=== PATIENT | female | born 1960 | race Hispanic/Latino ===

== ENCOUNTER 2018-05-05 11:34 | Emergency (ER) | payer BC, OTHER, SELFPAY ==
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
[2018-05-05] MEDS ORDERED: ACETAMINOPHEN 500 MG TAB ONE ×2 (13:34→13:35)
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
[2018-05-05] MEDS ORDERED: ONDANSETRON 4 MG (ODT) TAB ONE (13:35)
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
== END 2018-05-05 13:45 | disposition home or self-care (01) ==
LOC: ER 11:34
DX: R51 Headache (principal); M54.2 Cervicalgia; W20.8XXA Other cause of strike by thrown, projected or falling object, initial encounter; Y93.9 Activity, unspecified
CPT/HCPCS: 70450; 72125; 99284

== ENCOUNTER 2019-05-05 15:51 | Emergency (ER) | payer OTHER, SELFPAY ==
--- NOTE | 2019-05-05 16:58 | ER ---
Nurse's Notes [facility] Name: Vaishali Macias Age: 59 yrs Sex: Female : 1960 Arrival Date: 05/05/2019 Time: 15:55 Bed 25 Private MD: Diagnosis: Pain in left forearm;Avulsion fracture of head of left humerus Presentation: 05/05 16:00 Presenting complaint: Patient states: "I tripped and my arm got caught in a ladder so I aa5 hurt my left arm last Friday". Pt c/o left arm pain. Pt states "[facility] they don't have the x-ray results yet and they sent me here because of my pain". Transition of care: patient was not received from another setting of care. Onset of symptoms was April 2019. Risk Assessment: Do you want to hurt yourself or someone else? Patient reports no desire to harm self or others. Initial Sepsis Screen: Does the patient meet any 2 criteria? No. Patient's initial sepsis screen is negative. Does the patient have a suspected source of infection? No. Patient's initial sepsis screen is negative. Care prior to arrival: None. 16:00 Acuity: GRACIELA 4 aa5 16:00 Method Of Arrival: Ambulatory aa5 Historical: - Allergies: 16:02 Aspirin; aa5 16:02 PENICILLINS; aa5 - PMHx: 16:02 Diabetes - NIDDM; High Cholesterol; neuropathy; Thyroid problem; aa5 - PSHx: 16:02 ; Hysterectomy; aa5 - Immunization history:: Flu vaccine is not up to date. - Social history:: Smoking status: Patient/guardian denies using tobacco. - Ebola Screening: : No symptoms or risks identified at this time. Screenin:25 Abuse screen: Denies threats or abuse. Denies injuries from another. Nutritional mg2 screening: No deficits noted. Tuberculosis screening: No symptoms or risk factors identified. Fall Risk Fall in past 12 months (25 points). Assessment: 17:11 General: Appears in no apparent distress. comfortable, Behavior is calm, cooperative. mg2 Pain: Complains of pain in left forearm Pain does not radiate. Pain currently is 5 out of 10 on a pain scale. Quality of pain is described as aching, Pain began gradually. Neuro: Level of Consciousness is awake, alert, obeys commands, Oriented to person, place, time, situation. Cardiovascular: Capillary refill < 3 seconds Patient's skin is warm and dry. Respiratory: Airway is patent Respiratory effort is even, unlabored, Respiratory pattern is regular, symmetrical. GI: No signs and/or symptoms were reported involving the gastrointestinal system. : No signs and/or symptoms were reported regarding the genitourinary system. EENT: No signs and/or symptoms were reported regarding the EENT system. Derm: Skin is intact, is healthy with good turgor, Skin is pink, warm \\T\\ dry. normal. Musculoskeletal: Circulation, motion, and sensation intact. Capillary refill < 3 seconds, Reports pain in left forearm. Vital Signs: 16:03 BP 125 / 71; Pulse 83; Resp 16 S; Temp 98.6(TE); Pulse Ox 96% on R/A; Weight 84.82 kg aa5 (R); Height 5 ft. 2 in. (157.48 cm) (R); Pain 10/10; 17:27 BP 120 / 78; Pulse 80; Resp 18; Temp 98; Pulse Ox 100% on R/A; mg2 16:03 Body Mass Index 34.20 (84.82 kg, 157.48 cm) aa5 ED Course: 15:55 Patient arrived in ED. jg7 16:00 Arm band placed on. aa5 16:02 Triage completed. aa5 16:04 [facility]oun[facility] Nichole [facility]C [facility]. kb 16:04 Audi Rodríguez MD is Attending Physician. kb 16:47 Humerus Left XRAY In Process Unspecified. EDMS 16:47 Forearm Left XRAY In Process Unspecified. EDMS 16:57 Juan F Harper, RN is Primary Nurse. mg2 17:25 No provider procedures requiring assistance completed. Patient did not have IV access mg2 during this emergency room visit. Sling applied to left arm. 17:27 Patient has correct armband on for positive identification. mg2 Administered Medications: No medications were administered Outcome: 16:57 Discharge ordered by . kb 17:28 Discharged to home ambulatory. mg2 17:28 Condition: stable 17:28 Discharge instructions given to patient, Instructed on discharge instructions, follow up and referral plans. medication usage, Demonstrated understanding of instructions, follow-up care, medications, Prescriptions given X 1. 17:28 Patient left the ED. mg2 Signatures: Dispatcher [employer] EDMS Mouna Nichole, SCREEN VENT BINDER-C SCREEN VENT BINDER-Carmella Rain RN RN aa5 Juan F Harper RN RN mg2 Aurelia Cohen jg7 Corrections: (The following items were deleted from the chart) 16:03 16:00 Presenting complaint: Patient states: "I tripped and my arm got caught in a aa5 ladder so I hurt my left arm last Friday". Pt c/o left arm pain. aa5 16:04 16:03 BP 125 / 71; Pulse 83bpm; Resp 16bpm; Spontaneous; Pulse Ox 96% RA; Temp 98.6F aa5 Temporal; 84.82 kg Reported; Height 5 ft. 2 in. Reported; BMI: 34.2; aa5
--- NOTE | 2019-05-05 16:58 | EDPHYS ---
Physician Documentation [facility] Name: Vaishali Macias Age: 59 yrs Sex: Female : 1960 Arrival Date: 05/05/2019 Time: 15:55 Bed 25 Private MD: ED Physician Audi Rodríguez HPI: 05/05 16:30 This 59 yrs old Female presents to ER via Ambulatory with complaints of Arm kb Pain. 16:30 The patient or guardian complains of pain, that is acute. The complaints affect the kb left upper arm and left forearm. Context: The problem was sustained at work, resulted from a fall, while walking. Onset: The symptoms/episode began/occurred 2 day(s) ago. Treatment prior to arrival includes: no previous treatment. Modifying factors: The symptoms are alleviated by nothing. the symptoms are aggravated by movement. Associated signs and symptoms: Pertinent positives: pain, swelling. Severity of symptoms: At their worst the symptoms were moderate, in the emergency department the symptoms are unchanged. The patient has not experienced similar symptoms in the past. Pt reports she was tripped by another employee accidentally and fell with arm through a ladder that was propped up on wall. Went to and was told x-rays were negative, but she is still having pain to forearm with swelling. States they didn't x-ray the forearm. 16:32 The patient has been recently seen at an urgent care. kb Historical: - Allergies: 16:02 Aspirin; aa5 16:02 PENICILLINS; aa5 - PMHx: 16:02 Diabetes - NIDDM; High Cholesterol; neuropathy; Thyroid problem; aa5 - PSHx: 16:02 ; Hysterectomy; aa5 - Immunization history:: Flu vaccine is not up to date. - Social history:: Smoking status: Patient/guardian denies using tobacco. - Ebola Screening: : No symptoms or risks identified at this time. ROS: 16:32 Constitutional: Negative for fever, chills, and weight loss, ENT: Negative for injury, kb pain, and discharge, Neck: Negative for injury, pain, and swelling, Cardiovascular: Negative for chest pain, palpitations, and edema, Respiratory: Negative for shortness of breath, cough, wheezing, and pleuritic chest pain, Abdomen/GI: Negative for abdominal pain, nausea, vomiting, diarrhea, and constipation, Back: Negative for injury and pain, Skin: Negative for injury, rash, and discoloration, Neuro: Negative for headache, weakness, numbness, tingling, and seizure. 16:32 MS/extremity: Positive for pain, swelling, tenderness, of the left forearm and left upper arm. Exam: 16:32 Constitutional: This is a well developed, well nourished patient who is awake, alert, kb and in no acute distress. Head/Face: Normocephalic, atraumatic. ENT: Nares patent. No nasal discharge, no septal abnormalities noted. Tympanic membranes are normal and external auditory canals are clear. Oropharynx with no redness, swelling, or masses, exudates, or evidence of obstruction, uvula midline. Mucous membranes moist. Neck: Trachea midline, no thyromegaly or masses palpated, and no cervical lymphadenopathy. Supple, full range of motion without nuchal rigidity, or vertebral point tenderness. No Meningismus. Chest/axilla: Normal chest wall appearance and motion. Nontender with no deformity. No lesions are appreciated. Cardiovascular: Regular rate and rhythm with a normal S1 and S2. No gallops, murmurs, or rubs. Normal PMI, no JVD. No pulse deficits. Respiratory: Lungs have equal breath sounds bilaterally, clear to auscultation and percussion. No rales, rhonchi or wheezes noted. No increased work of breathing, no retractions or nasal flaring. Abdomen/GI: Soft, non-tender, with normal bowel sounds. No distension or tympany. No guarding or rebound. No evidence of tenderness throughout. Skin: Warm, dry with normal turgor. Normal color with no rashes, no lesions, and no evidence of cellulitis. Neuro: Awake and alert, GCS 15, oriented to person, place, time, and situation. Cranial nerves II-XII grossly intact. Motor strength 5/5 in all extremities. Sensory grossly intact. Cerebellar exam normal. Normal gait. 16:32 Musculoskeletal/extremity: Extremities: grossly normal except: noted in the left forearm and left upper arm: pain, swelling, tenderness, ROM: intact in all extremities, Circulation is intact in all extremities. Sensation intact. Vital Signs: 16:03 BP 125 / 71; Pulse 83; Resp 16 S; Temp 98.6(TE); Pulse Ox 96% on R/A; Weight 84.82 kg aa5 (R); Height 5 ft. 2 in. (157.48 cm) (R); Pain 10/; 17:27 BP 120 / 78; Pulse 80; Resp 18; Temp 98; Pulse Ox 100% on R/A; mg2 16:03 Body Mass Index 34.20 (84.82 kg, 157.48 cm) aa5 MDM: 16:05 Patient medically screened. kb 16:37 Data reviewed: vital signs, nurses notes. Data interpreted: Pulse oximetry: on room air kb is 96 %. Interpretation: normal. Counseling: I had a detailed discussion with the patient and/or guardian regarding: the historical points, exam findings, and any diagnostic results supporting the discharge/admit diagnosis, radiology results, the need for outpatient follow up, a orthopedic surgeon, to return to the emergency department if symptoms worsen or persist or if there are any questions or concerns that arise at home. 17:07 Test interpretation: by ED physician or midlevel provider: plain radiologic studies, kb fracture head of left humerus . 05/05 16:13 Order name: Humerus Left XRAY; Complete Time: 17:07 kb 05/05 16:13 Order name: Forearm Left XRAY; Complete Time: 17:11 kb 05/05 17:26 Order name: Sling; Complete Time: 17:26 mg2 Administered Medications: No medications were administered Disposition: 05/06 07:26 Co-signature as Attending Physician, Audi Rodríguez MD I agree with the assessment and audie plan of care. Disposition: 05/05/19 16:57 Discharged to Home. Impression: Pain in left forearm, Avulsion fracture of head of left humerus. - Condition is Stable. - Discharge Instructions: Musculoskeletal Pain, Humerus Fracture Treated With Immobilization, [id number], Forearm Fracture, [id number]. - Prescriptions for Tylenol- Codeine #3 300-30 mg Oral Tablet - take 2 tablets by ORAL route every 6 hours As needed; 16 tablet. - Medication Reconciliation Form, Thank You Letter, Antibiotic Education, Prescription Opioid Use form. - Follow up: Emergency Department; When: As needed; Reason: Worsening of condition. Follow up: Private Physician; When: 2 - 3 days; Reason: Recheck today's complaints, Continuance of care, Re-evaluation by your physician. Signatures: Dispatcher [employer] Mouna Gonzales, ASBESTOS REMOVER-C ASBESTOS REMOVER-Audi Lassiter MD MD cha Calderon, Audri, RN RN aa5 Juan F Harper, RN RN mg2 Corrections: (The following items were deleted from the chart) 05/05 16:56 16:37 Counseling: I had a detailed discussion with the patient and/or guardian sathya regarding: the historical points, exam findings, and any diagnostic results supporting the discharge/admit diagnosis, radiology results, the need for outpatient follow up, a family practitioner, to return to the emergency department if symptoms worsen or persist or if there are any questions or concerns that arise at home, kb 17:26 16:56 Splint - Sugar Tong - Forearm ordered. kb mg2 17:28 16:57 05/05/2019 16:57 Discharged to Home. Impression: Pain in left forearm; Avulsion mg2 fracture of head of left humerus. Condition is Stable. Forms are Medication Reconciliation Form, Thank You Letter, Antibiotic Education, Prescription Opioid Use. Follow up: Emergency Department; When: As needed; Reason: Worsening of condition. Follow up: Private Physician; When: 2 - 3 days; Reason: Recheck today's complaints, Continuance of care, Re-evaluation by your physician. kb
--- NOTE | 2019-05-05 17:02 | RAD REPORT ---
EXAM DESCRIPTION: RAD - Humerus Left - 05/05/2019 4:46 pm CLINICAL HISTORY: Persistent arm pain following injury 1 week earlier COMPARISON: None. FINDINGS: Small sagittally oriented fracture plane is seen along the posterior lateral margin of the humeral head. No distraction or angulation deformity of the small fracture fragment. No dislocation of the humeral head. No other fracture changes. No foreign body or other soft tissue abnormality. IMPRESSION: Small fracture line is present along the posterolateral left humeral head. No distractio n or angulation deformity.
--- NOTE | 2019-05-05 17:05 | RAD REPORT ---
EXAM DESCRIPTION: RAD - Forearm Left - 05/05/2019 4:47 pm CLINICAL HISTORY: Persistent arm pain following injury 1 week earlier COMPARISON: None. FINDINGS: No acute or subacute fracture change. No dislocation or periosteal reaction. Patient has a negative ulnar variance configuration. No acute carpal bone finding. Degenerative change present at the trapezial first metacarpal articulation. No foreign body or other soft tissue abnormality. IMPRESSION: No fracture or acute bone finding.
[2019-05-05 17:38] VITALS: BP 120/78; TEMP 98; O2SAT 100
== END 2019-05-05 17:28 | disposition home or self-care (01) ==
LOC: ER 15:51
DX: S42.302A Unspecified fracture of shaft of humerus, left arm, initial encounter for closed fracture (principal); M79.632 Pain in left forearm; W01.198A Fall on same level from slipping, tripping and stumbling with subsequent striking against other object, initial encounter; Y93.9 Activity, unspecified; Y92.9 Unspecified place or not applicable; Z88.0 Allergy status to penicillin
CPT/HCPCS: 99283

== ENCOUNTER 2020-03-06 14:35 | Emergency (ER) | payer SELFPAY ==
[2020-03-06 14:58] LABS: Absolute Lymphocytes (CBC) 2.4 K/uL (0.7-4.9); Basophils % 0.8 % (0-1.3); Hematocrit 39.7 % (36.0-45.0); Lymphocytes % 39.2 % (15.3-44.8); MPV 8.5 fL (7.6-11.3)
[2020-03-06 15:02] LABS: Protime INR 0.95
--- OUTSIDE RECORDS SUMMARY | 2020-03-06 15:07 | XMS REPORT | Continuity of Care Document ---
:1960 Author Organization [facility] t Address [address] [place] [address] [address]. [address] [place] [address] Care Team Providers Name Role Phone Sharon Calderon Attending Clinician Problems This patient has no known problems. Allergies, Adverse Reactions, Alerts This patient has no known allergies or adverse reactions. Medications This patient has no known medications. Procedures This patient has no known procedures. Encounters Start End Encounter Admission Attending Care Care Encounter Source Date/Time Date/Time Type Type Clinicians Facility Department ID 2019-08-24 2019-08-24 Emergency Teresita [facility] [id number] 18:31:31 21:20:00 Kandice Calderon [id number] Jenny [id number] [place] [id number] Results This patient has no known results.
[2020-03-06] MEDS ORDERED: ONDANSETRON 4 MG/2 ML VIAL ONE (15:08)
[2020-03-06] MEDS ORDERED: NA CHLORIDE 0.9% 1,000 ML ONE (15:08)
[2020-03-06] MEDS ORDERED: MECLIZINE HCL 12.5 MG TAB ONE (15:08)
[2020-03-06 15:17] LABS: BUN Blood Urea Nitrogen 16 mg/dL (7-18); Bicarbonate 25 mmol/L (21-32); Glucose Level 131 mg/dL (74-106); Potassium 4.3 mmol/L (3.5-5.1); Sodium Level 138 mmol/L (136-145); Troponin (Emerg Dept Use Only) < 0.02 ng/mL (0.0-0.045)
--- NOTE | 2020-03-06 15:27 | RAD REPORT ---
EXAM DESCRIPTION: CT - Head Brain Wo Cont - 03/06/2020 3:15 pm CLINICAL HISTORY: DIZZINESS, weakness COMPARISON: No comparisons TECHNIQUE: Axial 5 mm thick images of the head were obtained without IV contrast. All CT scans are performed using dose optimization technique as appropriate and may include automated exposure control or mA/KV adjustment according to patient size. FINDINGS: No intracranial hemorrhage, mass, edema or shift of mid-line structures. No acute infarcti on changes seen. No abnormal extra-axial fluid collections. Ventricles are normal. Mastoid air cells are underpneumatized. Significant frontal, ethmoid and sphenoid sinus mucosal thick ening changes are present. There is very minimal visualization of the maxillary sinuses. No acute bony findings. IMPRESSION: No intracranial abnormality identified. Paranasal sinus disease throughout the frontal, ethmoid and sphenoid sinuses. Maxillary sinuses are n ot adequately visualized.
--- NOTE | 2020-03-06 17:05 | RAD REPORT ---
EXAM DESCRIPTION: MRI - Brain Wo Cont - 03/06/2020 4:53 pm CLINICAL HISTORY: DIZZINESS COMPARISON: Head Brain Wo Cont dated 03/06/2020 TECHNIQUE: Sagittal T1-weighted images were obtained along with axial PD, heavily T2-weighted and T2 -FLAIR images. Axial DWI and ADC mapping sequences were also obtained along with coronal heavily T2-w eighted images. FINDINGS: No intracranial hemorrhage, mass or acute infarction. There is no edema or shift of midlin e structures. No extra-axial fluid collections. Dye-matter/white matter junction is preserved. Signa l voids are seen as a normal finding in the major intracranial vessels. No globe or orbital content abnormality. No sella or supra sella abnormality. No acute mastoid finding. Paranasal sinus disease again noted as detailed on the earlier CT study. IMPRESSION: No infarction or other acute intracranial finding.
--- NOTE | 2020-03-06 17:11 | ER ---
Nurse's Notes [facility] Name: Vaishali Macias Age: 60 yrs Sex: Female : 1960 Arrival Date: 03/06/2020 Time: 14:39 Bed 17 Private MD: Diagnosis: Vertigo Presentation: 03/06 14:39 Chief complaint: Chief complaint: Patient states: acute onset of dizziness. Generalized aa5 weakness noted in triage. 14:39 Acuity: GRACIELA 2 aa5 14:39 Method Of Arrival: Wheelchair aa5 14:39 Coronavirus screen: Client denies travel out of the [place] in the last 14 days. At this aa5 time, the client does not indicate any symptoms associated with coronavirus-19. Ebola Screen: Patient negative for fever greater than or equal to 101.5 degrees Fahrenheit, and additional compatible Ebola Virus Disease symptoms. Initial Sepsis Screen: Does the patient meet any 2 criteria? No. Patient's initial sepsis screen is negative. Does the patient have a suspected source of infection? No. Patient's initial sepsis screen is negative. Risk Assessment: Do you want to hurt yourself or someone else? Patient reports no desire to harm self or others. Onset of symptoms was March 06, 2020. Historical: - Allergies: 14:40 Aspirin; aa5 14:40 PENICILLINS; aa5 14:40 NSAIDS; aa5 - PMHx: 14:40 Diabetes - NIDDM; High Cholesterol; neuropathy; Thyroid problem; aa5 - PSHx: 14:40 ; Hysterectomy; aa5 - Immunization history:: Adult Immunizations unknown. - Social history:: Smoking status: Patient denies any tobacco usage or history of. - Family history:: not pertinent. - Hospitalizations: : No recent hospitalization is reported. Screenin:19 Abuse screen: Denies threats or abuse. Nutritional screening: No deficits noted. tw2 Tuberculosis screening: No symptoms or risk factors identified. Fall Risk Secondary diagnosis (15 points) impaired mobility, weakness. Assessment: 14:40 General: Appears uncomfortable, obese, well groomed, Behavior is appropriate for age. tw2 Pain: Denies pain. Neuro: Level of Consciousness is awake, alert, obeys commands, Oriented to person, place, time, situation, Reports dizziness, weakness since "just a little bit ago while i was at work, i just got dizzy and felt like i couldn't move or do anything". Cardiovascular: Heart tones S1 S2 Patient's skin is warm and dry. Respiratory: Airway is patent Respiratory effort is even, unlabored, Respiratory pattern is regular, symmetrical, Breath sounds are clear bilaterally. GI: Abdomen is round non-distended, obese, Bowel sounds present X 4 quads. : No signs and/or symptoms were reported regarding the genitourinary system. EENT: No signs and/or symptoms were reported regarding the EENT system. Derm: No signs and/or symptoms reported regarding the dermatologic system. Musculoskeletal: Circulation, motion, and sensation intact. Range of motion: intact in all extremities. 14:40 Reassessment: pts shirt is wet upon arrival to the ER. tw2 16:14 Reassessment: Patient appears in no apparent distress at this time. Patient and/or tw2 family updated on plan of care and expected duration. Pain level reassessed. Patient is alert, oriented x 3, equal unlabored respirations, skin warm/dry/pink. Patient states feeling better. Patient states symptoms have improved. 16:40 Reassessment: pt taken to MRI via w/c at this time. tw2 17:05 Reassessment: Patient appears in no apparent distress at this time. Patient and/or tw2 family updated on plan of care and expected duration. Pain level reassessed. Patient is alert, oriented x 3, equal unlabored respirations, skin warm/dry/pink. pt back from MRI at this time, needing to urinate, specimen cup provided. 17:16 Reassessment: provider at bedside at this time with results. tw2 17:28 Reassessment: Patient appears in no apparent distress at this time. Patient and/or tw2 family updated on plan of care and expected duration. Pain level reassessed. Patient is alert, oriented x 3, equal unlabored respirations, skin warm/dry/pink. Vital Signs: 14:39 BP 113 / 48; Pulse 72; Resp 18 S; Temp 98.0(O); Pulse Ox 100% on R/A; aa5 15:30 BP 116 / 55; Pulse 64; Resp 17; Pulse Ox 98% on R/A; tw2 16:10 BP 115 / 57; Pulse 66; Resp 17; Pulse Ox 100% on R/A; tw2 17:17 BP 128 / 63; Pulse 69; Resp 17; Pulse Ox 100% on R/A; tw2 ED Course: 14:39 Patient arrived in ED. iw 14:39 Alexandra Villalobos RN is Primary Nurse. tw2 14:40 Inserted saline lock: 20 gauge in left antecubital area, using aseptic technique. Blood tw2 collected. 14:40 Arm band placed on. aa5 14:40 Placed in gown. Bed in low position. Pulse ox on. NIBP on. tw2 14:41 Triage completed. aa5 14:42 Solo Huerta MD is Attending Physician. rn 15:15 CT Head Brain wo Cont In Process Unspecified. EDMS 16:51 Brain Wo Cont MRI In Process Unspecified. EDMS 17:11 Jim Castle MD is Referral Physician. rn 17:28 No provider procedures requiring assistance completed. IV discontinued, intact, tw2 bleeding controlled, No redness/swelling at site. Pressure dressing applied. Administered Medications: 15:00 Drug: Zofran (Ondansetron) 4 mg Route: IVP; Site: left antecubital; tw2 16:31 Follow up: Response: No adverse reaction tw2 15:00 Drug: NS 0.9% 1000 ml Route: IV; Rate: 1000 ml; Site: left antecubital; tw2 16:25 Follow up: Response: No adverse reaction; IV Status: Completed infusion; IV Intake: tw2 1000ml 15:07 Drug: Meclizine 50 mg Route: PO; tw2 16:31 Follow up: Response: No adverse reaction; Marked relief of symptoms tw2 Point of Care Testing: Blood Glucose: 14:40 Blood Glucose: 131 mg/dL; tw2 14:40 per JOANA Lucero tw2 Ranges: Intake: 16:25 IV: 1000ml; Total: 1000ml. tw2 Outcome: 17:11 Discharge ordered by . rn 17:28 Discharged to home via ambulance. tw2 17:28 Condition: stable 17:28 Discharge instructions given to patient, Instructed on discharge instructions, follow up and referral plans. no drinking with medication, no driving heavy equipment, medication usage, Demonstrated understanding of instructions, follow-up care, medications, Prescriptions given X 2. 17:28 Patient left the ED. tw2 Signatures: Dispatcher [employer] EDJazmine Somers RN RN Solo Lora MD MD rn Calderon, Audri, RN RN aa5 Alexandra Villalobos RN RN tw2 Corrections: (The following items were deleted from the chart) 14:41 14:39 Chief complaint: caroline2 aa5
--- NOTE | 2020-03-06 17:12 | EDPHYS ---
Physician Documentation [facility] Name: Vaishali Macias Age: 60 yrs Sex: Female : 1960 Arrival Date: 03/06/2020 Time: 14:39 Bed 17 Private MD: ED Physician Solo Huerta HPI: 03/06 14:55 This 60 yrs old Female presents to ER via Wheelchair with complaints of rn dizziness. 14:55 The patient presents with sense of spinning, vertigo. Onset: The symptoms/episode rn began/occurred just prior to arrival. Modifying factors: The symptoms are alleviated by closing eyes, holding head still, the symptoms are aggravated by movement of head, standing up, changing position. Associated signs and symptoms: Pertinent positives: nausea, Pertinent negatives: focal weakness, head injury, headache, seizure, shortness of breath, syncope. Severity of symptoms: At their worst the symptoms were moderate in the emergency department the symptoms are unchanged. The patient has not experienced similar symptoms in the past. The patient has not recently seen a physician. Historical: - Allergies: 14:40 Aspirin; aa5 14:40 PENICILLINS; aa5 14:40 NSAIDS; aa5 - PMHx: 14:40 Diabetes - NIDDM; High Cholesterol; neuropathy; Thyroid problem; aa5 - PSHx: 14:40 ; Hysterectomy; aa5 - Immunization history:: Adult Immunizations unknown. - Social history:: Smoking status: Patient denies any tobacco usage or history of. - Family history:: not pertinent. - Hospitalizations: : No recent hospitalization is reported. ROS: 14:55 Constitutional: Negative for fever, chills, and weight loss, Eyes: Negative for injury, rn pain, redness, and discharge, Neck: Negative for injury, pain, and swelling, Cardiovascular: Negative for chest pain, palpitations, and edema, Respiratory: Negative for shortness of breath, cough, wheezing, and pleuritic chest pain, Abdomen/GI: Negative for abdominal pain, vomiting, diarrhea, and constipation, MS/Extremity: Negative for injury and deformity, Skin: Negative for injury, rash, and discoloration, Neuro: Negative for headache, numbness, tingling, and seizure. Exam: 14:55 Constitutional: This is a well developed, well nourished patient who is awake, alert, rn appears anxious and hyperventilating Head/Face: Normocephalic, atraumatic. Eyes: Pupils equal round and reactive to light, extra-ocular motions intact. Lids and lashes normal. Conjunctiva and sclera are non-icteric and not injected. Cornea within normal limits. Periorbital areas with no swelling, redness, or edema. Cardiovascular: Regular rate and rhythm. No pulse deficits. Respiratory: + hyperventilating, speaking full sentences once calmed down Abdomen/GI: soft, non-tender Skin: Warm, dry MS/ Extremity: Pulses equal, no cyanosis. Neurovascular intact. Full, normal range of motion. Equal circumference. Neuro: Awake and alert, GCS 15, oriented to person, place, time, and situation. Cranial nerves II-XII grossly intact. Motor strength 5/5 in all extremities. Sensory grossly intact. Vital Signs: 14:39 BP 113 / 48; Pulse 72; Resp 18 S; Temp 98.0(O); Pulse Ox 100% on R/A; aa5 15:30 BP 116 / 55; Pulse 64; Resp 17; Pulse Ox 98% on R/A; tw2 16:10 BP 115 / 57; Pulse 66; Resp 17; Pulse Ox 100% on R/A; tw2 17:17 BP 128 / 63; Pulse 69; Resp 17; Pulse Ox 100% on R/A; tw2 MDM: 14:42 Patient medically screened. rn 17:05 Differential diagnosis: cardiac arrhythmia, generalized weakness, hypovolemia, rn idiopathic dizziness, near-syncope, TIA, vertigo. Differential diagnosis: CVA. Data reviewed: vital signs, nurses notes, lab test result(s). Data reviewed: radiologic studies, CT scan, and as a result, I will discharge patient. Counseling: I had a detailed discussion with the patient and/or guardian regarding: the historical points, exam findings, and any diagnostic results supporting the discharge/admit diagnosis, lab results, radiology results, the need for outpatient follow up, to return to the emergency department if symptoms worsen or persist or if there are any questions or concerns that arise at home. Response to treatment: the patient's symptoms have markedly improved after treatment. Special discussion: I discussed with the patient/guardian in detail that at this point there is no indication for admission to the hospital. It is understood, however, that if the symptoms persist or worsen the patient needs to return immediately for re-evaluation. Based on the history and exam findings, there is no indication for further emergent testing or inpatient evaluation. I discussed with the patient/guardian the need to see the neurologist for further evaluation of the symptoms. 17:18 ED course: Much better, sitting up, able to turn head without dizziness or nausea. MRI rn no acute findings.. 03/06 14:43 Order name: Basic Metabolic Panel; Complete Time: 15:23 rn 03/06 14:43 Order name: CBC with Diff; Complete Time: 15:23 rn 03/06 14:43 Order name: Magnesium; Complete Time: 15:23 rn 03/06 14:43 Order name: Protime (+inr); Complete Time: 15:23 rn 03/06 14:43 Order name: Ptt, Activated; Complete Time: 15: rn 03/06 14:43 Order name: Troponin (emerg Dept Use Only); Complete Time: 15:23 rn 03/06 14:43 Order name: CT Head Brain wo Cont; Complete Time: 15:43 rn 03/06 14:43 Order name: EKG; Complete Time: 14:44 rn 03/06 14:43 Order name: Cardiac monitoring; Complete Time: 15:04 rn 03/06 15:26 Order name: Brain Wo Cont MRI; Complete Time: 17:11 rn 03/06 17:21 Order name: Urine Dipstick--Ancillary (enter results) bd 03/06 14:43 Order name: EKG - Nurse/Tech; Complete Time: 15:04 rn 03/06 14:43 Order name: IV Saline Lock; Complete Time: 14:44 rn 03/06 14:43 Order name: Labs collected and sent; Complete Time: 14:44 rn 03/06 14:43 Order name: NPO; Complete Time: 14:44 rn 03/06 14:43 Order name: O2 Per Protocol; Complete Time: 14:44 rn 03/06 14:43 Order name: O2 Sat Monitoring; Complete Time: 14:44 rn 03/06 14:43 Order name: Urine Dipstick-Ancillary (obtain specimen); Complete Time: 17:15 rn Administered Medications: 15:00 Drug: Zofran (Ondansetron) 4 mg Route: IVP; Site: left antecubital; tw2 16:31 Follow up: Response: No adverse reaction tw2 15:00 Drug: NS 0.9% 1000 ml Route: IV; Rate: 1000 ml; Site: left antecubital; tw2 16:25 Follow up: Response: No adverse reaction; IV Status: Completed infusion; IV Intake: tw2 1000ml 15:07 Drug: Meclizine 50 mg Route: PO; tw2 16:31 Follow up: Response: No adverse reaction; Marked relief of symptoms tw2 Point of Care Testing: Blood Glucose: 14:40 Blood Glucose: 131 mg/dL; tw2 14:40 per JOANA Lucero tw2 Ranges: Critical Glucose Levels:Adult <50 mg/dl or >400 mg/dl <40 mg/dl or >180 mg/dl Disposition: 03/06/20 17:11 Discharged to Home. Impression: Vertigo. - Condition is Stable. - Discharge Instructions: Vertigo. - Prescriptions for Zofran ODT 4 mg Oral tablet,disintegrating - place 1 tablet by TRANSLINGUAL route every 8 hours As needed; 20 tablet. Meclizine 25 mg Oral Tablet - take 1 tablet by ORAL route every 8 hours As needed; 30 tablet. - Medication Reconciliation Form, Thank You Letter, Antibiotic Education, Prescription Opioid Use, Work release form form. - Follow up: Jim [facility]; When: As needed; Reason: Recheck today's complaints, Re-evaluation by your physician. - Problem is new. - Symptoms have improved. Signatures: Dispatcher [employer] EDMS Solo Huerta MD MD rn Calderon, Audri, RN RN aa5 Alexandra Villalobos RN RN tw2 Corrections: (The following items were deleted from the chart) 17:28 17:11 03/06/2020 17:11 Discharged to Home. Impression: Vertigo. Condition is Stable. tw2 Discharge Instructions: Vertigo. Prescriptions for Zofran ODT 4 mg Oral tablet,disintegrating - place 1 tablet by TRANSLINGUAL route every 8 hours As needed; 20 tablet, Meclizine 25 mg Oral Tablet - take 1 tablet by ORAL route every 8 hours As needed; 30 tablet. and Forms are Medication Reconciliation Form, Thank You Letter, Antibiotic Education, Prescription Opioid Use. Follow up: Jim Castle; When: As needed; Reason: Recheck today's complaints, Re-evaluation by your physician. Problem is new. Symptoms have improved. rn
[2020-03-06 17:42] LABS: Urine Blood NEGATIVE (NEG); Urine Glucose NEGATIVE (NEG); Urine Protein NEGATIVE (NEG); Urine Specific Gravity 1.015 (1.005-1.030)
--- NOTE | 2020-03-07 07:01 | EKG ---
Test Date: 2020-03-06 Test Time: 14:56:52 Checkout Operator: BOBBY MEASUREMENT RESULTS: Intervals: Rate: 60 IA: 180 QRSD: 78 QT: 388 QTc: 388 [place]: P: 43 IA: 180 QRS: 55 T: 58 INTERPRETIVE STATEMENTS: Normal sinus rhythm Low voltage QRS Increased R/S ratio in V1, consider early transition or posterior infarct Abnormal ECG Compared to ECG 01/08/2017 13:15:58 Low QRS voltage now present Myocardial infarct finding now present Electronically Signed On 03-07-20 07:00:10 CDT by Oj Monsalve
== END 2020-03-06 17:28 | disposition home or self-care (01) ==
LOC: ER 14:35
DX: R42 Dizziness and giddiness (principal); Z88.0 Allergy status to penicillin; Z88.6 Allergy status to analgesic agent
CPT/HCPCS: 36415; 70450; 70551; 80048; 81003; 83735; 84484; 85025; 85610; 85730; 93005; 96361; 96374; 99284; J2405; J7030; J8597

== ENCOUNTER 2022-05-02 12:32 | Emergency (ER) | payer SELFPAY ==
--- OUTSIDE RECORDS SUMMARY | 2022-05-02 12:49 | XMS REPORT | Continuity of Care Document ---
:1960 Author Organization [facility] t Address [address] [place] [address] Care Team Providers Name Role Phone PCP, PATIENT DOES NOT HAVE A Primary Care Physician Unavaila ble KANDICE SHEIKH Attending Clinician Unavailable Kandice Calderon Attending Clinician KANDICE SHEIKH Admitting Clinician Unavailable Payers Payer Name Policy Type Policy Number Effective Date Expiration Date S ource [facility] - [id number] 2019 2020 00:00:0 0 OUT OF STATE 00:00:00 Problems This patient has no known problems. Allergies, Adverse Reactions, Alerts Allergy Allergy Status Severity Reaction(s) Onset Inactive Treating Comm ents Source Name Type Date Date Clinician n Propensi Active ty to 7-12 adverse 00:00: reaction 00 to drug Aspirin Propensi Active - Oral ty to 3-22 adverse 00:00: reaction 00 to drug ASPIRIN DRUG Active Other-Cmnt 2019- Unive rs INGREDI 2-18 ity of 00:00: [place] [address] [facility] Drug Active Rash 2019- Univers INS Class 2-18 ity of 00:00: [place] [address] [facility] Propensi Active ins ty to 3-14 adverse 00:00: reaction 00 to drug Medications Ordered Filled Start Stop Current Ordering Indication Dosage Frequency Signature Comments Components Source Medication Medication Date Date Medication? Clinician (SIG) Name Name TAKE 2021-07 No CAPSULES BY 0-07 MOUTH 4 00:00: TIMES DAILY 00 TAKE 1 2022-0 No 40 TABLET BY 8-04 MOUTH ONCE 00:00: DAILY 00 TAKE 1 2022-0 No 500 TABLET BY 8-04 MOUTH TWICE 00:00: DAILY 00 simvastatin 2022-0 No 1mg 40 mg 7-12 tablet 00:00: 00 metformin 2022-0 No 1mg 500 mg 7-12 tablet 00:00: 00 levothyroxi 2022-0 No 1mcg ne 150 mcg 7-12 tablet 00:00: 00 gabapentin 2022-0 No 3mg 300 mg 7-12 capsule 00:00: 00 APPLY 1 2022-0 No PATCH 7-12 TOPICALLY 00:00: TO SKIN 00 TWICE DAILY APPLY 1 2022-0 No PATCH 7-12 TOPICALLY 00:00: TO SKIN 00 TWICE DAILY TAKE 1 2022-0 No 500 TABLET BY 7-12 MOUTH TWICE 00:00: DAILY 00 TAKE 3 2022-0 No 300 CAPSULES BY 7-12 MOUTH 4 00:00: TIMES DAILY 00 TAKE 3 2022-0 No 300 CAPSULES BY 7-12 MOUTH 4 00:00: TIMES DAILY 00 Dose 2022-0 No Unknown 7-12 00:00: 00 metformin 2022-0 No 1mg 500 mg 7-12 tablet 00:00: 00 levothyroxi 2022-0 No 1mcg ne 150 mcg 7-12 tablet 00:00: 00 gabapentin 2022-0 No 3mg 300 mg 7-12 capsule 00:00: 00 APPLY 1 2022-0 No PATCH 7-12 TOPICALLY 00:00: TO SKIN 00 TWICE DAILY APPLY 1 2022-0 No PATCH 7-12 TOPICALLY 00:00: TO SKIN 00 TWICE DAILY TAKE 1 2022-0 No 500 TABLET BY 7-12 MOUTH TWICE 00:00: DAILY 00 TAKE 3 2022-0 No 300 CAPSULES BY 7-12 MOUTH 4 00:00: TIMES DAILY 00 TAKE 3 2022-0 No 300 CAPSULES BY 7-12 MOUTH 4 00:00: TIMES DAILY 00 metformin 2022-0 No 1mg 500 mg 5-10 tablet 00:00: 00 gabapentin 2022-0 No 3mg 300 mg 5-10 capsule 00:00: 00 metformin 2022-0 No 1mg 500 mg 5-10 tablet 00:00: 00 gabapentin 2022-0 No 3mg 300 mg 5-10 capsule 00:00: 00 Ditropan XL 2022-0 No 1mg 5 mg 3-28 tablet,exte 00:00: nded 00 release levothyroxi 2-0 No 1mcg ne 150 mcg 3-28 tablet 00:00: 00 Ditropan XL 2-0 No 1mg 5 mg 3-28 tablet,exte 00:00: nded 00 release levothyroxi 2-0 No 1mcg ne 150 mcg 3-28 tablet 00:00: 00 Dose 2022-0 No Unknown 3-25 00:00: 00 Dose 2022-0 No Unknown 3-25 00:00: 00 Dose 2-0 No Unknown 3-25 00:00: 00 Dose 2-0 No Unknown 3-25 00:00: 00 Dose 2-0 No Unknown 3-25 00:00: 00 Dose 2-0 No Unknown 3-25 00:00: 00 Dose 2-0 No Unknown 3-25 00:00: 00 Dose 2-0 No Unknown 3-25 00:00: 00 Dose 2-0 No Unknown 3-22 00:00: 00 Dose 2-0 No Unknown 3-22 00:00: 00 Dose 2-0 No Unknown 3-22 00:00: 00 Dose 2-0 No Unknown 3-22 00:00: 00 Dose 2-0 No Unknown 3-22 00:00: 00 Dose 2-0 No Unknown 3-22 00:00: 00 Dose 2022-0 No Unknown 3-22 00:00: 00 Dose 2022-0 No Unknown 3-22 00:00: 00 Dose 2022-0 No Unknown 3-22 00:00: 00 Dose 2-0 No Unknown 3-22 00:00: 00 Dose 2022-0 No Unknown 3-22 00:00: 00 Dose 2022-0 No Unknown 3-22 00:00: 00 Dose 2-0 No Unknown 3-22 00:00: 00 Dose 2-0 No Unknown 3-22 00:00: 00 Dose 2-0 No Unknown 3-22 00:00: 00 Dose 2022-0 No Unknown 3-22 00:00: 00 Dose 2022-0 No Unknown 3-22 00:00: 00 Dose 2022-0 No Unknown 3-22 00:00: 00 Dose 2022-0 No Unknown 3-22 00:00: 00 Dose 2022-0 No Unknown 3-22 00:00: 00 Dose 2022-0 No Unknown 3-22 00:00: 00 Dose 2022-0 No Unknown 3-22 00:00: 00 Dose 2022-0 No Unknown 3-22 00:00: 00 Dose 2022-0 No Unknown 3-22 00:00: 00 Dose 2022-0 No Unknown 3-22 00:00: 00 Dose 2022-0 No Unknown 3-22 00:00: 00 Dose 2022-0 No Unknown 3-22 00:00: 00 Dose 2022-0 No Unknown 3-22 00:00: 00 Dose 2022-0 No Unknown 3-22 00:00: 00 Dose 2022-0 No Unknown 3-22 00:00: 00 Dose 2022-0 No Unknown 3-22 00:00: 00 Dose 2022-0 No Unknown 3-22 00:00: 00 Dose 2022-0 No Unknown 3-22 00:00: 00 Dose 2022-0 No Unknown 3-22 00:00: 00 Dose 2022-0 No Unknown 3-22 00:00: 00 Dose 2022-0 No Unknown 3-22 00:00: 00 Dose 2022-0 No Unknown 3-22 00:00: 00 Dose 2022-0 No Unknown 3-22 00:00: 00 Dose 2022-0 No Unknown 3-22 00:00: 00 Dose 2022-0 No Unknown 3-22 00:00: 00 Dose 2022-0 No Unknown 3-22 00:00: 00 Dose 2022-0 No Unknown 3-22 00:00: 00 Dose 2022-0 No Unknown 3-22 00:00: 00 Dose 2022-0 No Unknown 3-22 00:00: 00 Dose 2022-0 No Unknown 3-22 00:00: 00 Dose 2022-0 No Unknown 3-22 00:00: 00 Dose 2022-0 No Unknown 3-22 00:00: 00 Dose 2022-0 No Unknown 3-22 00:00: 00 Dose 2022-0 No Unknown 3-22 00:00: 00 Dose 2022-0 No Unknown 3-22 00:00: 00 Dose 2022-0 No Unknown 3-22 00:00: 00 Dose 2022-0 No Unknown 3-22 00:00: 00 Dose 2022-0 No Unknown 3-22 00:00: 00 Dose 2022-0 No Unknown 3-22 00:00: 00 Dose 2022-0 No Unknown 3-22 00:00: 00 Dose 2022-0 No Unknown 3-22 00:00: 00 Dose 2022-0 No Unknown 3-22 00:00: 00 Dose 2022-0 No Unknown 3-22 00:00: 00 Dose 2022-0 No Unknown 3-22 00:00: 00 Dose 2022-0 No Unknown 3-22 00:00: 00 Dose 2022-0 No Unknown 3-22 00:00: 00 Dose 2022-0 No Unknown 3-22 00:00: 00 Dose 2022-0 No Unknown 3-22 00:00: 00 Dose 2022-0 No Unknown 3-22 00:00: 00 Dose 2022-0 No Unknown 3-22 00:00: 00 Dose 2022-0 No Unknown 3-22 00:00: 00 Dose 2022-0 No Unknown 3-22 00:00: 00 Dose 2022-0 No Unknown 3-22 00:00: 00 Dose 2022-0 No Unknown 3-22 00:00: 00 Dose 2022-0 No Unknown 3-22 00:00: 00 Dose 2022-0 No Unknown 3-22 00:00: 00 Dose 2022-0 No Unknown 3-22 00:00: 00 Dose 2022-0 No Unknown 3-22 00:00: 00 Dose 2022-0 No Unknown 3-22 00:00: 00 Dose 2022-0 No Unknown 3-22 00:00: 00 Dose 2022-0 No Unknown 3-22 00:00: 00 Dose 2022-0 No Unknown 3-22 00:00: 00 Dose 2022-0 No Unknown 3-22 00:00: 00 Dose 2022-0 No Unknown 3-22 00:00: 00 Dose 2022-0 No Unknown 3-22 00:00: 00 Dose 2022-0 No Unknown 3-22 00:00: 00 Dose 2022-0 No Unknown 3-22 00:00: 00 Dose 2022-0 No Unknown 3-22 00:00: 00 Dose 2022-0 No Unknown 3-22 00:00: 00 Dose 2022-0 No Unknown 3-22 00:00: 00 Dose 2022-0 No Unknown 3-22 00:00: 00 Dose 2022-0 No Unknown 3-22 00:00: 00 Dose 2022-0 No Unknown 3-22 00:00: 00 Dose 2022-0 No Unknown 3-22 00:00: 00 Dose 2022-0 No Unknown 3-22 00:00: 00 Dose 2022-0 No Unknown 3-22 00:00: 00 Dose 2022-0 No Unknown 3-22 00:00: 00 Dose 2022-0 No Unknown 3-22 00:00: 00 Dose 2022-0 No Unknown 3-22 00:00: 00 Dose 2022-0 No Unknown 3-22 00:00: 00 Dose 2022-0 No Unknown 3-22 00:00: 00 Dose 2022-0 No Unknown 3-22 00:00: 00 Dose 2022-0 No Unknown 3-22 00:00: 00 Dose 2022-0 No Unknown 3-22 00:00: 00 Dose 2022-0 No Unknown 3-22 00:00: 00 Dose 2022-0 No Unknown 3-22 00:00: 00 Dose 2022-0 No Unknown 3-22 00:00: 00 Dose 2022-0 No Unknown 3-22 00:00: 00 Dose 2022-0 No Unknown 3-22 00:00: 00 Dose 2022-0 No Unknown 3-22 00:00: 00 Dose 2022-0 No Unknown 3-22 00:00: 00 Dose 2022-0 No Unknown 3-22 00:00: 00 Dose 2022-0 No Unknown 3-22 00:00: 00 Dose 2022-0 No Unknown 3-22 00:00: 00 Dose 2022-0 No Unknown 3-22 00:00: 00 Dose 2022-0 No Unknown 3-22 00:00: 00 Dose 2022-0 No Unknown 3-22 00:00: 00 Dose 2022-0 No Unknown 3-22 00:00: 00 Dose 2022-0 No Unknown 3-22 00:00: 00 Dose 2022-0 No Unknown 3-22 00:00: 00 Dose 2022-0 No Unknown 3-22 00:00: 00 Dose 2022-0 No Unknown 3-22 00:00: 00 Dose 2022-0 No Unknown 3-22 00:00: 00 Dose 2022-0 No Unknown 3-22 00:00: 00 Dose 2022-0 No Unknown 3-22 00:00: 00 Dose 2022-0 No Unknown 3-22 00:00: 00 Dose 2022-0 No Unknown 3-22 00:00: 00 Dose 2022-0 No Unknown 3-22 00:00: 00 Dose 2022-0 No Unknown 3-22 00:00: 00 Dose 2022-0 No Unknown 3-22 00:00: 00 Dose 2022-0 No Unknown 3-22 00:00: 00 Dose 2022-0 No Unknown 3-22 00:00: 00 Dose 2022-0 No Unknown 3-22 00:00: 00 Dose 2022-0 No Unknown 3-22 00:00: 00 Dose 2022-0 No Unknown 3-22 00:00: 00 Dose 2022-0 No Unknown 3-22 00:00: 00 Dose 2022-0 No Unknown 3-22 00:00: 00 Dose 2022-0 No Unknown 3-22 00:00: 00 Dose 2022-0 No Unknown 3-22 00:00: 00 Dose 2022-0 No Unknown 3-22 00:00: 00 Dose 2022-0 No Unknown 3-22 00:00: 00 Dose 2022-0 No Unknown 3-22 00:00: 00 Dose 2022-0 No Unknown 3-22 00:00: 00 Dose 2022-0 No Unknown 3-22 00:00: 00 Dose 2022-0 No Unknown 3-22 00:00: 00 Dose 2022-0 No Unknown 3-22 00:00: 00 Dose 2022-0 No Unknown 3-22 00:00: 00 Dose 2022-0 No Unknown 3-22 00:00: 00 Dose 2022-0 No Unknown 3-22 00:00: 00 Dose 2022-0 No Unknown 3-22 00:00: 00 Dose 2022-0 No Unknown 3-22 00:00: 00 Dose 2022-0 No Unknown 3-22 00:00: 00 Dose 2022-0 No Unknown 3-22 00:00: 00 Dose 2022-0 No Unknown 3-22 00:00: 00 Dose 2022-0 No Unknown 3-22 00:00: 00 Dose 2022-0 No Unknown 3-22 00:00: 00 Dose 2022-0 No Unknown 3-22 00:00: 00 Dose 2022-0 No Unknown 3-22 00:00: 00 Dose 2022-0 No Unknown 3-22 00:00: 00 Dose 2022-0 No Unknown 3-22 00:00: 00 Dose 2022-0 No Unknown 3-22 00:00: 00 Dose 2022-0 No Unknown 3-22 00:00: 00 Dose 2022-0 No Unknown 3-22 00:00: 00 Dose 2022-0 No Unknown 3-22 00:00: 00 Dose 2022-0 No Unknown 3-22 00:00: 00 Dose 2022-0 No Unknown 1-08 00:00: 00 gabapentin 2022-0 No 3mg 300 mg 1-08 capsule 00:00: 00 Dose 2022-0 No Unknown 1-08 00:00: 00 gabapentin 2022-0 No 3mg 300 mg 1-08 capsule 00:00: 00 simvastatin 2022-0 No 1mg 40 mg 1-07 tablet 00:00: 00 levothyroxi 2022-0 No 1mcg ne 125 mcg 1-07 tablet 00:00: 00 Dose 2022-0 No Unknown 1-07 00:00: 00 levothyroxi 2022-0 No 1mcg ne 125 mcg 1-07 tablet 00:00: 00 lidocaine 5 2022-0 No 1% % topical 1-05 patch 00:00: 00 lidocaine 5 2022-0 No 1% % topical 1-05 patch 00:00: 00 simvastatin 2022-0 No 1mg 40 mg 1-05 tablet 00:00: 00 metformin 2022-0 No 1mg 500 mg 1-05 tablet 00:00: 00 Dose 2022-0 No Unknown 1-05 00:00: 00 lidocaine 5 2022-0 No 1% % topical 1-05 patch 00:00: 00 lidocaine 5 2022-0 No 1% % topical 1-05 patch 00:00: 00 Dose 2022-0 No Unknown 1-05 00:00: 00 metformin 2022-0 No 1mg 500 mg 1-05 tablet 00:00: 00 Dose 2022-0 No Unknown 1-05 00:00: 00 lidocaine 5 2021-0 No 1% % topical 9-06 patch 00:00: 00 simvastatin 2021-0 No 1mg 40 mg 9-06 tablet 00:00: 00 metformin 2021-0 No 1mg 500 mg 9-06 tablet 00:00: 00 cyclobenzap 2021-0 No 1mg rine 5 mg 9-06 tablet 00:00: 00 levothyroxi 2021-0 No 1mcg ne 150 mcg 9-06 tablet 00:00: 00 lidocaine 5 2021-0 No 1% % topical 9- patch 00:00: 00 Dose 2021-0 No Unknown 9-06 00:00: 00 metformin 2021-0 No 1mg 500 mg 9-06 tablet 00:00: 00 cyclobenzap 2021-0 No 1mg rine 5 mg 9-06 tablet 00:00: 00 levothyroxi 2021-0 No 1mcg ne 150 mcg 9-06 tablet 00:00: 00 simvastatin 2021-0 No 1mg 40 mg 8-26 tablet 00:00: 00 metformin 2021-0 No 1mg 500 mg 8-26 tablet 00:00: 00 Dose 2021-0 No Unknown 8-26 00:00: 00 metformin 2021-0 No 1mg 500 mg 8-26 tablet 00:00: 00 nitrofurant 2021-0 No 1mg oin 6-18 macrocrysta 00:00: l 100 mg 00 capsule nitrofurant 2021-0 No 1mg oin 6-18 macrocrysta 00:00: l 100 mg 00 capsule Cipro 500 1-0 No 1mg mg tablet 11-04 00:00: 00 duloxetine 1-0 No 1mg 30 mg 5-01 capsule,del 00:00: ayed 00 release Cipro 500 1-0 No 1mg mg tablet 11-04 00:00: 00 duloxetine 2021-0 No 1mg 30 mg 5-01 capsule,del 00:00: ayed 00 release duloxetine 1-0 No 1mg 30 mg 3-26 capsule,del 00:00: ayed 00 release duloxetine 2021-0 No 1mg 30 mg 3-26 capsule,del 00:00: ayed 00 release levothyroxi 2021-0 No 1mcg ne 137 mcg 2-24 tablet 00:00: 00 levothyroxi 2021-0 No 1mcg ne 137 mcg 2-24 tablet 00:00: 00 simvastatin 2021-0 No 1mg 40 mg 2-23 tablet 00:00: 00 Ditropan XL 2021-0 No 1mg 5 mg 2-23 tablet,exte 00:00: nded 00 release metformin 2021-0 No 1mg 500 mg 2-23 tablet 00:00: 00 levothyroxi 2021-0 No 1mcg ne 125 mcg 2-23 tablet 00:00: 00 duloxetine 2021-0 No 1mg 30 mg 2-23 capsule,del 00:00: ayed 00 release gabapentin 2021-0 No 3mg 300 mg 2-23 capsule 00:00: 00 simvastatin 2021-0 No 1mg 40 mg 2-23 tablet 00:00: 00 Ditropan XL 2021-0 No 1mg 5 mg 2-23 tablet,exte 00:00: nded 00 release metformin 2021-0 No 1mg 500 mg 2-23 tablet 00:00: 00 levothyroxi 2021-0 No 1mcg ne 125 mcg 2-23 tablet 00:00: 00 duloxetine 2021-0 No 1mg 30 mg 2-23 capsule,del 00:00: ayed 00 release gabapentin 2021-0 No 3mg 300 mg 2-23 capsule 00:00: 00 levothyroxi 2020-1 No 1mcg ne 125 mcg 0-12 tablet 00:00: 00 levothyroxi 2020-1 No 1mcg ne 125 mcg 0-12 tablet 00:00: 00 mupirocin 2 2020-1 No 1% % topical 0-08 ointment 00:00: 00 mupirocin 2 2020-1 No 1% % topical 0-08 ointment 00:00: 00 levothyroxi 2020-0 No 1mcg ne 150 mcg 8-04 tablet 00:00: 00 levothyroxi 2020-0 No 1mcg ne 150 mcg 8-04 tablet 00:00: 00 simvastatin 2020-0 No 1mg 40 mg 8-01 tablet 00:00: 00 Ditropan XL 2020-0 No 1mg 5 mg 8-01 tablet,exte 00:00: nded 00 release metformin 2020-0 No 1mg 500 mg 8-01 tablet 00:00: 00 gabapentin 2020-0 No 3mg 300 mg 8-01 capsule 00:00: 00 simvastatin 2020-0 No 1mg 40 mg 8-01 tablet 00:00: 00 Ditropan XL 2020-0 No 1mg 5 mg 8-01 tablet,exte 00:00: nded 00 release metformin 2020-0 No 1mg 500 mg 8-01 tablet 00:00: 00 gabapentin 2020-0 No 3mg 300 mg 8-01 capsule 00:00: 00 simvastatin 2020-0 No 1mg 40 mg 7-25 tablet 00:00: 00 Ditropan XL 2020-0 No 1mg 5 mg 7-25 tablet,exte 00:00: nded 00 release metformin 2020-0 No 1mg 500 mg 7-25 tablet 00:00: 00 levothyroxi 2020-0 No 1mcg ne 175 mcg 7-25 tablet 00:00: 00 gabapentin 2020-0 No 3mg 300 mg 7-25 capsule 00:00: 00 simvastatin 2020-0 No 1mg 40 mg 7-25 tablet 00:00: 00 Ditropan XL 2020-0 No 1mg 5 mg 7-25 tablet,exte 00:00: nded 00 release metformin 2020-0 No 1mg 500 mg 7-25 tablet 00:00: 00 levothyroxi 2020-0 No 1mcg ne 175 mcg 7-25 tablet 00:00: 00 gabapentin 2020-0 No 3mg 300 mg 7-25 capsule 00:00: 00 levothyroxi 2020-0 No 1mcg ne 175 mcg 1-27 tablet 00:00: 00 levothyroxi 2020-0 No 1mcg ne 175 mcg 1-27 tablet 00:00: 00 simvastatin 2020-0 No 1mg 40 mg 1-25 tablet 00:00: 00 Ditropan XL 2020-0 No 1mg 5 mg 1-25 tablet,exte 00:00: nded 00 release metformin 2020-0 No 1mg 500 mg 1-25 tablet 00:00: 00 gabapentin 2020-0 No 3mg 300 mg 1-25 capsule 00:00: 00 simvastatin 2020-0 No 1mg 40 mg 1-25 tablet 00:00: 00 Ditropan XL 2020-0 No 1mg 5 mg 1-25 tablet,exte 00:00: nded 00 release metformin 2020-0 No 1mg 500 mg 1-25 tablet 00:00: 00 gabapentin 2020-0 No 3mg 300 mg 1-25 capsule 00:00: 00 metformin 2020-0 No 1mg 500 mg 1-09 tablet 00:00: 00 metformin 2020-0 No 1mg 500 mg 1-09 tablet 00:00: 00 azithromyci 2020-0 No mg n 250 mg 1-03 tablet 00:00: 00 Bromfed DM 2020-0 No 10mg/5 2 mg-30 1-03 mL mg-10 mg/5 00:00: mL oral 00 syrup azithromyci 2020-0 No mg n 250 mg 1-03 tablet 00:00: 00 Bromfed DM 2020-0 No 10mg/5 2 mg-30 1-03 mL mg-10 mg/5 00:00: mL oral 00 syrup levothyroxi 2019-1 No 1mcg ne 175 mcg 2-07 tablet 00:00: 00 levothyroxi 2019-1 No 1mcg ne 175 mcg 2-07 tablet 00:00: 00 simvastatin 2019-1 No 1mg 40 mg 1-22 tablet 00:00: 00 simvastatin 2019-1 No 1mg 40 mg 1-22 tablet 00:00: 00 gabapentin 2019-1 No 3mg 300 mg 1-07 capsule 00:00: 00 gabapentin 2019-1 No 3mg 300 mg 1-07 capsule 00:00: 00 metformin 2019-1 No 1mg 500 mg 0-10 tablet 00:00: 00 Ditropan XL 2019-1 No 1mg 5 mg 0-10 tablet,exte 00:00: nded 00 release metformin 2019-1 No 1mg 500 mg 0-10 tablet 00:00: 00 Ditropan XL 2019-1 No 1mg 5 mg 0-10 tablet,exte 00:00: nded 00 release levothyroxi 2019-0 No 1mcg ne 175 mcg 9-03 tablet 00:00: 00 levothyroxi 2019-0 No 1mcg ne 175 mcg 9-03 tablet 00:00: 00 simvastatin 2019-0 No 1mg 40 mg 8-16 tablet 00:00: 00 Ditropan XL 2019-0 No 1mg 5 mg 8-16 tablet,exte 00:00: nded 00 release metformin 2019-0 No 1mg 500 mg 8-16 tablet 00:00: 00 gabapentin 2019-0 No 3mg 300 mg 8-16 capsule 00:00: 00 simvastatin 2019-0 No 1mg 40 mg 8-16 tablet 00:00: 00 Ditropan XL 2019-0 No 1mg 5 mg 8-16 tablet,exte 00:00: nded 00 release metformin 2019-0 No 1mg 500 mg 8-16 tablet 00:00: 00 gabapentin 2019-0 No 3mg 300 mg 8-16 capsule 00:00: 00 Macrobid 2019-0 No 1mg 100 mg 6-11 capsule 00:00: 00 Macrobid 2019-0 No 1mg 100 mg 6-11 capsule 00:00: 00 Flagyl 500 2019-0 No 1mg mg tablet 6 00:00: 00 Flagyl 500 2019-0 No 1mg mg tablet 6 00:00: 00 Ditropan XL 2019-0 No 1mg 5 mg 5-14 tablet,exte 00:00: nded 00 release Ditropan XL 2019-0 No 1mg 5 mg 5-14 tablet,exte 00:00: nded 00 release levothyroxi 2019-0 No 1mcg ne 150 mcg 5-10 tablet 00:00: 00 levothyroxi 2019-0 No 1mcg ne 150 mcg 5-10 tablet 00:00: 00 levothyroxi 2019-0 No 1mcg ne 125 mcg 3-16 tablet 00:00: 00 levothyroxi 2019-0 No 1mcg ne 150 mcg 3-16 tablet 00:00: 00 levothyroxi 2019-0 No 1mcg ne 125 mcg 3-16 tablet 00:00: 00 levothyroxi 2019-0 No 1mcg ne 150 mcg 3-16 tablet 00:00: 00 simvastatin 2019-0 No 1mg 40 mg 3-15 tablet 00:00: 00 Ditropan XL 2019-0 No 1mg 5 mg 3-15 tablet,exte 00:00: nded 00 release metformin 2019-0 No 1mg 500 mg 3-15 tablet 00:00: 00 gabapentin 2019-0 No 3mg 300 mg 3-15 capsule 00:00: 00 simvastatin 2019-0 No 1mg 40 mg 3-15 tablet 00:00: 00 Ditropan XL 2019-0 No 1mg 5 mg 3-15 tablet,exte 00:00: nded 00 release metformin 2019-0 No 1mg 500 mg 3-15 tablet 00:00: 00 gabapentin 2019-0 No 3mg 300 mg 3-15 capsule 00:00: 00 Ditropan XL 2019-0 No 1mg 5 mg 1-15 tablet,exte 00:00: nded 00 release levothyroxi 2019-0 No 1mcg ne 125 mcg 1-15 tablet 00:00: 00 Ditropan XL 2019-0 No 1mg 5 mg 1-15 tablet,exte 00:00: nded 00 release levothyroxi 2019-0 No 1mcg ne 125 mcg 1-15 tablet 00:00: 00 levothyroxi 2018-1 No 1mcg ne 125 mcg 1-03 tablet 00:00: 00 levothyroxi 2018-1 No 1mcg ne 125 mcg 1-03 tablet 00:00: 00 Ditropan XL 2018-1 No 1mg 5 mg 0-13 tablet,exte 00:00: nded 00 release Ditropan XL 2018-1 No 1mg 5 mg 0-13 tablet,exte 00:00: nded 00 release simvastatin 2018-0 No 1mg 40 mg 9-15 tablet 00:00: 00 metformin 2018-0 No 1mg 500 mg 9-15 tablet 00:00: 00 levothyroxi 2018-0 No 1mcg ne 150 mcg 9-15 tablet 00:00: 00 gabapentin 2018-0 No 3mg 300 mg 9-15 capsule 00:00: 00 simvastatin 2018-0 No 1mg 40 mg 9-15 tablet 00:00: 00 metformin 2018-0 No 1mg 500 mg 9-15 tablet 00:00: 00 levothyroxi 2018-0 No 1mcg ne 150 mcg 9-15 tablet 00:00: 00 gabapentin 2018-0 No 3mg 300 mg 9-15 capsule 00:00: 00 levothyroxi 2018-0 No 1mcg ne 150 mcg 9-14 tablet 00:00: 00 levothyroxi 2018-0 No 1mcg ne 150 mcg 9-14 tablet 00:00: 00 Ditropan XL 2018-0 No 1mg 5 mg 9-04 tablet,exte 00:00: nded 00 release levothyroxi 2018-0 No 1mcg ne 150 mcg 9-04 tablet 00:00: 00 Ditropan XL 2018-0 No 1mg 5 mg 9-04 tablet,exte 00:00: nded 00 release levothyroxi 2018-0 No 1mcg ne 150 mcg 9-04 tablet 00:00: 00 levothyroxi 2018-0 No 1mcg ne 150 mcg 7-03 tablet 00:00: 00 levothyroxi 2018-0 No 1mcg ne 150 mcg 7-03 tablet 00:00: 00 simvastatin 2018-0 No 1mg 40 mg 6-30 tablet 00:00: 00 metformin 2018-0 No 1mg 500 mg 6-30 tablet 00:00: 00 gabapentin 2018-0 No 3mg 300 mg 6-30 capsule 00:00: 00 simvastatin 2018-0 No 1mg 40 mg 6-30 tablet 00:00: 00 metformin 2018-0 No 1mg 500 mg 6-30 tablet 00:00: 00 gabapentin 2018-0 No 3mg 300 mg 6-30 capsule 00:00: 00 Ditropan XL 2018-0 No 1mg 5 mg 6-11 tablet,exte 00:00: nded 00 release simvastatin 2018-0 No 1mg 40 mg 6-11 tablet 00:00: 00 metformin 2018-0 No 1mg 500 mg 6-11 tablet 00:00: 00 levothyroxi 2018-0 No 1mcg ne 125 mcg 6-11 tablet 00:00: 00 Ditropan XL 2018-0 No 1mg 5 mg 6-11 tablet,exte 00:00: nded 00 release simvastatin 2018-0 No 1mg 40 mg 6-11 tablet 00:00: 00 metformin 2018-0 No 1mg 500 mg 6-11 tablet 00:00: 00 levothyroxi 2018-0 No 1mcg ne 125 mcg 6-11 tablet 00:00: 00 levothyroxi 2018-0 No 1mcg ne 125 mcg 5-02 tablet 00:00: 00 levothyroxi 2018-0 No 1mcg ne 125 mcg 5-02 tablet 00:00: 00 gabapentin 2018-0 No 3mg 300 mg 4-18 capsule 00:00: 00 gabapentin 2018-0 No 3mg 300 mg 4-18 capsule 00:00: 00 levothyroxi 2018-0 No 1mcg ne 125 mcg 3-13 tablet 00:00: 00 levothyroxi 2018-0 No 1mcg ne 125 mcg 3-13 tablet 00:00: 00 simvastatin 2018-0 No 1mg 40 mg 3-10 tablet 00:00: 00 Ditropan XL 2018-0 No 1mg 5 mg 3-10 tablet,exte 00:00: nded 00 release metformin 2018-0 No 1mg 500 mg 3-10 tablet 00:00: 00 simvastatin 2018-0 No 1mg 40 mg 3-10 tablet 00:00: 00 Ditropan XL 2018-0 No 1mg 5 mg 3-10 tablet,exte 00:00: nded 00 release metformin 2018-0 No 1mg 500 mg 3-10 tablet 00:00: 00 Vesicare 5 2018-0 No 1mg mg tablet 3-09 00:00: 00 Vesicare 5 2018-0 No 1mg mg tablet 3- 00:00: 00 levothyroxi 2017-1 No 1mcg ne 125 mcg 1-20 tablet 00:00: 00 levothyroxi 2017-1 No 1mcg ne 125 mcg 1-20 tablet 00:00: 00 simvastatin 2017-1 No 1mg 40 mg 1-18 tablet 00:00: 00 metformin 2017-1 No 1mg 500 mg 1-18 tablet 00:00: 00 cyclobenzap 2017-1 No 1mg rine 10 mg 1-18 tablet 00:00: 00 gabapentin 2017-1 No 3mg 300 mg 1-18 capsule 00:00: 00 simvastatin 2017-1 No 1mg 40 mg 1-18 tablet 00:00: 00 metformin 2017-1 No 1mg 500 mg 1-18 tablet 00:00: 00 cyclobenzap 2017-1 No 1mg rine 10 mg 1-18 tablet 00:00: 00 gabapentin 2017-1 No 3mg 300 mg 1-18 capsule 00:00: 00 hydroxyzine 2017-1 No 1mg pamoate 25 1-18 mg capsule 00:00: 00 hydroxyzine 2017-1 No 1mg pamoate 25 1-18 mg capsule 00:00: 00 simvastatin 2017-0 No 1mg 40 mg 9-09 tablet 00:00: 00 metformin 2017-0 No 1mg 500 mg 9-09 tablet 00:00: 00 cyclobenzap 2017-0 No 1mg rine 10 mg 9-09 tablet 00:00: 00 levothyroxi 2017-0 No 1mcg ne 125 mcg 9-09 tablet 00:00: 00 hydroxyzine 2017-0 No 1mg pamoate 25 9-09 mg capsule 00:00: 00 simvastatin 2017-0 No 1mg 40 mg 9-09 tablet 00:00: 00 metformin 2017-0 No 1mg 500 mg 9-09 tablet 00:00: 00 cyclobenzap 2017-0 No 1mg rine 10 mg 9-09 tablet 00:00: 00 levothyroxi 2017-0 No 1mcg ne 125 mcg 9-09 tablet 00:00: 00 hydroxyzine 2017-0 No 1mg pamoate 25 9-09 mg capsule 00:00: 00 cyclobenzap 2017-0 No 1mg rine 10 mg 7-29 tablet 00:00: 00 cyclobenzap 2017-0 No 1mg rine 10 mg 7-29 tablet 00:00: 00 levothyroxi 2017-0 No 1mcg ne 125 mcg 6-05 tablet 00:00: 00 levothyroxi 2017-0 No 1mcg ne 125 mcg 6-05 tablet 00:00: 00 simvastatin 2017-0 No 1mg 40 mg 6-03 tablet 00:00: 00 metformin 2017-0 No 1mg 500 mg 6-03 tablet 00:00: 00 gabapentin 2017-0 No 3mg 300 mg 6-03 capsule 00:00: 00 simvastatin 2017-0 No 1mg 40 mg 6-03 tablet 00:00: 00 metformin 2017-0 No 1mg 500 mg 6-03 tablet 00:00: 00 gabapentin 2017-0 No 3mg 300 mg 6-03 capsule 00:00: 00 gabapentin 2017-0 No 3mg 300 mg 3-30 capsule 00:00: 00 gabapentin 2017-0 No 3mg 300 mg 3-30 capsule 00:00: 00 gabapentin 2017-0 No 2mg 300 mg 3-06 capsule 00:00: 00 gabapentin 2017-0 No 2mg 300 mg 3-06 capsule 00:00: 00 metformin 2017-0 No 1mg 500 mg 2-14 tablet 00:00: 00 metformin 2017-0 No 1mg 500 mg 2-14 tablet 00:00: 00 simvastatin 2017-0 No 1mg 40 mg 2-10 tablet 00:00: 00 gabapentin 2017-0 No 3mg 300 mg 2-10 capsule 00:00: 00 simvastatin 2017-0 No 1mg 40 mg 2-10 tablet 00:00: 00 gabapentin 2017-0 No 3mg 300 mg 2-10 capsule 00:00: 00 levothyroxi 2015-1 No 1mcg ne 112 mcg 1-12 tablet 00:00: 00 levothyroxi 2015-1 No 1mcg ne 112 mcg 1-12 tablet 00:00: 00 simvastatin 2015-1 No 1mg 40 mg 1-11 tablet 00:00: 00 gabapentin 2016-1 No 2mg 300 mg 1-11 capsule 00:00: 00 simvastatin 2016-1 No 1mg 40 mg 1-11 tablet 00:00: 00 gabapentin 2016-1 No 2mg 300 mg 1-11 capsule 00:00: 00 simvastatin 2016-1 No 1mg 40 mg 0-24 tablet 00:00: 00 gabapentin 2016-1 No 2mg 300 mg 0-24 capsule 00:00: 00 simvastatin 2016-1 No 1mg 40 mg 0-24 tablet 00:00: 00 gabapentin 2016-1 No 2mg 300 mg 0-24 capsule 00:00: 00 triamcinolo 2016-0 No 1% ne 908 acetonide 00:00: 0.1 % 00 topical cream triamcinolo 2016-0 No 1% ne 9-08 acetonide 00:00: 0.1 % 00 topical cream simvastatin 2016-0 No 1mg 40 mg 7-16 tablet 00:00: 00 levothyroxi 2015-0 No 1mcg ne 112 mcg 7-16 tablet 00:00: 00 gabapentin 2016-0 No 2mg 300 mg 7-16 capsule 00:00: 00 simvastatin 2016-0 No 1mg 40 mg 7-16 tablet 00:00: 00 levothyroxi 2015-0 No 1mcg ne 112 mcg 7-16 tablet 00:00: 00 gabapentin 2016-0 No 2mg 300 mg 7-16 capsule 00:00: 00 erythromyci 2016-0 No 1(0.5 n 5 mg/gram 7-06 %) (0.5 %) eye 00:00: ointment 00 erythromyci 2016-0 No 1(0.5 n 5 mg/gram 7-06 %) (0.5 %) eye 00:00: ointment 00 Voltaren 1 2016-0 No 1% % topical 2-27 gel 00:00: 00 tramadol 50 2016-0 No 1mg mg tablet 2-27 00:00: 00 Voltaren 1 2016-0 No 1% % topical 2-27 gel 00:00: 00 tramadol 50 2015-0 No 1mg mg tablet 227 00:00: 00 levothyroxi 2015-0 No 1mcg ne 112 mcg 2-04 tablet 00:00: 00 levothyroxi 2015-0 No 1mcg ne 112 mcg 2-04 tablet 00:00: 00 simvastatin 2015-0 No 1mg 40 mg 1-25 tablet 00:00: 00 levothyroxi 2016-0 No 1mcg ne 100 mcg 1-25 tablet 00:00: 00 gabapentin 2016-0 No 2mg 300 mg 1-25 capsule 00:00: 00 simvastatin 2016-0 No 1mg 40 mg 1-25 tablet 00:00: 00 levothyroxi 2016-0 No 1mcg ne 100 mcg 1-25 tablet 00:00: 00 gabapentin 2016-0 No 2mg 300 mg 1-25 capsule 00:00: 00 gabapentin 2015-1 No 2mg 300 mg 1-23 capsule 00:00: 00 gabapentin 2015-1 No 2mg 300 mg 1-23 capsule 00:00: 00 simvastatin 2015-1 No 1mg 40 mg 1-19 tablet 00:00: 00 gabapentin 2015-1 No 1mg 300 mg 1-19 capsule 00:00: 00 simvastatin 2015-1 No 1mg 40 mg 1-19 tablet 00:00: 00 gabapentin 2015-1 No 1mg 300 mg 1-19 capsule 00:00: 00 triamcinolo 2015-1 No 1% ne 0-20 acetonide 00:00: 0.1 % 00 topical ointment Medrol 2014-1 No 1mg ([place]) 4 mg 0-20 tablets in 00:00: a dose pack 00 hydroxyzine 2014-1 No 1mg HCl 10 mg 0-20 tablet 00:00: 00 triamcinolo 2015-1 No 1% ne 0-20 acetonide 00:00: 0.1 % 00 topical ointment Medrol 2014-1 No 1mg ([place]ossman) 4 mg 0-20 tablets in 00:00: a dose pack 00 hydroxyzine 2014-1 No 1mg HCl 10 mg 0-20 tablet 00:00: 00 simvastatin 2015-1 No 1mg 20 mg 0-09 tablet 00:00: 00 levothyroxi 2014-1 No 1mcg ne 100 mcg 0-09 tablet 00:00: 00 gabapentin 2015-1 No 1mg 300 mg 0-09 capsule 00:00: 00 simvastatin 2015-1 No 1mg 20 mg 0-09 tablet 00:00: 00 levothyroxi 2014-1 No 1mcg ne 100 mcg 0-09 tablet 00:00: 00 gabapentin 2015-1 No 1mg 300 mg 0-09 capsule 00:00: 00 levothyroxi 2014-0 No 1mcg ne 100 mcg 9-25 tablet 00:00: 00 levothyroxi 2015-0 No 1mcg ne 100 mcg 9-25 tablet 00:00: 00 nystatin 2015-0 No 1unit/g 100,000 6-19 jessica unit/gram 00:00: topical 00 cream nystatin 2015-0 No 1unit/g 100,000 6-19 jessica unit/gram 00:00: topical 00 cream levothyroxi 2014-0 No 1mcg ne 100 mcg 3-19 tablet 00:00: 00 levothyroxi 2015-0 No 1mcg ne 100 mcg 3-19 tablet 00:00: 00 triamcinolo 2015-0 No 1% ne 3-14 acetonide 00:00: 0.5 % 00 topical cream tramadol 50 2014-0 No 1mg mg tablet 314 00:00: 00 clindamycin 2015-0 No 2mg 150 mg 3-14 capsule 00:00: 00 triamcinolo 2015-0 No 1% ne 3-14 acetonide 00:00: 0.5 % 00 topical cream tramadol 50 2014-0 No 1mg mg tablet 14 00:00: 00 clindamycin 2015-0 No 2mg 150 mg 3-14 capsule 00:00: 00 Immunizations Ordered Immunization Filled Immunization Date Status Commen ts Source Name Name zoster 2020-04-17 Completed 00:00:00 zoster 2020-04-17 Completed 00:00:00 Influenza, seasonal, 2019-07-31 Completed inj 00:00:00 Influenza, seasonal, 2019-07-31 Completed inj 00:00:00 Influenza, seasonal, 2017-03-29 Completed inj 00:00:00 Tdap 2017-03-29 Completed 00:00:00 Influenza, seasonal, 2017-03-29 Completed inj 00:00:00 Tdap 2017-03-29 Completed 00:00:00 influenza, injectable 2015-04-10 Completed 00:00:00 influenza, injectable 2015-04-10 Completed 00:00:00 Vital Signs Vital Name Observation Time Observation Value Comments Source Heart Rate 2022-01-15 09:17:00 78.00 /min Respiratory Rate 2022-01-15 09:17:00 18.00 /min BP Systolic 2022-01-15 09:17:00 123 mm[Hg] BP Diastolic 2022-01-15 09:17:00 82 mm[Hg] Weight Measured 2022-01-15 09:17:00 194.20 pounds Height Measured 2022-01-15 09:17:00 62.00 inches Body Temperature 2022-01-15 09:17:00 98.90 degrees BP Systolic 2021-10-02 14:51:00 114 mm[Hg] BP Diastolic 2021-10-02 14:51:00 66 mm[Hg] Weight Measured 2021-10-02 14:51:00 189.90 pounds Height Measured 2021-10-02 14:51:00 62.00 inches Body Temperature 2021-10-02 14:51:00 98.00 degrees Heart Rate 2021-10-02 14:51:00 99.00 /min Respiratory Rate 2021-10-02 14:51:00 16.00 /min BP Systolic 2021-10-01 15:22:00 125 mm[Hg] BP Diastolic 2021-10-01 15:22:00 77 mm[Hg] Weight Measured 2021-10-01 15:22:00 188.60 pounds Height Measured 2021-10-01 15:22:00 62.00 inches Body Temperature 2021-10-01 15:22:00 98.20 degrees Heart Rate 2021-10-01 15:22:00 86.00 /min Respiratory Rate 2021-10-01 15:22:00 BP Systolic 2021-07-11 08:06:00 109 mm[Hg] BP Diastolic 2021-07-11 08:06:00 76 mm[Hg] Weight Measured 2021-07-11 08:06:00 176.40 pounds Height Measured 2021-07-11 08:06:00 62.00 inches Body Temperature 2021-07-11 08:06:00 98.30 degrees Heart Rate 2021-07-11 08:06:00 100.00 /min Respiratory Rate 2021-07-11 08:06:00 BP Systolic 2021-04-24 08:32:00 131 mm[Hg] BP Diastolic 2021-04-24 08:32:00 83 mm[Hg] Weight Measured 2021-04-24 08:32:00 182.20 pounds Height Measured 2021-04-24 08:32:00 62.00 inches Body Temperature 2021-04-24 08:32:00 Heart Rate 2021-04-24 08:32:00 86.00 /min Respiratory Rate 2021-04-24 08:32:00 BP Systolic 2021-03-12 08:27:00 106 mm[Hg] BP Diastolic 2021-03-12 08:27:00 67 mm[Hg] Weight Measured 2021-03-12 08:27:00 181.60 pounds Height Measured 2021-03-12 08:27:00 62.00 inches Body Temperature 2021-03-12 08:27:00 98.10 degrees Heart Rate 2021-03-12 08:27:00 90.00 /min Respiratory Rate 2021-03-12 08:27:00 BP Systolic 2020-12-22 09:24:00 129 mm[Hg] BP Diastolic 2020-12-22 09:24:00 73 mm[Hg] Weight Measured 2020-12-22 09:24:00 186.20 pounds Height Measured 2020-12-22 09:24:00 62.00 inches Body Temperature 2020-12-22 09:24:00 97.70 degrees Heart Rate 2020-12-22 09:24:00 87.00 /min Respiratory Rate 2020-12-22 09:24:00 18.00 /min BP Systolic 2020-11-18 08:49:00 118 mm[Hg] BP Diastolic 2020-11-18 08:49:00 76 mm[Hg] Weight Measured 2020-11-18 08:49:00 186.80 pounds Height Measured 2020-11-18 08:49:00 62.00 inches Body Temperature 2020-11-18 08:49:00 99.10 degrees Heart Rate 2020-11-18 08:49:00 83.00 /min Respiratory Rate 2020-11-18 08:49:00 BP Systolic 2020-11-04 09:01:00 116 mm[Hg] BP Diastolic 2020-11-04 09:01:00 64 mm[Hg] Weight Measured 2020-11-04 09:01:00 184.00 pounds Height Measured 2020-11-04 09:01:00 62.00 inches Body Temperature 2020-11-04 09:01:00 99.00 degrees Heart Rate 2020-11-04 09:01:00 86.00 /min Respiratory Rate 2020-11-04 09:01:00 17.00 /min BP Systolic 2020-08-29 08:54:00 128 mm[Hg] BP Diastolic 2020-08-29 08:54:00 74 mm[Hg] Weight Measured 2020-08-29 08:54:00 187.60 pounds Height Measured 2020-08-29 08:54:00 62.00 inches Body Temperature 2020-08-29 08:54:00 98.70 degrees Heart Rate 2020-08-29 08:54:00 75.00 /min Respiratory Rate 2020-08-29 08:54:00 18.00 /min Procedures This patient has no known procedures. Plan of Care Planned Activity Planned Date Details Comments Source Goal Plan of Care Note [code = 68670-9] Goal Plan of Care Note [code = 82797-7] Goal Plan of Care Note [code = 49355-0] Goal Plan of Care Note [code = 83321-6] Goal Plan of Care Note [code = 50154-6] Goal Plan of Care Note [code = 70590-3] Goal Plan of Care Note [code = 35457-2] Goal Plan of Care Note [code = 44156-7] Goal Plan of Care Note [code = 03891-0] Goal Plan of Care Note [code = 31825-6] Goal Plan of Care Note [code = 52282-1] Goal Plan of Care Note [code = 31076-6] Goal Plan of Care Note [code = 04527-6] Goal Plan of Care Note [code = 53502-6] Goal Plan of Care Note [code = 84755-1] Goal Plan of Care Note [code = 86137-2] Goal Plan of Care Note [code = 44814-6] Goal Plan of Care Note [code = 33837-5] Goal Plan of Care Note [code = 14062-6] Goal Plan of Care Note [code = 64802-3] Goal Plan of Care Note [code = 07773-5] Goal Plan of Care Note [code = 67726-9] Goal Plan of Care Note [code = 88433-5] Goal Plan of Care Note [code = 25147-4] Goal Plan of Care Note [code = 52877-1] Goal Plan of Care Note [code = 34326-1] Goal Plan of Care Note [code = 17931-3] Goal Plan of Care Note [code = 75536-7] Goal Plan of Care Note [code = 30290-2] Goal Plan of Care Note [code = 52741-2] Goal Plan of Care Note [code = 17477-6] Goal Plan of Care Note [code = 51478-4] Goal Plan of Care Note [code = 40943-3] Goal Plan of Care Note [code = 59386-1] Goal Plan of Care Note [code = 64665-3] Goal Plan of Care Note [code = 29147-9] Goal Plan of Care Note [code = 20742-8] Goal Plan of Care Note [code = 70867-6] Goal Plan of Care Note [code = 16948-1] Goal Plan of Care Note [code = 72397-7] Goal Plan of Care Note [code = 45481-3] Goal Plan of Care Note [code = 07166-4] Goal Plan of Care Note [code = 57024-8] Goal Plan of Care Note [code = 34025-8] Goal Plan of Care Note [code = 53328-4] Goal Plan of Care Note [code = 88874-0] Goal Plan of Care Note [code = 93023-0] Goal Plan of Care Note [code = 46626-6] Goal Plan of Care Note [code = 90922-5] Goal Plan of Care Note [code = 58401-5] Goal Plan of Care Note [code = 16368-1] Goal Plan of Care Note [code = 26364-3] Goal Plan of Care Note [code = 74648-5] Goal Plan of Care Note [code = 24279-7] Goal Plan of Care Note [code = 33881-5] Goal Plan of Care Note [code = 24810-1] Goal Plan of Care Note [code = 13983-7] Goal Plan of Care Note [code = 57321-8] Goal Plan of Care Note [code = 85772-1] Goal Plan of Care Note [code = 84982-3] Goal Plan of Care Note [code = 09083-2] Goal Plan of Care Note [code = 53263-1] Goal Plan of Care Note [code = 97530-6] Goal Plan of Care Note [code = 40601-7] Goal Plan of Care Note [code = 77132-2] Goal Plan of Care Note [code = 33461-0] Goal Plan of Care Note [code = 12113-5] Goal Plan of Care Note [code = 87316-7] Goal Plan of Care Note [code = 80296-2] Goal Plan of Care Note [code = 32639-5] Goal Plan of Care Note [code = 57278-8] Goal Plan of Care Note [code = 77380-8] Goal Plan of Care Note [code = 77968-5] Goal Plan of Care Note [code = 18823-5] Goal Plan of Care Note [code = 57244-1] Goal Plan of Care Note [code = 63758-3] Goal Plan of Care Note [code = 86059-9] Goal Plan of Care Note [code = 90276-2] Goal Plan of Care Note [code = 78856-0] Goal Plan of Care Note [code = 52560-5] Goal Plan of Care Note [code = 88582-4] Goal Plan of Care Note [code = 59233-4] Goal Plan of Care Note [code = 80151-4] Goal Plan of Care Note [code = 18256-6] Goal Plan of Care Note [code = 81120-3] Goal Plan of Care Note [code = 82347-5] Goal Plan of Care Note [code = 09165-3] Goal Plan of Care Note [code = 78845-9] Goal Plan of Care Note [code = 71833-4] Goal Plan of Care Note [code = 25886-1] Goal Plan of Care Note [code = 12510-7] Goal Plan of Care Note [code = 10174-2] Goal Plan of Care Note [code = 40172-1] Goal Plan of Care Note [code = 61216-8] Goal Plan of Care Note [code = 15083-8] Goal Plan of Care Note [code = 65544-9] Goal Plan of Care Note [code = 23008-6] Goal Plan of Care Note [code = 36920-5] Goal Plan of Care Note [code = 03173-9] Goal Plan of Care Note [code = 32233-0] Goal Plan of Care Note [code = 12398-0] Goal Plan of Care Note [code = 32227-2] Goal Plan of Care Note [code = 16683-2] Goal Plan of Care Note [code = 73080-1] Goal Plan of Care Note [code = 85934-5] Goal Plan of Care Note [code = 67597-6] Goal Plan of Care Note [code = 26607-0] Goal Plan of Care Note [code = 07036-7] Goal Plan of Care Note [code = 38914-7] Goal Plan of Care Note [code = 31065-8] Goal Plan of Care Note [code = 17264-3] Goal Plan of Care Note [code = 21720-4] Goal Plan of Care Note [code = 50666-5] Goal Plan of Care Note [code = 27606-0] Goal Plan of Care Note [code = 89150-8] Goal Plan of Care Note [code = 64494-8] Encounters Start End Encounter Admission Attending Care Care Encounter Source Date/Time Date/Time Type Type Clinicians Facility Department ID 2022-04-12 2022-04-12 Outpatient [facility] [id number] [place] 14:51:35 14:51:35 1007 F Mario 2022-04-12 2022-04-12 Outpatient [id number] [id number] 00:00:00 00:00:00 Visit [id number] i04-4514-3 -5yk1-0tb fb5-5ok692 956cw95xv cd24fb 2022-01-15 2022-01-15 Outpatient [id number] p46xo2-0 00:00:00 00:00:00 Visit 9535-4bfe 535-4bfe-9 -9006-cee 006-ceef25 [id number] 2020-12-22 2020-12-22 Emergency X [facility] ERT [id number] [facility] 17:59:00 17:59:00 [facility] 2019-08-24 2019-08-24 Emergency [place] ERT [id number] [facility] 18:31:31 21:20:00 KANDICE [facility] 2019-08-24 2019-08-24 Emergency Kori [facility] [id number] 18:31:31 21:20:00 Kandice Calderon 350.1.13.10 [place] 4.2.7.2.686 [place] [id number] Results Test Description Test Time Test Comments Results Result Comments Source TSH, THIRD GENERATION 2022-01-16 06:37:18 Test Item Value Reference Range Interpretation Comme nts TSH, THIRD GENERATION (test 3.880 UIU/ML 0.400-4.100 UNLESS OTHERWISE INDICATED, code = 2821) ALL TESTING PER FORMED [facility] [address] [place] [address] 7 9423 [employer] TECHNICIAN: Santa GARSIA [id number] [facility] [place] [id number] HEMOGLOBIN [id number] 06:04:19 Test Item Value Reference Range Interpretation Comments HEMOGLOBIN A1c (test code = 59994) 5.9 % 4.2-5.6 H HEMOGLOBIN [id number] 00:00:00 Test Item Value Reference Range Interpretation Comments HEMOGLOBIN A1c (test code = 35958) 5.9 % HEMOGLOBIN [id number] 00:00:00 Test Item Value Reference Range Interpretation Comments HEMOGLOBIN A1c (test code = 98499) 5.9 % HEMOGLOBIN [id number] 00:00:00 Test Item Value Reference Range Interpretation Comments HEMOGLOBIN A1c (test code = 85352) 5.9 % [id number] 00:00:00 Test Item Value Reference Range Interpretation Comments TSH, THIRD GENERATION (test code 3.880 UIU/ML = 2821) [id number] 00:00:00 Test Item Value Reference Range Interpretation Comments TSH, THIRD GENERATION (test code 3.880 UIU/ML = 2821) [id number] 00:00:00 Test Item Value Reference Range Interpretation Comments TSH, THIRD GENERATION (test code 3.880 UIU/ML = 2821) TSH, THIRD [id number] 06:09:07 Test Item Value Reference Range Interpretation Comments TSH, THIRD 11.700 UIU/ML 0.400-4.100 H UNLESS OTHERW ISE GENERATION (test INDICATED, ALL code = 2821) TESTING PERFORM ED [facility] [address] [place] [address] [facility] DIRECT[facility]: ADDIE FORD M.D. CLIA NUMBER [id number] CAP ACCREDITATION N O. [id number] 00:00:00 Test Item Value Reference Range Interpretation Comments TSH, THIRD GENERATION (test 11.700 UIU/ML code = 2821) [id number] 00:00:00 Test Item Value Reference Range Interpretation Comments TSH, THIRD GENERATION (test 11.700 UIU/ML code = 2821) [id number] 00:00:00 Test Item Value Reference Range Interpretation Comments TSH, THIRD GENERATION (test 11.700 UIU/ML code = 2821) [id number] 00:00:00 Test Item Value Reference Range Interpretation Comments TSH, THIRD GENERATION (test 11.700 UIU/ML code = 2821) [id number] 00:00:00 Test Item Value Reference Range Interpretation Comments TSH, THIRD GENERATION (test 11.700 UIU/ML code = 2821) TSH, THIRD [id number] 05:41:33 Test Item Value Reference Range Interpretation Comments TSH, THIRD 0.067 UIU/ML 0.400-4.100 L UNLESS OTHERWI SE GENERATION (test INDICATED, ALL TESTING code = 2821) PERFORMED [facility] [address] [address] [facility] DIRECTOR: ADDIE FORD M.D. CLIA NUMBER [id number] CAP ACCREDITATION N O. [id number] LIPID [id number] 03:41:09 Test Item Value Reference Range Interpretation Comments CHOLESTEROL (test 161 MG/DL <200 code = 2210) TRIGLYCERIDES (test 108 MG/DL <150 code = 2232) HDL CHOLESTEROL (test 46 MG/DL >39 code = 2220) CALC LDL CHOL (test 95 MG/DL <100 NOTE: C ALCULATED LDL code = 2237) IS BASED ON FANTA-CORBIN METHOD WHICHINCLUDES ADJUSTABLE TRIGLYCERIDE:VL DL CHOLESTEROL RAT IO.THIS FACTOR VARIES B Y MEASURED TRIGLY CERIDE AND NON-HDLCHOL ESTEROL CONCENTRATIONS WITH INCREASED CALCU LATED LDL SEENIN HIGH ER TRIGLYCERIDE OR LOWER NON-HDL SPECIME NS. FOR MOREINFORMATION , SEE CLIENT ANNOUNCE MENT AT [email or web address] [email or web address] LDL/HDL 2.07 RATIO <3.22 (test code = 2238) COMPREHENSIVE METABOLIC [id number] 03:41:09 Test Item Value Reference Range Interpretation Comments GLUCOSE (test code = 100 MG/DL 70-99 H 2216) BUN (test code = 7 MG/DL 8-23 L 2207) CREATININE (test 0.56 MG/DL 0.60-1.30 L EFFECTIVE code = 2214) 06/18/2021, [facility] HAS IMPLEMENTED THE NKF-ASN RECOMME NDED KD-EPI EGF R REFIT CALCULATI ON THAT DOES NOT INCLUDE A COEFFICIENT FOR RACE. FOR MORE INFORMATION, SE E ANNOUNCEMENT [email or web address] eGFR (2020 CKD-EPI) 104 >60 (test code = 45557) ML/MIN/1.73 CALC BUN/CREAT (test 13 RATIO 6-28 code = 2235) SODIUM (test code = 139 MEQ/L 839-969 4843) POTASSIUM (test code 4.4 MEQ/L 3.5-5.4 = 2227) CHLORIDE (test code 99 MEQ/L 95-107 = 221) CARBON DIOXIDE (test 29 MEQ/L 19-31 code = 2206) CALCIUM (test code = 9.4 MG/DL 8.5-10.5 2208) PROTEIN, TOTAL (test 7.2 G/DL 6.1-8.3 code = 2229) ALBUMIN (test code = 4.3 G/DL 3.5-5.2 2200) CALC GLOBULIN (test 2.9 G/DL 1.9-3.7 code = 2240) CALC A/G RATIO (test 1.5 RATIO 1.0-2.6 code = 2234) BILIRUBIN, TOTAL <0.2 MG/DL See_Comment [Automated message] (test code = 2207) The syste m which generated this result transmit boewn reference range : <=1.2. The refe rence range was not u sed to interpret th is result as normal/abnormal . ALKALINE PHOSPHATASE 67 U/L 40-140 (test code = 2204) AST (test code = 25 U/L 9-40 2217) ALT (test code = 21 U/L 5-40 2219) CBC W/AUTO DIFF WITH [id number] 02:45:40 Test Item Value Reference Range Interpretation Comments WBC (test code = 4.3 K/UL 3.5-11.0 1001) RBC (test code = 4.56 M/UL 3.80-5.40 1002) HEMOGLOBIN (test code 13.1 G/DL 11.5-15.5 = 1003) HEMATOCRIT (test code 39.2 % 34.0-45.0 = 1004) MCV (test code = 86.0 fL 80.0-99.0 1005) MCH (test code = 28.7 PG 25.0-33.0 1006) MCHC (test code = 33.4 G/DL 31.0-36.0 1007) RDW (test code = 12.7 % 11.5-15.0 1038) NEUTROPHILS (test 51.6 % code = 1008) LYMPHOCYTES (test 26.5 % code = 1010) MONOCYTES (test code 18.2 % = 1011) EOSINOPHILS (test 3.0 % code = 1012) BASOPHILS (test code 0.2 % = 1013) IMMATURE GRANYLOCYTES 0.5 % (test code = 1036) NUCLEATED RBCS (test 0.0 /100 WBC'S See_Comment [Aut omated code = 1065) message] The sy stem which generated this result transmitted reference range : 0.0. The refere nce range was not u sed to interpret th is result as normal/abnormal . PLATELET COUNT (test 310 K/UL 130-400 code = 1015) ABSOLUTE NEUTROPHILS 2.24 K/UL 1.50-7.50 (test code = 1066) ABSOLUTE LYMPHOCYTES 1.15 K/UL 1.00-4.00 (test code = 1067) ABSOLUTE MONOCYTES 0.79 K/UL 0.20-1.00 (test code = 1068) ABSOLUTE EOSINOPHILS 0.13 K/UL 0.00-0.50 (test code = 1040) ABSOLUTE BASOPHILS 0.01 K/UL 0.00-0.20 (test code = 1069) ABS IMMATURE 0.02 K/UL 0.00-0.10 GRANULOCYTES (test code = 1020) ABS NUCLEATED RBCS 0.00 K/UL 0.00-0.11 (test code = 46853) HEMOGLOBIN [id number] 02:40:20 Test Item Value Reference Range Interpretation Comments HEMOGLOBIN A1c (test code = 77353) 6.1 % 4.2-5.6 H CBC W/AUTO [id number] 00:00:00 Test Item Value Reference Range Interpretation Comments WBC (test code = 1001) 4.3 K/UL RBC (test code = 1002) 4.56 M/UL HEMOGLOBIN (test code = 1003) 13.1 G/DL HEMATOCRIT (test code = 1004) 39.2 % MCV (test code = 1005) 86.0 fL MCH (test code = 1006) 28.7 PG MCHC (test code = 1007) 33.4 G/DL RDW (test code = 1038) 12.7 % NEUTROPHILS (test code = 1008) 51.6 % LYMPHOCYTES (test code = 1010) 26.5 % MONOCYTES (test code = 1011) 18.2 % EOSINOPHILS (test code = 1012) 3.0 % BASOPHILS (test code = 1013) 0.2 % IMMATURE GRANYLOCYTES (test 0.5 % code = 1036) NUCLEATED RBCS (test code = 0.0 /100WBC'S 1065) PLATELET COUNT (test code = 310 K/UL 1015) ABSOLUTE NEUTROPHILS (test code 2.24 K/UL = 1066) ABSOLUTE LYMPHOCYTES (test code 1.15 K/UL = 1067) ABSOLUTE MONOCYTES (test code = 0.79 K/UL 1068) ABSOLUTE EOSINOPHILS (test code 0.13 K/UL = 1040) ABSOLUTE BASOPHILS (test code = 0.01 K/UL 1069) ABS IMMATURE GRANULOCYTES (test 0.02 K/UL code = 1020) ABS NUCLEATED RBCS (test code = 0.00 K/UL 02546) CBC W/AUTO [id number] 00:00:00 Test Item Value Reference Range Interpretation Comments WBC (test code = 1001) 4.3 K/UL RBC (test code = 1002) 4.56 M/UL HEMOGLOBIN (test code = 1003) 13.1 G/DL HEMATOCRIT (test code = 1004) 39.2 % MCV (test code = 1005) 86.0 fL MCH (test code = 1006) 28.7 PG MCHC (test code = 1007) 33.4 G/DL RDW (test code = 1038) 12.7 % NEUTROPHILS (test code = 1008) 51.6 % LYMPHOCYTES (test code = 1010) 26.5 % MONOCYTES (test code = 1011) 18.2 % EOSINOPHILS (test code = 1012) 3.0 % BASOPHILS (test code = 1013) 0.2 % IMMATURE GRANYLOCYTES (test 0.5 % code = 1036) NUCLEATED RBCS (test code = 0.0 /100WBC'S 1065) PLATELET COUNT (test code = 310 K/UL 1015) ABSOLUTE NEUTROPHILS (test code 2.24 K/UL = 1066) ABSOLUTE LYMPHOCYTES (test code 1.15 K/UL = 1067) ABSOLUTE MONOCYTES (test code = 0.79 K/UL 1068) ABSOLUTE EOSINOPHILS (test code 0.13 K/UL = 1040) ABSOLUTE BASOPHILS (test code = 0.01 K/UL 1069) ABS IMMATURE GRANULOCYTES (test 0.02 K/UL code = 1020) ABS NUCLEATED RBCS (test code = 0.00 K/UL 65889) HEMOGLOBIN [id number] 00:00:00 Test Item Value Reference Range Interpretation Comments HEMOGLOBIN A1c (test code = 75809) 6.1 % HEMOGLOBIN [id number] 00:00:00 Test Item Value Reference Range Interpretation Comments HEMOGLOBIN A1c (test code = 62799) 6.1 % LIPID [id number] 00:00:00 Test Item Value Reference Range Interpretation Comments CHOLESTEROL (test code = 2210) 161 MG/DL TRIGLYCERIDES (test code = 2232) 108 MG/DL HDL CHOLESTEROL (test code = 2220) 46 MG/DL CALC LDL CHOL (test code = 2237) 95 MG/DL RISK RATIO LDL/HDL (test code = 2.07 RATIO 2238) COMPREHENSIVE METABOLIC [id number] 00:00:00 Test Item Value Reference Range Interpretation Comments GLUCOSE (test code = 2217) 100 MG/DL BUN (test code = 2208) 7 MG/DL CREATININE (test code = 2214) 0.56 MG/DL eGFR (2020 CKD-EPI) (test 104 ML/MIN/1.73 code = 18345) CALC BUN/CREAT (test code = 13 RATIO 2235) SODIUM (test code = 2231) 139 MEQ/L POTASSIUM (test code = 2228) 4.4 MEQ/L CHLORIDE (test code = 2215) 99 MEQ/L CARBON DIOXIDE (test code = 29 MEQ/L 2205) CALCIUM (test code = 2209) 9.4 MG/DL PROTEIN, TOTAL (test code = 7.2 G/DL 2228) ALBUMIN (test code = 2201) 4.3 G/DL CALC GLOBULIN (test code = 2.9 G/DL 0) CALC A/G RATIO (test code = 1.5 RATIO 2233) BILIRUBIN, TOTAL (test code = <0.2 MG/DL 2206) ALKALINE PHOSPHATASE (test 67 U/L code = 2204) AST (test code = 2218) 25 U/L ALT (test code = 2219) 21 U/L [id number] 00:00:00 Test Item Value Reference Range Interpretation Comments TSH, THIRD GENERATION (test code 0.067 UIU/ML = 2821) [id number] 00:00:00 Test Item Value Reference Range Interpretation Comments TSH, THIRD GENERATION (test code 0.067 UIU/ML = 2821) CBC W/AUTO [id number] 00:00:00 Test Item Value Reference Range Interpretation Comments WBC (test code = 1001) 4.3 K/UL RBC (test code = 1002) 4.56 M/UL HEMOGLOBIN (test code = 1003) 13.1 G/DL HEMATOCRIT (test code = 1004) 39.2 % MCV (test code = 1005) 86.0 fL MCH (test code = 1006) 28.7 PG MCHC (test code = 1007) 33.4 G/DL RDW (test code = 1038) 12.7 % NEUTROPHILS (test code = 1008) 51.6 % LYMPHOCYTES (test code = 1010) 26.5 % MONOCYTES (test code = 1011) 18.2 % EOSINOPHILS (test code = 1012) 3.0 % BASOPHILS (test code = 1013) 0.2 % IMMATURE GRANYLOCYTES (test 0.5 % code = 1036) NUCLEATED RBCS (test code = 0.0 /100WBC'S 1065) PLATELET COUNT (test code = 310 K/UL 1015) ABSOLUTE NEUTROPHILS (test code 2.24 K/UL = 1066) ABSOLUTE LYMPHOCYTES (test code 1.15 K/UL = 1067) ABSOLUTE MONOCYTES (test code = 0.79 K/UL 1068) ABSOLUTE EOSINOPHILS (test code 0.13 K/UL = 1040) ABSOLUTE BASOPHILS (test code = 0.01 K/UL 1069) ABS IMMATURE GRANULOCYTES (test 0.02 K/UL code = 1020) ABS NUCLEATED RBCS (test code = 0.00 K/UL 95697) CBC W/AUTO [id number] 00:00:00 Test Item Value Reference Range Interpretation Comments WBC (test code = 1001) 4.3 K/UL RBC (test code = 1002) 4.56 M/UL HEMOGLOBIN (test code = 1003) 13.1 G/DL HEMATOCRIT (test code = 1004) 39.2 % MCV (test code = 1005) 86.0 fL MCH (test code = 1006) 28.7 PG MCHC (test code = 1007) 33.4 G/DL RDW (test code = 1038) 12.7 % NEUTROPHILS (test code = 1008) 51.6 % LYMPHOCYTES (test code = 1010) 26.5 % MONOCYTES (test code = 1011) 18.2 % EOSINOPHILS (test code = 1012) 3.0 % BASOPHILS (test code = 1013) 0.2 % IMMATURE GRANYLOCYTES (test 0.5 % code = 1036) NUCLEATED RBCS (test code = 0.0 /100WBC'S 1065) PLATELET COUNT (test code = 310 K/UL 1015) ABSOLUTE NEUTROPHILS (test code 2.24 K/UL = 1066) ABSOLUTE LYMPHOCYTES (test code 1.15 K/UL = 1067) ABSOLUTE MONOCYTES (test code = 0.79 K/UL 1068) ABSOLUTE EOSINOPHILS (test code 0.13 K/UL = 1040) ABSOLUTE BASOPHILS (test code = 0.01 K/UL 1069) ABS IMMATURE GRANULOCYTES (test 0.02 K/UL code = 1020) ABS NUCLEATED RBCS (test code = 0.00 K/UL 18412) CBC W/AUTO [id number] 00:00:00 Test Item Value Reference Range Interpretation Comments WBC (test code = 1001) 4.3 K/UL RBC (test code = 1002) 4.56 M/UL HEMOGLOBIN (test code = 1003) 13.1 G/DL HEMATOCRIT (test code = 1004) 39.2 % MCV (test code = 1005) 86.0 fL MCH (test code = 1006) 28.7 PG MCHC (test code = 1007) 33.4 G/DL RDW (test code = 1038) 12.7 % NEUTROPHILS (test code = 1008) 51.6 % LYMPHOCYTES (test code = 1010) 26.5 % MONOCYTES (test code = 1011) 18.2 % EOSINOPHILS (test code = 1012) 3.0 % BASOPHILS (test code = 1013) 0.2 % IMMATURE GRANYLOCYTES (test 0.5 % code = 1036) NUCLEATED RBCS (test code = 0.0 /100WBC'S 1065) PLATELET COUNT (test code = 310 K/UL 1015) ABSOLUTE NEUTROPHILS (test code 2.24 K/UL = 1066) ABSOLUTE LYMPHOCYTES (test code 1.15 K/UL = 1067) ABSOLUTE MONOCYTES (test code = 0.79 K/UL 1068) ABSOLUTE EOSINOPHILS (test code 0.13 K/UL = 1040) ABSOLUTE BASOPHILS (test code = 0.01 K/UL 1069) ABS IMMATURE GRANULOCYTES (test 0.02 K/UL code = 1020) ABS NUCLEATED RBCS (test code = 0.00 K/UL 70035) HEMOGLOBIN [id number] 00:00:00 Test Item Value Reference Range Interpretation Comments HEMOGLOBIN A1c (test code = 45008) 6.1 % HEMOGLOBIN [id number] 00:00:00 Test Item Value Reference Range Interpretation Comments HEMOGLOBIN A1c (test code = 75296) 6.1 % HEMOGLOBIN [id number] 00:00:00 Test Item Value Reference Range Interpretation Comments HEMOGLOBIN A1c (test code = 11932) 6.1 % LIPID [id number] 00:00:00 Test Item Value Reference Range Interpretation Comments CHOLESTEROL (test code = 2210) 161 MG/DL TRIGLYCERIDES (test code = 2232) 108 MG/DL HDL CHOLESTEROL (test code = 2220) 46 MG/DL CALC LDL CHOL (test code = 2237) 95 MG/DL RISK RATIO LDL/HDL (test code = 2.07 RATIO 2238) LIPID [id number] 00:00:00 Test Item Value Reference Range Interpretation Comments CHOLESTEROL (test code = 2210) 161 MG/DL TRIGLYCERIDES (test code = 2232) 108 MG/DL HDL CHOLESTEROL (test code = 2220) 46 MG/DL CALC LDL CHOL (test code = 2237) 95 MG/DL RISK RATIO LDL/HDL (test code = 2.07 RATIO 2238) COMPREHENSIVE METABOLIC [id number] 00:00:00 Test Item Value Reference Range Interpretation Comments GLUCOSE (test code = 2217) 100 MG/DL BUN (test code = 2208) 7 MG/DL CREATININE (test code = 2214) 0.56 MG/DL eGFR (2020 CKD-EPI) (test 104 ML/MIN/1.73 code = 23849) CALC BUN/CREAT (test code = 13 RATIO 2235) SODIUM (test code = 2231) 139 MEQ/L POTASSIUM (test code = 2228) 4.4 MEQ/L CHLORIDE (test code = 2215) 99 MEQ/L CARBON DIOXIDE (test code = 29 MEQ/L 2206) CALCIUM (test code = 2209) 9.4 MG/DL PROTEIN, TOTAL (test code = 7.2 G/DL 2228) ALBUMIN (test code = 2201) 4.3 G/DL CALC GLOBULIN (test code = 2.9 G/DL 2240) CALC A/G RATIO (test code = 1.5 RATIO 2234) BILIRUBIN, TOTAL (test code = <0.2 MG/DL 2206) ALKALINE PHOSPHATASE (test 67 U/L code = 2204) AST (test code = 2218) 25 U/L ALT (test code = 2219) 21 U/L COMPREHENSIVE METABOLIC [id number] 00:00:00 Test Item Value Reference Range Interpretation Comments GLUCOSE (test code = 2217) 100 MG/DL BUN (test code = 2208) 7 MG/DL CREATININE (test code = 2214) 0.56 MG/DL eGFR (2020 CKD-EPI) (test 104 ML/MIN/1.73 code = 01362) CALC BUN/CREAT (test code = 13 RATIO 2235) SODIUM (test code = 2231) 139 MEQ/L POTASSIUM (test code = 2228) 4.4 MEQ/L CHLORIDE (test code = 2215) 99 MEQ/L CARBON DIOXIDE (test code = 29 MEQ/L 2206) CALCIUM (test code = 2209) 9.4 MG/DL PROTEIN, TOTAL (test code = 7.2 G/DL 2228) ALBUMIN (test code = 2201) 4.3 G/DL CALC GLOBULIN (test code = 2.9 G/DL 2240) CALC A/G RATIO (test code = 1.5 RATIO 4) BILIRUBIN, TOTAL (test code = <0.2 MG/DL 2206) ALKALINE PHOSPHATASE (test 67 U/L code = 2204) AST (test code = 2218) 25 U/L ALT (test code = 2219) 21 U/L [id number] 00:00:00 Test Item Value Reference Range Interpretation Comments TSH, THIRD GENERATION (test code 0.067 UIU/ML = 2821) [id number] 00:00:00 Test Item Value Reference Range Interpretation Comments TSH, THIRD GENERATION (test code 0.067 UIU/ML = 2821) [id number] 00:00:00 Test Item Value Reference Range Interpretation Comments TSH, THIRD GENERATION (test code 0.067 UIU/ML = 2821) [id number] 00:00:00 Test Item Value Reference Range Interpretation Comments TSH, THIRD GENERATION (test code 0.840 UIU/ML = 2821) [id number] 00:00:00 Test Item Value Reference Range Interpretation Comments TSH, THIRD GENERATION (test code 0.840 UIU/ML = 2821) [id number] 00:00:00 Test Item Value Reference Range Interpretation Comments TSH, THIRD GENERATION (test code 0.840 UIU/ML = 2821) [id number] 00:00:00 Test Item Value Reference Range Interpretation Comments TSH, THIRD GENERATION (test code 0.840 UIU/ML = 2821) [id number] 00:00:00 Test Item Value Reference Range Interpretation Comments TSH, THIRD GENERATION (test code 0.840 UIU/ML = 2821) CULTURE, URINE [ADDED]2020-12-24 00:00:00 Test Item Value Reference Range Interpretation Comments CULTURE, URINE (test SPECIMEN NUMBER: code = 23624) [id number] CULTURE, URINE [ADDED]2020-12-24 00:00:00 Test Item Value Reference Range Interpretation Comments CULTURE, URINE (test SPECIMEN NUMBER: code = 75403) [id number] CULTURE, URINE [ADDED]2020-12-24 00:00:00 Test Item Value Reference Range Interpretation Comments CULTURE, URINE (test SPECIMEN NUMBER: code = 52691) [id number] CBC W/AUTO [id number] 00:00:00 Test Item Value Reference Range Interpretation Comments WBC (test code = 1001) 6.5 K/UL RBC (test code = 1002) 4.32 M/UL HEMOGLOBIN (test code = 1003) 12.8 G/DL HEMATOCRIT (test code = 1004) 38.5 % MCV (test code = 1005) 89.1 fL MCH (test code = 1006) 29.6 PG MCHC (test code = 1007) 33.2 G/DL RDW (test code = 1038) 13.1 % NEUTROPHILS (test code = 1008) 55.3 % LYMPHOCYTES (test code = 1010) 28.5 % MONOCYTES (test code = 1011) 9.0 % EOSINOPHILS (test code = 1012) 6.6 % BASOPHILS (test code = 1013) 0.3 % IMMATURE GRANULOCYTES (test 0.3 % code = 1036) NUCLEATED RBCS (test code = 0.0 /100WBC'S 1065) PLATELET COUNT (test code = 422 K/UL 1015) ABSOLUTE NEUTROPHILS (test code 3.61 K/UL = 1066) ABSOLUTE LYMPHOCYTES (test code 1.86 K/UL = 1067) ABSOLUTE MONOCYTES (test code = 0.59 K/UL 1068) ABSOLUTE EOSINOPHILS (test code 0.43 K/UL = 1040) ABSOLUTE BASOPHILS (test code = 0.02 K/UL 1069) ABS IMMATURE GRANULOCYTES (test 0.02 K/UL code = 1020) ABS NUCLEATED RBCS (test code = 0.00 K/UL 25796) CBC W/AUTO [id number] 00:00:00 Test Item Value Reference Range Interpretation Comments WBC (test code = 1001) 6.5 K/UL RBC (test code = 1002) 4.32 M/UL HEMOGLOBIN (test code = 1003) 12.8 G/DL HEMATOCRIT (test code = 1004) 38.5 % MCV (test code = 1005) 89.1 fL MCH (test code = 1006) 29.6 PG MCHC (test code = 1007) 33.2 G/DL RDW (test code = 1038) 13.1 % NEUTROPHILS (test code = 1008) 55.3 % LYMPHOCYTES (test code = 1010) 28.5 % MONOCYTES (test code = 1011) 9.0 % EOSINOPHILS (test code = 1012) 6.6 % BASOPHILS (test code = 1013) 0.3 % IMMATURE GRANULOCYTES (test 0.3 % code = 1036) NUCLEATED RBCS (test code = 0.0 /100WBC'S 1065) PLATELET COUNT (test code = 422 K/UL 1015) ABSOLUTE NEUTROPHILS (test code 3.61 K/UL = 1066) ABSOLUTE LYMPHOCYTES (test code 1.86 K/UL = 1067) ABSOLUTE MONOCYTES (test code = 0.59 K/UL 1068) ABSOLUTE EOSINOPHILS (test code 0.43 K/UL = 1040) ABSOLUTE BASOPHILS (test code = 0.02 K/UL 1069) ABS IMMATURE GRANULOCYTES (test 0.02 K/UL code = 1020) ABS NUCLEATED RBCS (test code = 0.00 K/UL 75137) LIPID [id number] 00:00:00 Test Item Value Reference Range Interpretation Comments CHOLESTEROL (test code = 2210) 135 MG/DL TRIGLYCERIDES (test code = 2232) 90 MG/DL HDL CHOLESTEROL (test code = 2220) 49 MG/DL CALC LDL CHOL (test code = 2237) 69 MG/DL RISK RATIO LDL/HDL (test code = 1.41 RATIO 2238) COMPREHENSIVE METABOLIC [id number] 00:00:00 Test Item Value Reference Range Interpretation Comments GLUCOSE (test code = 2217) 89 MG/DL BUN (test code = 2208) 10 MG/DL CREATININE (test code = 2214) 0.56 MG/DL eGFR AMER. (test code 117 ML/MIN/1.73 = 46127) eGFR NON- AMER. (test 101 ML/MIN/1.73 code = 91683) CALC BUN/CREAT (test code = 18 RATIO 2235) SODIUM (test code = 2231) 139 MEQ/L POTASSIUM (test code = 2228) 4.5 MEQ/L CHLORIDE (test code = 2215) 101 MEQ/L CARBON DIOXIDE (test code = 28 MEQ/L 2205) CALCIUM (test code = 2209) 9.4 MG/DL PROTEIN, TOTAL (test code = 7.1 G/DL 2228) ALBUMIN (test code = 2201) 4.3 G/DL CALC GLOBULIN (test code = 2.8 G/DL 2240) CALC A/G RATIO (test code = 1.5 RATIO 2234) BILIRUBIN, TOTAL (test code = 0.3 MG/DL 7) ALKALINE PHOSPHATASE (test 61 U/L code = 2204) AST (test code = 2218) 17 U/L ALT (test code = 2219) 14 U/L HEMOGLOBIN [id number] 00:00:00 Test Item Value Reference Range Interpretation Comments HEMOGLOBIN A1c (test code = 71068) 5.8 % HEMOGLOBIN [id number] 00:00:00 Test Item Value Reference Range Interpretation Comments HEMOGLOBIN A1c (test code = 06174) 5.8 % [id number] 00:00:00 Test Item Value Reference Range Interpretation Comments TSH, THIRD GENERATION (test 12.800 UIU/ML code = 2821) [id number] 00:00:00 Test Item Value Reference Range Interpretation Comments TSH, THIRD GENERATION (test 12.800 UIU/ML code = 2821) CBC W/AUTO [id number] 00:00:00 Test Item Value Reference Range Interpretation Comments WBC (test code = 1001) 6.5 K/UL RBC (test code = 1002) 4.32 M/UL HEMOGLOBIN (test code = 1003) 12.8 G/DL HEMATOCRIT (test code = 1004) 38.5 % MCV (test code = 1005) 89.1 fL MCH (test code = 1006) 29.6 PG MCHC (test code = 1007) 33.2 G/DL RDW (test code = 1038) 13.1 % NEUTROPHILS (test code = 1008) 55.3 % LYMPHOCYTES (test code = 1010) 28.5 % MONOCYTES (test code = 1011) 9.0 % EOSINOPHILS (test code = 1012) 6.6 % BASOPHILS (test code = 1013) 0.3 % IMMATURE GRANULOCYTES (test 0.3 % code = 1036) NUCLEATED RBCS (test code = 0.0 /100WBC'S 1065) PLATELET COUNT (test code = 422 K/UL 1015) ABSOLUTE NEUTROPHILS (test code 3.61 K/UL = 1066) ABSOLUTE LYMPHOCYTES (test code 1.86 K/UL = 1067) ABSOLUTE MONOCYTES (test code = 0.59 K/UL 1068) ABSOLUTE EOSINOPHILS (test code 0.43 K/UL = 1040) ABSOLUTE BASOPHILS (test code = 0.02 K/UL 1069) ABS IMMATURE GRANULOCYTES (test 0.02 K/UL code = 1020) ABS NUCLEATED RBCS (test code = 0.00 K/UL 90182) CBC W/AUTO [id number] 00:00:00 Test Item Value Reference Range Interpretation Comments WBC (test code = 1001) 6.5 K/UL RBC (test code = 1002) 4.32 M/UL HEMOGLOBIN (test code = 1003) 12.8 G/DL HEMATOCRIT (test code = 1004) 38.5 % MCV (test code = 1005) 89.1 fL MCH (test code = 1006) 29.6 PG MCHC (test code = 1007) 33.2 G/DL RDW (test code = 1038) 13.1 % NEUTROPHILS (test code = 1008) 55.3 % LYMPHOCYTES (test code = 1010) 28.5 % MONOCYTES (test code = 1011) 9.0 % EOSINOPHILS (test code = 1012) 6.6 % BASOPHILS (test code = 1013) 0.3 % IMMATURE GRANULOCYTES (test 0.3 % code = 1036) NUCLEATED RBCS (test code = 0.0 /100WBC'S 1065) PLATELET COUNT (test code = 422 K/UL 1015) ABSOLUTE NEUTROPHILS (test code 3.61 K/UL = 1066) ABSOLUTE LYMPHOCYTES (test code 1.86 K/UL = 1067) ABSOLUTE MONOCYTES (test code = 0.59 K/UL 1068) ABSOLUTE EOSINOPHILS (test code 0.43 K/UL = 1040) ABSOLUTE BASOPHILS (test code = 0.02 K/UL 1069) ABS IMMATURE GRANULOCYTES (test 0.02 K/UL code = 1020) ABS NUCLEATED RBCS (test code = 0.00 K/UL 52737) CBC W/AUTO [id number] 00:00:00 Test Item Value Reference Range Interpretation Comments WBC (test code = 1001) 6.5 K/UL RBC (test code = 1002) 4.32 M/UL HEMOGLOBIN (test code = 1003) 12.8 G/DL HEMATOCRIT (test code = 1004) 38.5 % MCV (test code = 1005) 89.1 fL MCH (test code = 1006) 29.6 PG MCHC (test code = 1007) 33.2 G/DL RDW (test code = 1038) 13.1 % NEUTROPHILS (test code = 1008) 55.3 % LYMPHOCYTES (test code = 1010) 28.5 % MONOCYTES (test code = 1011) 9.0 % EOSINOPHILS (test code = 1012) 6.6 % BASOPHILS (test code = 1013) 0.3 % IMMATURE GRANULOCYTES (test 0.3 % code = 1036) NUCLEATED RBCS (test code = 0.0 /100WBC'S 1065) PLATELET COUNT (test code = 422 K/UL 1015) ABSOLUTE NEUTROPHILS (test code 3.61 K/UL = 1066) ABSOLUTE LYMPHOCYTES (test code 1.86 K/UL = 1067) ABSOLUTE MONOCYTES (test code = 0.59 K/UL 1068) ABSOLUTE EOSINOPHILS (test code 0.43 K/UL = 1040) ABSOLUTE BASOPHILS (test code = 0.02 K/UL 1069) ABS IMMATURE GRANULOCYTES (test 0.02 K/UL code = 1020) ABS NUCLEATED RBCS (test code = 0.00 K/UL 08485) LIPID [id number] 00:00:00 Test Item Value Reference Range Interpretation Comments CHOLESTEROL (test code = 2210) 135 MG/DL TRIGLYCERIDES (test code = 2232) 90 MG/DL HDL CHOLESTEROL (test code = 2220) 49 MG/DL CALC LDL CHOL (test code = 2237) 69 MG/DL RISK RATIO LDL/HDL (test code = 1.41 RATIO 2238) LIPID [id number] 00:00:00 Test Item Value Reference Range Interpretation Comments CHOLESTEROL (test code = 2210) 135 MG/DL TRIGLYCERIDES (test code = 2232) 90 MG/DL HDL CHOLESTEROL (test code = 2220) 49 MG/DL CALC LDL CHOL (test code = 2237) 69 MG/DL RISK RATIO LDL/HDL (test code = 1.41 RATIO 2238) COMPREHENSIVE METABOLIC [id number] 00:00:00 Test Item Value Reference Range Interpretation Comments GLUCOSE (test code = 2217) 89 MG/DL BUN (test code = 2208) 10 MG/DL CREATININE (test code = 2214) 0.56 MG/DL eGFR AMER. (test code 117 ML/MIN/1.73 = 42638) eGFR NON- AMER. (test 101 ML/MIN/1.73 code = 24161) CALC BUN/CREAT (test code = 18 RATIO 2235) SODIUM (test code = 2231) 139 MEQ/L POTASSIUM (test code = 2228) 4.5 MEQ/L CHLORIDE (test code = 2215) 101 MEQ/L CARBON DIOXIDE (test code = 28 MEQ/L 220) CALCIUM (test code = 2209) 9.4 MG/DL PROTEIN, TOTAL (test code = 7.1 G/DL 222) ALBUMIN (test code = 2201) 4.3 G/DL CALC GLOBULIN (test code = 2.8 G/DL 2240) CALC A/G RATIO (test code = 1.5 RATIO 2234) BILIRUBIN, TOTAL (test code = 0.3 MG/DL 2206) ALKALINE PHOSPHATASE (test 61 U/L code = 2204) AST (test code = 2218) 17 U/L ALT (test code = 2219) 14 U/L COMPREHENSIVE METABOLIC [id number] 00:00:00 Test Item Value Reference Range Interpretation Comments GLUCOSE (test code = 2217) 89 MG/DL BUN (test code = 2208) 10 MG/DL CREATININE (test code = 2214) 0.56 MG/DL eGFR AMER. (test code 117 ML/MIN/1.73 = 60751) eGFR NON- AMER. (test 101 ML/MIN/1.73 code = 73114) CALC BUN/CREAT (test code = 18 RATIO 2235) SODIUM (test code = 2231) 139 MEQ/L POTASSIUM (test code = 2228) 4.5 MEQ/L CHLORIDE (test code = 2215) 101 MEQ/L CARBON DIOXIDE (test code = 28 MEQ/L 2205) CALCIUM (test code = 2209) 9.4 MG/DL PROTEIN, TOTAL (test code = 7.1 G/DL 2228) ALBUMIN (test code = 2201) 4.3 G/DL CALC GLOBULIN (test code = 2.8 G/DL 2240) CALC A/G RATIO (test code = 1.5 RATIO 2234) BILIRUBIN, TOTAL (test code = 0.3 MG/DL 2206) ALKALINE PHOSPHATASE (test 61 U/L code = 2204) AST (test code = 2218) 17 U/L ALT (test code = 2219) 14 U/L HEMOGLOBIN [id number] 00:00:00 Test Item Value Reference Range Interpretation Comments HEMOGLOBIN A1c (test code = 26021) 5.8 % HEMOGLOBIN [id number] 00:00:00 Test Item Value Reference Range Interpretation Comments HEMOGLOBIN A1c (test code = 42522) 5.8 % HEMOGLOBIN [id number] 00:00:00 Test Item Value Reference Range Interpretation Comments HEMOGLOBIN A1c (test code = 83876) 5.8 % [id number] 00:00:00 Test Item Value Reference Range Interpretation Comments TSH, THIRD GENERATION (test 12.800 UIU/ML code = 2821) [id number] 00:00:00 Test Item Value Reference Range Interpretation Comments TSH, THIRD GENERATION (test 12.800 UIU/ML code = 2821) [id number] 00:00:00 Test Item Value Reference Range Interpretation Comments TSH, THIRD GENERATION (test 12.800 UIU/ML code = 2821) CULTURE, [id number] 00:00:00 Test Item Value Reference Range Interpretation Comments CULTURE, URINE (test SPECIMEN NUMBER: code = 28884) [id number] CULTURE, [id number] 00:00:00 Test Item Value Reference Range Interpretation Comments CULTURE, URINE (test SPECIMEN NUMBER: code = 86373) [id number] CULTURE, [id number] 00:00:00 Test Item Value Reference Range Interpretation Comments CULTURE, URINE (test SPECIMEN NUMBER: code = 20906) [id number] HEMOGLOBIN [id number] 00:00:00 Test Item Value Reference Range Interpretation Comments HEMOGLOBIN A1c (test code = 85723) 5.6 % HEMOGLOBIN [id number] 00:00:00 Test Item Value Reference Range Interpretation Comments HEMOGLOBIN A1c (test code = 10982) 5.6 % LIPID [id number] 00:00:00 Test Item Value Reference Range Interpretation Comments CHOLESTEROL (test code = 2210) 134 MG/DL TRIGLYCERIDES (test code = 2232) 95 MG/DL HDL CHOLESTEROL (test code = 2220) 57 MG/DL CALC LDL CHOL (test code = 2237) 59 MG/DL RISK RATIO LDL/HDL (test code = 1.04 RATIO 2238) COMPREHENSIVE METABOLIC [id number] 00:00:00 Test Item Value Reference Range Interpretation Comments GLUCOSE (test code = 2217) 97 MG/DL BUN (test code = 2208) 11 MG/DL CREATININE (test code = 2214) 0.72 MG/DL eGFR AMER. (test code 105 ML/MIN/1.73 = 68067) eGFR NON- AMER. (test 91 ML/MIN/1.73 code = 33887) CALC BUN/CREAT (test code = 15 RATIO 5) SODIUM (test code = 2231) 136 MEQ/L POTASSIUM (test code = 2228) 4.2 MEQ/L CHLORIDE (test code = 2215) 99 MEQ/L CARBON DIOXIDE (test code = 29 MEQ/L 2205) CALCIUM (test code = 2209) 10.0 MG/DL PROTEIN, TOTAL (test code = 7.6 G/DL 2228) ALBUMIN (test code = 220) 4.5 G/DL CALC GLOBULIN (test code = 3.1 G/DL 2239) CALC A/G RATIO (test code = 1.5 RATIO 2233) BILIRUBIN, TOTAL (test code = 0.4 MG/DL 2206) ALKALINE PHOSPHATASE (test 53 U/L code = 2204) AST (test code = 2218) 22 U/L ALT (test code = 2219) 16 U/L [id number] 00:00:00 Test Item Value Reference Range Interpretation Comments TSH, THIRD GENERATION (test 24.000 UIU/ML code = 2821) [id number] 00:00:00 Test Item Value Reference Range Interpretation Comments TSH, THIRD GENERATION (test 24.000 UIU/ML code = 2821) HEMOGLOBIN [id number] 00:00:00 Test Item Value Reference Range Interpretation Comments HEMOGLOBIN A1c (test code = 87078) 5.6 % HEMOGLOBIN [id number] 00:00:00 Test Item Value Reference Range Interpretation Comments HEMOGLOBIN A1c (test code = 11122) 5.6 % HEMOGLOBIN [id number] 00:00:00 Test Item Value Reference Range Interpretation Comments HEMOGLOBIN A1c (test code = 86391) 5.6 % LIPID [id number] 00:00:00 Test Item Value Reference Range Interpretation Comments CHOLESTEROL (test code = 2210) 134 MG/DL TRIGLYCERIDES (test code = 2232) 95 MG/DL HDL CHOLESTEROL (test code = 2220) 57 MG/DL CALC LDL CHOL (test code = 2237) 59 MG/DL RISK RATIO LDL/HDL (test code = 1.04 RATIO 8) LIPID [id number] 00:00:00 Test Item Value Reference Range Interpretation Comments CHOLESTEROL (test code = 2210) 134 MG/DL TRIGLYCERIDES (test code = 2232) 95 MG/DL HDL CHOLESTEROL (test code = 2220) 57 MG/DL CALC LDL CHOL (test code = 2237) 59 MG/DL RISK RATIO LDL/HDL (test code = 1.04 RATIO 2238) COMPREHENSIVE METABOLIC [id number] 00:00:00 Test Item Value Reference Range Interpretation Comments GLUCOSE (test code = 2217) 97 MG/DL BUN (test code = 2208) 11 MG/DL CREATININE (test code = 2214) 0.72 MG/DL eGFR AMER. (test code 105 ML/MIN/1.73 = 98181) eGFR NON- AMER. (test 91 ML/MIN/1.73 code = 46548) CALC BUN/CREAT (test code = 15 RATIO 2235) SODIUM (test code = 2231) 136 MEQ/L POTASSIUM (test code = 2228) 4.2 MEQ/L CHLORIDE (test code = 2215) 99 MEQ/L CARBON DIOXIDE (test code = 29 MEQ/L 6) CALCIUM (test code = 2209) 10.0 MG/DL PROTEIN, TOTAL (test code = 7.6 G/DL 222) ALBUMIN (test code = 2201) 4.5 G/DL CALC GLOBULIN (test code = 3.1 G/DL 2240) CALC A/G RATIO (test code = 1.5 RATIO 2234) BILIRUBIN, TOTAL (test code = 0.4 MG/DL 2207) ALKALINE PHOSPHATASE (test 53 U/L code = 2204) AST (test code = 2218) 22 U/L ALT (test code = 2219) 16 U/L COMPREHENSIVE METABOLIC [id number] 00:00:00 Test Item Value Reference Range Interpretation Comments GLUCOSE (test code = 2217) 97 MG/DL BUN (test code = 2208) 11 MG/DL CREATININE (test code = 2214) 0.72 MG/DL eGFR AMER. (test code 105 ML/MIN/1.73 = 76806) eGFR NON- AMER. (test 91 ML/MIN/1.73 code = 10117) CALC BUN/CREAT (test code = 15 RATIO 2235) SODIUM (test code = 2231) 136 MEQ/L POTASSIUM (test code = 2228) 4.2 MEQ/L CHLORIDE (test code = 2215) 99 MEQ/L CARBON DIOXIDE (test code = 29 MEQ/L 2205) CALCIUM (test code = 2209) 10.0 MG/DL PROTEIN, TOTAL (test code = 7.6 G/DL 2228) ALBUMIN (test code = 2201) 4.5 G/DL CALC GLOBULIN (test code = 3.1 G/DL 2239) CALC A/G RATIO (test code = 1.5 RATIO 2233) BILIRUBIN, TOTAL (test code = 0.4 MG/DL 2206) ALKALINE PHOSPHATASE (test 53 U/L code = 2204) AST (test code = 2218) 22 U/L ALT (test code = 2219) 16 U/L [id number] 00:00:00 Test Item Value Reference Range Interpretation Comments TSH, THIRD GENERATION (test 24.000 UIU/ML code = 2821) [id number] 00:00:00 Test Item Value Reference Range Interpretation Comments TSH, THIRD GENERATION (test 24.000 UIU/ML code = 2821) [id number] 00:00:00 Test Item Value Reference Range Interpretation Comments TSH, THIRD GENERATION (test 24.000 UIU/ML code = 2821) [id number] 00:00:00 Test Item Value Reference Range Interpretation Comments TSH, THIRD GENERATION (test code 0.054 UIU/ML = 2821) [id number] 00:00:00 Test Item Value Reference Range Interpretation Comments TSH, THIRD GENERATION (test code 0.054 UIU/ML = 2821) [id number] 00:00:00 Test Item Value Reference Range Interpretation Comments TSH, THIRD GENERATION (test code 0.054 UIU/ML = 2821) [id number] 00:00:00 Test Item Value Reference Range Interpretation Comments TSH, THIRD GENERATION (test code 0.054 UIU/ML = 2821) [id number] 00:00:00 Test Item Value Reference Range Interpretation Comments TSH, THIRD GENERATION (test code 0.054 UIU/ML = 2821) [id number] 00:00:00 Test Item Value Reference Range Interpretation Comments TSH, THIRD GENERATION (test code 0.114 UIU/ML = 2821) [id number] 00:00:00 Test Item Value Reference Range Interpretation Comments TSH, THIRD GENERATION (test code 0.114 UIU/ML = 2821) [id number] 00:00:00 Test Item Value Reference Range Interpretation Comments TSH, THIRD GENERATION (test code 0.114 UIU/ML = 2821) [id number] 00:00:00 Test Item Value Reference Range Interpretation Comments TSH, THIRD GENERATION (test code 0.114 UIU/ML = 2821) [id number] 00:00:00 Test Item Value Reference Range Interpretation Comments TSH, THIRD GENERATION (test code 0.114 UIU/ML = 2821) HEMOGLOBIN [id number] 00:00:00 Test Item Value Reference Range Interpretation Comments HEMOGLOBIN A1c (test code = 17579) 5.8 % HEMOGLOBIN [id number] 00:00:00 Test Item Value Reference Range Interpretation Comments HEMOGLOBIN A1c (test code = 92729) 5.8 % CBC W/AUTO [id number] 00:00:00 Test Item Value Reference Range Interpretation Comments WBC (test code = 1001) 5.2 K/UL RBC (test code = 1002) 4.26 M/UL HEMOGLOBIN (test code = 1003) 12.7 G/DL HEMATOCRIT (test code = 1004) 37.9 % MCV (test code = 1005) 89.0 fL MCH (test code = 1006) 29.8 PG MCHC (test code = 1007) 33.5 G/DL RDW (test code = 1038) 12.8 % NEUTROPHILS (test code = 1008) 47.0 % LYMPHOCYTES (test code = 1010) 33.5 % MONOCYTES (test code = 1011) 11.2 % EOSINOPHILS (test code = 1012) 7.7 % BASOPHILS (test code = 1013) 0.6 % PLATELET COUNT (test code = 1015) 347 K/UL CBC W/AUTO [id number] 00:00:00 Test Item Value Reference Range Interpretation Comments WBC (test code = 1001) 5.2 K/UL RBC (test code = 1002) 4.26 M/UL HEMOGLOBIN (test code = 1003) 12.7 G/DL HEMATOCRIT (test code = 1004) 37.9 % MCV (test code = 1005) 89.0 fL MCH (test code = 1006) 29.8 PG MCHC (test code = 1007) 33.5 G/DL RDW (test code = 1038) 12.8 % NEUTROPHILS (test code = 1008) 47.0 % LYMPHOCYTES (test code = 1010) 33.5 % MONOCYTES (test code = 1011) 11.2 % EOSINOPHILS (test code = 1012) 7.7 % BASOPHILS (test code = 1013) 0.6 % PLATELET COUNT (test code = 1015) 347 K/UL COMPREHENSIVE METABOLIC [id number] 00:00:00 Test Item Value Reference Range Interpretation Comments GLUCOSE (test code = 2217) 106 MG/DL BUN (test code = 2208) 21 MG/DL CREATININE (test code = 2214) 0.58 MG/DL eGFR AMER. (test code 116 ML/MIN/1.73 = 96966) eGFR NON- AMER. (test 100 ML/MIN/1.73 code = 76983) CALC BUN/CREAT (test code = 36 RATIO 2234) SODIUM (test code = 2231) 140 MEQ/L POTASSIUM (test code = 2228) 4.5 MEQ/L CHLORIDE (test code = 2215) 104 MEQ/L CARBON DIOXIDE (test code = 23 MEQ/L 2205) CALCIUM (test code = 2209) 9.3 MG/DL PROTEIN, TOTAL (test code = 7.1 G/DL 2228) ALBUMIN (test code = 2201) 4.2 G/DL CALC GLOBULIN (test code = 2.9 G/DL 2239) CALC A/G RATIO (test code = 1.4 RATIO 2233) BILIRUBIN, TOTAL (test code = 0.2 MG/DL 2206) ALKALINE PHOSPHATASE (test 67 U/L code = 2204) AST (test code = 2218) 18 U/L ALT (test code = 2219) 15 U/L LIPID [id number] 00:00:00 Test Item Value Reference Range Interpretation Comments CHOLESTEROL (test code = 2210) 133 MG/DL TRIGLYCERIDES (test code = 2232) 56 MG/DL HDL CHOLESTEROL (test code = 2220) 55 MG/DL CALC LDL CHOL (test code = 2237) 64 MG/DL RISK RATIO LDL/HDL (test code = 1.16 RATIO 2238) HEMOGLOBIN [id number] 00:00:00 Test Item Value Reference Range Interpretation Comments HEMOGLOBIN A1c (test code = 01425) 5.8 % HEMOGLOBIN [id number] 00:00:00 Test Item Value Reference Range Interpretation Comments HEMOGLOBIN A1c (test code = 70570) 5.8 % HEMOGLOBIN [id number] 00:00:00 Test Item Value Reference Range Interpretation Comments HEMOGLOBIN A1c (test code = 61222) 5.8 % CBC W/AUTO [id number] 00:00:00 Test Item Value Reference Range Interpretation Comments WBC (test code = 1001) 5.2 K/UL RBC (test code = 1002) 4.26 M/UL HEMOGLOBIN (test code = 1003) 12.7 G/DL HEMATOCRIT (test code = 1004) 37.9 % MCV (test code = 1005) 89.0 fL MCH (test code = 1006) 29.8 PG MCHC (test code = 1007) 33.5 G/DL RDW (test code = 1038) 12.8 % NEUTROPHILS (test code = 1008) 47.0 % LYMPHOCYTES (test code = 1010) 33.5 % MONOCYTES (test code = 1011) 11.2 % EOSINOPHILS (test code = 1012) 7.7 % BASOPHILS (test code = 1013) 0.6 % PLATELET COUNT (test code = 1015) 347 K/UL CBC W/AUTO [id number] 00:00:00 Test Item Value Reference Range Interpretation Comments WBC (test code = 1001) 5.2 K/UL RBC (test code = 1002) 4.26 M/UL HEMOGLOBIN (test code = 1003) 12.7 G/DL HEMATOCRIT (test code = 1004) 37.9 % MCV (test code = 1005) 89.0 fL MCH (test code = 1006) 29.8 PG MCHC (test code = 1007) 33.5 G/DL RDW (test code = 1038) 12.8 % NEUTROPHILS (test code = 1008) 47.0 % LYMPHOCYTES (test code = 1010) 33.5 % MONOCYTES (test code = 1011) 11.2 % EOSINOPHILS (test code = 1012) 7.7 % BASOPHILS (test code = 1013) 0.6 % PLATELET COUNT (test code = 1015) 347 K/UL CBC W/AUTO [id number] 00:00:00 Test Item Value Reference Range Interpretation Comments WBC (test code = 1001) 5.2 K/UL RBC (test code = 1002) 4.26 M/UL HEMOGLOBIN (test code = 1003) 12.7 G/DL HEMATOCRIT (test code = 1004) 37.9 % MCV (test code = 1005) 89.0 fL MCH (test code = 1006) 29.8 PG MCHC (test code = 1007) 33.5 G/DL RDW (test code = 1038) 12.8 % NEUTROPHILS (test code = 1008) 47.0 % LYMPHOCYTES (test code = 1010) 33.5 % MONOCYTES (test code = 1011) 11.2 % EOSINOPHILS (test code = 1012) 7.7 % BASOPHILS (test code = 1013) 0.6 % PLATELET COUNT (test code = 1015) 347 K/UL COMPREHENSIVE METABOLIC [id number] 00:00:00 Test Item Value Reference Range Interpretation Comments GLUCOSE (test code = 2217) 106 MG/DL BUN (test code = 2208) 21 MG/DL CREATININE (test code = 2214) 0.58 MG/DL eGFR AMER. (test code 116 ML/MIN/1.73 = 12854) eGFR NON- AMER. (test 100 ML/MIN/1.73 code = 70767) CALC BUN/CREAT (test code = 36 RATIO 2235) SODIUM (test code = 2231) 140 MEQ/L POTASSIUM (test code = 2228) 4.5 MEQ/L CHLORIDE (test code = 2215) 104 MEQ/L CARBON DIOXIDE (test code = 23 MEQ/L 2206) CALCIUM (test code = 2209) 9.3 MG/DL PROTEIN, TOTAL (test code = 7.1 G/DL 2228) ALBUMIN (test code = 2201) 4.2 G/DL CALC GLOBULIN (test code = 2.9 G/DL 2240) CALC A/G RATIO (test code = 1.4 RATIO 2234) BILIRUBIN, TOTAL (test code = 0.2 MG/DL 220) ALKALINE PHOSPHATASE (test 67 U/L code = 2204) AST (test code = 2218) 18 U/L ALT (test code = 2219) 15 U/L COMPREHENSIVE METABOLIC [id number] 00:00:00 Test Item Value Reference Range Interpretation Comments GLUCOSE (test code = 2217) 106 MG/DL BUN (test code = 2208) 21 MG/DL CREATININE (test code = 2214) 0.58 MG/DL eGFR AMER. (test code 116 ML/MIN/1.73 = 32866) eGFR NON- AMER. (test 100 ML/MIN/1.73 code = 27975) CALC BUN/CREAT (test code = 36 RATIO 2235) SODIUM (test code = 2231) 140 MEQ/L POTASSIUM (test code = 2228) 4.5 MEQ/L CHLORIDE (test code = 2215) 104 MEQ/L CARBON DIOXIDE (test code = 23 MEQ/L 2205) CALCIUM (test code = 2209) 9.3 MG/DL PROTEIN, TOTAL (test code = 7.1 G/DL 2228) ALBUMIN (test code = 2201) 4.2 G/DL CALC GLOBULIN (test code = 2.9 G/DL 2239) CALC A/G RATIO (test code = 1.4 RATIO 2233) BILIRUBIN, TOTAL (test code = 0.2 MG/DL 2206) ALKALINE PHOSPHATASE (test 67 U/L code = 2204) AST (test code = 2218) 18 U/L ALT (test code = 2219) 15 U/L LIPID [id number] 00:00:00 Test Item Value Reference Range Interpretation Comments CHOLESTEROL (test code = 2210) 133 MG/DL TRIGLYCERIDES (test code = 2232) 56 MG/DL HDL CHOLESTEROL (test code = 2220) 55 MG/DL CALC LDL CHOL (test code = 2237) 64 MG/DL RISK RATIO LDL/HDL (test code = 1.16 RATIO 2238) LIPID [id number] 00:00:00 Test Item Value Reference Range Interpretation Comments CHOLESTEROL (test code = 2210) 133 MG/DL TRIGLYCERIDES (test code = 2232) 56 MG/DL HDL CHOLESTEROL (test code = 2220) 55 MG/DL CALC LDL CHOL (test code = 2237) 64 MG/DL RISK RATIO LDL/HDL (test code = 1.16 RATIO 2238) CBC W/AUTO [id number] 00:00:00 Test Item Value Reference Range Interpretation Comments WBC (test code = 1001) 7.6 K/UL RBC (test code = 1002) 4.12 M/UL HEMOGLOBIN (test code = 1003) 12.8 G/DL HEMATOCRIT (test code = 1004) 37.4 % MCV (test code = 1005) 90.8 fL MCH (test code = 1006) 31.1 PG MCHC (test code = 1007) 34.2 G/DL RDW (test code = 1038) 12.8 % NEUTROPHILS (test code = 1008) 62.8 % LYMPHOCYTES (test code = 1010) 25.3 % MONOCYTES (test code = 1011) 8.7 % EOSINOPHILS (test code = 1012) 2.8 % BASOPHILS (test code = 1013) 0.4 % PLATELET COUNT (test code = 1015) 539 K/UL CBC W/AUTO [id number] 00:00:00 Test Item Value Reference Range Interpretation Comments WBC (test code = 1001) 7.6 K/UL RBC (test code = 1002) 4.12 M/UL HEMOGLOBIN (test code = 1003) 12.8 G/DL HEMATOCRIT (test code = 1004) 37.4 % MCV (test code = 1005) 90.8 fL MCH (test code = 1006) 31.1 PG MCHC (test code = 1007) 34.2 G/DL RDW (test code = 1038) 12.8 % NEUTROPHILS (test code = 1008) 62.8 % LYMPHOCYTES (test code = 1010) 25.3 % MONOCYTES (test code = 1011) 8.7 % EOSINOPHILS (test code = 1012) 2.8 % BASOPHILS (test code = 1013) 0.4 % PLATELET COUNT (test code = 1015) 539 K/UL CBC W/AUTO [id number] 00:00:00 Test Item Value Reference Range Interpretation Comments WBC (test code = 1001) 7.6 K/UL RBC (test code = 1002) 4.12 M/UL HEMOGLOBIN (test code = 1003) 12.8 G/DL HEMATOCRIT (test code = 1004) 37.4 % MCV (test code = 1005) 90.8 fL MCH (test code = 1006) 31.1 PG MCHC (test code = 1007) 34.2 G/DL RDW (test code = 1038) 12.8 % NEUTROPHILS (test code = 1008) 62.8 % LYMPHOCYTES (test code = 1010) 25.3 % MONOCYTES (test code = 1011) 8.7 % EOSINOPHILS (test code = 1012) 2.8 % BASOPHILS (test code = 1013) 0.4 % PLATELET COUNT (test code = 1015) 539 K/UL CBC W/AUTO [id number] 00:00:00 Test Item Value Reference Range Interpretation Comments WBC (test code = 1001) 7.6 K/UL RBC (test code = 1002) 4.12 M/UL HEMOGLOBIN (test code = 1003) 12.8 G/DL HEMATOCRIT (test code = 1004) 37.4 % MCV (test code = 1005) 90.8 fL MCH (test code = 1006) 31.1 PG MCHC (test code = 1007) 34.2 G/DL RDW (test code = 1038) 12.8 % NEUTROPHILS (test code = 1008) 62.8 % LYMPHOCYTES (test code = 1010) 25.3 % MONOCYTES (test code = 1011) 8.7 % EOSINOPHILS (test code = 1012) 2.8 % BASOPHILS (test code = 1013) 0.4 % PLATELET COUNT (test code = 1015) 539 K/UL CBC W/AUTO [id number] 00:00:00 Test Item Value Reference Range Interpretation Comments WBC (test code = 1001) 7.6 K/UL RBC (test code = 1002) 4.12 M/UL HEMOGLOBIN (test code = 1003) 12.8 G/DL HEMATOCRIT (test code = 1004) 37.4 % MCV (test code = 1005) 90.8 fL MCH (test code = 1006) 31.1 PG MCHC (test code = 1007) 34.2 G/DL RDW (test code = 1038) 12.8 % NEUTROPHILS (test code = 1008) 62.8 % LYMPHOCYTES (test code = 1010) 25.3 % MONOCYTES (test code = 1011) 8.7 % EOSINOPHILS (test code = 1012) 2.8 % BASOPHILS (test code = 1013) 0.4 % PLATELET COUNT (test code = 1015) 539 K/UL LIPID [id number] 00:00:00 Test Item Value Reference Range Interpretation Comments CHOLESTEROL (test code = 2210) 138 MG/DL TRIGLYCERIDES (test code = 2232) 113 MG/DL HDL CHOLESTEROL (test code = 2220) 57 MG/DL CALC LDL CHOL (test code = 2237) 58 MG/DL RISK RATIO LDL/HDL (test code = 1.02 RATIO 2238) COMPREHENSIVE METABOLIC [id number] 00:00:00 Test Item Value Reference Range Interpretation Comments GLUCOSE (test code = 2217) 89 MG/DL BUN (test code = 2208) 11 MG/DL CREATININE (test code = 2214) 0.52 MG/DL eGFR AMER. (test code 121 ML/MIN/1.73 = 30727) eGFR NON- AMER. (test 105 ML/MIN/1.73 code = 36945) CALC BUN/CREAT (test code = 21 RATIO 2235) SODIUM (test code = 2231) 143 MEQ/L POTASSIUM (test code = 2228) 4.2 MEQ/L CHLORIDE (test code = 2215) 103 MEQ/L CARBON DIOXIDE (test code = 26 MEQ/L 2205) CALCIUM (test code = 2209) 9.6 MG/DL PROTEIN, TOTAL (test code = 7.0 G/DL 2228) ALBUMIN (test code = 2201) 4.2 G/DL CALC GLOBULIN (test code = 2.8 G/DL 2240) CALC A/G RATIO (test code = 1.5 RATIO 4) BILIRUBIN, TOTAL (test code = 0.3 MG/DL 2206) ALKALINE PHOSPHATASE (test 53 U/L code = 2204) AST (test code = 2218) 23 U/L ALT (test code = 2219) 21 U/L [id number] 00:00:00 Test Item Value Reference Range Interpretation Comments TSH, THIRD GENERATION (test code 3.650 UIU/ML = 2821) [id number] 00:00:00 Test Item Value Reference Range Interpretation Comments TSH, THIRD GENERATION (test code 3.650 UIU/ML = 2821) LIPID [id number] 00:00:00 Test Item Value Reference Range Interpretation Comments CHOLESTEROL (test code = 2210) 138 MG/DL TRIGLYCERIDES (test code = 2232) 113 MG/DL HDL CHOLESTEROL (test code = 2220) 57 MG/DL CALC LDL CHOL (test code = 2237) 58 MG/DL RISK RATIO LDL/HDL (test code = 1.02 RATIO 2238) LIPID [id number] 00:00:00 Test Item Value Reference Range Interpretation Comments CHOLESTEROL (test code = 2210) 138 MG/DL TRIGLYCERIDES (test code = 2232) 113 MG/DL HDL CHOLESTEROL (test code = 2220) 57 MG/DL CALC LDL CHOL (test code = 2237) 58 MG/DL RISK RATIO LDL/HDL (test code = 1.02 RATIO 2238) COMPREHENSIVE METABOLIC [id number] 00:00:00 Test Item Value Reference Range Interpretation Comments GLUCOSE (test code = 2217) 89 MG/DL BUN (test code = 2208) 11 MG/DL CREATININE (test code = 2214) 0.52 MG/DL eGFR AMER. (test code 121 ML/MIN/1.73 = 93654) eGFR NON- AMER. (test 105 ML/MIN/1.73 code = 05730) CALC BUN/CREAT (test code = 21 RATIO 2235) SODIUM (test code = 2231) 143 MEQ/L POTASSIUM (test code = 2228) 4.2 MEQ/L CHLORIDE (test code = 2215) 103 MEQ/L CARBON DIOXIDE (test code = 26 MEQ/L 2205) CALCIUM (test code = 2209) 9.6 MG/DL PROTEIN, TOTAL (test code = 7.0 G/DL 2228) ALBUMIN (test code = 2201) 4.2 G/DL CALC GLOBULIN (test code = 2.8 G/DL 2240) CALC A/G RATIO (test code = 1.5 RATIO 2234) BILIRUBIN, TOTAL (test code = 0.3 MG/DL 2206) ALKALINE PHOSPHATASE (test 53 U/L code = 2204) AST (test code = 2218) 23 U/L ALT (test code = 2219) 21 U/L COMPREHENSIVE METABOLIC [id number] 00:00:00 Test Item Value Reference Range Interpretation Comments GLUCOSE (test code = 2217) 89 MG/DL BUN (test code = 2208) 11 MG/DL CREATININE (test code = 2214) 0.52 MG/DL eGFR AMER. (test code 121 ML/MIN/1.73 = 22029) eGFR NON- AMER. (test 105 ML/MIN/1.73 code = 77154) CALC BUN/CREAT (test code = 21 RATIO 2235) SODIUM (test code = 2231) 143 MEQ/L POTASSIUM (test code = 2228) 4.2 MEQ/L CHLORIDE (test code = 2215) 103 MEQ/L CARBON DIOXIDE (test code = 26 MEQ/L 2205) CALCIUM (test code = 2209) 9.6 MG/DL PROTEIN, TOTAL (test code = 7.0 G/DL 2228) ALBUMIN (test code = 2201) 4.2 G/DL CALC GLOBULIN (test code = 2.8 G/DL 2239) CALC A/G RATIO (test code = 1.5 RATIO 2233) BILIRUBIN, TOTAL (test code = 0.3 MG/DL 2206) ALKALINE PHOSPHATASE (test 53 U/L code = 2204) AST (test code = 2218) 23 U/L ALT (test code = 2219) 21 U/L [id number] 00:00:00 Test Item Value Reference Range Interpretation Comments TSH, THIRD GENERATION (test code 3.650 UIU/ML = 2821) [id number] 00:00:00 Test Item Value Reference Range Interpretation Comments TSH, THIRD GENERATION (test code 3.650 UIU/ML = 2821) [id number] 00:00:00 Test Item Value Reference Range Interpretation Comments TSH, THIRD GENERATION (test code 3.650 UIU/ML = 2821) HEMOGLOBIN [id number] 00:00:00 Test Item Value Reference Range Interpretation Comments HEMOGLOBIN A1c (test code = 78662) 5.7 % HEMOGLOBIN [id number] 00:00:00 Test Item Value Reference Range Interpretation Comments HEMOGLOBIN A1c (test code = 18991) 5.7 % HEMOGLOBIN [id number] 00:00:00 Test Item Value Reference Range Interpretation Comments HEMOGLOBIN A1c (test code = 06328) 5.7 % HEMOGLOBIN [id number] 00:00:00 Test Item Value Reference Range Interpretation Comments HEMOGLOBIN A1c (test code = 71009) 5.7 % HEMOGLOBIN [id number] 00:00:00 Test Item Value Reference Range Interpretation Comments HEMOGLOBIN A1c (test code = 67856) 5.7 % [id number] 00:00:00 Test Item Value Reference Range Interpretation Comments TSH, THIRD GENERATION (test code 1.130 UIU/ML = 2821) [id number] 00:00:00 Test Item Value Reference Range Interpretation Comments TSH, THIRD GENERATION (test code 1.130 UIU/ML = 2821) [id number] 00:00:00 Test Item Value Reference Range Interpretation Comments TSH, THIRD GENERATION (test code 1.130 UIU/ML = 2821) [id number] 00:00:00 Test Item Value Reference Range Interpretation Comments TSH, THIRD GENERATION (test code 1.130 UIU/ML = 2821) [id number] 00:00:00 Test Item Value Reference Range Interpretation Comments TSH, THIRD GENERATION (test code 1.130 UIU/ML = 2821) HEMOGLOBIN [id number] 00:00:00 Test Item Value Reference Range Interpretation Comments HEMOGLOBIN A1c (test code = 59790) 5.7 % HEMOGLOBIN [id number] 00:00:00 Test Item Value Reference Range Interpretation Comments HEMOGLOBIN A1c (test code = 79175) 5.7 % LIPID [id number] 00:00:00 Test Item Value Reference Range Interpretation Comments CHOLESTEROL (test code = 2210) 188 MG/DL TRIGLYCERIDES (test code = 2232) 103 MG/DL HDL CHOLESTEROL (test code = 2220) 65 MG/DL CALC LDL CHOL (test code = 2237) 102 MG/DL RISK RATIO LDL/HDL (test code = 1.58 RATIO 2238) COMPREHENSIVE METABOLIC [id number] 00:00:00 Test Item Value Reference Range Interpretation Comments GLUCOSE (test code = 2217) 91 MG/DL BUN (test code = 2208) 11 MG/DL CREATININE (test code = 2214) 0.55 MG/DL eGFR AMER. (test code 119 ML/MIN/1.73 = 48384) eGFR NON- AMER. (test 103 ML/MIN/1.73 code = 81879) CALC BUN/CREAT (test code = 20 RATIO 2235) SODIUM (test code = 2231) 140 MEQ/L POTASSIUM (test code = 2228) 4.4 MEQ/L CHLORIDE (test code = 2215) 100 MEQ/L CARBON DIOXIDE (test code = 29 MEQ/L 2206) CALCIUM (test code = 2209) 9.9 MG/DL PROTEIN, TOTAL (test code = 7.4 G/DL 2228) ALBUMIN (test code = 2201) 4.7 G/DL CALC GLOBULIN (test code = 2.7 G/DL 0) CALC A/G RATIO (test code = 1.7 RATIO 2234) BILIRUBIN, TOTAL (test code = 0.3 MG/DL 2206) ALKALINE PHOSPHATASE (test 51 U/L code = 2204) AST (test code = 2218) 29 U/L ALT (test code = 2219) 26 U/L [id number] 00:00:00 Test Item Value Reference Range Interpretation Comments TSH, THIRD GENERATION (test code 4.250 UIU/ML = 2821) [id number] 00:00:00 Test Item Value Reference Range Interpretation Comments TSH, THIRD GENERATION (test code 4.250 UIU/ML = 2821) HEMOGLOBIN [id number] 00:00:00 Test Item Value Reference Range Interpretation Comments HEMOGLOBIN A1c (test code = 26398) 5.7 % HEMOGLOBIN [id number] 00:00:00 Test Item Value Reference Range Interpretation Comments HEMOGLOBIN A1c (test code = 42957) 5.7 % HEMOGLOBIN [id number] 00:00:00 Test Item Value Reference Range Interpretation Comments HEMOGLOBIN A1c (test code = 57465) 5.7 % LIPID [id number] 00:00:00 Test Item Value Reference Range Interpretation Comments CHOLESTEROL (test code = 2210) 188 MG/DL TRIGLYCERIDES (test code = 2232) 103 MG/DL HDL CHOLESTEROL (test code = 2220) 65 MG/DL CALC LDL CHOL (test code = 2237) 102 MG/DL RISK RATIO LDL/HDL (test code = 1.58 RATIO 2238) LIPID [id number] 00:00:00 Test Item Value Reference Range Interpretation Comments CHOLESTEROL (test code = 2210) 188 MG/DL TRIGLYCERIDES (test code = 2232) 103 MG/DL HDL CHOLESTEROL (test code = 2220) 65 MG/DL CALC LDL CHOL (test code = 2237) 102 MG/DL RISK RATIO LDL/HDL (test code = 1.58 RATIO 2238) COMPREHENSIVE METABOLIC [id number] 00:00:00 Test Item Value Reference Range Interpretation Comments GLUCOSE (test code = 2217) 91 MG/DL BUN (test code = 2208) 11 MG/DL CREATININE (test code = 2214) 0.55 MG/DL eGFR AMER. (test code 119 ML/MIN/1.73 = 32779) eGFR NON- AMER. (test 103 ML/MIN/1.73 code = 94222) CALC BUN/CREAT (test code = 20 RATIO 2235) SODIUM (test code = 2231) 140 MEQ/L POTASSIUM (test code = 2228) 4.4 MEQ/L CHLORIDE (test code = 2215) 100 MEQ/L CARBON DIOXIDE (test code = 29 MEQ/L 2206) CALCIUM (test code = 2209) 9.9 MG/DL PROTEIN, TOTAL (test code = 7.4 G/DL 2228) ALBUMIN (test code = 2201) 4.7 G/DL CALC GLOBULIN (test code = 2.7 G/DL 2240) CALC A/G RATIO (test code = 1.7 RATIO 2234) BILIRUBIN, TOTAL (test code = 0.3 MG/DL 2206) ALKALINE PHOSPHATASE (test 51 U/L code = 2204) AST (test code = 2218) 29 U/L ALT (test code = 2219) 26 U/L COMPREHENSIVE METABOLIC [id number] 00:00:00 Test Item Value Reference Range Interpretation Comments GLUCOSE (test code = 2217) 91 MG/DL BUN (test code = 2208) 11 MG/DL CREATININE (test code = 2214) 0.55 MG/DL eGFR AMER. (test code 119 ML/MIN/1.73 = 51805) eGFR NON- AMER. (test 103 ML/MIN/1.73 code = 74225) CALC BUN/CREAT (test code = 20 RATIO 2235) SODIUM (test code = 2231) 140 MEQ/L POTASSIUM (test code = 2228) 4.4 MEQ/L CHLORIDE (test code = 2215) 100 MEQ/L CARBON DIOXIDE (test code = 29 MEQ/L 2206) CALCIUM (test code = 2209) 9.9 MG/DL PROTEIN, TOTAL (test code = 7.4 G/DL 2228) ALBUMIN (test code = 2201) 4.7 G/DL CALC GLOBULIN (test code = 2.7 G/DL 2240) CALC A/G RATIO (test code = 1.7 RATIO 2234) BILIRUBIN, TOTAL (test code = 0.3 MG/DL 2206) ALKALINE PHOSPHATASE (test 51 U/L code = 2204) AST (test code = 2218) 29 U/L ALT (test code = 2219) 26 U/L [id number] 00:00:00 Test Item Value Reference Range Interpretation Comments TSH, THIRD GENERATION (test code 4.250 UIU/ML = 2821) [id number] 00:00:00 Test Item Value Reference Range Interpretation Comments TSH, THIRD GENERATION (test code 4.250 UIU/ML = 2821) [id number] 00:00:00 Test Item Value Reference Range Interpretation Comments TSH, THIRD GENERATION (test code 4.250 UIU/ML = 2821) CULTURE, [id number] 00:00:00 Test Item Value Reference Range Interpretation Comments CULTURE, URINE (test SPECIMEN NUMBER: code = 46138) [id number] CULTURE, [id number] 00:00:00 Test Item Value Reference Range Interpretation Comments CULTURE, URINE (test SPECIMEN NUMBER: code = 44850) [id number] CULTURE, [id number] 00:00:00 Test Item Value Reference Range Interpretation Comments CULTURE, URINE (test SPECIMEN NUMBER: code = 23223) [id number] 00:00:00 Test Item Value Reference Range Interpretation Comments TSH, THIRD GENERATION (test code 6.140 UIU/ML = 2821) [id number] 00:00:00 Test Item Value Reference Range Interpretation Comments TSH, THIRD GENERATION (test code 6.140 UIU/ML = 2821) [id number] 00:00:00 Test Item Value Reference Range Interpretation Comments TSH, THIRD GENERATION (test code 6.140 UIU/ML = 2821) [id number] 00:00:00 Test Item Value Reference Range Interpretation Comments TSH, THIRD GENERATION (test code 6.140 UIU/ML = 2821) [id number] 00:00:00 Test Item Value Reference Range Interpretation Comments TSH, THIRD GENERATION (test code 6.140 UIU/ML = 2821) [id number] 00:00:00 Test Item Value Reference Range Interpretation Comments TSH, THIRD GENERATION (test 10.840 UIU/ML code = 2821) [id number] 00:00:00 Test Item Value Reference Range Interpretation Comments TSH, THIRD GENERATION (test 10.840 UIU/ML code = 2821) HEMOGLOBIN A1c [ADDED][id number] 00:00:00 Test Item Value Reference Range Interpretation Comments HEMOGLOBIN A1c (test code = 74410) 5.8 % HEMOGLOBIN A1c [ADDED]2018-09-19 00:00:00 Test Item Value Reference Range Interpretation Comments HEMOGLOBIN A1c (test code = 47481) 5.8 % COMPREHENSIVE METABOLIC PANEL [ADDED]2018-09-19 00:00:00 Test Item Value Reference Range Interpretation Comments GLUCOSE (test code = 2217) 109 MG/DL BUN (test code = 2208) 12 MG/DL CREATININE (test code = 2214) 0.81 MG/DL eGFR AMER. (test code 93 ML/MIN/1.73 = 33696) eGFR NON- AMER. (test 80 ML/MIN/1.73 code = 13658) CALC BUN/CREAT (test code = 15 RATIO 2235) SODIUM (test code = 2231) 139 MEQ/L POTASSIUM (test code = 2228) 4.1 MEQ/L CHLORIDE (test code = 2215) 98 MEQ/L CARBON DIOXIDE (test code = 29 MEQ/L 2206) CALCIUM (test code = 2209) 9.9 MG/DL PROTEIN, TOTAL (test code = 7.8 G/DL 2228) ALBUMIN (test code = 2201) 4.7 G/DL CALC GLOBULIN (test code = 3.1 G/DL 2240) CALC A/G RATIO (test code = 1.5 RATIO 2234) BILIRUBIN, TOTAL (test code = 0.2 MG/DL 220) ALKALINE PHOSPHATASE (test 58 U/L code = 2204) AST (test code = 2218) 22 U/L ALT (test code = 2219) 17 U/L LIPID PANEL [ADDED]2018-09-19 00:00:00 Test Item Value Reference Range Interpretation Comments CHOLESTEROL (test code = 2210) 227 MG/DL TRIGLYCERIDES (test code = 2232) 129 MG/DL HDL CHOLESTEROL (test code = 2220) 69 MG/DL CALC LDL CHOL (test code = 2237) 132 MG/DL RISK RATIO LDL/HDL (test code = 1.92 RATIO 2238) [id number] 00:00:00 Test Item Value Reference Range Interpretation Comments TSH, THIRD GENERATION (test 10.840 UIU/ML code = 2821) [id number] 00:00:00 Test Item Value Reference Range Interpretation Comments TSH, THIRD GENERATION (test 10.840 UIU/ML code = 2821) [id number] 00:00:00 Test Item Value Reference Range Interpretation Comments TSH, THIRD GENERATION (test 10.840 UIU/ML code = 2821) HEMOGLOBIN A1c [ADDED]2018-09-19 00:00:00 Test Item Value Reference Range Interpretation Comments HEMOGLOBIN A1c (test code = 25695) 5.8 % HEMOGLOBIN A1c [ADDED]2018-09-19 00:00:00 Test Item Value Reference Range Interpretation Comments HEMOGLOBIN A1c (test code = 94060) 5.8 % HEMOGLOBIN A1c [ADDED]2018-09-19 00:00:00 Test Item Value Reference Range Interpretation Comments HEMOGLOBIN A1c (test code = 19474) 5.8 % COMPREHENSIVE METABOLIC PANEL [ADDED]2018-09-19 00:00:00 Test Item Value Reference Range Interpretation Comments GLUCOSE (test code = 2217) 109 MG/DL BUN (test code = 2208) 12 MG/DL CREATININE (test code = 2214) 0.81 MG/DL eGFR AMER. (test code 93 ML/MIN/1.73 = 70572) eGFR NON- AMER. (test 80 ML/MIN/1.73 code = 13093) CALC BUN/CREAT (test code = 15 RATIO 2235) SODIUM (test code = 2231) 139 MEQ/L POTASSIUM (test code = 2228) 4.1 MEQ/L CHLORIDE (test code = 2215) 98 MEQ/L CARBON DIOXIDE (test code = 29 MEQ/L 2205) CALCIUM (test code = 2209) 9.9 MG/DL PROTEIN, TOTAL (test code = 7.8 G/DL 2228) ALBUMIN (test code = 2201) 4.7 G/DL CALC GLOBULIN (test code = 3.1 G/DL 2240) CALC A/G RATIO (test code = 1.5 RATIO 2234) BILIRUBIN, TOTAL (test code = 0.2 MG/DL 2206) ALKALINE PHOSPHATASE (test 58 U/L code = 2204) AST (test code = 2218) 22 U/L ALT (test code = 2219) 17 U/L COMPREHENSIVE METABOLIC PANEL [ADDED]2018-09-19 00:00:00 Test Item Value Reference Range Interpretation Comments GLUCOSE (test code = 2217) 109 MG/DL BUN (test code = 2208) 12 MG/DL CREATININE (test code = 2214) 0.81 MG/DL eGFR AMER. (test code 93 ML/MIN/1.73 = 82199) eGFR NON- AMER. (test 80 ML/MIN/1.73 code = 43303) CALC BUN/CREAT (test code = 15 RATIO 2235) SODIUM (test code = 2231) 139 MEQ/L POTASSIUM (test code = 2228) 4.1 MEQ/L CHLORIDE (test code = 2215) 98 MEQ/L CARBON DIOXIDE (test code = 29 MEQ/L 2205) CALCIUM (test code = 2209) 9.9 MG/DL PROTEIN, TOTAL (test code = 7.8 G/DL 2228) ALBUMIN (test code = 2201) 4.7 G/DL CALC GLOBULIN (test code = 3.1 G/DL 2239) CALC A/G RATIO (test code = 1.5 RATIO 2234) BILIRUBIN, TOTAL (test code = 0.2 MG/DL 2206) ALKALINE PHOSPHATASE (test 58 U/L code = 2204) AST (test code = 2218) 22 U/L ALT (test code = 2219) 17 U/L LIPID PANEL [ADDED]2018-09-19 00:00:00 Test Item Value Reference Range Interpretation Comments CHOLESTEROL (test code = 2210) 227 MG/DL TRIGLYCERIDES (test code = 2232) 129 MG/DL HDL CHOLESTEROL (test code = 2220) 69 MG/DL CALC LDL CHOL (test code = 2237) 132 MG/DL RISK RATIO LDL/HDL (test code = 1.92 RATIO 2238) LIPID PANEL [ADDED][id number] 00:00:00 Test Item Value Reference Range Interpretation Comments CHOLESTEROL (test code = 2210) 227 MG/DL TRIGLYCERIDES (test code = 2232) 129 MG/DL HDL CHOLESTEROL (test code = 2220) 69 MG/DL CALC LDL CHOL (test code = 2237) 132 MG/DL RISK RATIO LDL/HDL (test code = 1.92 RATIO 2238) [id number] 00:00:00 Test Item Value Reference Range Interpretation Comments TSH, THIRD GENERATION (test code 5.860 UIU/ML = 2821) [id number] 00:00:00 Test Item Value Reference Range Interpretation Comments TSH, THIRD GENERATION (test code 5.860 UIU/ML = 2821) [id number] 00:00:00 Test Item Value Reference Range Interpretation Comments TSH, THIRD GENERATION (test code 5.860 UIU/ML = 2821) [id number] 00:00:00 Test Item Value Reference Range Interpretation Comments TSH, THIRD GENERATION (test code 5.860 UIU/ML = 2821) [id number] 00:00:00 Test Item Value Reference Range Interpretation Comments TSH, THIRD GENERATION (test code 5.860 UIU/ML = 2821) [id number] 00:00:00 Test Item Value Reference Range Interpretation Comments TSH, THIRD GENERATION (test code 0.320 UIU/ML = 2821) [id number] 00:00:00 Test Item Value Reference Range Interpretation Comments TSH, THIRD GENERATION (test code 0.320 UIU/ML = 2821) [id number] 00:00:00 Test Item Value Reference Range Interpretation Comments TSH, THIRD GENERATION (test code 0.320 UIU/ML = 2821) [id number] 00:00:00 Test Item Value Reference Range Interpretation Comments TSH, THIRD GENERATION (test code 0.320 UIU/ML = 2821) [id number] 00:00:00 Test Item Value Reference Range Interpretation Comments TSH, THIRD GENERATION (test code 0.320 UIU/ML = 2821) COMPREHENSIVE METABOLIC [id number] 00:00:00 Test Item Value Reference Range Interpretation Comments GLUCOSE (test code = 2217) 119 MG/DL BUN (test code = 2208) 14 MG/DL CREATININE (test code = 2214) 0.64 MG/DL eGFR AMER. (test code 114 ML/MIN/1.73 = 34708) eGFR NON- AMER. (test 98 ML/MIN/1.73 code = 47080) CALC BUN/CREAT (test code = 22 RATIO 2235) SODIUM (test code = 2231) 141 MEQ/L POTASSIUM (test code = 2228) 3.7 MEQ/L CHLORIDE (test code = 2215) 101 MEQ/L CARBON DIOXIDE (test code = 25 MEQ/L 2205) CALCIUM (test code = 2209) 9.7 MG/DL PROTEIN, TOTAL (test code = 7.7 G/DL 2228) ALBUMIN (test code = 2201) 4.3 G/DL CALC GLOBULIN (test code = 3.4 G/DL 2240) CALC A/G RATIO (test code = 1.3 RATIO 2234) BILIRUBIN, TOTAL (test code = <0.2 MG/DL 2206) ALKALINE PHOSPHATASE (test 51 U/L code = 2204) AST (test code = 2218) 22 U/L ALT (test code = 2219) 17 U/L LIPID [id number] 00:00:00 Test Item Value Reference Range Interpretation Comments CHOLESTEROL (test code = 2210) 156 MG/DL TRIGLYCERIDES (test code = 2232) 75 MG/DL HDL CHOLESTEROL (test code = 2220) 64 MG/DL CALC LDL CHOL (test code = 2237) 77 MG/DL RISK RATIO LDL/HDL (test code = 1.20 RATIO 2238) COMPREHENSIVE METABOLIC [id number] 00:00:00 Test Item Value Reference Range Interpretation Comments GLUCOSE (test code = 2217) 119 MG/DL BUN (test code = 2208) 14 MG/DL CREATININE (test code = 2214) 0.64 MG/DL eGFR AMER. (test code 114 ML/MIN/1.73 = 01254) eGFR NON- AMER. (test 98 ML/MIN/1.73 code = 60862) CALC BUN/CREAT (test code = 22 RATIO 2235) SODIUM (test code = 2231) 141 MEQ/L POTASSIUM (test code = 2228) 3.7 MEQ/L CHLORIDE (test code = 2215) 101 MEQ/L CARBON DIOXIDE (test code = 25 MEQ/L 2205) CALCIUM (test code = 2209) 9.7 MG/DL PROTEIN, TOTAL (test code = 7.7 G/DL 2228) ALBUMIN (test code = 2201) 4.3 G/DL CALC GLOBULIN (test code = 3.4 G/DL 2240) CALC A/G RATIO (test code = 1.3 RATIO 2234) BILIRUBIN, TOTAL (test code = <0.2 MG/DL 2206) ALKALINE PHOSPHATASE (test 51 U/L code = 2204) AST (test code = 2218) 22 U/L ALT (test code = 2219) 17 U/L COMPREHENSIVE METABOLIC [id number] 00:00:00 Test Item Value Reference Range Interpretation Comments GLUCOSE (test code = 2217) 119 MG/DL BUN (test code = 2208) 14 MG/DL CREATININE (test code = 2214) 0.64 MG/DL eGFR AMER. (test code 114 ML/MIN/1.73 = 19895) eGFR NON- AMER. (test 98 ML/MIN/1.73 code = 17069) CALC BUN/CREAT (test code = 22 RATIO 2235) SODIUM (test code = 2231) 141 MEQ/L POTASSIUM (test code = 2228) 3.7 MEQ/L CHLORIDE (test code = 2215) 101 MEQ/L CARBON DIOXIDE (test code = 25 MEQ/L 2205) CALCIUM (test code = 2209) 9.7 MG/DL PROTEIN, TOTAL (test code = 7.7 G/DL 2228) ALBUMIN (test code = 2201) 4.3 G/DL CALC GLOBULIN (test code = 3.4 G/DL 2239) CALC A/G RATIO (test code = 1.3 RATIO 2234) BILIRUBIN, TOTAL (test code = <0.2 MG/DL 2206) ALKALINE PHOSPHATASE (test 51 U/L code = 2204) AST (test code = 2218) 22 U/L ALT (test code = 2219) 17 U/L LIPID [id number] 00:00:00 Test Item Value Reference Range Interpretation Comments CHOLESTEROL (test code = 2210) 156 MG/DL TRIGLYCERIDES (test code = 2232) 75 MG/DL HDL CHOLESTEROL (test code = 2220) 64 MG/DL CALC LDL CHOL (test code = 2237) 77 MG/DL RISK RATIO LDL/HDL (test code = 1.20 RATIO 2238) LIPID [id number] 00:00:00 Test Item Value Reference Range Interpretation Comments CHOLESTEROL (test code = 2210) 156 MG/DL TRIGLYCERIDES (test code = 2232) 75 MG/DL HDL CHOLESTEROL (test code = 2220) 64 MG/DL CALC LDL CHOL (test code = 2237) 77 MG/DL RISK RATIO LDL/HDL (test code = 1.20 RATIO 2238) HEMOGLOBIN [id number] 00:00:00 Test Item Value Reference Range Interpretation Comments HEMOGLOBIN A1c (test code = 85602) 5.8 % HEMOGLOBIN [id number] 00:00:00 Test Item Value Reference Range Interpretation Comments HEMOGLOBIN A1c (test code = 01627) 5.8 % CBC W/AUTO [id number] 00:00:00 Test Item Value Reference Range Interpretation Comments WBC (test code = 1001) 6.6 K/UL RBC (test code = 1002) 4.64 M/UL HEMOGLOBIN (test code = 1003) 13.5 G/DL HEMATOCRIT (test code = 1004) 40.6 % MCV (test code = 1005) 87.5 fL MCH (test code = 1006) 29.1 PG MCHC (test code = 1007) 33.3 G/DL RDW (test code = 1038) 13.0 % NEUTROPHILS (test code = 1008) 47.1 % LYMPHOCYTES (test code = 1010) 36.7 % MONOCYTES (test code = 1011) 10.3 % EOSINOPHILS (test code = 1012) 5.3 % BASOPHILS (test code = 1013) 0.6 % PLATELET COUNT (test code = 1015) 290 K/UL CBC W/AUTO [id number] 00:00:00 Test Item Value Reference Range Interpretation Comments WBC (test code = 1001) 6.6 K/UL RBC (test code = 1002) 4.64 M/UL HEMOGLOBIN (test code = 1003) 13.5 G/DL HEMATOCRIT (test code = 1004) 40.6 % MCV (test code = 1005) 87.5 fL MCH (test code = 1006) 29.1 PG MCHC (test code = 1007) 33.3 G/DL RDW (test code = 1038) 13.0 % NEUTROPHILS (test code = 1008) 47.1 % LYMPHOCYTES (test code = 1010) 36.7 % MONOCYTES (test code = 1011) 10.3 % EOSINOPHILS (test code = 1012) 5.3 % BASOPHILS (test code = 1013) 0.6 % PLATELET COUNT (test code = 1015) 290 K/UL HEMOGLOBIN [id number] 00:00:00 Test Item Value Reference Range Interpretation Comments HEMOGLOBIN A1c (test code = 08428) 5.8 % HEMOGLOBIN [id number] 00:00:00 Test Item Value Reference Range Interpretation Comments HEMOGLOBIN A1c (test code = 03302) 5.8 % HEMOGLOBIN [id number] 00:00:00 Test Item Value Reference Range Interpretation Comments HEMOGLOBIN A1c (test code = 51662) 5.8 % CBC W/AUTO [id number] 00:00:00 Test Item Value Reference Range Interpretation Comments WBC (test code = 1001) 6.6 K/UL RBC (test code = 1002) 4.64 M/UL HEMOGLOBIN (test code = 1003) 13.5 G/DL HEMATOCRIT (test code = 1004) 40.6 % MCV (test code = 1005) 87.5 fL MCH (test code = 1006) 29.1 PG MCHC (test code = 1007) 33.3 G/DL RDW (test code = 1038) 13.0 % NEUTROPHILS (test code = 1008) 47.1 % LYMPHOCYTES (test code = 1010) 36.7 % MONOCYTES (test code = 1011) 10.3 % EOSINOPHILS (test code = 1012) 5.3 % BASOPHILS (test code = 1013) 0.6 % PLATELET COUNT (test code = 1015) 290 K/UL CBC W/AUTO [id number] 00:00:00 Test Item Value Reference Range Interpretation Comments WBC (test code = 1001) 6.6 K/UL RBC (test code = 1002) 4.64 M/UL HEMOGLOBIN (test code = 1003) 13.5 G/DL HEMATOCRIT (test code = 1004) 40.6 % MCV (test code = 1005) 87.5 fL MCH (test code = 1006) 29.1 PG MCHC (test code = 1007) 33.3 G/DL RDW (test code = 1038) 13.0 % NEUTROPHILS (test code = 1008) 47.1 % LYMPHOCYTES (test code = 1010) 36.7 % MONOCYTES (test code = 1011) 10.3 % EOSINOPHILS (test code = 1012) 5.3 % BASOPHILS (test code = 1013) 0.6 % PLATELET COUNT (test code = 1015) 290 K/UL CBC W/AUTO [id number] 00:00:00 Test Item Value Reference Range Interpretation Comments WBC (test code = 1001) 6.6 K/UL RBC (test code = 1002) 4.64 M/UL HEMOGLOBIN (test code = 1003) 13.5 G/DL HEMATOCRIT (test code = 1004) 40.6 % MCV (test code = 1005) 87.5 fL MCH (test code = 1006) 29.1 PG MCHC (test code = 1007) 33.3 G/DL RDW (test code = 1038) 13.0 % NEUTROPHILS (test code = 1008) 47.1 % LYMPHOCYTES (test code = 1010) 36.7 % MONOCYTES (test code = 1011) 10.3 % EOSINOPHILS (test code = 1012) 5.3 % BASOPHILS (test code = 1013) 0.6 % PLATELET COUNT (test code = 1015) 290 K/UL [id number] 00:00:00 Test Item Value Reference Range Interpretation Comments TSH, THIRD GENERATION (test code 0.578 UIU/ML = 2821) [id number] 00:00:00 Test Item Value Reference Range Interpretation Comments TSH, THIRD GENERATION (test code 0.578 UIU/ML = 2821) [id number] 00:00:00 Test Item Value Reference Range Interpretation Comments TSH, THIRD GENERATION (test code 0.578 UIU/ML = 2821) [id number] 00:00:00 Test Item Value Reference Range Interpretation Comments TSH, THIRD GENERATION (test code 0.578 UIU/ML = 2821) [id number] 00:00:00 Test Item Value Reference Range Interpretation Comments TSH, THIRD GENERATION (test code 0.578 UIU/ML = 2821) [id number] 00:00:00 Test Item Value Reference Range Interpretation Comments TSH, THIRD GENERATION (test code 5.530 UIU/ML = 2821) [id number] 00:00:00 Test Item Value Reference Range Interpretation Comments TSH, THIRD GENERATION (test code 5.530 UIU/ML = 2821) [id number] 00:00:00 Test Item Value Reference Range Interpretation Comments TSH, THIRD GENERATION (test code 5.530 UIU/ML = 2821) [id number] 00:00:00 Test Item Value Reference Range Interpretation Comments TSH, THIRD GENERATION (test code 5.530 UIU/ML = 2821) [id number] 00:00:00 Test Item Value Reference Range Interpretation Comments TSH, THIRD GENERATION (test code 5.530 UIU/ML = 2821) [id number] 00:00:00 Test Item Value Reference Range Interpretation Comments TSH (test code = 2821) 3.520 UIU/ML [id number] 00:00:00 Test Item Value Reference Range Interpretation Comments TSH (test code = 2821) 3.520 UIU/ML [id number] 00:00:00 Test Item Value Reference Range Interpretation Comments TSH (test code = 2821) 3.520 UIU/ML [id number] 00:00:00 Test Item Value Reference Range Interpretation Comments TSH (test code = 2821) 3.520 UIU/ML [id number] 00:00:00 Test Item Value Reference Range Interpretation Comments TSH (test code = 2821) 3.520 UIU/ML COMPREHENSIVE METABOLIC [id number] 00:00:00 Test Item Value Reference Range Interpretation Comments GLUCOSE (test code = 2217) 143 MG/DL BUN (test code = 2208) 11 MG/DL CREATININE (test code = 2214) 0.74 MG/DL eGFR AMER. (test code 104 ML/MIN/1.73 = 31735) eGFR NON- AMER. (test 90 ML/MIN/1.73 code = 37462) CALC BUN/CREAT (test code = 15 RATIO 2235) SODIUM (test code = 2231) 142 MEQ/L POTASSIUM (test code = 2228) 4.7 MEQ/L CHLORIDE (test code = 2215) 100 MEQ/L CARBON DIOXIDE (test code = 27 MEQ/L 2205) CALCIUM (test code = 2209) 10.0 MG/DL PROTEIN, TOTAL (test code = 7.6 G/DL 2228) ALBUMIN (test code = 2201) 4.6 G/DL CALC GLOBULIN (test code = 3.0 G/DL 0) CALC A/G RATIO (test code = 1.5 RATIO 4) BILIRUBIN, TOTAL (test code = 0.2 MG/DL 2206) ALKALINE PHOSPHATASE (test 61 U/L code = 2204) AST (test code = 2218) 27 U/L ALT (test code = 2219) 20 U/L [id number] 00:00:00 Test Item Value Reference Range Interpretation Comments TSH (test code = 2821) 30.460 UIU/ML [id number] 00:00:00 Test Item Value Reference Range Interpretation Comments TSH (test code = 2821) 30.460 UIU/ML LIPID [id number] 00:00:00 Test Item Value Reference Range Interpretation Comments CHOLESTEROL (test code = 2210) 154 MG/DL TRIGLYCERIDES (test code = 2232) 132 MG/DL HDL CHOLESTEROL (test code = 2220) 61 MG/DL CALC LDL CHOL (test code = 2237) 67 MG/DL RISK RATIO LDL/HDL (test code = 1.09 RATIO 2238) COMPREHENSIVE METABOLIC [id number] 00:00:00 Test Item Value Reference Range Interpretation Comments GLUCOSE (test code = 2217) 143 MG/DL BUN (test code = 2208) 11 MG/DL CREATININE (test code = 2214) 0.74 MG/DL eGFR AMER. (test code 104 ML/MIN/1.73 = 99018) eGFR NON- AMER. (test 90 ML/MIN/1.73 code = 28782) CALC BUN/CREAT (test code = 15 RATIO 2235) SODIUM (test code = 2231) 142 MEQ/L POTASSIUM (test code = 2228) 4.7 MEQ/L CHLORIDE (test code = 2215) 100 MEQ/L CARBON DIOXIDE (test code = 27 MEQ/L 2205) CALCIUM (test code = 2209) 10.0 MG/DL PROTEIN, TOTAL (test code = 7.6 G/DL 2228) ALBUMIN (test code = 2201) 4.6 G/DL CALC GLOBULIN (test code = 3.0 G/DL 2240) CALC A/G RATIO (test code = 1.5 RATIO 2234) BILIRUBIN, TOTAL (test code = 0.2 MG/DL 2206) ALKALINE PHOSPHATASE (test 61 U/L code = 2204) AST (test code = 2218) 27 U/L ALT (test code = 2219) 20 U/L COMPREHENSIVE METABOLIC [id number] 00:00:00 Test Item Value Reference Range Interpretation Comments GLUCOSE (test code = 2217) 143 MG/DL BUN (test code = 2208) 11 MG/DL CREATININE (test code = 2214) 0.74 MG/DL eGFR AMER. (test code 104 ML/MIN/1.73 = 10953) eGFR NON- AMER. (test 90 ML/MIN/1.73 code = 67188) CALC BUN/CREAT (test code = 15 RATIO 2235) SODIUM (test code = 2231) 142 MEQ/L POTASSIUM (test code = 2228) 4.7 MEQ/L CHLORIDE (test code = 2215) 100 MEQ/L CARBON DIOXIDE (test code = 27 MEQ/L 2205) CALCIUM (test code = 2209) 10.0 MG/DL PROTEIN, TOTAL (test code = 7.6 G/DL 2228) ALBUMIN (test code = 2201) 4.6 G/DL CALC GLOBULIN (test code = 3.0 G/DL 2239) CALC A/G RATIO (test code = 1.5 RATIO 2233) BILIRUBIN, TOTAL (test code = 0.2 MG/DL 2206) ALKALINE PHOSPHATASE (test 61 U/L code = 2204) AST (test code = 2218) 27 U/L ALT (test code = 2219) 20 U/L [id number] 00:00:00 Test Item Value Reference Range Interpretation Comments TSH (test code = 2821) 30.460 UIU/ML [id number] 00:00:00 Test Item Value Reference Range Interpretation Comments TSH (test code = 2821) 30.460 UIU/ML [id number] 00:00:00 Test Item Value Reference Range Interpretation Comments TSH (test code = 2821) 30.460 UIU/ML LIPID [id number] 00:00:00 Test Item Value Reference Range Interpretation Comments CHOLESTEROL (test code = 2210) 154 MG/DL TRIGLYCERIDES (test code = 2232) 132 MG/DL HDL CHOLESTEROL (test code = 2220) 61 MG/DL CALC LDL CHOL (test code = 2237) 67 MG/DL RISK RATIO LDL/HDL (test code = 1.09 RATIO 2238) LIPID [id number] 00:00:00 Test Item Value Reference Range Interpretation Comments CHOLESTEROL (test code = 2210) 154 MG/DL TRIGLYCERIDES (test code = 2232) 132 MG/DL HDL CHOLESTEROL (test code = 2220) 61 MG/DL CALC LDL CHOL (test code = 2237) 67 MG/DL RISK RATIO LDL/HDL (test code = 1.09 RATIO 2238) HEMOGLOBIN [id number] 00:00:00 Test Item Value Reference Range Interpretation Comments HEMOGLOBIN A1c (test code = 71469) 5.6 % HEMOGLOBIN [id number] 00:00:00 Test Item Value Reference Range Interpretation Comments HEMOGLOBIN A1c (test code = 14039) 5.6 % HEMOGLOBIN [id number] 00:00:00 Test Item Value Reference Range Interpretation Comments HEMOGLOBIN A1c (test code = 52708) 5.6 % HEMOGLOBIN [id number] 00:00:00 Test Item Value Reference Range Interpretation Comments HEMOGLOBIN A1c (test code = 32720) 5.6 % HEMOGLOBIN [id number] 00:00:00 Test Item Value Reference Range Interpretation Comments HEMOGLOBIN A1c (test code = 95648) 5.6 % [id number] 00:00:00 Test Item Value Reference Range Interpretation Comments TSH (test code = 2821) 3.940 UIU/ML [id number] 00:00:00 Test Item Value Reference Range Interpretation Comments TSH (test code = 2821) 3.940 UIU/ML [id number] 00:00:00 Test Item Value Reference Range Interpretation Comments TSH (test code = 2821) 3.940 UIU/ML [id number] 00:00:00 Test Item Value Reference Range Interpretation Comments TSH (test code = 2821) 3.940 UIU/ML [id number] 00:00:00 Test Item Value Reference Range Interpretation Comments TSH (test code = 2821) 3.940 UIU/ML COMPREHENSIVE METABOLIC [id number] 00:00:00 Test Item Value Reference Range Interpretation Comments GLUCOSE (test code = 2217) 101 MG/DL BUN (test code = 2208) 9 MG/DL CREATININE (test code = 2214) 0.59 MG/DL eGFR AMER. (test code 118 ML/MIN/1.73 = 94710) eGFR NON- AMER. (test 102 ML/MIN/1.73 code = 03081) CALC BUN/CREAT (test code = 15 RATIO 2235) SODIUM (test code = 2231) 142 MEQ/L POTASSIUM (test code = 2228) 4.4 MEQ/L CHLORIDE (test code = 2215) 101 MEQ/L CARBON DIOXIDE (test code = 21 MEQ/L 2206) CALCIUM (test code = 2209) 9.4 MG/DL PROTEIN, TOTAL (test code = 7.3 G/DL 2228) ALBUMIN (test code = 2201) 4.3 G/DL CALC GLOBULIN (test code = 3.0 G/DL 2240) CALC A/G RATIO (test code = 1.4 RATIO 2234) BILIRUBIN, TOTAL (test code = 0.4 MG/DL 2206) ALKALINE PHOSPHATASE (test 71 U/L code = 2204) AST (test code = 2218) 24 U/L ALT (test code = 2219) 23 U/L LIPID [id number] 00:00:00 Test Item Value Reference Range Interpretation Comments CHOLESTEROL (test code = 2210) 143 MG/DL TRIGLYCERIDES (test code = 2232) 76 MG/DL HDL CHOLESTEROL (test code = 2220) 57 MG/DL CALC LDL CHOL (test code = 2237) 71 MG/DL RISK RATIO LDL/HDL (test code = 1.24 RATIO 2238) [id number] 00:00:00 Test Item Value Reference Range Interpretation Comments TSH (test code = 2821) 4.150 UIU/ML [id number] 00:00:00 Test Item Value Reference Range Interpretation Comments TSH (test code = 2821) 4.150 UIU/ML COMPREHENSIVE METABOLIC [id number] 00:00:00 Test Item Value Reference Range Interpretation Comments GLUCOSE (test code = 2217) 101 MG/DL BUN (test code = 2208) 9 MG/DL CREATININE (test code = 2214) 0.59 MG/DL eGFR AMER. (test code 118 ML/MIN/1.73 = 54983) eGFR NON- AMER. (test 102 ML/MIN/1.73 code = 98488) CALC BUN/CREAT (test code = 15 RATIO 2235) SODIUM (test code = 2231) 142 MEQ/L POTASSIUM (test code = 2228) 4.4 MEQ/L CHLORIDE (test code = 2215) 101 MEQ/L CARBON DIOXIDE (test code = 21 MEQ/L 2205) CALCIUM (test code = 2209) 9.4 MG/DL PROTEIN, TOTAL (test code = 7.3 G/DL 2228) ALBUMIN (test code = 2201) 4.3 G/DL CALC GLOBULIN (test code = 3.0 G/DL 2240) CALC A/G RATIO (test code = 1.4 RATIO 2234) BILIRUBIN, TOTAL (test code = 0.4 MG/DL 220) ALKALINE PHOSPHATASE (test 71 U/L code = 2204) AST (test code = 2218) 24 U/L ALT (test code = 2219) 23 U/L COMPREHENSIVE METABOLIC [id number] 00:00:00 Test Item Value Reference Range Interpretation Comments GLUCOSE (test code = 2217) 101 MG/DL BUN (test code = 2208) 9 MG/DL CREATININE (test code = 2214) 0.59 MG/DL eGFR AMER. (test code 118 ML/MIN/1.73 = 96938) eGFR NON- AMER. (test 102 ML/MIN/1.73 code = 46022) CALC BUN/CREAT (test code = 15 RATIO 2235) SODIUM (test code = 2231) 142 MEQ/L POTASSIUM (test code = 2228) 4.4 MEQ/L CHLORIDE (test code = 2215) 101 MEQ/L CARBON DIOXIDE (test code = 21 MEQ/L 6) CALCIUM (test code = 2209) 9.4 MG/DL PROTEIN, TOTAL (test code = 7.3 G/DL 2228) ALBUMIN (test code = 2201) 4.3 G/DL CALC GLOBULIN (test code = 3.0 G/DL 2240) CALC A/G RATIO (test code = 1.4 RATIO 2234) BILIRUBIN, TOTAL (test code = 0.4 MG/DL 2206) ALKALINE PHOSPHATASE (test 71 U/L code = 2204) AST (test code = 2218) 24 U/L ALT (test code = 2219) 23 U/L LIPID [id number] 00:00:00 Test Item Value Reference Range Interpretation Comments CHOLESTEROL (test code = 2210) 143 MG/DL TRIGLYCERIDES (test code = 2232) 76 MG/DL HDL CHOLESTEROL (test code = 2220) 57 MG/DL CALC LDL CHOL (test code = 2237) 71 MG/DL RISK RATIO LDL/HDL (test code = 1.24 RATIO 2238) LIPID [id number] 00:00:00 Test Item Value Reference Range Interpretation Comments CHOLESTEROL (test code = 2210) 143 MG/DL TRIGLYCERIDES (test code = 2232) 76 MG/DL HDL CHOLESTEROL (test code = 2220) 57 MG/DL CALC LDL CHOL (test code = 2237) 71 MG/DL RISK RATIO LDL/HDL (test code = 1.24 RATIO 2238) [id number] 00:00:00 Test Item Value Reference Range Interpretation Comments TSH (test code = 2821) 4.150 UIU/ML [id number] 00:00:00 Test Item Value Reference Range Interpretation Comments TSH (test code = 2821) 4.150 UIU/ML [id number] 00:00:00 Test Item Value Reference Range Interpretation Comments TSH (test code = 2821) 4.150 UIU/ML CBC W/AUTO [id number] 00:00:00 Test Item Value Reference Range Interpretation Comments WBC (test code = 1001) 5.9 K/UL RBC (test code = 1002) 4.62 M/UL HEMOGLOBIN (test code = 1003) 13.6 G/DL HEMATOCRIT (test code = 1004) 40.2 % MCV (test code = 1005) 87.0 fL MCH (test code = 1006) 29.4 PG MCHC (test code = 1007) 33.8 G/DL RDW (test code = 1038) 13.0 % NEUTROPHILS (test code = 1008) 58.4 % LYMPHOCYTES (test code = 1010) 27.6 % MONOCYTES (test code = 1011) 9.4 % EOSINOPHILS (test code = 1012) 3.9 % BASOPHILS (test code = 1013) 0.7 % PLATELET COUNT (test code = 1015) 382 K/UL CBC W/AUTO [id number] 00:00:00 Test Item Value Reference Range Interpretation Comments WBC (test code = 1001) 5.9 K/UL RBC (test code = 1002) 4.62 M/UL HEMOGLOBIN (test code = 1003) 13.6 G/DL HEMATOCRIT (test code = 1004) 40.2 % MCV (test code = 1005) 87.0 fL MCH (test code = 1006) 29.4 PG MCHC (test code = 1007) 33.8 G/DL RDW (test code = 1038) 13.0 % NEUTROPHILS (test code = 1008) 58.4 % LYMPHOCYTES (test code = 1010) 27.6 % MONOCYTES (test code = 1011) 9.4 % EOSINOPHILS (test code = 1012) 3.9 % BASOPHILS (test code = 1013) 0.7 % PLATELET COUNT (test code = 1015) 382 K/UL HEMOGLOBIN [id number] 00:00:00 Test Item Value Reference Range Interpretation Comments HEMOGLOBIN A1c (test code = 10885) 5.9 % HEMOGLOBIN [id number] 00:00:00 Test Item Value Reference Range Interpretation Comments HEMOGLOBIN A1c (test code = 10241) 5.9 % CBC W/AUTO [id number] 00:00:00 Test Item Value Reference Range Interpretation Comments WBC (test code = 1001) 5.9 K/UL RBC (test code = 1002) 4.62 M/UL HEMOGLOBIN (test code = 1003) 13.6 G/DL HEMATOCRIT (test code = 1004) 40.2 % MCV (test code = 1005) 87.0 fL MCH (test code = 1006) 29.4 PG MCHC (test code = 1007) 33.8 G/DL RDW (test code = 1038) 13.0 % NEUTROPHILS (test code = 1008) 58.4 % LYMPHOCYTES (test code = 1010) 27.6 % MONOCYTES (test code = 1011) 9.4 % EOSINOPHILS (test code = 1012) 3.9 % BASOPHILS (test code = 1013) 0.7 % PLATELET COUNT (test code = 1015) 382 K/UL CBC W/AUTO [id number] 00:00:00 Test Item Value Reference Range Interpretation Comments WBC (test code = 1001) 5.9 K/UL RBC (test code = 1002) 4.62 M/UL HEMOGLOBIN (test code = 1003) 13.6 G/DL HEMATOCRIT (test code = 1004) 40.2 % MCV (test code = 1005) 87.0 fL MCH (test code = 1006) 29.4 PG MCHC (test code = 1007) 33.8 G/DL RDW (test code = 1038) 13.0 % NEUTROPHILS (test code = 1008) 58.4 % LYMPHOCYTES (test code = 1010) 27.6 % MONOCYTES (test code = 1011) 9.4 % EOSINOPHILS (test code = 1012) 3.9 % BASOPHILS (test code = 1013) 0.7 % PLATELET COUNT (test code = 1015) 382 K/UL CBC W/AUTO [id number] 00:00:00 Test Item Value Reference Range Interpretation Comments WBC (test code = 1001) 5.9 K/UL RBC (test code = 1002) 4.62 M/UL HEMOGLOBIN (test code = 1003) 13.6 G/DL HEMATOCRIT (test code = 1004) 40.2 % MCV (test code = 1005) 87.0 fL MCH (test code = 1006) 29.4 PG MCHC (test code = 1007) 33.8 G/DL RDW (test code = 1038) 13.0 % NEUTROPHILS (test code = 1008) 58.4 % LYMPHOCYTES (test code = 1010) 27.6 % MONOCYTES (test code = 1011) 9.4 % EOSINOPHILS (test code = 1012) 3.9 % BASOPHILS (test code = 1013) 0.7 % PLATELET COUNT (test code = 1015) 382 K/UL HEMOGLOBIN [id number] 00:00:00 Test Item Value Reference Range Interpretation Comments HEMOGLOBIN A1c (test code = 59759) 5.9 % HEMOGLOBIN [id number] 00:00:00 Test Item Value Reference Range Interpretation Comments HEMOGLOBIN A1c (test code = 94677) 5.9 % HEMOGLOBIN [id number] 00:00:00 Test Item Value Reference Range Interpretation Comments HEMOGLOBIN A1c (test code = 89138) 5.9 % [id number] 00:00:00 Test Item Value Reference Range Interpretation Comments TSH (test code = 2821) 4.570 UIU/ML [id number] 00:00:00 Test Item Value Reference Range Interpretation Comments TSH (test code = 2821) 4.570 UIU/ML [id number] 00:00:00 Test Item Value Reference Range Interpretation Comments TSH (test code = 2821) 4.570 UIU/ML [id number] 00:00:00 Test Item Value Reference Range Interpretation Comments TSH (test code = 2821) 4.570 UIU/ML [id number] 00:00:00 Test Item Value Reference Range Interpretation Comments TSH (test code = 2821) 4.570 UIU/ML CBC W/AUTO [id number] 00:00:00 Test Item Value Reference Range Interpretation Comments WBC (test code = 1001) 6.3 K/UL RBC (test code = 1002) 4.94 M/UL HEMOGLOBIN (test code = 1003) 14.4 G/DL HEMATOCRIT (test code = 1004) 42.9 % MCV (test code = 1005) 86.8 fL MCH (test code = 1006) 29.1 PG MCHC (test code = 1007) 33.6 G/DL RDW (test code = 1038) 12.6 % NEUTROPHILS (test code = 1008) 48.4 % LYMPHOCYTES (test code = 1010) 28.2 % MONOCYTES (test code = 1011) 10.0 % EOSINOPHILS (test code = 1012) 12.8 % BASOPHILS (test code = 1013) 0.6 % PLATELET COUNT (test code = 1015) 400 K/UL CBC W/AUTO [id number] 00:00:00 Test Item Value Reference Range Interpretation Comments WBC (test code = 1001) 6.3 K/UL RBC (test code = 1002) 4.94 M/UL HEMOGLOBIN (test code = 1003) 14.4 G/DL HEMATOCRIT (test code = 1004) 42.9 % MCV (test code = 1005) 86.8 fL MCH (test code = 1006) 29.1 PG MCHC (test code = 1007) 33.6 G/DL RDW (test code = 1038) 12.6 % NEUTROPHILS (test code = 1008) 48.4 % LYMPHOCYTES (test code = 1010) 28.2 % MONOCYTES (test code = 1011) 10.0 % EOSINOPHILS (test code = 1012) 12.8 % BASOPHILS (test code = 1013) 0.6 % PLATELET COUNT (test code = 1015) 400 K/UL CBC W/AUTO [id number] 00:00:00 Test Item Value Reference Range Interpretation Comments WBC (test code = 1001) 6.3 K/UL RBC (test code = 1002) 4.94 M/UL HEMOGLOBIN (test code = 1003) 14.4 G/DL HEMATOCRIT (test code = 1004) 42.9 % MCV (test code = 1005) 86.8 fL MCH (test code = 1006) 29.1 PG MCHC (test code = 1007) 33.6 G/DL RDW (test code = 1038) 12.6 % NEUTROPHILS (test code = 1008) 48.4 % LYMPHOCYTES (test code = 1010) 28.2 % MONOCYTES (test code = 1011) 10.0 % EOSINOPHILS (test code = 1012) 12.8 % BASOPHILS (test code = 1013) 0.6 % PLATELET COUNT (test code = 1015) 400 K/UL CBC W/AUTO [id number] 00:00:00 Test Item Value Reference Range Interpretation Comments WBC (test code = 1001) 6.3 K/UL RBC (test code = 1002) 4.94 M/UL HEMOGLOBIN (test code = 1003) 14.4 G/DL HEMATOCRIT (test code = 1004) 42.9 % MCV (test code = 1005) 86.8 fL MCH (test code = 1006) 29.1 PG MCHC (test code = 1007) 33.6 G/DL RDW (test code = 1038) 12.6 % NEUTROPHILS (test code = 1008) 48.4 % LYMPHOCYTES (test code = 1010) 28.2 % MONOCYTES (test code = 1011) 10.0 % EOSINOPHILS (test code = 1012) 12.8 % BASOPHILS (test code = 1013) 0.6 % PLATELET COUNT (test code = 1015) 400 K/UL CBC W/AUTO [id number] 00:00:00 Test Item Value Reference Range Interpretation Comments WBC (test code = 1001) 6.3 K/UL RBC (test code = 1002) 4.94 M/UL HEMOGLOBIN (test code = 1003) 14.4 G/DL HEMATOCRIT (test code = 1004) 42.9 % MCV (test code = 1005) 86.8 fL MCH (test code = 1006) 29.1 PG MCHC (test code = 1007) 33.6 G/DL RDW (test code = 1038) 12.6 % NEUTROPHILS (test code = 1008) 48.4 % LYMPHOCYTES (test code = 1010) 28.2 % MONOCYTES (test code = 1011) 10.0 % EOSINOPHILS (test code = 1012) 12.8 % BASOPHILS (test code = 1013) 0.6 % PLATELET COUNT (test code = 1015) 400 K/UL COMPREHENSIVE METABOLIC [id number] 00:00:00 Test Item Value Reference Range Interpretation Comments GLUCOSE (test code = 2217) 101 MG/DL BUN (test code = 2208) 12 MG/DL CREATININE (test code = 2214) 0.59 MG/DL eGFR AMER. (test code 119 ML/MIN/1.73 = 71612) eGFR NON- AMER. (test 102 ML/MIN/1.73 code = 56565) CALC BUN/CREAT (test code = 20 RATIO 2235) SODIUM (test code = 2231) 142 MEQ/L POTASSIUM (test code = 2228) 4.8 MEQ/L CHLORIDE (test code = 2215) 103 MEQ/L CARBON DIOXIDE (test code = 29 MEQ/L 2205) CALCIUM (test code = 2209) 9.6 MG/DL PROTEIN, TOTAL (test code = 7.1 G/DL 2228) ALBUMIN (test code = 220) 4.4 G/DL CALC GLOBULIN (test code = 2.7 G/DL 2239) CALC A/G RATIO (test code = 1.6 RATIO 2233) BILIRUBIN, TOTAL (test code = 0.4 MG/DL 2206) ALKALINE PHOSPHATASE (test 55 U/L code = 2204) AST (test code = 2218) 20 U/L ALT (test code = 2219) 18 U/L LIPID [id number] 00:00:00 Test Item Value Reference Range Interpretation Comments CHOLESTEROL (test code = 2210) 148 MG/DL TRIGLYCERIDES (test code = 2232) 77 MG/DL HDL CHOLESTEROL (test code = 2220) 65 MG/DL CALC LDL CHOL (test code = 2237) 68 MG/DL RISK RATIO LDL/HDL (test code = 1.04 RATIO 2238) HEMOGLOBIN [id number] 00:00:00 Test Item Value Reference Range Interpretation Comments HEMOGLOBIN A1c (test code = 80518) 6.2 % HEMOGLOBIN [id number] 00:00:00 Test Item Value Reference Range Interpretation Comments HEMOGLOBIN A1c (test code = 87109) 6.2 % COMPREHENSIVE METABOLIC [id number] 00:00:00 Test Item Value Reference Range Interpretation Comments GLUCOSE (test code = 2217) 101 MG/DL BUN (test code = 2208) 12 MG/DL CREATININE (test code = 2214) 0.59 MG/DL eGFR AMER. (test code 119 ML/MIN/1.73 = 40109) eGFR NON- AMER. (test 102 ML/MIN/1.73 code = 11844) CALC BUN/CREAT (test code = 20 RATIO 2235) SODIUM (test code = 2231) 142 MEQ/L POTASSIUM (test code = 2228) 4.8 MEQ/L CHLORIDE (test code = 2215) 103 MEQ/L CARBON DIOXIDE (test code = 29 MEQ/L 2206) CALCIUM (test code = 2209) 9.6 MG/DL PROTEIN, TOTAL (test code = 7.1 G/DL 2228) ALBUMIN (test code = 2201) 4.4 G/DL CALC GLOBULIN (test code = 2.7 G/DL 2240) CALC A/G RATIO (test code = 1.6 RATIO 2234) BILIRUBIN, TOTAL (test code = 0.4 MG/DL 2206) ALKALINE PHOSPHATASE (test 55 U/L code = 2204) AST (test code = 2218) 20 U/L ALT (test code = 2219) 18 U/L COMPREHENSIVE METABOLIC [id number] 00:00:00 Test Item Value Reference Range Interpretation Comments GLUCOSE (test code = 2217) 101 MG/DL BUN (test code = 2208) 12 MG/DL CREATININE (test code = 2214) 0.59 MG/DL eGFR AMER. (test code 119 ML/MIN/1.73 = 86191) eGFR NON- AMER. (test 102 ML/MIN/1.73 code = 74213) CALC BUN/CREAT (test code = 20 RATIO 2235) SODIUM (test code = 2231) 142 MEQ/L POTASSIUM (test code = 2228) 4.8 MEQ/L CHLORIDE (test code = 2215) 103 MEQ/L CARBON DIOXIDE (test code = 29 MEQ/L 2206) CALCIUM (test code = 2209) 9.6 MG/DL PROTEIN, TOTAL (test code = 7.1 G/DL 2228) ALBUMIN (test code = 2201) 4.4 G/DL CALC GLOBULIN (test code = 2.7 G/DL 2240) CALC A/G RATIO (test code = 1.6 RATIO 2234) BILIRUBIN, TOTAL (test code = 0.4 MG/DL 2206) ALKALINE PHOSPHATASE (test 55 U/L code = 2204) AST (test code = 2218) 20 U/L ALT (test code = 2219) 18 U/L LIPID [id number] 00:00:00 Test Item Value Reference Range Interpretation Comments CHOLESTEROL (test code = 2210) 148 MG/DL TRIGLYCERIDES (test code = 2232) 77 MG/DL HDL CHOLESTEROL (test code = 2220) 65 MG/DL CALC LDL CHOL (test code = 2237) 68 MG/DL RISK RATIO LDL/HDL (test code = 1.04 RATIO 2238) LIPID [id number] 00:00:00 Test Item Value Reference Range Interpretation Comments CHOLESTEROL (test code = 2210) 148 MG/DL TRIGLYCERIDES (test code = 2232) 77 MG/DL HDL CHOLESTEROL (test code = 2220) 65 MG/DL CALC LDL CHOL (test code = 2237) 68 MG/DL RISK RATIO LDL/HDL (test code = 1.04 RATIO 2238) HEMOGLOBIN [id number] 00:00:00 Test Item Value Reference Range Interpretation Comments HEMOGLOBIN A1c (test code = 72239) 6.2 % HEMOGLOBIN [id number] 00:00:00 Test Item Value Reference Range Interpretation Comments HEMOGLOBIN A1c (test code = 44525) 6.2 % HEMOGLOBIN [id number] 00:00:00 Test Item Value Reference Range Interpretation Comments HEMOGLOBIN A1c (test code = 64604) 6.2 % THYROID II PROFILE (T3U, T4, T7, TSH)[id number] 00:00:00 Test Item Value Reference Range Interpretation Comments T3 UPTAKE (test code = 2817) 30.5 % T4 (THYROXINE) (test code = 2819) 9.4 UG/DL CALCULATED T7 (FTI) (test code = 2.87 2820) TSH (test code = 2821) 2.3 UIU/ML THYROID II PROFILE (T3U, T4, T7, TSH)[id number] 00:00:00 Test Item Value Reference Range Interpretation Comments T3 UPTAKE (test code = 2817) 30.5 % T4 (THYROXINE) (test code = 2819) 9.4 UG/DL CALCULATED T7 (FTI) (test code = 2.87 2820) TSH (test code = 2821) 2.3 UIU/ML THYROID II PROFILE (T3U, T4, T7, TSH)2016-05-18 00:00:00 Test Item Value Reference Range Interpretation Comments T3 UPTAKE (test code = 2817) 30.5 % T4 (THYROXINE) (test code = 2819) 9.4 UG/DL CALCULATED T7 (FTI) (test code = 2.87 2820) TSH (test code = 2821) 2.3 UIU/ML CBC W/AUTO [id number] 00:00:00 Test Item Value Reference Range Interpretation Comments WBC (test code = 1001) 7.8 K/UL RBC (test code = 1002) 4.51 M/UL HEMOGLOBIN (test code = 1003) 13.4 G/DL HEMATOCRIT (test code = 1004) 39.9 % MCV (test code = 1005) 88.5 fL MCH (test code = 1006) 29.7 PG MCHC (test code = 1007) 33.6 G/DL RDW (test code = 1038) 13.8 % NEUTROPHILS (test code = 1008) 56.3 % LYMPHOCYTES (test code = 1010) 28.4 % MONOCYTES (test code = 1011) 10.6 % EOSINOPHILS (test code = 1012) 4.4 % BASOPHILS (test code = 1013) 0.3 % PLATELET COUNT (test code = 1015) 337 K/UL CBC W/AUTO [id number] 00:00:00 Test Item Value Reference Range Interpretation Comments WBC (test code = 1001) 7.8 K/UL RBC (test code = 1002) 4.51 M/UL HEMOGLOBIN (test code = 1003) 13.4 G/DL HEMATOCRIT (test code = 1004) 39.9 % MCV (test code = 1005) 88.5 fL MCH (test code = 1006) 29.7 PG MCHC (test code = 1007) 33.6 G/DL RDW (test code = 1038) 13.8 % NEUTROPHILS (test code = 1008) 56.3 % LYMPHOCYTES (test code = 1010) 28.4 % MONOCYTES (test code = 1011) 10.6 % EOSINOPHILS (test code = 1012) 4.4 % BASOPHILS (test code = 1013) 0.3 % PLATELET COUNT (test code = 1015) 337 K/UL CBC W/AUTO [id number] 00:00:00 Test Item Value Reference Range Interpretation Comments WBC (test code = 1001) 7.8 K/UL RBC (test code = 1002) 4.51 M/UL HEMOGLOBIN (test code = 1003) 13.4 G/DL HEMATOCRIT (test code = 1004) 39.9 % MCV (test code = 1005) 88.5 fL MCH (test code = 1006) 29.7 PG MCHC (test code = 1007) 33.6 G/DL RDW (test code = 1038) 13.8 % NEUTROPHILS (test code = 1008) 56.3 % LYMPHOCYTES (test code = 1010) 28.4 % MONOCYTES (test code = 1011) 10.6 % EOSINOPHILS (test code = 1012) 4.4 % BASOPHILS (test code = 1013) 0.3 % PLATELET COUNT (test code = 1015) 337 K/UL CBC W/AUTO [id number] 00:00:00 Test Item Value Reference Range Interpretation Comments WBC (test code = 1001) 7.8 K/UL RBC (test code = 1002) 4.51 M/UL HEMOGLOBIN (test code = 1003) 13.4 G/DL HEMATOCRIT (test code = 1004) 39.9 % MCV (test code = 1005) 88.5 fL MCH (test code = 1006) 29.7 PG MCHC (test code = 1007) 33.6 G/DL RDW (test code = 1038) 13.8 % NEUTROPHILS (test code = 1008) 56.3 % LYMPHOCYTES (test code = 1010) 28.4 % MONOCYTES (test code = 1011) 10.6 % EOSINOPHILS (test code = 1012) 4.4 % BASOPHILS (test code = 1013) 0.3 % PLATELET COUNT (test code = 1015) 337 K/UL CBC W/AUTO [id number] 00:00:00 Test Item Value Reference Range Interpretation Comments WBC (test code = 1001) 7.8 K/UL RBC (test code = 1002) 4.51 M/UL HEMOGLOBIN (test code = 1003) 13.4 G/DL HEMATOCRIT (test code = 1004) 39.9 % MCV (test code = 1005) 88.5 fL MCH (test code = 1006) 29.7 PG MCHC (test code = 1007) 33.6 G/DL RDW (test code = 1038) 13.8 % NEUTROPHILS (test code = 1008) 56.3 % LYMPHOCYTES (test code = 1010) 28.4 % MONOCYTES (test code = 1011) 10.6 % EOSINOPHILS (test code = 1012) 4.4 % BASOPHILS (test code = 1013) 0.3 % PLATELET COUNT (test code = 1015) 337 K/UL COMPREHENSIVE METABOLIC [id number] 00:00:00 Test Item Value Reference Range Interpretation Comments GLUCOSE (test code = 2217) 112 MG/DL BUN (test code = 2208) 15 MG/DL CREATININE (test code = 2214) 0.72 MG/DL eGFR AMER. (test code 108 ML/MIN/1.73 = 07456) eGFR NON- AMER. (test 94 ML/MIN/1.73 code = 75541) CALC BUN/CREAT (test code = 21 RATIO 2235) SODIUM (test code = 2231) 141 MEQ/L POTASSIUM (test code = 2228) 4.4 MEQ/L CHLORIDE (test code = 2215) 100 MEQ/L CARBON DIOXIDE (test code = 25 MEQ/L 2205) CALCIUM (test code = 2209) 9.3 MG/DL PROTEIN, TOTAL (test code = 7.4 G/DL 2228) ALBUMIN (test code = 2201) 4.4 G/DL CALC GLOBULIN (test code = 3.0 G/DL 2240) CALC A/G RATIO (test code = 1.5 RATIO 2234) BILIRUBIN, TOTAL (test code = 0.2 MG/DL 2206) ALKALINE PHOSPHATASE (test 53 U/L code = 2204) AST (test code = 2218) 19 U/L ALT (test code = 2219) 18 U/L LIPID [id number] 00:00:00 Test Item Value Reference Range Interpretation Comments CHOLESTEROL (test code = 2210) 228 MG/DL TRIGLYCERIDES (test code = 2232) 98 MG/DL HDL CHOLESTEROL (test code = 2220) 58 MG/DL CALC LDL CHOL (test code = 2237) 150 MG/DL RISK RATIO LDL/HDL (test code = 2.59 RATIO 2238) COMPREHENSIVE METABOLIC [id number] 00:00:00 Test Item Value Reference Range Interpretation Comments GLUCOSE (test code = 2217) 112 MG/DL BUN (test code = 2208) 15 MG/DL CREATININE (test code = 2214) 0.72 MG/DL eGFR AMER. (test code 108 ML/MIN/1.73 = 91395) eGFR NON- AMER. (test 94 ML/MIN/1.73 code = 48802) CALC BUN/CREAT (test code = 21 RATIO 2235) SODIUM (test code = 2231) 141 MEQ/L POTASSIUM (test code = 2228) 4.4 MEQ/L CHLORIDE (test code = 2215) 100 MEQ/L CARBON DIOXIDE (test code = 25 MEQ/L 2206) CALCIUM (test code = 2209) 9.3 MG/DL PROTEIN, TOTAL (test code = 7.4 G/DL 222) ALBUMIN (test code = 2201) 4.4 G/DL CALC GLOBULIN (test code = 3.0 G/DL 2240) CALC A/G RATIO (test code = 1.5 RATIO 2234) BILIRUBIN, TOTAL (test code = 0.2 MG/DL 2206) ALKALINE PHOSPHATASE (test 53 U/L code = 220) AST (test code = 2218) 19 U/L ALT (test code = 2219) 18 U/L COMPREHENSIVE METABOLIC [id number] 00:00:00 Test Item Value Reference Range Interpretation Comments GLUCOSE (test code = 2217) 112 MG/DL BUN (test code = 2208) 15 MG/DL CREATININE (test code = 2214) 0.72 MG/DL eGFR AMER. (test code 108 ML/MIN/1.73 = 41811) eGFR NON- AMER. (test 94 ML/MIN/1.73 code = 44572) CALC BUN/CREAT (test code = 21 RATIO 2235) SODIUM (test code = 2231) 141 MEQ/L POTASSIUM (test code = 2228) 4.4 MEQ/L CHLORIDE (test code = 2215) 100 MEQ/L CARBON DIOXIDE (test code = 25 MEQ/L 2206) CALCIUM (test code = 2209) 9.3 MG/DL PROTEIN, TOTAL (test code = 7.4 G/DL 9) ALBUMIN (test code = 2201) 4.4 G/DL CALC GLOBULIN (test code = 3.0 G/DL 2240) CALC A/G RATIO (test code = 1.5 RATIO 2234) BILIRUBIN, TOTAL (test code = 0.2 MG/DL 2206) ALKALINE PHOSPHATASE (test 53 U/L code = 2204) AST (test code = 2218) 19 U/L ALT (test code = 2219) 18 U/L LIPID [id number] 00:00:00 Test Item Value Reference Range Interpretation Comments CHOLESTEROL (test code = 2210) 228 MG/DL TRIGLYCERIDES (test code = 2232) 98 MG/DL HDL CHOLESTEROL (test code = 2220) 58 MG/DL CALC LDL CHOL (test code = 2237) 150 MG/DL RISK RATIO LDL/HDL (test code = 2.59 RATIO 2238) LIPID [id number] 00:00:00 Test Item Value Reference Range Interpretation Comments CHOLESTEROL (test code = 2210) 228 MG/DL TRIGLYCERIDES (test code = 2232) 98 MG/DL HDL CHOLESTEROL (test code = 2220) 58 MG/DL CALC LDL CHOL (test code = 2237) 150 MG/DL RISK RATIO LDL/HDL (test code = 2.59 RATIO 2238) HEMOGLOBIN [id number] 00:00:00 Test Item Value Reference Range Interpretation Comments HEMOGLOBIN A1c (test code = 62015) 6.1 % HEMOGLOBIN [id number] 00:00:00 Test Item Value Reference Range Interpretation Comments HEMOGLOBIN A1c (test code = 20971) 6.1 % HEMOGLOBIN [id number] 00:00:00 Test Item Value Reference Range Interpretation Comments HEMOGLOBIN A1c (test code = 09664) 6.1 % HEMOGLOBIN [id number] 00:00:00 Test Item Value Reference Range Interpretation Comments HEMOGLOBIN A1c (test code = 02072) 6.1 % HEMOGLOBIN [id number] 00:00:00 Test Item Value Reference Range Interpretation Comments HEMOGLOBIN A1c (test code = 73178) 6.1 % THYROID II PROFILE (T3U, T4, T7, TSH)[id number] 00:00:00 Test Item Value Reference Range Interpretation Comments T3 UPTAKE (test code = 2817) 29.6 % T4 (THYROXINE) (test code = 2819) 8.9 UG/DL CALCULATED T7 (FTI) (test code = 2.63 2820) TSH (test code = 2821) 4.2 UIU/ML THYROID II PROFILE (T3U, T4, T7, TSH)[id number] 00:00:00 Test Item Value Reference Range Interpretation Comments T3 UPTAKE (test code = 2817) 29.6 % T4 (THYROXINE) (test code = 2819) 8.9 UG/DL CALCULATED T7 (FTI) (test code = 2.63 2820) TSH (test code = 2821) 4.2 UIU/ML THYROID II PROFILE (T3U, T4, T7, TSH)2015-09-12 00:00:00 Test Item Value Reference Range Interpretation Comments T3 UPTAKE (test code = 2817) 29.6 % T4 (THYROXINE) (test code = 2819) 8.9 UG/DL CALCULATED T7 (FTI) (test code = 2.63 2820) TSH (test code = 2821) 4.2 UIU/ML LIPID [id number] 00:00:00 Test Item Value Reference Range Interpretation Comments CHOLESTEROL (test code = 2210) 166 MG/DL TRIGLYCERIDES (test code = 2232) 75 MG/DL HDL CHOLESTEROL (test code = 2220) 66 MG/DL CALCULATED LDL CHOL (test code = 85 MG/DL 2237) RISK RATIO LDL/HDL (test code = 1.29 RATIO 2238) [id number] 00:00:00 Test Item Value Reference Range Interpretation Comments TSH (test code = 2821) 5.5 UIU/ML [id number] 00:00:00 Test Item Value Reference Range Interpretation Comments TSH (test code = 2821) 5.5 UIU/ML LIPID [id number] 00:00:00 Test Item Value Reference Range Interpretation Comments CHOLESTEROL (test code = 2210) 166 MG/DL TRIGLYCERIDES (test code = 2232) 75 MG/DL HDL CHOLESTEROL (test code = 2220) 66 MG/DL CALCULATED LDL CHOL (test code = 85 MG/DL 2237) RISK RATIO LDL/HDL (test code = 1.29 RATIO 2238) LIPID [id number] 00:00:00 Test Item Value Reference Range Interpretation Comments CHOLESTEROL (test code = 2210) 166 MG/DL TRIGLYCERIDES (test code = 2232) 75 MG/DL HDL CHOLESTEROL (test code = 2220) 66 MG/DL CALCULATED LDL CHOL (test code = 85 MG/DL 2237) RISK RATIO LDL/HDL (test code = 1.29 RATIO 2238) [id number] 00:00:00 Test Item Value Reference Range Interpretation Comments TSH (test code = 2821) 5.5 UIU/ML [id number] 00:00:00 Test Item Value Reference Range Interpretation Comments TSH (test code = 2821) 5.5 UIU/ML [id number] 00:00:00 Test Item Value Reference Range Interpretation Comments TSH (test code = 2821) 5.5 UIU/ML CBC W/AUTO [id number] 00:00:00 Test Item Value Reference Range Interpretation Comments WBC (test code = 1001) 5.5 K/UL RBC (test code = 1002) 5.00 M/UL HEMOGLOBIN (test code = 1003) 14.5 G/DL HEMATOCRIT (test code = 1004) 43.6 % MCV (test code = 1005) 87.2 fL MCH (test code = 1006) 29.0 PG MCHC (test code = 1007) 33.3 G/DL RDW (test code = 1038) 14.0 % NEUTROPHILS (test code = 1008) 52 % LYMPHOCYTES (test code = 1010) 31 % MONOCYTES (test code = 1011) 11 % EOSINOPHILS (test code = 1012) 5 % BASOPHILS (test code = 1013) % PLATELET COUNT (test code = 1015) 387 K/UL CBC W/AUTO [id number] 00:00:00 Test Item Value Reference Range Interpretation Comments WBC (test code = 1001) 5.5 K/UL RBC (test code = 1002) 5.00 M/UL HEMOGLOBIN (test code = 1003) 14.5 G/DL HEMATOCRIT (test code = 1004) 43.6 % MCV (test code = 1005) 87.2 fL MCH (test code = 1006) 29.0 PG MCHC (test code = 1007) 33.3 G/DL RDW (test code = 1038) 14.0 % NEUTROPHILS (test code = 1008) 52 % LYMPHOCYTES (test code = 1010) 31 % MONOCYTES (test code = 1011) 11 % EOSINOPHILS (test code = 1012) 5 % BASOPHILS (test code = 1013) % PLATELET COUNT (test code = 1015) 387 K/UL HEMOGLOBIN [id number] 00:00:00 Test Item Value Reference Range Interpretation Comments HEMOGLOBIN A1c (test code = 68867) 6.1 % HEMOGLOBIN [id number] 00:00:00 Test Item Value Reference Range Interpretation Comments HEMOGLOBIN A1c (test code = 98398) 6.1 % [id number] 00:00:00 Test Item Value Reference Range Interpretation Comments TSH (test code = 2821) 2.9 UIU/ML [id number] 00:00:00 Test Item Value Reference Range Interpretation Comments TSH (test code = 2821) 2.9 UIU/ML LIPID [id number] 00:00:00 Test Item Value Reference Range Interpretation Comments CHOLESTEROL (test code = 2210) 215 MG/DL TRIGLYCERIDES (test code = 2232) 66 MG/DL HDL CHOLESTEROL (test code = 2220) 60 MG/DL CALCULATED LDL CHOL (test code = 142 MG/DL 2236) RISK RATIO LDL/HDL (test code = 2.36 RATIO 2238) COMPREHENSIVE METABOLIC [id number] 00:00:00 Test Item Value Reference Range Interpretation Comments GLUCOSE (test code = 2217) 105 MG/DL BUN (test code = 2208) 16 MG/DL CREATININE (test code = 2214) 0.7 MG/DL eGFR AMER. (test code 105 ML/MIN/1.73 = 73026) eGFR NON- AMER. (test 87 ML/MIN/1.73 code = 03397) CALCULATED BUN/CREAT (test 23 RATIO code = 2235) SODIUM (test code = 2231) 138 MEQ/L POTASSIUM (test code = 2228) 4.9 MEQ/L CHLORIDE (test code = 2215) 103 MEQ/L CARBON DIOXIDE (test code = 30 MEQ/L 2205) CALCIUM (test code = 2209) 9.7 MG/DL PROTEIN, TOTAL (test code = 7.4 G/DL 2228) ALBUMIN (test code = 2201) 4.0 G/DL CALCULATED GLOBULIN (test 3.4 G/DL code = 2240) CALCULATED A/G RATIO (test 1.2 RATIO code = 2234) BILIRUBIN, TOTAL (test code = 0.5 MG/DL 2206) ALKALINE PHOSPHATASE (test 47 U/L code = 2204) SGOT (AST) (test code = 2218) 18 U/L SGPT (ALT) (test code = 2219) 17 U/L CBC W/AUTO [id number] 00:00:00 Test Item Value Reference Range Interpretation Comments WBC (test code = 1001) 5.5 K/UL RBC (test code = 1002) 5.00 M/UL HEMOGLOBIN (test code = 1003) 14.5 G/DL HEMATOCRIT (test code = 1004) 43.6 % MCV (test code = 1005) 87.2 fL MCH (test code = 1006) 29.0 PG MCHC (test code = 1007) 33.3 G/DL RDW (test code = 1038) 14.0 % NEUTROPHILS (test code = 1008) 52 % LYMPHOCYTES (test code = 1010) 31 % MONOCYTES (test code = 1011) 11 % EOSINOPHILS (test code = 1012) 5 % BASOPHILS (test code = 1013) % PLATELET COUNT (test code = 1015) 387 K/UL CBC W/AUTO [id number] 00:00:00 Test Item Value Reference Range Interpretation Comments WBC (test code = 1001) 5.5 K/UL RBC (test code = 1002) 5.00 M/UL HEMOGLOBIN (test code = 1003) 14.5 G/DL HEMATOCRIT (test code = 1004) 43.6 % MCV (test code = 1005) 87.2 fL MCH (test code = 1006) 29.0 PG MCHC (test code = 1007) 33.3 G/DL RDW (test code = 1038) 14.0 % NEUTROPHILS (test code = 1008) 52 % LYMPHOCYTES (test code = 1010) 31 % MONOCYTES (test code = 1011) 11 % EOSINOPHILS (test code = 1012) 5 % BASOPHILS (test code = 1013) % PLATELET COUNT (test code = 1015) 387 K/UL CBC W/AUTO [id number] 00:00:00 Test Item Value Reference Range Interpretation Comments WBC (test code = 1001) 5.5 K/UL RBC (test code = 1002) 5.00 M/UL HEMOGLOBIN (test code = 1003) 14.5 G/DL HEMATOCRIT (test code = 1004) 43.6 % MCV (test code = 1005) 87.2 fL MCH (test code = 1006) 29.0 PG MCHC (test code = 1007) 33.3 G/DL RDW (test code = 1038) 14.0 % NEUTROPHILS (test code = 1008) 52 % LYMPHOCYTES (test code = 1010) 31 % MONOCYTES (test code = 1011) 11 % EOSINOPHILS (test code = 1012) 5 % BASOPHILS (test code = 1013) % PLATELET COUNT (test code = 1015) 387 K/UL HEMOGLOBIN [id number] 00:00:00 Test Item Value Reference Range Interpretation Comments HEMOGLOBIN A1c (test code = 30262) 6.1 % HEMOGLOBIN [id number] 00:00:00 Test Item Value Reference Range Interpretation Comments HEMOGLOBIN A1c (test code = 13384) 6.1 % HEMOGLOBIN [id number] 00:00:00 Test Item Value Reference Range Interpretation Comments HEMOGLOBIN A1c (test code = 23990) 6.1 % [id number] 00:00:00 Test Item Value Reference Range Interpretation Comments TSH (test code = 2821) 2.9 UIU/ML [id number] 00:00:00 Test Item Value Reference Range Interpretation Comments TSH (test code = 2821) 2.9 UIU/ML [id number] 00:00:00 Test Item Value Reference Range Interpretation Comments TSH (test code = 2821) 2.9 UIU/ML LIPID [id number] 00:00:00 Test Item Value Reference Range Interpretation Comments CHOLESTEROL (test code = 2210) 215 MG/DL TRIGLYCERIDES (test code = 2232) 66 MG/DL HDL CHOLESTEROL (test code = 2220) 60 MG/DL CALCULATED LDL CHOL (test code = 142 MG/DL 2237) RISK RATIO LDL/HDL (test code = 2.36 RATIO 2238) LIPID [id number] 00:00:00 Test Item Value Reference Range Interpretation Comments CHOLESTEROL (test code = 2210) 215 MG/DL TRIGLYCERIDES (test code = 2232) 66 MG/DL HDL CHOLESTEROL (test code = 2220) 60 MG/DL CALCULATED LDL CHOL (test code = 142 MG/DL 2237) RISK RATIO LDL/HDL (test code = 2.36 RATIO 2238) COMPREHENSIVE METABOLIC [id number] 00:00:00 Test Item Value Reference Range Interpretation Comments GLUCOSE (test code = 2217) 105 MG/DL BUN (test code = 2208) 16 MG/DL CREATININE (test code = 2214) 0.7 MG/DL eGFR AMER. (test code 105 ML/MIN/1.73 = 43230) eGFR NON- AMER. (test 87 ML/MIN/1.73 code = 05073) CALCULATED BUN/CREAT (test 23 RATIO code = 2235) SODIUM (test code = 2231) 138 MEQ/L POTASSIUM (test code = 2228) 4.9 MEQ/L CHLORIDE (test code = 2215) 103 MEQ/L CARBON DIOXIDE (test code = 30 MEQ/L 2205) CALCIUM (test code = 2209) 9.7 MG/DL PROTEIN, TOTAL (test code = 7.4 G/DL 2228) ALBUMIN (test code = 2201) 4.0 G/DL CALCULATED GLOBULIN (test 3.4 G/DL code = 2240) CALCULATED A/G RATIO (test 1.2 RATIO code = 2234) BILIRUBIN, TOTAL (test code = 0.5 MG/DL 2206) ALKALINE PHOSPHATASE (test 47 U/L code = 2204) SGOT (AST) (test code = 2218) 18 U/L SGPT (ALT) (test code = 2219) 17 U/L COMPREHENSIVE METABOLIC [id number] 00:00:00 Test Item Value Reference Range Interpretation Comments GLUCOSE (test code = 2217) 105 MG/DL BUN (test code = 2208) 16 MG/DL CREATININE (test code = 2214) 0.7 MG/DL eGFR AMER. (test code 105 ML/MIN/1.73 = 65395) eGFR NON- AMER. (test 87 ML/MIN/1.73 code = 44964) CALCULATED BUN/CREAT (test 23 RATIO code = 2235) SODIUM (test code = 2231) 138 MEQ/L POTASSIUM (test code = 2228) 4.9 MEQ/L CHLORIDE (test code = 2215) 103 MEQ/L CARBON DIOXIDE (test code = 30 MEQ/L 2205) CALCIUM (test code = 2209) 9.7 MG/DL PROTEIN, TOTAL (test code = 7.4 G/DL 2228) ALBUMIN (test code = 2201) 4.0 G/DL CALCULATED GLOBULIN (test 3.4 G/DL code = 2240) CALCULATED A/G RATIO (test 1.2 RATIO code = 2234) BILIRUBIN, TOTAL (test code = 0.5 MG/DL 2206) ALKALINE PHOSPHATASE (test 47 U/L code = 2204) SGOT (AST) (test code = 2218) 18 U/L SGPT (ALT) (test code = 2219) 17 U/L THYROID II PROFILE (T3U, T4, T7, TSH)2014-11-11 00:00:00 Test Item Value Reference Range Interpretation Comments T3 UPTAKE (test code = 2817) 31.7 % T4 (THYROXINE) (test code = 2819) 10.5 UG/DL CALCULATED T7 (FTI) (test code = 3.33 2820) TSH (test code = 2821) 2.0 UIU/ML THYROID II PROFILE (T3U, T4, T7, TSH)2014-11-11 00:00:00 Test Item Value Reference Range Interpretation Comments T3 UPTAKE (test code = 2817) 31.7 % T4 (THYROXINE) (test code = 2819) 10.5 UG/DL CALCULATED T7 (FTI) (test code = 3.33 2820) TSH (test code = 2821) 2.0 UIU/ML THYROID II PROFILE (T3U, T4, T7, TSH)2014-11-11 00:00:00 Test Item Value Reference Range Interpretation Comments T3 UPTAKE (test code = 2817) 31.7 % T4 (THYROXINE) (test code = 2819) 10.5 UG/DL CALCULATED T7 (FTI) (test code = 3.33 2820) TSH (test code = 2821) 2.0 UIU/ML
--- NOTE | 2022-05-02 13:27 | RAD REPORT ---
EXAM DESCRIPTION: CT - CTHCSPWOC - 05/02/2022 1:05 pm CLINICAL HISTORY: Trauma, head and neck injury. fall, head injury, passed out COMPARISON: Head C Spine Mpr Wo Con dated 05/05/2018 TECHNIQUE: Axial 5 mm thick images of the head were obtained. Axial 2 mm thick images of the cervical spine were obtained with sagittal and coronal reconstruction images generated and reviewed. All CT scans are performed using dose optimization technique as appropriate and may include automated exposure control or mA/KV adjustment according to patient size. FINDINGS: CT HEAD WITHOUT CONTRAST: No acute hemorrhage, hydrocephalus or extra-axial collection is identified.No areas of brain edema or midline shift. Hemorrhagic material seen in the left maxillary antrum.Left-sided orbital blowout fracture may be pre sent.The calvarium is intact. CT CERVICAL SPINE WITHOUT CONTRAST: No fracture or subluxation.Mild spondylosis C5-6.No prevertebral soft tissues swelling is identified. IMPRESSION: No acute intracranial or cervical spine findings. A left orbital blowout fracture may be present, with hemorrhagic fluid noted left maxillary antrum. R ecommend follow-up dedicated CT face for further evaluation.
[2022-05-02] MEDS ORDERED: NA CHLORIDE 0.9% 1,000 ML ONE (13:40)
[2022-05-02 13:45] LABS: Absolute Lymphocytes (CBC) 1.3 K/uL (0.7-4.9); Hematocrit 39.5 % (36.0-45.0); MCV 89.2 fL (80-100); MPV 7.4 fL (7.6-11.3); RBC Red Blood Cell Count 4.43 M/uL (3.86-4.86)
[2022-05-02] MEDS ORDERED: ACETAMINOPHEN 500 MG TAB ONE (13:48)
[2022-05-02 13:56] LABS: Protime INR 0.92
[2022-05-02 14:05] LABS: Albumin 3.6 g/dL (3.4-5.0); Bilirubin Direct 0.1 mg/dL (0-0.2); Bilirubin Total 0.3 mg/dL (0.2-1.0); Potassium 4.4 mmol/L (3.5-5.1); Protein, Total 7.9 g/dL (6.4-8.2); Troponin High Sensitivity 4.8 pg/mL (<58.9)
--- NOTE | 2022-05-02 14:32 | RAD REPORT ---
EXAM DESCRIPTION: RAD - Chest Single View - 05/02/2022 2:13 pm CLINICAL HISTORY: COUGH Chest pain. COMPARISON: Chest Single View dated 01/08/2017; CHEST SINGLE VIEW dated 02/24/2015 FINDINGS: Portable technique limits examination quality. The lungs are grossly clear. The heart is normal in size. No displaced fractures. IMPRESSION: No acute intrathoracic process suspected.
--- NOTE | 2022-05-02 14:34 | RAD REPORT ---
EXAM DESCRIPTION: CT - CTFB CLINICAL HISTORY: trauma Trauma facial pain and swelling. COMPARISON: No comparisons TECHNIQUE: Axial 2 mm thick images of the face were obtained with sagittal and coronal reconstructio n images. All CT scans are performed using dose optimization technique as appropriate and may include automated exposure control or mA/KV adjustment according to patient size. FINDINGS: Mild left-sided nasal bone fracture is seen.Left orbital blowout fracture is present. Defe ct in the left inferior orbital rim measures 8 mm with displacement of the fracture fragment into the maxillary antrum. No muscle entrapment suspected. Mild left-sided proptosis is evident.Small amount hemorrhagic material seen the left maxillary antrum. No vitreous abnormality. Both globes appear intact.Mastoid air cells are opacified bilaterally. No fracture of the mandible seen. IMPRESSION: Mild left orbital blowout fracture is evident without evidence of muscle entrapment. Mild left nasal bone fracture also suspected.
[2022-05-02] MEDS ORDERED: FENTANYL CITR 100 MCG/2 ML ONE (14:51)
[2022-05-02] MEDS ORDERED: ONDANSETRON 4 MG/2 ML VIAL ONE (14:51)
[2022-05-02] MEDS ORDERED: SMZ./TMP. 800/160 MG TABLET ONE (15:20)
--- NOTE | 2022-05-02 15:21 | EDPHYS ---
Physician Documentation [facility] Name: Vaishali Macias Age: 62 yrs Sex: Female : 1960 Arrival Date: 05/02/2022 Time: 12:33 Bed 30 Private MD: ED Physician Audi Rodríguez HPI: 05/02 15:10 This 62 yrs old Female presents to ER via Wheelchair with complaints of Passed audie Out Prior To Arrival, Head Injury With LOC-Adult. 15:10 The patient has experienced near-syncope. Onset: The symptoms/episode began/occurred audie just prior to arrival. Duration: This was a single episode, that lasted 10 second(s). Context: the episode(s) was witnessed, by family, occurred at home. Associated injury: Head/face:. Associated signs and symptoms: The patient has no apparent associated signs or symptoms. Current symptoms: headache. The patient has not experienced similar symptoms in the past. Historical: - Allergies: 13:44 Aspirin; iw 13:44 NSAIDS; iw 13:44 PENICILLINS; iw - Immunization history:: Adult Immunizations up to date, Client reports receiving the 2nd dose of the Covid vaccine, Last tetanus immunization: up to date. - Social history:: Smoking status: Patient denies any tobacco usage or history of. - Family history:: not pertinent. ROS: 15:10 Constitutional: Negative for fever, chills, and weight loss, Eyes: Negative for injury, audie pain, redness, and discharge, ENT: Negative for injury, pain, and discharge, Neck: Negative for injury, pain, and swelling, Cardiovascular: Negative for chest pain, palpitations, and edema, Respiratory: Negative for shortness of breath, cough, wheezing, and pleuritic chest pain, Abdomen/GI: Negative for abdominal pain, nausea, vomiting, diarrhea, and constipation, Back: Negative for injury and pain, : Negative for injury, bleeding, discharge, and swelling, MS/Extremity: Negative for injury and deformity, Skin: Negative for injury, rash, and discoloration, Neuro: Negative for headache, weakness, numbness, tingling, and seizure, Psych: Negative for depression, anxiety, suicide ideation, homicidal ideation, and hallucinations, Allergy/Immunology: Negative for hives, rash, and allergies, Endocrine: Negative for neck swelling, polydipsia, polyuria, polyphagia, and marked weight changes, Hematologic/Lymphatic: Negative for swollen nodes, abnormal bleeding, and unusual bruising. Exam: 15:16 Constitutional: This is a well developed, well nourished patient who is awake, alert, audie and in no acute distress. Eyes: Pupils equal round and reactive to light, extra-ocular motions intact. Lids and lashes normal. Conjunctiva and sclera are non-icteric and not injected. Cornea within normal limits. Periorbital areas with no swelling, redness, or edema. ENT: Nares patent. No nasal discharge, no septal abnormalities noted. Tympanic membranes are normal and external auditory canals are clear. Oropharynx with no redness, swelling, or masses, exudates, or evidence of obstruction, uvula midline. Mucous membranes moist. Neck: Trachea midline, no thyromegaly or masses palpated, and no cervical lymphadenopathy. Supple, full range of motion without nuchal rigidity, or vertebral point tenderness. No Meningismus. Chest/axilla: Normal chest wall appearance and motion. Nontender with no deformity. No lesions are appreciated. Cardiovascular: Regular rate and rhythm with a normal S1 and S2. No gallops, murmurs, or rubs. Normal PMI, no JVD. No pulse deficits. Respiratory: Lungs have equal breath sounds bilaterally, clear to auscultation and percussion. No rales, rhonchi or wheezes noted. No increased work of breathing, no retractions or nasal flaring. Abdomen/GI: Soft, non-tender, with normal bowel sounds. No distension or tympany. No guarding or rebound. No evidence of tenderness throughout. Back: No spinal tenderness. No costovertebral tenderness. Full range of motion. Female : Normal external genitalia. Skin: Warm, dry with normal turgor. Normal color with no rashes, no lesions, and no evidence of cellulitis. MS/ Extremity: Pulses equal, no cyanosis. Neurovascular intact. Full, normal range of motion. Neuro: Awake and alert, GCS 15, oriented to person, place, time, and situation. Cranial nerves II-XII grossly intact. Motor strength 5/5 in all extremities. Sensory grossly intact. Cerebellar exam normal. Normal gait. Psych: Awake, alert, with orientation to person, place and time. Behavior, mood, and affect are within normal limits. 15:16 Head/face: Noted is contusion, deformity, hematoma, swelling, that is mild. 15:16 ENT: Nose: Nasal mucosa: edematous, bleeding, is seen from the left nare, and is minimal. 15:24 ECG was reviewed by the Attending Physician. audie Vital Signs: 13:00 BP 112 / 62; Pulse 78; Resp 16; Pulse Ox 99% on R/A; iw 14:30 BP 102 / 68; Pulse 79; Resp 16; Temp 98.0; Pulse Ox 100% on R/A; iw MDM: 13:00 Patient medically screened. audie 15:16 Differential Diagnosis: cardiac arrhythmia, cerebrovascular accident, seizure, audie vasovagal episode. Data reviewed: vital signs, nurses notes, lab test result(s), EKG, radiologic studies, CT scan, plain films. Data interpreted: environmental monitoring specialist: rate is 79 beats/min, rhythm is regular, Pulse oximetry: on room air is 100 %. Test interpretation: by ED physician or midlevel provider: ECG, plain radiologic studies. Counseling: I had a detailed discussion with the patient and/or guardian regarding: the historical points, exam findings, and any diagnostic results supporting the discharge/admit diagnosis, lab results, radiology results, the need for outpatient follow up, for definitive care, an ENT specialist. 05/02 13:03 Order name: Basic Metabolic Panel; Complete Time: 14:52 [facility] 05/02 13:03 Order name: CBC with Diff; Complete Time: 14:01 [facility] 05/02 13:03 Order name: LFT's; Complete Time: 14:52 [facility] 05/02 13:03 Order name: Magnesium; Complete Time: 14:52 [facility] 05/02 13:03 Order name: NT PRO-BNP; Complete Time: 14:52 [facility] 05/02 13:03 Order name: PT-INR; Complete Time: 14:01 [facility] 05/02 12:48 Order name: CT Head C Spine; Complete Time: 14:01 05/02 13:03 Order name: Troponin HS; Complete Time: 14:52 [facility] 05/02 13:03 Order name: XRAY Chest (1 view); Complete Time: 14:52 [facility] 05/02 13:03 Order name: Lipase; Complete Time: 14:52 [facility] 05/02 14:02 Order name: CT Facial Bones W/O Con; Complete Time: 14:52 05/02 13:03 Order name: EKG; Complete Time: 13:03 [facility] 05/02 13:03 Order name: Cardiac monitoring; Complete Time: 14:46 [facility] 05/02 13:03 Order name: EKG - Nurse/Tech; Complete Time: 14:46 [facility] 05/02 13:03 Order name: IV Saline Lock; Complete Time: 13:38 [facility] 05/02 13:03 Order name: Labs collected and sent; Complete Time: 13:38 [facility] 05/02 13:03 Order name: O2 Per Protocol; Complete Time: 13:39 [facility] 05/02 13:03 Order name: O2 Sat Monitoring; Complete Time: 14:46 [facility] 05/02 15:18 Order name: Ice pack; Complete Time: 15:21 [facility] EC:24 Rate is 64 beats/min. Rhythm is regular. QRS Lyman is Normal. TX interval is normal. QRS audie interval is normal. QT interval is normal. No Q waves. T waves are Normal. No ST changes noted. Clinical impression: Normal ECG and No evidence of ischemia. Interpreted by me. Reviewed by me. Administered Medications: 13:42 Drug: NS 0.9% 500 ml Route: IV; Rate: bolus; Site: right antecubital; iw 13:50 Drug: Tylenol 1000 mg Route: PO; kb3 14:56 Drug: fentaNYL (PF) 50 mcg Route: IVP; Site: right antecubital; iw 14:56 Drug: Zofran (Ondansetron) 4 mg Route: IVP; Site: right antecubital; iw 15:05 Drug: NS 0.9% 1000 ml Route: IV; Rate: 125 ml/hr; Site: right antecubital; iw 15:21 Drug: Bactrim (trimethoprim-sulfamethoxazole) (160 mg-800 mg (DS) 1 tablet Route: PO; iw Disposition Summary: 05/02/22 15:20 Discharge Ordered Location: Home audie Problem: new audie Symptoms: have improved audie Condition: Stable audie Diagnosis - Syncope Near audie - Fracture of nasal bones audie - Fracture of orbital floor audie Followup: audie - With: Private Physician - When: 2 - 3 days - Reason: Recheck today's complaints, Continuance of care, Re-evaluation by your physician Followup: audie - With: Tiffanie Angelo MD - When: 2 - 3 days - Reason: Recheck today's complaints, Re-evaluation by your physician Discharge Instructions: - Discharge Summary Sheet audie - Orbital Floor Fracture audie - Nasal Fracture audie - Near-Syncope audie - Weakness audie - Nasal Fracture, [id number] audie - Weakness, [id number] audie Forms: - Medication Reconciliation Form audie - Thank You Letter audie - Antibiotic Education audie - Prescription Opioid Use [facility] Prescriptions: - Zofran 4 mg Oral Tablet - take 1 tablet by ORAL route every 12 hours As needed; 20 tablet; Refills: 0, [facility] Product Selection Permitted - Bactrim DS 800-160 mg Oral Tablet - take 1 tablet by ORAL route every 12 hours for 10 days; 20 tablet; Refills: 0, [facility] Product Selection Permitted - Tylenol-Codeine #3 300 mg-30 mg Oral - take 2 tablet by ORAL route every 6 hours; 20 tablet; Refills: 0, Product audie Selection Permitted Signatures: Dispatcher [employer] Mouna Gonzales, KEOC OCTAVIO-Audi Lassiter MD MD cha Williams, Irene RN Jess Sepulveda RN RN kb3
--- NOTE | 2022-05-02 15:21 | ER ---
Nurse's Notes [facility] Name: Vaishali Macias Age: 62 yrs Sex: Female : 1960 Arrival Date: 05/02/2022 Time: 12:33 Bed 30 Private MD: Diagnosis: Syncope Near;Fracture of nasal bones;Fracture of orbital floor Presentation: 05/02 12:46 Chief complaint: Patient states: was at [employer] today, she felt "weird" and everything iw started spinning, she called her and went to the door, next thing she knew she was on the ground and she hit her face, swelling to left side of face, had a nose bleed and now has a Headache and neck pain on left side , not on blood thinners. Care prior to arrival: None. Mechanism of Injury: Fall from standing position. Trauma event details: Injury occurred in the [facility]. 12:46 Acuity: GRACIELA 2 iw 12:46 Method Of Arrival: Wheelchair iw Trauma Activation: Alert Physician: ED Physician; Name: ; Notified At: ; Arrived At: Physician: General Surgeon; Name: ; Notified At: ; Arrived At: Physician: Radiology; Name: ; Notified At: ; Arrived At: Physician: Respiratory; Name: ; Notified At: ; Arrived At: Physician: Lab; Name: ; Notified At: ; Arrived At: Historical: - Allergies: 13:44 Aspirin; iw 13:44 NSAIDS; iw 13:44 PENICILLINS; iw - Immunization history:: Adult Immunizations up to date, Client reports receiving the 2nd dose of the Covid vaccine, Last tetanus immunization: up to date. - Social history:: Smoking status: Patient denies any tobacco usage or history of. - Family history:: not pertinent. Screenin:30 Abuse screen: Denies threats or abuse. Denies injuries from another. Nutritional kb3 screening: No deficits noted. Tuberculosis screening: No symptoms or risk factors identified. Fall Risk None identified. Assessment: 13:30 General: Appears in no apparent distress. uncomfortable, Behavior is calm, cooperative, kb3 Received care of pt in diagnostic waiting chair #3. Pt is sitting upright, AAO x4, reports pain in left side of head, left periorbital, left cheek and left jaw. States she was feeling unwell with abdominal cramps and felt like she might vomit, went into the restroom and began feeling dizzy, called her spouse to come pick her up and attempted to walk to front of [employer]. States the next thing she knew, she was lying on the floor. Spouse assisted pt to standing and walked her to the car to transport her into ED. 13:30 Pain: Complains of pain in left cheek, left eye, left denominational and left jaw Pain does not kb3 radiate. Pain currently is 10 out of 10 on a pain scale. Quality of pain is described as aching, throbbing. Neuro: Level of Consciousness is awake, alert, obeys commands, Oriented to person, place, time, situation, Ager Tender are equal bilaterally Moves all extremities. Speech is normal, Reports headache. 15:06 Reassessment: Patient appears in no apparent distress at this time. Patient and/or iw family updated on plan of care and expected duration. Pain level reassessed. Patient is alert, oriented x 3, equal unlabored respirations, skin warm/dry/pink. pt medicated for pain, CT results reviewed by Dr. Rodríguez, awaiting dispo. Vital Signs: 13:00 BP 112 / 62; Pulse 78; Resp 16; Pulse Ox 99% on R/A; iw 14:30 BP 102 / 68; Pulse 79; Resp 16; Temp 98.0; Pulse Ox 100% on R/A; iw ED Course: 12:33 Patient arrived in ED. mr 12:47 Triage completed. iw 13:00 Audi Rodríguez MD is Attending Physician. audie 13:07 CT Head C Spine In Process Unspecified. EDMS 13:30 No provider procedures requiring assistance completed. kb3 13:30 Patient has correct armband on for positive identification. Warm blanket given. kb3 13:35 Inserted saline lock: 22 gauge in right antecubital area, using aseptic technique. iw Blood collected. 13:39 Basic Metabolic Panel Sent. iw 13:39 CBC with Diff Sent. iw 13:39 LFT's Sent. iw 13:39 Magnesium Sent. iw 13:39 NT PRO-BNP Sent. iw 13:39 PT-INR Sent. iw 13:39 Troponin HS Sent. iw 13:[address] kb3 14:08 Jazmine Vasquez, RN is Primary Nurse. iw 14:15 XRAY Chest (1 view) In Process Unspecified. EDMS 14:15 CT Facial Bones W/O Con In Process Unspecified. EDMS 15:19 Tiffanie Angelo MD is Referral Physician. [facility] Administered Medications: 13:42 Drug: NS 0.9% 500 ml Route: IV; Rate: bolus; Site: right antecubital; iw 13:50 Drug: Tylenol 1000 mg Route: PO; kb3 14:56 Drug: fentaNYL (PF) 50 mcg Route: IVP; Site: right antecubital; iw 14:56 Drug: Zofran (Ondansetron) 4 mg Route: IVP; Site: right antecubital; iw 15:05 Drug: NS 0.9% 1000 ml Route: IV; Rate: 125 ml/hr; Site: right antecubital; iw 15:21 Drug: Bactrim (trimethoprim-sulfamethoxazole) (160 mg-800 mg (DS) 1 tablet Route: PO; iw Medication: 13:30 VIS not applicable for this client. kb3 Outcome: 15:20 Discharge ordered by . [facility] 15:40 Discharged to home via wheelchair, with family. iw 15:40 Condition: good 15:40 Discharge instructions given to patient, family, Instructed on discharge instructions, follow up and referral plans. medication usage, Demonstrated understanding of instructions, follow-up care, medications, Prescriptions given X 3. 15:41 Patient left the ED. iw Signatures: Dispatcher [employer] Audi Griffin MD MD cha Rivera, Mary mr Williams, Irene, RN RN iw Jess Rivas RN RN kb3
[2022-05-02 16:28] VITALS: BP 102/68; TEMP 98; O2SAT 100
== END 2022-05-02 15:41 | disposition home or self-care (01) ==
LOC: ER 12:32
DX: S02.2XXA Fracture of nasal bones, initial encounter for closed fracture (principal); S02.30XA Fracture of orbital floor, unspecified side, initial encounter for closed fracture; R55 Syncope and collapse; Z88.0 Allergy status to penicillin; Z88.6 Allergy status to analgesic agent
CPT/HCPCS: 36415; 70450; 70486; 71045; 72125; 76377; 80048; 80076; 83690; 83735; 83880; 84484; 85025; 85610; 93005; 96374; 96375; 99284; J2405; J3010; J7030

== ENCOUNTER 2023-04-12 16:52 | Inpatient (IN) | payer MEDICARE ==
--- OUTSIDE RECORDS SUMMARY | 2023-04-12 16:59 | XMS REPORT | Continuity of Care Document ---
:1960 Author Organization [facility] t Address [address] [place] [address] [address] [place] [address] Care Team Providers Name Role Phone PCP, PATIENT DOES NOT HAVE A Primary Care Physician Unavaila Ladan Sauceda Attending Clinician Maninder_José Antonio Attending Clinician Unavailable Katlyn Calderon Attending Clinician KATLYN SHEIKH Attending Clinician Unavailable Maninder_José Antonio Admitting Clinician Unavailable KATLYN SHEIKH Admitting Clinician Unavailable Payers Payer Name Policy Type Policy Number Effective Date Expiration Date S [facility] [id number] 2022 (MEDICARE 00:00:00 REPLACEMENT HMO) [facility] [id number] 2019 2020 OF STATE 00:00:00 00:00:00 Problems This patient has no known problems. Allergies, Adverse Reactions, Alerts Allergy Allergy Status Severity Reaction(s) Onset Inactive Treating Comm ents Source Name Type Date Date Clinician n Propensi Active ty to 7-12 adverse 00:00: reaction 00 to drug Aspirin Propensi Active - Oral ty to 09-25 adverse 00:00: reaction 00 to drug ASPIRIN DRUG Active Other-Cmnt Unive rs INGREDI 2-18 ity of 00:00: [address] [place] Drug Active Rash 2019-0 Univers INS Class 2-18 ity of 00:00: [place] [facility] Propensi Active 2015-0 ins ty to 3-14 adverse 00:00: reaction 00 to drug Medications Ordered Filled Start Stop Current Ordering Indication Dosage Frequency Signature Comments Components Source Medication Medication Date Date Medication? Clinician (SIG) Name Name TAKE 3 2021-1 No CAPSULES BY 0-07 MOUTH 4 00:00: TIMES DAILY 00 TAKE 1 2-0 No 40 TABLET BY 8-04 MOUTH ONCE 00:00: DAILY 00 TAKE 1 2-0 No 500 TABLET BY 8-04 MOUTH TWICE 00:00: DAILY 00 simvastatin 2022-0 No 1mg 40 mg 7-12 tablet 00:00: 00 metformin 2022-0 No 1mg 500 mg 7-12 tablet 00:00: 00 levothyroxi 2022-0 No 1mcg ne 150 mcg 7-12 tablet 00:00: 00 gabapentin 2022-0 No 3mg 300 mg 7-12 capsule 00:00: 00 APPLY 1 2-0 No PATCH 7-12 TOPICALLY 00:00: TO SKIN 00 TWICE DAILY APPLY 1 2-0 No PATCH 7-12 TOPICALLY 00:00: TO SKIN 00 TWICE DAILY TAKE 1 2021-0 No 500 TABLET BY 7-12 MOUTH TWICE 00:00: DAILY 00 TAKE 3 2-0 No 300 CAPSULES BY 7-12 MOUTH 4 00:00: TIMES DAILY 00 TAKE 3 2-0 No 300 CAPSULES BY 7-12 MOUTH 4 00:00: TIMES DAILY 00 Dose 2022-0 No Unknown 7-12 00:00: 00 metformin 2022-0 No 1mg 500 mg 7-12 tablet 00:00: 00 levothyroxi 2022-0 No 1mcg ne 150 mcg 7-12 tablet 00:00: 00 gabapentin 2022-0 No 3mg 300 mg 7-12 capsule 00:00: 00 APPLY 1 2-0 No PATCH 7-12 TOPICALLY 00:00: TO SKIN 00 TWICE DAILY APPLY 1 2-0 No PATCH 7-12 TOPICALLY 00:00: TO SKIN 00 TWICE DAILY TAKE 1 2-0 No 500 TABLET BY 7-12 MOUTH TWICE 00:00: DAILY 00 TAKE 3 2022-0 No 300 CAPSULES BY 7-12 MOUTH 4 00:00: TIMES DAILY 00 TAKE 3 2-0 No 300 CAPSULES BY 7-12 MOUTH 4 [...] 3-28 tablet,exte 00:00: nded 00 release levothyroxi 2022-0 No 1mcg ne 150 mcg 3-28 tablet 00:00: 00 Ditropan XL 2022-0 No 1mg 5 mg 3-28 tablet,exte 00:00: nded 00 release levothyroxi 2022-0 No 1mcg ne 150 mcg 3-28 tablet [...] 3-25 00:00: 00 Dose 2022-0 No Unknown 3-22 [...] 1% % topical 9-06 patch 00:00: 00 Dose 2021-0 No Unknown [...] Cipro 500 1-0 No 1mg mg tablet - 00:00: 00 duloxetine 2021-0 No 1mg 30 mg 5-01 capsule,del 00:00: ayed 00 release Cipro 500 1-0 No 1mg mg tablet 11-04 00:00: 00 duloxetine 2021-0 No 1mg 30 mg 5-01 capsule,del 00:00: ayed 00 release duloxetine 2021-0 [...] No 1mg mg tablet 3- 00:00: 00 Vesicare 5 2018-0 No 1mg [...] 300 mg 2-10 capsule 00:00: 00 levothyroxi 2016-1 No 1mcg ne 112 mcg 1-12 tablet 00:00: 00 levothyroxi 2016-1 No 1mcg ne 112 mcg 1-12 tablet 00:00: 00 simvastatin 2016-1 No 1mg 40 [...] 00:00: 00 triamcinolo 2016-0 No 1% ne 9-08 acetonide 00:00: 0.1 % 00 topical cream triamcinolo 2016-0 No 1% ne 9-08 acetonide 00:00: 0.1 % 00 topical cream simvastatin 2016-0 No 1mg 40 mg 7-16 tablet 00:00: 00 levothyroxi 2016-0 No 1mcg ne 112 mcg 7-16 tablet 00:00: 00 gabapentin 2016-0 No 2mg 300 mg 7-16 capsule 00:00: 00 simvastatin 2016-0 No 1mg 40 mg 7-16 tablet 00:00: 00 levothyroxi 2016-0 No 1mcg ne 112 mcg 7-16 tablet [...] No 1% % topical 2-27 gel 00:00: tramadol 50 0 No 1mg mg tablet 2- 00:00: 00 levothyroxi 2015-0 No 1mcg ne 112 mcg 2-04 tablet 00:00: 00 levothyroxi 2015-0 No 1mcg ne 112 mcg 2-04 tablet 00:00: 00 simvastatin 2016-0 No 1mg 40 mg 1-25 tablet 00:00: 00 levothyroxi 2015-0 No 1mcg ne 100 mcg 1-25 tablet 00:00: 00 gabapentin 2016-0 No 2mg 300 mg 1-25 capsule 00:00: 00 simvastatin 2016-0 No 1mg 40 mg 1-25 tablet 00:00: 00 levothyroxi 2015-0 No 1mcg ne 100 mcg 1-25 tablet 00:00: 00 gabapentin 2016-0 No 2mg 300 mg 1-25 capsule 00:00: 00 gabapentin 2015-1 No 2mg 300 mg 1-23 capsule 00:00: 00 gabapentin 2015-1 No 2mg 300 mg 1-23 capsule 00:00: 00 simvastatin 2014-1 No 1mg 40 mg 1-19 tablet 00:00: 00 gabapentin 2015-1 No 1mg 300 mg 1-19 capsule 00:00: 00 simvastatin 2015-1 No 1mg 40 mg 1-19 tablet 00:00: 00 gabapentin 2015-1 No 1mg 300 mg 1-19 capsule 00:00: 00 triamcinolo 2014-1 No 1% ne 0-20 acetonide 00:00: 0.1 % 00 topical ointment Medrol 2014-1 No 1mg (Bossman) 4 mg 0-20 tablets in 00:00: a dose pack 00 hydroxyzine 2014-1 No 1mg HCl 10 mg 0-20 tablet 00:00: 00 triamcinolo 2014-1 No 1% ne 0-20 acetonide 00:00: 0.1 [...] 20 mg 0-09 tablet 00:00: 00 levothyroxi 2015-1 No 1mcg ne 100 mcg 0-09 tablet 00:00: 00 gabapentin 2015-1 No 1mg 300 mg 0-09 capsule 00:00: 00 levothyroxi 2015-0 No 1mcg ne 100 mcg 9-25 tablet 00:00: 00 levothyroxi 2015-0 No 1mcg ne 100 mcg 9-25 tablet 00:00: 00 nystatin 2015-0 No 1unit/g 100,000 6-19 jessica unit/gram 00:00: topical 00 cream nystatin 2015-0 No 1unit/g 100,000 6-19 jessica unit/gram 00:00: topical 00 cream levothyroxi 2014-0 No 1mcg ne 100 mcg 3-19 tablet 00:00: 00 levothyroxi 2014-0 No 1mcg ne 100 mcg 3-19 tablet 00:00: 00 triamcinolo 2014-0 No 1% ne 3-14 acetonide 00:00: 0.5 % 00 topical cream tramadol 50 2014-0 No 1mg mg tablet 09-17 00:00: 00 clindamycin 2015-0 No 2mg 150 mg 3-14 capsule 00:00: 00 triamcinolo 2015-0 No 1% ne 3-14 acetonide 00:00: 0.5 % 00 topical cream tramadol 50 2014-0 No 1mg mg tablet 14 00:00: 00 clindamycin 2015-0 No 2mg 150 mg 3-14 capsule 00:00: 00 Vital Signs Vital Name Observation Time Observation Value Comments Source BP Systolic 2022-01-15 09:17:00 123 mm[Hg] BP Diastolic 2022-01-15 09:17:00 82 mm[Hg] Weight Measured 2022-01-15 09:17:00 194.20 pounds Height Measured 2022-01-15 09:17:00 62.00 inches Body Temperature 2022-01-15 09:17:00 98.90 degrees Heart Rate 2022-01-15 09:17:00 78.00 /min Respiratory Rate 2022-01-15 09:17:00 18.00 /min BP Systolic 2021-10-02 14:51:00 114 mm[Hg] BP [...] Goal Plan of Care Note [code = 47756-1] Goal Plan of Care Note [code = 45716-9] Goal Plan of Care Note [code = 09746-7] Goal Plan of Care Note [code = 45272-9] Goal Plan of Care Note [code = 43189-1] Goal Plan of Care Note [code = 90055-5] Goal Plan of Care Note [code = 01921-5] Goal Plan of Care Note [code = 61661-3] Goal Plan of Care Note [code = 10025-7] Goal Plan of Care Note [code = 17802-8] Goal Plan of Care Note [code = 60208-3] Goal Plan of Care Note [code = 84482-5] Goal Plan of Care Note [code = 71214-5] Goal Plan of Care Note [code = 18426-4] Goal Plan of Care Note [code = 71722-5] Goal Plan of Care Note [code = 52013-3] Goal Plan of Care Note [code = 05246-7] Goal Plan of Care Note [code = 10126-1] Goal Plan of Care Note [code = 06811-8] Goal Plan of Care Note [code = 39022-7] Goal Plan of Care Note [code = 73684-1] Goal Plan of Care Note [code = 79451-3] Goal Plan of Care Note [code = 26671-6] Goal Plan of Care Note [code = 83233-6] Goal Plan of Care Note [code = 85956-1] Goal Plan of Care Note [code = 85687-0] Goal Plan of Care Note [code = 01742-5] Goal Plan of Care Note [code = 83002-9] Goal Plan of Care Note [code = 69227-4] Goal Plan of Care Note [code = 99131-6] Goal Plan of Care Note [code = 50985-8] Goal Plan of Care Note [code = 50338-3] Goal Plan of Care Note [code = 83241-6] Goal Plan of Care Note [code = 66448-5] Goal Plan of Care Note [code = 63799-9] Goal Plan of Care Note [code = 26320-2] Goal Plan of Care Note [code = 71260-6] Goal Plan of Care Note [code = 57644-5] Goal Plan of Care Note [code = 10592-6] Goal Plan of Care Note [code = 14635-7] Goal Plan of Care Note [code = 57422-8] Goal Plan of Care Note [code = 76018-7] Goal Plan of Care Note [code = 24940-2] Goal Plan of Care Note [code = 02220-4] Goal Plan of Care Note [code = 21002-4] Goal Plan of Care Note [code = 92639-8] Goal Plan of Care Note [code = 76868-9] Goal Plan of Care Note [code = 00924-5] Goal Plan of Care Note [code = 77553-6] Goal Plan of Care Note [code = 06450-9] Goal Plan of Care Note [code = 29543-3] Goal Plan of Care Note [code = 26824-8] Goal Plan of Care Note [code = 69201-3] Goal Plan of Care Note [code = 29220-5] Goal Plan of Care Note [code = 11572-5] Goal Plan of Care Note [code = 91052-2] Goal Plan of Care Note [code = 11274-3] Goal Plan of Care Note [code = 90837-7] Goal Plan of Care Note [code = 40138-6] Goal Plan of Care Note [code = 96073-5] Goal Plan of Care Note [code = 09863-1] Goal Plan of Care Note [code = 38479-2] Goal Plan of Care Note [code = 85797-1] Goal Plan of Care Note [code = 46174-4] Goal Plan of Care Note [code = 13255-7] Goal Plan of Care Note [code = 80451-7] Goal Plan of Care Note [code = 86241-8] Goal Plan of Care Note [code = 51838-2] Goal Plan of Care Note [code = 83226-9] Goal Plan of Care Note [code = 06726-6] Goal Plan of Care Note [code = 45054-6] Goal Plan of Care Note [code = 45961-5] Goal Plan of Care Note [code = 30294-6] Goal Plan of Care Note [code = 42365-6] Goal Plan of Care Note [code = 84458-9] Goal Plan of Care Note [code = 52406-3] Goal Plan of Care Note [code = 19528-7] Goal Plan of Care Note [code = 23135-7] Goal Plan of Care Note [code = 81636-0] Goal Plan of Care Note [code = 26597-7] Goal Plan of Care Note [code = 59986-3] Goal Plan of Care Note [code = 96025-7] Goal Plan of Care Note [code = 77906-0] Goal Plan of Care Note [code = 75574-7] Goal Plan of Care Note [code = 88446-6] Goal Plan of Care Note [code = 26435-3] Goal Plan of Care Note [code = 36441-7] Goal Plan of Care Note [code = 70014-0] Goal Plan of Care Note [code = 19516-6] Goal Plan of Care Note [code = 35692-6] Goal Plan of Care Note [code = 11306-4] Goal Plan of Care Note [code = 31551-7] Goal Plan of Care Note [code = 59712-2] Goal Plan of Care Note [code = 22557-5] Goal Plan of Care Note [code = 72154-5] Goal Plan of Care Note [code = 99292-5] Goal Plan of Care Note [code = 66908-8] Goal Plan of Care Note [code = 33083-9] Goal Plan of Care Note [code = 78609-3] Goal Plan of Care Note [code = 76655-6] Goal Plan of Care Note [code = 06132-9] Goal Plan of Care Note [code = 52148-3] Goal Plan of Care Note [code = 64429-0] Goal Plan of Care Note [code = 96645-3] Goal Plan of Care Note [code = 23494-4] Goal Plan of Care Note [code = 32504-1] Goal Plan of Care Note [code = 87195-7] Goal Plan of Care Note [code = 82717-2] Goal Plan of Care Note [code = 02474-1] Goal Plan of Care Note [code = 07153-4] Goal Plan of Care Note [code = 74949-3] Goal Plan of Care Note [code = 45498-5] Goal Plan of Care Note [code = 86481-8] Goal Plan of Care Note [code = 47070-1] Goal Plan of Care Note [code = 98226-9] Goal Plan of Care Note [code = 01284-3] Encounters Start End Encounter Admission Attending Care Care Encounter Source Date/Time Date/Time Type Type Clinicians Facility Department ID 2023-01-06 2023-01-06 [facility] 2.16.840. 2.16.840.1. CLAC [id number] [facility] 21:30:00 22:00:00 Revisit: [place] [id number]. 053545.4.6. YR8 Medical Gap 4.6.75019 [id number] Closure & 56205 Clinical Check-in 2023-01-01 2023-01-01 Outpatient [place]_L DMG DMG 146 [facility] 00:00:00 00:00:00 87964 Medica l Group 2022-11-09 2022-11-09 Outpatient DMG DMG [id number]- [facility] 00:00:00 00:00:00 53724 Medica l Group 2022-08-08 2022-08-08 Outpatient SFA [facility] [id number] 023 [place] 09:38:17 09:38:17 0202 F Mario 2022-07-19 2022-07-19 [facility] [place] 2.16.840. 2.16.[address] [facility] [id number] [facility] 19:00:00 20:00:00 [place] 1.395173. 353755.4.6. [facility] 4.6.61321 [id number] 2022-05-10 2022-05-10 Outpatient SFA SFA 59530-8 022 [place] 11:43:56 11:43:56 1104 F Mario 2022-05-10 2022-05-10 Outpatient DMG DMG 887134- [facility] 00:00:00 00:00:00 46529 Medica l Group 2022-04-12 2022-04-12 Outpatient [facility] 89844-3 022 [place] 14:51:35 14:51:35 1007 F Mario 2022-04-12 2022-04-12 Outpatient [id number]- [id number] 1a f2e78g-7 00:00:00 00:00:00 Visit 1w29-3568 m62-0589-2 -1yq8-6zj fb5-7ql012 542xa37xo cd24fb 2022-01-15 2022-01-15 Outpatient 53w56ib3- [id number] u00it9-2 00:00:00 00:00:00 Visit 9535-4bfe 535-4bfe-9 -9006-cee 006-ceef25 b04qd7993 oa2437 2020-12-22 2020-12-[address] [facility] ERT [id number] Univers 17:59:00 17:59:00 [facility] 2019-08-24 2019-08-24 Emergency [facility] [id number] [id number] 18:31:31 21:20:00 Katlyn Calderon 350.1.13.10 [place] 4.2.7.2.686 [place] [id number] 2019-08-24 2019-08-24 Emergency X [facility] ERT [id number] Univers 18:31:31 21:20:00 KATLYN [facility] Results Test Description Test Time Test Comments Results Result Comments Source HEMOGLOBIN A1c 2022-08-09 06:58:26 Test Item Value Reference Range Interpretation Comme nts HEMOGLOBIN A1c (test code = 43948) 6.1 % 4.2-5.6 H LIPID [id number] 06:31:48 Test Item Value Reference Range Interpretation Comments CHOLESTEROL (test 266 MG/DL <200 H code = 2210) TRIGLYCERIDES (test 171 MG/DL <150 H code = 2232) HDL CHOLESTEROL (test 54 MG/DL >39 code = 2220) CALC LDL CHOL (test 180 MG/DL <100 H NOTE: C ALCULATED LDL code = 2237) IS BASED ON FANTA-CORBIN METHOD WHICHINCLUDES ADJUSTABLE TRIGLYCERIDE:VL DL CHOLESTEROL RAT IO.THIS FACTOR VARIES B Y MEASURED TRIGLY CERIDE AND NON-HDLCHOL ESTEROL CONCENTRATIONS WITH INCREASED CALCU LATED LDL SEENIN HIGH ER TRIGLYCERIDE OR LOWER NON-HDL SPECIME NS. FOR MOREINFORMATION , SEE CLIENT ANNOUNCE MENT AT [email or web address] RISK RATIO LDL/HDL 3.33 RATIO <3.22 H (test code = 2238) TSH, THIRD [id number] 04:35:21 Test Item Value Reference Range Interpretation Comments TSH, THIRD GENERATION 8.580 UIU/ML 0.400-4.[address] has (test code = 2821) important pathology staff changes effective 09/04/2022. New pathology staff will provide uninterrupted, excellent patie nt care and clinic al consultation. S ee URL: [email or web address]. UNL ESS OTHERWISE INDIC ATED, ALL TESTING PERFORMED AT [facility], [address] CLIA: [id number], CAP: TSH, THIRD [id number] 06:37:18 Test Item Value Reference Range Interpretation Comments TSH, THIRD 3.880 UIU/ML 0.400-4.100 UNLESS OTHERWI SE GENERATION (test INDICATED, ALL TESTING code = 2821) PERFORMED [facility], [address] [address] K[place]Y TAFOYA DIRECTOR: ADDIE FORD M.D. CLIA NUMBER [id number] CAP ACCREDITATION N O. [id number] HEMOGLOBIN [id number] 06:04:19 Test Item Value Reference Range Interpretation Comments HEMOGLOBIN A1c (test code = 89507) 5.9 % 4.2-5.6 H HEMOGLOBIN [id number] 00:00:00 Test Item Value Reference Range Interpretation Comments HEMOGLOBIN A1c (test code = 15745) 5.9 % HEMOGLOBIN [id number] 00:00:00 Test Item Value Reference Range Interpretation Comments HEMOGLOBIN A1c (test code = 32043) 5.9 % HEMOGLOBIN [id number] 00:00:00 Test Item Value Reference Range Interpretation Comments HEMOGLOBIN A1c (test code = 61091) 5.9 % [id number] 00:00:00 Test Item Value Reference Range Interpretation Comments TSH, THIRD GENERATION (test code 3.880 UIU/ML = 2821) [id number] 00:00:00 Test Item Value Reference Range Interpretation Comments TSH, THIRD GENERATION (test code 3.880 UIU/ML = 2821) [id number] 00:00:00 Test Item Value Reference Range Interpretation Comments TSH, THIRD GENERATION (test code 3.880 UIU/ML = 2821) TSH, THIRD [id number] 06:09:07 Test Item Value Reference Range Interpretation Comments TSH, THIRD 11.700 UIU/ML 0.400-4.100 H UNLESS OTHERW ISE GENERATION (test INDICATED, ALL code = 2821) TESTING PERFORM [facility], I [address] [address] [facility] DIRECTOR: ADDIE FORD M.D. CLIA NUMBER [id number] CAP ACCREDITATION N O. [id number] 00:00:00 Test Item Value Reference Range Interpretation Comments TSH, THIRD GENERATION (test 11.700 UIU/ML code = 2821) [id number] 00:00:00 Test Item Value Reference Range Interpretation Comments TSH, THIRD GENERATION (test 11.700 UIU/ML code = 2821) [id number] 00:00:00 Test Item Value Reference Range Interpretation Comments TSH, THIRD GENERATION (test 11.700 UIU/ML code = 2821) [id number] 00:00:00 Test Item Value Reference Range Interpretation Comments TSH, THIRD GENERATION (test 11.700 UIU/ML code = 2821) [id number] 00:00:00 Test Item Value Reference Range Interpretation Comments TSH, THIRD GENERATION (test 11.700 UIU/ML code = 2821) TSH, THIRD [id number] 05:41:33 Test Item Value Reference Range Interpretation Comments TSH, THIRD 0.067 UIU/ML 0.400-4.100 L UNLESS OTHERWI SE GENERATION (test INDICATED, ALL TESTING code = 2821) PERFORMED [facility], [address] [address] [facility] DIRECTOR: ADDIE FORD M.D. CLIA NUMBER [id number] CAP ACCREDITATION N O. [id number] LIPID [id number] 03:41:09 Test Item Value Reference Range Interpretation [...] MOREINFORMATION , SEE CLIENT ANNOUNCE MENT AT [email or web address] RISK RATIO LDL/HDL 2.07 RATIO <3.22 (test code = 2238) COMPREHENSIVE METABOLIC [id number] 03:41:09 Test Item Value Reference Range Interpretation Comments GLUCOSE (test code = 100 MG/DL 70-99 H 2216) BUN (test code = 7 MG/DL 8-23 L 2207) CREATININE (test 0.56 MG/DL 0.60-1.30 L EFFECTIVE code = 2214) 06/18/2021, [facility] HAS IMPLEMENTED THE NKF-ASN RECOMME NDED KD-EPI EGF R REFIT CALCULATI ON THAT DOES NOT INCLUDE A COEFFICIENT FOR RACE. FOR MORE INFORMATION, SE E ANNOUNCEMENT [email or web address] .[employer]/EGFR_CALC eGFR (2020 CKD-EPI) 104 >60 (test code = 77375) ML/MIN/1.73 CALC BUN/CREAT (test 13 RATIO 6-28 code = 2235) SODIUM (test code = 139 MEQ/L 737-271 8088) POTASSIUM (test code 4.4 MEQ/L 3.5-5.4 = 2228) CHLORIDE (test code 99 MEQ/L 95-107 = 221) CARBON DIOXIDE (test 29 MEQ/L 19-31 code = 2206) CALCIUM (test code = 9.4 MG/DL 8.5-10.5 2208) PROTEIN, TOTAL (test 7.2 G/DL 6.1-8.3 code = 2229) ALBUMIN (test code = 4.3 G/DL 3.5-5.2 220) CALC GLOBULIN (test 2.9 G/DL 1.9-3.7 code = 2240) CALC A/G RATIO (test 1.5 RATIO 1.0-2.6 code = 2234) BILIRUBIN, TOTAL <0.2 MG/DL See_Comment [Automated message] (test code = 2207) The syste m which generated this result transmit bowen reference range : <=1.2. The refe rence range was not u sed to interpret th is result as normal/abnormal . ALKALINE PHOSPHATASE 67 U/L 40-140 (test code = 2204) AST (test code = 25 U/L 9-40 2217) ALT (test code = 21 U/L 5-40 2218) CBC W/AUTO DIFF WITH [id number] 02:45:40 Test Item Value Reference Range Interpretation [...] RBCS 0.00 K/UL 0.00-0.11 (test code = 50721) HEMOGLOBIN [id number] 02:40:20 Test Item Value Reference Range Interpretation Comments HEMOGLOBIN A1c (test code = 59102) 6.1 % 4.2-5.6 H CBC W/AUTO [id number] 00:00:00 Test Item Value Reference Range Interpretation [...] NUCLEATED RBCS (test code = 0.00 K/UL 80459) CBC W/AUTO [id number] 00:00:00 Test Item Value Reference Range Interpretation [...] NUCLEATED RBCS (test code = 0.00 K/UL 16021) HEMOGLOBIN [id number] 00:00:00 Test Item Value Reference Range Interpretation Comments HEMOGLOBIN A1c (test code = 69260) 6.1 % HEMOGLOBIN [id number] 00:00:00 Test Item Value Reference Range Interpretation Comments HEMOGLOBIN A1c (test code = 17688) 6.1 % LIPID [id number] 00:00:00 Test Item Value Reference Range Interpretation Comments CHOLESTEROL (test code = 2210) 161 MG/DL TRIGLYCERIDES (test code = 2232) 108 MG/DL HDL CHOLESTEROL (test code = 2220) 46 MG/DL CALC LDL CHOL (test code = 2237) 95 MG/DL RISK RATIO LDL/HDL (test code = 2.07 RATIO 2238) COMPREHENSIVE METABOLIC [id number] 00:00:00 Test Item Value Reference Range Interpretation Comments GLUCOSE (test code = 2217) 100 MG/DL BUN (test code = 2208) 7 MG/DL CREATININE (test code = 2214) 0.56 MG/DL eGFR (2020 CKD-EPI) (test 104 ML/MIN/1.73 code = 83913) CALC BUN/CREAT (test code = 13 RATIO [...] ALT (test code = 2219) 21 U/L [id number] 00:00:00 Test Item Value Reference Range Interpretation Comments TSH, THIRD GENERATION (test code 0.067 UIU/ML = 2821) [id number] 00:00:00 Test Item Value Reference Range Interpretation Comments TSH, THIRD GENERATION (test code 0.067 UIU/ML = 2821) CBC W/AUTO [id number] 00:00:00 Test Item Value Reference Range Interpretation [...] NUCLEATED RBCS (test code = 0.00 K/UL 56617) CBC W/AUTO [id number] 00:00:00 Test Item Value Reference Range Interpretation [...] NUCLEATED RBCS (test code = 0.00 K/UL 58825) CBC W/AUTO [id number] 00:00:00 Test Item Value Reference Range Interpretation [...] NUCLEATED RBCS (test code = 0.00 K/UL 66088) HEMOGLOBIN [id number] 00:00:00 Test Item Value Reference Range Interpretation Comments HEMOGLOBIN A1c (test code = 82501) 6.1 % HEMOGLOBIN [id number] 00:00:00 Test Item Value Reference Range Interpretation Comments HEMOGLOBIN A1c (test code = 44983) 6.1 % HEMOGLOBIN [id number] 00:00:00 Test Item Value Reference Range Interpretation Comments HEMOGLOBIN A1c (test code = 44315) 6.1 % LIPID [id number] 00:00:00 Test Item Value Reference Range Interpretation Comments CHOLESTEROL (test code = 2210) 161 MG/DL TRIGLYCERIDES (test code = 2232) 108 MG/DL HDL CHOLESTEROL (test code = 2220) 46 MG/DL CALC LDL CHOL (test code = 2237) 95 MG/DL RISK RATIO LDL/HDL (test code = 2.07 RATIO 2238) LIPID [id number] 00:00:00 Test Item Value Reference Range Interpretation Comments CHOLESTEROL (test code = 2210) 161 MG/DL TRIGLYCERIDES (test code = 2232) 108 MG/DL HDL CHOLESTEROL (test code = 2220) 46 MG/DL CALC LDL CHOL (test code = 2237) 95 MG/DL RISK RATIO LDL/HDL (test code = 2.07 RATIO 2238) COMPREHENSIVE METABOLIC [id number] 00:00:00 Test Item Value Reference Range Interpretation Comments GLUCOSE (test code = 2217) 100 MG/DL BUN (test code = 2208) 7 MG/DL CREATININE (test code = 2214) 0.56 MG/DL eGFR (2020 CKD-EPI) (test 104 ML/MIN/1.73 code = 22430) CALC BUN/CREAT (test code = 13 RATIO [...] code = 2219) 21 U/L COMPREHENSIVE METABOLIC [id number] 00:00:00 Test Item Value Reference Range Interpretation Comments GLUCOSE (test code = 2217) 100 MG/DL BUN (test code = 2208) 7 MG/DL CREATININE (test code = 2214) 0.56 MG/DL eGFR (2020 CKD-EPI) (test 104 ML/MIN/1.73 code = 87810) CALC BUN/CREAT (test code = 13 RATIO 5) SODIUM (test code = 2231) 139 MEQ/L POTASSIUM (test code = 2228) 4.4 MEQ/L CHLORIDE (test code = 2215) 99 MEQ/L CARBON DIOXIDE (test code = 29 MEQ/L 2205) CALCIUM (test code = 2209) 9.4 MG/DL PROTEIN, TOTAL (test code = 7.2 G/DL 2228) ALBUMIN (test code = 220) 4.3 G/DL CALC GLOBULIN (test code = 2.9 G/DL 2239) CALC A/G RATIO (test code = 1.5 RATIO 2233) BILIRUBIN, TOTAL (test code = <0.2 MG/DL 2206) ALKALINE PHOSPHATASE (test 67 U/L code = 2204) AST (test code = 2218) 25 U/L ALT (test code = 2219) 21 U/L [id number] 00:00:00 Test Item Value Reference Range Interpretation Comments TSH, THIRD GENERATION (test code 0.067 UIU/ML = 2821) [id number] 00:00:00 Test Item Value Reference Range Interpretation Comments TSH, THIRD GENERATION (test code 0.067 UIU/ML = 2821) [id number] 00:00:00 Test Item Value Reference Range Interpretation Comments TSH, THIRD GENERATION (test code 0.067 UIU/ML = 2821) [id number] 00:00:00 Test Item Value Reference Range Interpretation Comments TSH, THIRD GENERATION (test code 0.840 UIU/ML = 2821) [id number] 00:00:00 Test Item Value Reference Range Interpretation Comments TSH, THIRD GENERATION (test code 0.840 UIU/ML = 2821) [id number] 00:00:00 Test Item Value Reference Range Interpretation Comments TSH, THIRD GENERATION (test code 0.840 UIU/ML = 2821) [id number] 00:00:00 Test Item Value Reference Range Interpretation Comments TSH, THIRD GENERATION (test code 0.840 UIU/ML = 2821) [id number] 00:00:00 Test Item Value Reference Range Interpretation Comments TSH, THIRD GENERATION (test code 0.840 UIU/ML = 2821) CULTURE, URINE [ADDED]2020-12-24 00:00:00 Test Item Value Reference Range Interpretation Comments CULTURE, URINE (test SPECIMEN NUMBER: code = 58869) [id number] CULTURE, URINE [ADDED]2020-12-24 00:00:00 Test Item Value Reference Range Interpretation Comments CULTURE, URINE (test SPECIMEN NUMBER: code = 56505) [id number] CULTURE, URINE [ADDED]2020-12-24 00:00:00 Test Item Value Reference Range Interpretation Comments CULTURE, URINE (test SPECIMEN NUMBER: code = 71195) [id number] CBC W/AUTO [id number] 00:00:00 Test Item Value Reference Range Interpretation [...] NUCLEATED RBCS (test code = 0.00 K/UL 69733) CBC W/AUTO [id number] 00:00:00 Test Item Value Reference Range Interpretation [...] NUCLEATED RBCS (test code = 0.00 K/UL 99484) LIPID [id number] 00:00:00 Test Item Value Reference Range Interpretation Comments CHOLESTEROL (test code = 2210) 135 MG/DL TRIGLYCERIDES (test code = 2232) 90 MG/DL HDL CHOLESTEROL (test code = 2220) 49 MG/DL CALC LDL CHOL (test code = 2237) 69 MG/DL RISK RATIO LDL/HDL (test code = 1.41 RATIO 2238) COMPREHENSIVE METABOLIC [id number] 00:00:00 Test Item Value Reference Range Interpretation Comments GLUCOSE (test code = 2217) 89 MG/DL BUN (test code = 2208) 10 MG/DL CREATININE (test code = 2214) 0.56 MG/DL eGFR AMER. (test code 117 ML/MIN/1.73 = 70268) eGFR NON- AMER. (test 101 ML/MIN/1.73 code = 37563) CALC BUN/CREAT (test code = 18 RATIO [...] ALKALINE PHOSPHATASE (test 61 U/L code = 220) AST (test code = 2218) 17 U/L ALT (test code = 2219) 14 U/L HEMOGLOBIN [id number] 00:00:00 Test Item Value Reference Range Interpretation Comments HEMOGLOBIN A1c (test code = 62772) 5.8 % HEMOGLOBIN [id number] 00:00:00 Test Item Value Reference Range Interpretation Comments HEMOGLOBIN A1c (test code = 90854) 5.8 % [id number] 00:00:00 Test Item Value Reference Range Interpretation Comments TSH, THIRD GENERATION (test 12.800 UIU/ML code = 2821) [id number] 00:00:00 Test Item Value Reference Range Interpretation Comments TSH, THIRD GENERATION (test 12.800 UIU/ML code = 2821) CBC W/AUTO [id number] 00:00:00 Test Item Value Reference Range Interpretation [...] NUCLEATED RBCS (test code = 0.00 K/UL 62922) CBC W/AUTO [id number] 00:00:00 Test Item Value Reference Range Interpretation [...] NUCLEATED RBCS (test code = 0.00 K/UL 68765) CBC W/AUTO [id number] 00:00:00 Test Item Value Reference Range Interpretation [...] NUCLEATED RBCS (test code = 0.00 K/UL 96336) LIPID [id number] 00:00:00 Test Item Value Reference Range Interpretation Comments CHOLESTEROL (test code = 2210) 135 MG/DL TRIGLYCERIDES (test code = 2232) 90 MG/DL HDL CHOLESTEROL (test code = 2220) 49 MG/DL CALC LDL CHOL (test code = 2237) 69 MG/DL RISK RATIO LDL/HDL (test code = 1.41 RATIO 2238) LIPID [id number] 00:00:00 Test Item Value Reference Range Interpretation Comments CHOLESTEROL (test code = 2210) 135 MG/DL TRIGLYCERIDES (test code = 2232) 90 MG/DL HDL CHOLESTEROL (test code = 2220) 49 MG/DL CALC LDL CHOL (test code = 2237) 69 MG/DL RISK RATIO LDL/HDL (test code = 1.41 RATIO 2238) COMPREHENSIVE METABOLIC [id number] 00:00:00 Test Item Value Reference Range Interpretation Comments GLUCOSE (test code = 2217) 89 MG/DL BUN (test code = 2208) 10 MG/DL CREATININE (test code = 2214) 0.56 MG/DL eGFR AMER. (test code 117 ML/MIN/1.73 = 97380) eGFR NON- AMER. (test 101 ML/MIN/1.73 code = 01216) CALC BUN/CREAT (test code = 18 RATIO [...] CALC GLOBULIN (test code = 2.8 G/DL 0) CALC A/G RATIO (test code = 1.5 RATIO 2233) BILIRUBIN, TOTAL (test code = 0.3 MG/DL 2206) ALKALINE PHOSPHATASE (test 61 U/L code = 2204) AST (test code = 2218) 17 U/L ALT (test code = 2219) 14 U/L COMPREHENSIVE METABOLIC [id number] 00:00:00 Test Item Value Reference Range Interpretation Comments GLUCOSE (test code = 2217) 89 MG/DL BUN (test code = 2208) 10 MG/DL CREATININE (test code = 2214) 0.56 MG/DL eGFR AMER. (test code 117 ML/MIN/1.73 = 32389) eGFR NON- AMER. (test 101 ML/MIN/1.73 code = 20139) CALC BUN/CREAT (test code = 18 RATIO 2235) SODIUM (test code = 2231) 139 MEQ/L POTASSIUM (test code = 2228) 4.5 MEQ/L CHLORIDE (test code = 2215) 101 MEQ/L CARBON DIOXIDE (test code = 28 MEQ/L 2206) CALCIUM (test code = 2209) 9.4 MG/DL PROTEIN, TOTAL (test code = 7.1 G/DL 2228) ALBUMIN (test code = 2201) 4.3 G/DL CALC GLOBULIN (test code = 2.8 G/DL 0) CALC A/G RATIO (test code = 1.5 RATIO 2234) BILIRUBIN, TOTAL (test code = 0.3 MG/DL 2206) ALKALINE PHOSPHATASE (test 61 U/L code = 2204) AST (test code = 2218) 17 U/L ALT (test code = 2219) 14 U/L HEMOGLOBIN [id number] 00:00:00 Test Item Value Reference Range Interpretation Comments HEMOGLOBIN A1c (test code = 51945) 5.8 % HEMOGLOBIN [id number] 00:00:00 Test Item Value Reference Range Interpretation Comments HEMOGLOBIN A1c (test code = 66406) 5.8 % HEMOGLOBIN [id number] 00:00:00 Test Item Value Reference Range Interpretation Comments HEMOGLOBIN A1c (test code = 98876) 5.8 % [id number] 00:00:00 Test Item Value Reference Range Interpretation Comments TSH, THIRD GENERATION (test 12.800 UIU/ML code = 2821) [id number] 00:00:00 Test Item Value Reference Range Interpretation Comments TSH, THIRD GENERATION (test 12.800 UIU/ML code = 2821) [id number] 00:00:00 Test Item Value Reference Range Interpretation Comments TSH, THIRD GENERATION (test 12.800 UIU/ML code = 2821) CULTURE, [id number] 00:00:00 Test Item Value Reference Range Interpretation Comments CULTURE, URINE (test SPECIMEN NUMBER: code = 04813) [id number] CULTURE, [id number] 00:00:00 Test Item Value Reference Range Interpretation Comments CULTURE, URINE (test SPECIMEN NUMBER: code = 59968) [id number] CULTURE, [id number] 00:00:00 Test Item Value Reference Range Interpretation Comments CULTURE, URINE (test SPECIMEN NUMBER: code = 89216) [id number] HEMOGLOBIN [id number] 00:00:00 Test Item Value Reference Range Interpretation Comments HEMOGLOBIN A1c (test code = 23972) 5.6 % HEMOGLOBIN [id number] 00:00:00 Test Item Value Reference Range Interpretation Comments HEMOGLOBIN A1c (test code = 63811) 5.6 % LIPID [id number] 00:00:00 Test Item Value Reference Range Interpretation Comments CHOLESTEROL (test code = 2210) 134 MG/DL TRIGLYCERIDES (test code = 2232) 95 MG/DL HDL CHOLESTEROL (test code = 2220) 57 MG/DL CALC LDL CHOL (test code = 2237) 59 MG/DL RISK RATIO LDL/HDL (test code = 1.04 RATIO 2238) COMPREHENSIVE METABOLIC [id number] 00:00:00 Test Item Value Reference Range Interpretation Comments GLUCOSE (test code = 2217) 97 MG/DL BUN (test code = 2208) 11 MG/DL CREATININE (test code = 2214) 0.72 MG/DL eGFR AMER. (test code 105 ML/MIN/1.73 = 48501) eGFR NON- AMER. (test 91 ML/MIN/1.73 code = 03301) CALC BUN/CREAT (test code = 15 RATIO 2234) SODIUM (test code = 2231) 136 MEQ/L POTASSIUM (test code = 2228) 4.2 MEQ/L CHLORIDE (test code = 2215) 99 MEQ/L CARBON DIOXIDE (test code = 29 MEQ/L 2205) CALCIUM (test code = 2209) 10.0 MG/DL PROTEIN, TOTAL (test code = 7.6 G/DL 2228) ALBUMIN (test code = 2201) 4.5 G/DL CALC GLOBULIN (test code = 3.1 G/DL 0) CALC A/G RATIO (test code = 1.5 RATIO 2233) BILIRUBIN, TOTAL (test code = 0.4 MG/DL 2206) ALKALINE PHOSPHATASE (test 53 U/L code = 2204) AST (test code = 2218) 22 U/L ALT (test code = 2219) 16 U/L [id number] 00:00:00 Test Item Value Reference Range Interpretation Comments TSH, THIRD GENERATION (test 24.000 UIU/ML code = 2821) [id number] 00:00:00 Test Item Value Reference Range Interpretation Comments TSH, THIRD GENERATION (test 24.000 UIU/ML code = 2821) HEMOGLOBIN [id number] 00:00:00 Test Item Value Reference Range Interpretation Comments HEMOGLOBIN A1c (test code = 96733) 5.6 % HEMOGLOBIN [id number] 00:00:00 Test Item Value Reference Range Interpretation Comments HEMOGLOBIN A1c (test code = 64678) 5.6 % HEMOGLOBIN [id number] 00:00:00 Test Item Value Reference Range Interpretation Comments HEMOGLOBIN A1c (test code = 26399) 5.6 % LIPID [id number] 00:00:00 Test Item Value Reference Range Interpretation Comments CHOLESTEROL (test code = 2210) 134 MG/DL TRIGLYCERIDES (test code = 2232) 95 MG/DL HDL CHOLESTEROL (test code = 2220) 57 MG/DL CALC LDL CHOL (test code = 2237) 59 MG/DL RISK RATIO LDL/HDL (test code = 1.04 RATIO 2238) LIPID [id number] 00:00:00 Test Item Value Reference Range Interpretation Comments CHOLESTEROL (test code = 2210) 134 MG/DL TRIGLYCERIDES (test code = 2232) 95 MG/DL HDL CHOLESTEROL (test code = 2220) 57 MG/DL CALC LDL CHOL (test code = 2237) 59 MG/DL RISK RATIO LDL/HDL (test code = 1.04 RATIO 2238) COMPREHENSIVE METABOLIC [id number] 00:00:00 Test Item Value Reference Range Interpretation Comments GLUCOSE (test code = 2217) 97 MG/DL BUN (test code = 2208) 11 MG/DL CREATININE (test code = 2214) 0.72 MG/DL eGFR AMER. (test code 105 ML/MIN/1.73 = 03733) eGFR NON- AMER. (test 91 ML/MIN/1.73 code = 57073) CALC BUN/CREAT (test code = 15 RATIO [...] code = 2219) 16 U/L COMPREHENSIVE METABOLIC [id number] 00:00:00 Test Item Value Reference Range Interpretation Comments GLUCOSE (test code = 2217) 97 MG/DL BUN (test code = 2208) 11 MG/DL CREATININE (test code = 2214) 0.72 MG/DL eGFR AMER. (test code 105 ML/MIN/1.73 = 83834) eGFR NON- AMER. (test 91 ML/MIN/1.73 code = 09084) CALC BUN/CREAT (test code = 15 RATIO [...] CALC GLOBULIN (test code = 3.1 G/DL 0) CALC A/G RATIO (test code = 1.5 RATIO 4) BILIRUBIN, TOTAL (test code = 0.4 MG/DL 2206) ALKALINE PHOSPHATASE (test 53 U/L code = 2204) AST (test code = 2218) 22 U/L ALT (test code = 2219) 16 U/L [id number] 00:00:00 Test Item Value Reference Range Interpretation Comments TSH, THIRD GENERATION (test 24.000 UIU/ML code = 2821) [id number] 00:00:00 Test Item Value Reference Range Interpretation Comments TSH, THIRD GENERATION (test 24.000 UIU/ML code = 2821) [id number] 00:00:00 Test Item Value Reference Range Interpretation Comments TSH, THIRD GENERATION (test 24.000 UIU/ML code = 2821) [id number] 00:00:00 Test Item Value Reference Range Interpretation Comments TSH, THIRD GENERATION (test code 0.054 UIU/ML = 2821) [id number] 00:00:00 Test Item Value Reference Range Interpretation Comments TSH, THIRD GENERATION (test code 0.054 UIU/ML = 2821) [id number] 00:00:00 Test Item Value Reference Range Interpretation Comments TSH, THIRD GENERATION (test code 0.054 UIU/ML = 2821) [id number] 00:00:00 Test Item Value Reference Range Interpretation Comments TSH, THIRD GENERATION (test code 0.054 UIU/ML = 2821) [id number] 00:00:00 Test Item Value Reference Range Interpretation Comments TSH, THIRD GENERATION (test code 0.054 UIU/ML = 2821) [id number] 00:00:00 Test Item Value Reference Range Interpretation Comments TSH, THIRD GENERATION (test code 0.114 UIU/ML = 2821) [id number] 00:00:00 Test Item Value Reference Range Interpretation Comments TSH, THIRD GENERATION (test code 0.114 UIU/ML = 2821) [id number] 00:00:00 Test Item Value Reference Range Interpretation Comments TSH, THIRD GENERATION (test code 0.114 UIU/ML = 2821) [id number] 00:00:00 Test Item Value Reference Range Interpretation Comments TSH, THIRD GENERATION (test code 0.114 UIU/ML = 2821) [id number] 00:00:00 Test Item Value Reference Range Interpretation Comments TSH, THIRD GENERATION (test code 0.114 UIU/ML = 2821) HEMOGLOBIN [id number] 00:00:00 Test Item Value Reference Range Interpretation Comments HEMOGLOBIN A1c (test code = 03534) 5.8 % HEMOGLOBIN [id number] 00:00:00 Test Item Value Reference Range Interpretation Comments HEMOGLOBIN A1c (test code = 25354) 5.8 % CBC W/AUTO [id number] 00:00:00 Test Item Value Reference Range Interpretation [...] code = 1015) 347 K/UL CBC W/AUTO [id number] 00:00:00 Test Item Value Reference Range Interpretation [...] code = 1015) 347 K/UL COMPREHENSIVE METABOLIC [id number] 00:00:00 Test Item Value Reference Range Interpretation Comments GLUCOSE (test code = 2217) 106 MG/DL BUN (test code = 2208) 21 MG/DL CREATININE (test code = 2214) 0.58 MG/DL eGFR AMER. (test code 116 ML/MIN/1.73 = 40463) eGFR NON- AMER. (test 100 ML/MIN/1.73 code = 68281) CALC BUN/CREAT (test code = 36 RATIO [...] (test code = 2219) 15 U/L LIPID [id number] 00:00:00 Test Item Value Reference Range Interpretation Comments CHOLESTEROL (test code = 2210) 133 MG/DL TRIGLYCERIDES (test code = 2232) 56 MG/DL HDL CHOLESTEROL (test code = 2220) 55 MG/DL CALC LDL CHOL (test code = 2237) 64 MG/DL RISK RATIO LDL/HDL (test code = 1.16 RATIO 2238) HEMOGLOBIN [id number] 00:00:00 Test Item Value Reference Range Interpretation Comments HEMOGLOBIN A1c (test code = 70839) 5.8 % HEMOGLOBIN [id number] 00:00:00 Test Item Value Reference Range Interpretation Comments HEMOGLOBIN A1c (test code = 00969) 5.8 % HEMOGLOBIN [id number] 00:00:00 Test Item Value Reference Range Interpretation Comments HEMOGLOBIN A1c (test code = 12280) 5.8 % CBC W/AUTO [id number] 00:00:00 Test Item Value Reference Range Interpretation [...] code = 1015) 347 K/UL CBC W/AUTO [id number] 00:00:00 Test Item Value Reference Range Interpretation [...] code = 1015) 347 K/UL CBC W/AUTO [id number] 00:00:00 Test Item Value Reference Range Interpretation [...] code = 1015) 347 K/UL COMPREHENSIVE METABOLIC [id number] 00:00:00 Test Item Value Reference Range Interpretation Comments GLUCOSE (test code = 2217) 106 MG/DL BUN (test code = 2208) 21 MG/DL CREATININE (test code = 2214) 0.58 MG/DL eGFR AMER. (test code 116 ML/MIN/1.73 = 88504) eGFR NON- AMER. (test 100 ML/MIN/1.73 code = 88391) CALC BUN/CREAT (test code = 36 RATIO 2235) SODIUM (test code = 2231) 140 MEQ/L POTASSIUM (test code = 2228) 4.5 MEQ/L CHLORIDE (test code = 2215) 104 MEQ/L CARBON DIOXIDE (test code = 23 MEQ/L 220) CALCIUM (test code = 2209) 9.3 MG/DL [...] code = 2219) 15 U/L COMPREHENSIVE METABOLIC [id number] 00:00:00 Test Item Value Reference Range Interpretation Comments GLUCOSE (test code = 2217) 106 MG/DL BUN (test code = 2208) 21 MG/DL CREATININE (test code = 2214) 0.58 MG/DL eGFR AMER. (test code 116 ML/MIN/1.73 = 87195) eGFR NON- AMER. (test 100 ML/MIN/1.73 code = 43847) CALC BUN/CREAT (test code = 36 RATIO [...] (test code = 2219) 15 U/L LIPID [id number] 00:00:00 Test Item Value Reference Range Interpretation Comments CHOLESTEROL (test code = 2210) 133 MG/DL TRIGLYCERIDES (test code = 2232) 56 MG/DL HDL CHOLESTEROL (test code = 2220) 55 MG/DL CALC LDL CHOL (test code = 2237) 64 MG/DL RISK RATIO LDL/HDL (test code = 1.16 RATIO 2238) LIPID [id number] 00:00:00 Test Item Value Reference Range Interpretation Comments CHOLESTEROL (test code = 2210) 133 MG/DL TRIGLYCERIDES (test code = 2232) 56 MG/DL HDL CHOLESTEROL (test code = 2220) 55 MG/DL CALC LDL CHOL (test code = 2237) 64 MG/DL RISK RATIO LDL/HDL (test code = 1.16 RATIO 2238) CBC W/AUTO [id number] 00:00:00 Test Item Value Reference Range Interpretation [...] code = 1015) 539 K/UL CBC W/AUTO [id number] 00:00:00 Test Item Value Reference Range Interpretation [...] code = 1015) 539 K/UL CBC W/AUTO [id number] 00:00:00 Test Item Value Reference Range Interpretation [...] code = 1015) 539 K/UL CBC W/AUTO [id number] 00:00:00 Test Item Value Reference Range Interpretation [...] code = 1015) 539 K/UL CBC W/AUTO [id number] 00:00:00 Test Item Value Reference Range Interpretation [...] (test code = 1015) 539 K/UL LIPID [id number] 00:00:00 Test Item Value Reference Range Interpretation Comments CHOLESTEROL (test code = 2210) 138 MG/DL TRIGLYCERIDES (test code = 2232) 113 MG/DL HDL CHOLESTEROL (test code = 2220) 57 MG/DL CALC LDL CHOL (test code = 2237) 58 MG/DL RISK RATIO LDL/HDL (test code = 1.02 RATIO 2238) COMPREHENSIVE METABOLIC [id number] 00:00:00 Test Item Value Reference Range Interpretation Comments GLUCOSE (test code = 2217) 89 MG/DL BUN (test code = 2208) 11 MG/DL CREATININE (test code = 2214) 0.52 MG/DL eGFR AMER. (test code 121 ML/MIN/1.73 = 46155) eGFR NON- AMER. (test 105 ML/MIN/1.73 code = 36539) CALC BUN/CREAT (test code = 21 RATIO [...] ALT (test code = 2219) 21 U/L [id number] 00:00:00 Test Item Value Reference Range Interpretation Comments TSH, THIRD GENERATION (test code 3.650 UIU/ML = 2821) [id number] 00:00:00 Test Item Value Reference Range Interpretation Comments TSH, THIRD GENERATION (test code 3.650 UIU/ML = 2821) LIPID [id number] 00:00:00 Test Item Value Reference Range Interpretation Comments CHOLESTEROL (test code = 2210) 138 MG/DL TRIGLYCERIDES (test code = 2232) 113 MG/DL HDL CHOLESTEROL (test code = 2220) 57 MG/DL CALC LDL CHOL (test code = 2237) 58 MG/DL RISK RATIO LDL/HDL (test code = 1.02 RATIO 2238) LIPID [id number] 00:00:00 Test Item Value Reference Range Interpretation Comments CHOLESTEROL (test code = 2210) 138 MG/DL TRIGLYCERIDES (test code = 2232) 113 MG/DL HDL CHOLESTEROL (test code = 2220) 57 MG/DL CALC LDL CHOL (test code = 2237) 58 MG/DL RISK RATIO LDL/HDL (test code = 1.02 RATIO 2238) COMPREHENSIVE METABOLIC [id number] 00:00:00 Test Item Value Reference Range Interpretation Comments GLUCOSE (test code = 2217) 89 MG/DL BUN (test code = 2208) 11 MG/DL CREATININE (test code = 2214) 0.52 MG/DL eGFR AMER. (test code 121 ML/MIN/1.73 = 63553) eGFR NON- AMER. (test 105 ML/MIN/1.73 code = 33836) CALC BUN/CREAT (test code = 21 RATIO [...] code = 2219) 21 U/L COMPREHENSIVE METABOLIC [id number] 00:00:00 Test Item Value Reference Range Interpretation Comments GLUCOSE (test code = 2217) 89 MG/DL BUN (test code = 2208) 11 MG/DL CREATININE (test code = 2214) 0.52 MG/DL eGFR AMER. (test code 121 ML/MIN/1.73 = 44920) eGFR NON- AMER. (test 105 ML/MIN/1.73 code = 01104) CALC BUN/CREAT (test code = 21 RATIO [...] ALT (test code = 2219) 21 U/L [id number] 00:00:00 Test Item Value Reference Range Interpretation Comments TSH, THIRD GENERATION (test code 3.650 UIU/ML = 2821) [id number] 00:00:00 Test Item Value Reference Range Interpretation Comments TSH, THIRD GENERATION (test code 3.650 UIU/ML = 2821) [id number] 00:00:00 Test Item Value Reference Range Interpretation Comments TSH, THIRD GENERATION (test code 3.650 UIU/ML = 2821) HEMOGLOBIN [id number] 00:00:00 Test Item Value Reference Range Interpretation Comments HEMOGLOBIN A1c (test code = 70969) 5.7 % HEMOGLOBIN [id number] 00:00:00 Test Item Value Reference Range Interpretation Comments HEMOGLOBIN A1c (test code = 68250) 5.7 % HEMOGLOBIN [id number] 00:00:00 Test Item Value Reference Range Interpretation Comments HEMOGLOBIN A1c (test code = 59545) 5.7 % HEMOGLOBIN [id number] 00:00:00 Test Item Value Reference Range Interpretation Comments HEMOGLOBIN A1c (test code = 11112) 5.7 % HEMOGLOBIN [id number] 00:00:00 Test Item Value Reference Range Interpretation Comments HEMOGLOBIN A1c (test code = 60304) 5.7 % [id number] 00:00:00 Test Item Value Reference Range Interpretation Comments TSH, THIRD GENERATION (test code 1.130 UIU/ML = 2821) [id number] 00:00:00 Test Item Value Reference Range Interpretation Comments TSH, THIRD GENERATION (test code 1.130 UIU/ML = 2821) [id number] 00:00:00 Test Item Value Reference Range Interpretation Comments TSH, THIRD GENERATION (test code 1.130 UIU/ML = 2821) [id number] 00:00:00 Test Item Value Reference Range Interpretation Comments TSH, THIRD GENERATION (test code 1.130 UIU/ML = 2821) [id number] 00:00:00 Test Item Value Reference Range Interpretation Comments TSH, THIRD GENERATION (test code 1.130 UIU/ML = 2821) HEMOGLOBIN [id number] 00:00:00 Test Item Value Reference Range Interpretation Comments HEMOGLOBIN A1c (test code = 53351) 5.7 % HEMOGLOBIN [id number] 00:00:00 Test Item Value Reference Range Interpretation Comments HEMOGLOBIN A1c (test code = 41256) 5.7 % LIPID [id number] 00:00:00 Test Item Value Reference Range Interpretation Comments CHOLESTEROL (test code = 2210) 188 MG/DL TRIGLYCERIDES (test code = 2232) 103 MG/DL HDL CHOLESTEROL (test code = 2220) 65 MG/DL CALC LDL CHOL (test code = 2237) 102 MG/DL RISK RATIO LDL/HDL (test code = 1.58 RATIO 2238) COMPREHENSIVE METABOLIC [id number] 00:00:00 Test Item Value Reference Range Interpretation Comments GLUCOSE (test code = 2217) 91 MG/DL BUN (test code = 2208) 11 MG/DL CREATININE (test code = 2214) 0.55 MG/DL eGFR AMER. (test code 119 ML/MIN/1.73 = 17389) eGFR NON- AMER. (test 103 ML/MIN/1.73 code = 30415) CALC BUN/CREAT (test code = 20 RATIO 2235) SODIUM (test code = 2231) 140 MEQ/L POTASSIUM (test code = 2228) 4.4 MEQ/L CHLORIDE (test code = 2215) 100 MEQ/L CARBON DIOXIDE (test code = 29 MEQ/L 2205) CALCIUM (test code = 2209) 9.9 MG/DL PROTEIN, TOTAL (test code = 7.4 G/DL 2228) ALBUMIN (test code = 220) 4.7 G/DL CALC GLOBULIN (test code = 2.7 G/DL 2239) CALC A/G RATIO (test code = 1.7 RATIO 2233) BILIRUBIN, TOTAL (test code = 0.3 MG/DL 2206) ALKALINE PHOSPHATASE (test 51 U/L code = 220) AST (test code = 2218) 29 U/L ALT (test code = 2219) 26 U/L [id number] 00:00:00 Test Item Value Reference Range Interpretation Comments TSH, THIRD GENERATION (test code 4.250 UIU/ML = 2821) [id number] 00:00:00 Test Item Value Reference Range Interpretation Comments TSH, THIRD GENERATION (test code 4.250 UIU/ML = 2821) HEMOGLOBIN [id number] 00:00:00 Test Item Value Reference Range Interpretation Comments HEMOGLOBIN A1c (test code = 15656) 5.7 % HEMOGLOBIN [id number] 00:00:00 Test Item Value Reference Range Interpretation Comments HEMOGLOBIN A1c (test code = 43141) 5.7 % HEMOGLOBIN [id number] 00:00:00 Test Item Value Reference Range Interpretation Comments HEMOGLOBIN A1c (test code = 75768) 5.7 % LIPID [id number] 00:00:00 Test Item Value Reference Range Interpretation Comments CHOLESTEROL (test code = 2210) 188 MG/DL TRIGLYCERIDES (test code = 2232) 103 MG/DL HDL CHOLESTEROL (test code = 2220) 65 MG/DL CALC LDL CHOL (test code = 2237) 102 MG/DL RISK RATIO LDL/HDL (test code = 1.58 RATIO 2238) LIPID [id number] 00:00:00 Test Item Value Reference Range Interpretation Comments CHOLESTEROL (test code = 2210) 188 MG/DL TRIGLYCERIDES (test code = 2232) 103 MG/DL HDL CHOLESTEROL (test code = 2220) 65 MG/DL CALC LDL CHOL (test code = 2237) 102 MG/DL RISK RATIO LDL/HDL (test code = 1.58 RATIO 2238) COMPREHENSIVE METABOLIC [id number] 00:00:00 Test Item Value Reference Range Interpretation Comments GLUCOSE (test code = 2217) 91 MG/DL BUN (test code = 2208) 11 MG/DL CREATININE (test code = 2214) 0.55 MG/DL eGFR AMER. (test code 119 ML/MIN/1.73 = 84241) eGFR NON- AMER. (test 103 ML/MIN/1.73 code = 33537) CALC BUN/CREAT (test code = 20 RATIO [...] code = 2219) 26 U/L COMPREHENSIVE METABOLIC [id number] 00:00:00 Test Item Value Reference Range Interpretation Comments GLUCOSE (test code = 2217) 91 MG/DL BUN (test code = 2208) 11 MG/DL CREATININE (test code = 2214) 0.55 MG/DL eGFR AMER. (test code 119 ML/MIN/1.73 = 14926) eGFR NON- AMER. (test 103 ML/MIN/1.73 code = 39640) CALC BUN/CREAT (test code = 20 RATIO 2234) SODIUM (test code = 2231) [...] 2239) CALC A/G RATIO (test code = 1.7 RATIO 2233) BILIRUBIN, TOTAL (test code = 0.3 MG/DL 2206) ALKALINE PHOSPHATASE (test 51 U/L code = 220) AST (test code = 2218) 29 U/L ALT (test code = 2219) 26 U/L [id number] 00:00:00 Test Item Value Reference Range Interpretation Comments TSH, THIRD GENERATION (test code 4.250 UIU/ML = 2821) [id number] 00:00:00 Test Item Value Reference Range Interpretation Comments TSH, THIRD GENERATION (test code 4.250 UIU/ML = 2821) [id number] 00:00:00 Test Item Value Reference Range Interpretation Comments TSH, THIRD GENERATION (test code 4.250 UIU/ML = 2821) CULTURE, [id number] 00:00:00 Test Item Value Reference Range Interpretation Comments CULTURE, URINE (test SPECIMEN NUMBER: code = 99085) [id number] CULTURE, [id number] 00:00:00 Test Item Value Reference Range Interpretation Comments CULTURE, URINE (test SPECIMEN NUMBER: code = 38779) [id number] CULTURE, [id number] 00:00:00 Test Item Value Reference Range Interpretation Comments CULTURE, URINE (test SPECIMEN NUMBER: code = 07053) [id number] 00:00:00 Test Item Value Reference Range Interpretation Comments TSH, THIRD GENERATION (test code 6.140 UIU/ML = 2821) [id number] 00:00:00 Test Item Value Reference Range Interpretation Comments TSH, THIRD GENERATION (test code 6.140 UIU/ML = 2821) [id number] 00:00:00 Test Item Value Reference Range Interpretation Comments TSH, THIRD GENERATION (test code 6.140 UIU/ML = 2821) [id number] 00:00:00 Test Item Value Reference Range Interpretation Comments TSH, THIRD GENERATION (test code 6.140 UIU/ML = 2821) [id number] 00:00:00 Test Item Value Reference Range Interpretation Comments TSH, THIRD GENERATION (test code 6.140 UIU/ML = 2821) [id number] 00:00:00 Test Item Value Reference Range Interpretation Comments TSH, THIRD GENERATION (test 10.840 UIU/ML code = 2821) [id number] 00:00:00 Test Item Value Reference Range Interpretation Comments TSH, THIRD GENERATION (test 10.840 UIU/ML code = 2821) HEMOGLOBIN A1c [ADDED]2018-09-19 00:00:00 Test Item Value Reference Range Interpretation Comments HEMOGLOBIN A1c (test code = 88132) 5.8 % HEMOGLOBIN A1c [ADDED]2018-09-19 00:00:00 Test Item Value Reference Range Interpretation Comments HEMOGLOBIN A1c (test code = 51720) 5.8 % COMPREHENSIVE METABOLIC PANEL [ADDED]2018-09-19 00:00:00 Test Item Value Reference Range Interpretation Comments GLUCOSE (test code = 2217) 109 MG/DL BUN (test code = 2208) 12 MG/DL CREATININE (test code = 2214) 0.81 MG/DL eGFR AMER. (test code 93 ML/MIN/1.73 = 43008) eGFR NON- AMER. (test 80 ML/MIN/1.73 code = 09485) CALC BUN/CREAT (test code = 15 RATIO [...] CALC GLOBULIN (test code = 3.1 G/DL 0) CALC A/G RATIO (test code = 1.5 RATIO 2233) BILIRUBIN, TOTAL (test code = 0.2 MG/DL 2207) ALKALINE PHOSPHATASE (test 58 U/L code = [...] LDL/HDL (test code = 1.92 RATIO 2238) [id number] 00:00:00 Test Item Value Reference Range Interpretation Comments TSH, THIRD GENERATION (test 10.840 UIU/ML code = 2821) [id number] 00:00:00 Test Item Value Reference Range Interpretation Comments TSH, THIRD GENERATION (test 10.840 UIU/ML code = 2821) [id number] 00:00:00 Test Item Value Reference Range Interpretation Comments TSH, THIRD GENERATION (test 10.840 UIU/ML code = 2821) HEMOGLOBIN A1c [ADDED]2018-09-19 00:00:00 Test Item Value Reference Range Interpretation Comments HEMOGLOBIN A1c (test code = 85927) 5.8 % HEMOGLOBIN A1c [ADDED]2018-09-19 00:00:00 Test Item Value Reference Range Interpretation Comments HEMOGLOBIN A1c (test code = 20512) 5.8 % HEMOGLOBIN A1c [ADDED]2018-09-19 00:00:00 Test Item Value Reference Range Interpretation Comments HEMOGLOBIN A1c (test code = 73906) 5.8 % COMPREHENSIVE METABOLIC PANEL [ADDED]2018-09-19 00:00:00 Test Item Value Reference Range Interpretation Comments GLUCOSE (test code = 2217) 109 MG/DL BUN (test code = 2208) 12 MG/DL CREATININE (test code = 2214) 0.81 MG/DL eGFR AMER. (test code 93 ML/MIN/1.73 = 45817) eGFR NON- AMER. (test 80 ML/MIN/1.73 code = 01420) CALC BUN/CREAT (test code = 15 RATIO 2235) SODIUM (test code = 2231) 139 MEQ/L POTASSIUM (test code = 2228) 4.1 MEQ/L CHLORIDE (test code = 2215) 98 MEQ/L CARBON DIOXIDE (test code = 29 MEQ/L 2206) CALCIUM (test code = 2209) 9.9 MG/DL PROTEIN, TOTAL (test code = 7.8 G/DL 222) ALBUMIN (test code = 2201) 4.7 G/DL [...] eGFR AMER. (test code 93 ML/MIN/1.73 = 43413) eGFR NON- AMER. (test 80 ML/MIN/1.73 code = 88757) CALC BUN/CREAT (test code = 15 RATIO [...] BILIRUBIN, TOTAL (test code = 0.2 MG/DL 2207) ALKALINE PHOSPHATASE (test 58 U/L code = [...] LDL/HDL (test code = 1.92 RATIO 2238) [id number] 00:00:00 Test Item Value Reference Range Interpretation Comments TSH, THIRD GENERATION (test code 5.860 UIU/ML = 2821) [id number] 00:00:00 Test Item Value Reference Range Interpretation Comments TSH, THIRD GENERATION (test code 5.860 UIU/ML = 2821) [id number] 00:00:00 Test Item Value Reference Range Interpretation Comments TSH, THIRD GENERATION (test code 5.860 UIU/ML = 2821) [id number] 00:00:00 Test Item Value Reference Range Interpretation Comments TSH, THIRD GENERATION (test code 5.860 UIU/ML = 2821) [id number] 00:00:00 Test Item Value Reference Range Interpretation Comments TSH, THIRD GENERATION (test code 5.860 UIU/ML = 2821) [id number] 00:00:00 Test Item Value Reference Range Interpretation Comments TSH, THIRD GENERATION (test code 0.320 UIU/ML = 2821) [id number] 00:00:00 Test Item Value Reference Range Interpretation Comments TSH, THIRD GENERATION (test code 0.320 UIU/ML = 2821) [id number] 00:00:00 Test Item Value Reference Range Interpretation Comments TSH, THIRD GENERATION (test code 0.320 UIU/ML = 2821) [id number] 00:00:00 Test Item Value Reference Range Interpretation Comments TSH, THIRD GENERATION (test code 0.320 UIU/ML = 2821) [id number] 00:00:00 Test Item Value Reference Range Interpretation Comments TSH, THIRD GENERATION (test code 0.320 UIU/ML = 2821) COMPREHENSIVE METABOLIC [id number] 00:00:00 Test Item Value Reference Range Interpretation Comments GLUCOSE (test code = 2217) 119 MG/DL BUN (test code = 2208) 14 MG/DL CREATININE (test code = 2214) 0.64 MG/DL eGFR AMER. (test code 114 ML/MIN/1.73 = 83564) eGFR NON- AMER. (test 98 ML/MIN/1.73 code = 83532) CALC BUN/CREAT (test code = 22 RATIO [...] (test code = 2219) 17 U/L LIPID [id number] 00:00:00 Test Item Value Reference Range Interpretation Comments CHOLESTEROL (test code = 2210) 156 MG/DL TRIGLYCERIDES (test code = 2232) 75 MG/DL HDL CHOLESTEROL (test code = 2220) 64 MG/DL CALC LDL CHOL (test code = 2237) 77 MG/DL RISK RATIO LDL/HDL (test code = 1.20 RATIO 2238) COMPREHENSIVE METABOLIC [id number] 00:00:00 Test Item Value Reference Range Interpretation Comments GLUCOSE (test code = 2217) 119 MG/DL BUN (test code = 2208) 14 MG/DL CREATININE (test code = 2214) 0.64 MG/DL eGFR AMER. (test code 114 ML/MIN/1.73 = 29937) eGFR NON- AMER. (test 98 ML/MIN/1.73 code = 81987) CALC BUN/CREAT (test code = 22 RATIO 2235) SODIUM (test code = 2231) 141 MEQ/L POTASSIUM (test code = 2228) 3.7 MEQ/L CHLORIDE (test code = 2215) 101 MEQ/L CARBON DIOXIDE (test code = 25 MEQ/L 2205) CALCIUM (test code = 2209) 9.7 MG/DL PROTEIN, TOTAL (test code = 7.7 G/DL 222) ALBUMIN (test code = 2201) 4.3 G/DL CALC GLOBULIN (test code = 3.4 G/DL 2240) CALC A/G RATIO (test code = 1.3 RATIO 2234) BILIRUBIN, TOTAL (test code = <0.2 MG/DL 2206) ALKALINE PHOSPHATASE (test 51 U/L code = 220) AST (test code = 2218) 22 U/L ALT (test code = 2219) 17 U/L COMPREHENSIVE METABOLIC [id number] 00:00:00 Test Item Value Reference Range Interpretation Comments GLUCOSE (test code = 2217) 119 MG/DL BUN (test code = 2208) 14 MG/DL CREATININE (test code = 2214) 0.64 MG/DL eGFR AMER. (test code 114 ML/MIN/1.73 = 02275) eGFR NON- AMER. (test 98 ML/MIN/1.73 code = 08120) CALC BUN/CREAT (test code = 22 RATIO [...] (test code = 2219) 17 U/L LIPID [id number] 00:00:00 Test Item Value Reference Range Interpretation Comments CHOLESTEROL (test code = 2210) 156 MG/DL TRIGLYCERIDES (test code = 2232) 75 MG/DL HDL CHOLESTEROL (test code = 2220) 64 MG/DL CALC LDL CHOL (test code = 2237) 77 MG/DL RISK RATIO LDL/HDL (test code = 1.20 RATIO 2238) LIPID [id number] 00:00:00 Test Item Value Reference Range Interpretation Comments CHOLESTEROL (test code = 2210) 156 MG/DL TRIGLYCERIDES (test code = 2232) 75 MG/DL HDL CHOLESTEROL (test code = 2220) 64 MG/DL CALC LDL CHOL (test code = 2237) 77 MG/DL RISK RATIO LDL/HDL (test code = 1.20 RATIO 2238) HEMOGLOBIN [id number] 00:00:00 Test Item Value Reference Range Interpretation Comments HEMOGLOBIN A1c (test code = 81426) 5.8 % HEMOGLOBIN [id number] 00:00:00 Test Item Value Reference Range Interpretation Comments HEMOGLOBIN A1c (test code = 76109) 5.8 % CBC W/AUTO [id number] 00:00:00 Test Item Value Reference Range Interpretation [...] code = 1015) 290 K/UL CBC W/AUTO [id number] 00:00:00 Test Item Value Reference Range Interpretation [...] (test code = 1015) 290 K/UL HEMOGLOBIN [id number] 00:00:00 Test Item Value Reference Range Interpretation Comments HEMOGLOBIN A1c (test code = 99199) 5.8 % HEMOGLOBIN [id number] 00:00:00 Test Item Value Reference Range Interpretation Comments HEMOGLOBIN A1c (test code = 13724) 5.8 % HEMOGLOBIN [id number] 00:00:00 Test Item Value Reference Range Interpretation Comments HEMOGLOBIN A1c (test code = 54094) 5.8 % CBC W/AUTO [id number] 00:00:00 Test Item Value Reference Range Interpretation [...] code = 1015) 290 K/UL CBC W/AUTO [id number] 00:00:00 Test Item Value Reference Range Interpretation [...] code = 1015) 290 K/UL CBC W/AUTO [id number] 00:00:00 Test Item Value Reference Range Interpretation [...] COUNT (test code = 1015) 290 K/UL [id number] 00:00:00 Test Item Value Reference Range Interpretation Comments TSH, THIRD GENERATION (test code 0.578 UIU/ML = 2821) [id number] 00:00:00 Test Item Value Reference Range Interpretation Comments TSH, THIRD GENERATION (test code 0.578 UIU/ML = 2821) [id number] 00:00:00 Test Item Value Reference Range Interpretation Comments TSH, THIRD GENERATION (test code 0.578 UIU/ML = 2821) [id number] 00:00:00 Test Item Value Reference Range Interpretation Comments TSH, THIRD GENERATION (test code 0.578 UIU/ML = 2821) [id number] 00:00:00 Test Item Value Reference Range Interpretation Comments TSH, THIRD GENERATION (test code 0.578 UIU/ML = 2821) [id number] 00:00:00 Test Item Value Reference Range Interpretation Comments TSH, THIRD GENERATION (test code 5.530 UIU/ML = 2821) [id number] 00:00:00 Test Item Value Reference Range Interpretation Comments TSH, THIRD GENERATION (test code 5.530 UIU/ML = 2821) [id number] 00:00:00 Test Item Value Reference Range Interpretation Comments TSH, THIRD GENERATION (test code 5.530 UIU/ML = 2821) [id number] 00:00:00 Test Item Value Reference Range Interpretation Comments TSH, THIRD GENERATION (test code 5.530 UIU/ML = 2821) [id number] 00:00:00 Test Item Value Reference Range Interpretation Comments TSH, THIRD GENERATION (test code 5.530 UIU/ML = 2821) [id number] 00:00:00 Test Item Value Reference Range Interpretation Comments TSH (test code = 2821) 3.520 UIU/ML [id number] 00:00:00 Test Item Value Reference Range Interpretation Comments TSH (test code = 2821) 3.520 UIU/ML [id number] 00:00:00 Test Item Value Reference Range Interpretation Comments TSH (test code = 2821) 3.520 UIU/ML [id number] 00:00:00 Test Item Value Reference Range Interpretation Comments TSH (test code = 2821) 3.520 UIU/ML [id number] 00:00:00 Test Item Value Reference Range Interpretation Comments TSH (test code = 2821) 3.520 UIU/ML COMPREHENSIVE METABOLIC [id number] 00:00:00 Test Item Value Reference Range Interpretation Comments GLUCOSE (test code = 2217) 143 MG/DL BUN (test code = 2208) 11 MG/DL CREATININE (test code = 2214) 0.74 MG/DL eGFR AMER. (test code 104 ML/MIN/1.73 = 30063) eGFR NON- AMER. (test 90 ML/MIN/1.73 code = 18546) CALC BUN/CREAT (test code = 15 RATIO [...] ALT (test code = 2219) 20 U/L [id number] 00:00:00 Test Item Value Reference Range Interpretation Comments TSH (test code = 2821) 30.460 UIU/ML [id number] 00:00:00 Test Item Value Reference Range Interpretation Comments TSH (test code = 2821) 30.460 UIU/ML LIPID [id number] 00:00:00 Test Item Value Reference Range Interpretation Comments CHOLESTEROL (test code = 2210) 154 MG/DL TRIGLYCERIDES (test code = 2232) 132 MG/DL HDL CHOLESTEROL (test code = 2220) 61 MG/DL CALC LDL CHOL (test code = 2237) 67 MG/DL RISK RATIO LDL/HDL (test code = 1.09 RATIO 2238) COMPREHENSIVE METABOLIC [id number] 00:00:00 Test Item Value Reference Range Interpretation Comments GLUCOSE (test code = 2217) 143 MG/DL BUN (test code = 2208) 11 MG/DL CREATININE (test code = 2214) 0.74 MG/DL eGFR AMER. (test code 104 ML/MIN/1.73 = 73742) eGFR NON- AMER. (test 90 ML/MIN/1.73 code = 69867) CALC BUN/CREAT (test code = 15 RATIO [...] code = 2219) 20 U/L COMPREHENSIVE METABOLIC [id number] 00:00:00 Test Item Value Reference Range Interpretation Comments GLUCOSE (test code = 2217) 143 MG/DL BUN (test code = 2208) 11 MG/DL CREATININE (test code = 2214) 0.74 MG/DL eGFR AMER. (test code 104 ML/MIN/1.73 = 57133) eGFR NON- AMER. (test 90 ML/MIN/1.73 code = 47212) CALC BUN/CREAT (test code = 15 RATIO 2235) SODIUM (test code = 2231) 142 MEQ/L POTASSIUM (test code = 2228) 4.7 MEQ/L CHLORIDE (test code = 2215) 100 MEQ/L CARBON DIOXIDE (test code = 27 MEQ/L 6) CALCIUM (test code = 2209) [...] ALT (test code = 2219) 20 U/L [id number] 00:00:00 Test Item Value Reference Range Interpretation Comments TSH (test code = 2821) 30.460 UIU/ML [id number] 00:00:00 Test Item Value Reference Range Interpretation Comments TSH (test code = 2821) 30.460 UIU/ML [id number] 00:00:00 Test Item Value Reference Range Interpretation Comments TSH (test code = 2821) 30.460 UIU/ML LIPID [id number] 00:00:00 Test Item Value Reference Range Interpretation Comments CHOLESTEROL (test code = 2210) 154 MG/DL TRIGLYCERIDES (test code = 2232) 132 MG/DL HDL CHOLESTEROL (test code = 2220) 61 MG/DL CALC LDL CHOL (test code = 2237) 67 MG/DL RISK RATIO LDL/HDL (test code = 1.09 RATIO 2238) LIPID [id number] 00:00:00 Test Item Value Reference Range Interpretation Comments CHOLESTEROL (test code = 2210) 154 MG/DL TRIGLYCERIDES (test code = 2232) 132 MG/DL HDL CHOLESTEROL (test code = 2220) 61 MG/DL CALC LDL CHOL (test code = 2237) 67 MG/DL RISK RATIO LDL/HDL (test code = 1.09 RATIO 2238) HEMOGLOBIN [id number] 00:00:00 Test Item Value Reference Range Interpretation Comments HEMOGLOBIN A1c (test code = 42123) 5.6 % HEMOGLOBIN [id number] 00:00:00 Test Item Value Reference Range Interpretation Comments HEMOGLOBIN A1c (test code = 49184) 5.6 % HEMOGLOBIN [id number] 00:00:00 Test Item Value Reference Range Interpretation Comments HEMOGLOBIN A1c (test code = 97949) 5.6 % HEMOGLOBIN [id number] 00:00:00 Test Item Value Reference Range Interpretation Comments HEMOGLOBIN A1c (test code = 97899) 5.6 % HEMOGLOBIN [id number] 00:00:00 Test Item Value Reference Range Interpretation Comments HEMOGLOBIN A1c (test code = 14080) 5.6 % [id number] 00:00:00 Test Item Value Reference Range Interpretation Comments TSH (test code = 2821) 3.940 UIU/ML [id number] 00:00:00 Test Item Value Reference Range Interpretation Comments TSH (test code = 2821) 3.940 UIU/ML [id number] 00:00:00 Test Item Value Reference Range Interpretation Comments TSH (test code = 2821) 3.940 UIU/ML [id number] 00:00:00 Test Item Value Reference Range Interpretation Comments TSH (test code = 2821) 3.940 UIU/ML [id number] 00:00:00 Test Item Value Reference Range Interpretation Comments TSH (test code = 2821) 3.940 UIU/ML COMPREHENSIVE METABOLIC [id number] 00:00:00 Test Item Value Reference Range Interpretation Comments GLUCOSE (test code = 2217) 101 MG/DL BUN (test code = 2208) 9 MG/DL CREATININE (test code = 2214) 0.59 MG/DL eGFR AMER. (test code 118 ML/MIN/1.73 = 41364) eGFR NON- AMER. (test 102 ML/MIN/1.73 code = 45443) CALC BUN/CREAT (test code = 15 RATIO [...] (test code = 2219) 23 U/L LIPID [id number] 00:00:00 Test Item Value Reference Range Interpretation Comments CHOLESTEROL (test code = 2210) 143 MG/DL TRIGLYCERIDES (test code = 2232) 76 MG/DL HDL CHOLESTEROL (test code = 2220) 57 MG/DL CALC LDL CHOL (test code = 2237) 71 MG/DL RISK RATIO LDL/HDL (test code = 1.24 RATIO 2238) [id number] 00:00:00 Test Item Value Reference Range Interpretation Comments TSH (test code = 2821) 4.150 UIU/ML [id number] 00:00:00 Test Item Value Reference Range Interpretation Comments TSH (test code = 2821) 4.150 UIU/ML COMPREHENSIVE METABOLIC [id number] 00:00:00 Test Item Value Reference Range Interpretation Comments GLUCOSE (test code = 2217) 101 MG/DL BUN (test code = 2208) 9 MG/DL CREATININE (test code = 2214) 0.59 MG/DL eGFR AMER. (test code 118 ML/MIN/1.73 = 79452) eGFR NON- AMER. (test 102 ML/MIN/1.73 code = 01328) CALC BUN/CREAT (test code = 15 RATIO 2235) SODIUM (test code = 2231) 142 MEQ/L POTASSIUM (test code = 2228) 4.4 MEQ/L CHLORIDE (test code = 2215) 101 MEQ/L CARBON DIOXIDE (test code = 21 MEQ/L 220) CALCIUM (test code = 2209) [...] code = 2219) 23 U/L COMPREHENSIVE METABOLIC [id number] 00:00:00 Test Item Value Reference Range Interpretation Comments GLUCOSE (test code = 2217) 101 MG/DL BUN (test code = 2208) 9 MG/DL CREATININE (test code = 2214) 0.59 MG/DL eGFR AMER. (test code 118 ML/MIN/1.73 = 18357) eGFR NON- AMER. (test 102 ML/MIN/1.73 code = 35944) CALC BUN/CREAT (test code = 15 RATIO [...] (test code = 2219) 23 U/L LIPID [id number] 00:00:00 Test Item Value Reference Range Interpretation Comments CHOLESTEROL (test code = 2210) 143 MG/DL TRIGLYCERIDES (test code = 2232) 76 MG/DL HDL CHOLESTEROL (test code = 2220) 57 MG/DL CALC LDL CHOL (test code = 2237) 71 MG/DL RISK RATIO LDL/HDL (test code = 1.24 RATIO 2238) LIPID [id number] 00:00:00 Test Item Value Reference Range Interpretation Comments CHOLESTEROL (test code = 2210) 143 MG/DL TRIGLYCERIDES (test code = 2232) 76 MG/DL HDL CHOLESTEROL (test code = 2220) 57 MG/DL CALC LDL CHOL (test code = 2237) 71 MG/DL RISK RATIO LDL/HDL (test code = 1.24 RATIO 2238) [id number] 00:00:00 Test Item Value Reference Range Interpretation Comments TSH (test code = 2821) 4.150 UIU/ML [id number] 00:00:00 Test Item Value Reference Range Interpretation Comments TSH (test code = 2821) 4.150 UIU/ML [id number] 00:00:00 Test Item Value Reference Range Interpretation Comments TSH (test code = 2821) 4.150 UIU/ML CBC W/AUTO [id number] 00:00:00 Test Item Value Reference Range Interpretation [...] code = 1015) 382 K/UL CBC W/AUTO [id number] 00:00:00 Test Item Value Reference Range Interpretation [...] (test code = 1015) 382 K/UL HEMOGLOBIN [id number] 00:00:00 Test Item Value Reference Range Interpretation Comments HEMOGLOBIN A1c (test code = 47463) 5.9 % HEMOGLOBIN [id number] 00:00:00 Test Item Value Reference Range Interpretation Comments HEMOGLOBIN A1c (test code = 33902) 5.9 % CBC W/AUTO [id number] 00:00:00 Test Item Value Reference Range Interpretation [...] code = 1015) 382 K/UL CBC W/AUTO [id number] 00:00:00 Test Item Value Reference Range Interpretation [...] code = 1015) 382 K/UL CBC W/AUTO [id number] 00:00:00 Test Item Value Reference Range Interpretation [...] (test code = 1015) 382 K/UL HEMOGLOBIN [id number] 00:00:00 Test Item Value Reference Range Interpretation Comments HEMOGLOBIN A1c (test code = 88120) 5.9 % HEMOGLOBIN [id number] 00:00:00 Test Item Value Reference Range Interpretation Comments HEMOGLOBIN A1c (test code = 04670) 5.9 % HEMOGLOBIN [id number] 00:00:00 Test Item Value Reference Range Interpretation Comments HEMOGLOBIN A1c (test code = 23896) 5.9 % [id number] 00:00:00 Test Item Value Reference Range Interpretation Comments TSH (test code = 2821) 4.570 UIU/ML [id number] 00:00:00 Test Item Value Reference Range Interpretation Comments TSH (test code = 2821) 4.570 UIU/ML [id number] 00:00:00 Test Item Value Reference Range Interpretation Comments TSH (test code = 2821) 4.570 UIU/ML [id number] 00:00:00 Test Item Value Reference Range Interpretation Comments TSH (test code = 2821) 4.570 UIU/ML [id number] 00:00:00 Test Item Value Reference Range Interpretation Comments TSH (test code = 2821) 4.570 UIU/ML CBC W/AUTO [id number] 00:00:00 Test Item Value Reference Range Interpretation [...] code = 1015) 400 K/UL CBC W/AUTO [id number] 00:00:00 Test Item Value Reference Range Interpretation [...] code = 1015) 400 K/UL CBC W/AUTO [id number] 00:00:00 Test Item Value Reference Range Interpretation [...] code = 1015) 400 K/UL CBC W/AUTO [id number] 00:00:00 Test Item Value Reference Range Interpretation [...] code = 1015) 400 K/UL CBC W/AUTO [id number] 00:00:00 Test Item Value Reference Range Interpretation [...] code = 1015) 400 K/UL COMPREHENSIVE METABOLIC [id number] 00:00:00 Test Item Value Reference Range Interpretation Comments GLUCOSE (test code = 2217) 101 MG/DL BUN (test code = 2208) 12 MG/DL CREATININE (test code = 2214) 0.59 MG/DL eGFR AMER. (test code 119 ML/MIN/1.73 = 46747) eGFR NON- AMER. (test 102 ML/MIN/1.73 code = 34525) CALC BUN/CREAT (test code = 20 RATIO [...] (test code = 2219) 18 U/L LIPID [id number] 00:00:00 Test Item Value Reference Range Interpretation Comments CHOLESTEROL (test code = 2210) 148 MG/DL TRIGLYCERIDES (test code = 2232) 77 MG/DL HDL CHOLESTEROL (test code = 2220) 65 MG/DL CALC LDL CHOL (test code = 2237) 68 MG/DL RISK RATIO LDL/HDL (test code = 1.04 RATIO 2238) HEMOGLOBIN [id number] 00:00:00 Test Item Value Reference Range Interpretation Comments HEMOGLOBIN A1c (test code = 30360) 6.2 % HEMOGLOBIN [id number] 00:00:00 Test Item Value Reference Range Interpretation Comments HEMOGLOBIN A1c (test code = 29098) 6.2 % COMPREHENSIVE METABOLIC [id number] 00:00:00 Test Item Value Reference Range Interpretation Comments GLUCOSE (test code = 2217) 101 MG/DL BUN (test code = 2208) 12 MG/DL CREATININE (test code = 2214) 0.59 MG/DL eGFR AMER. (test code 119 ML/MIN/1.73 = 12462) eGFR NON- AMER. (test 102 ML/MIN/1.73 code = 90189) CALC BUN/CREAT (test code = 20 RATIO [...] 0) CALC A/G RATIO (test code = 1.6 RATIO 2234) BILIRUBIN, TOTAL (test code = 0.4 MG/DL 2206) ALKALINE PHOSPHATASE (test 55 U/L code = 2204) AST (test code = 2218) 20 U/L ALT (test code = 2219) 18 U/L COMPREHENSIVE METABOLIC [id number] 00:00:00 Test Item Value Reference Range Interpretation Comments GLUCOSE (test code = 2217) 101 MG/DL BUN (test code = 2208) 12 MG/DL CREATININE (test code = 2214) 0.59 MG/DL eGFR AMER. (test code 119 ML/MIN/1.73 = 27278) eGFR NON- AMER. (test 102 ML/MIN/1.73 code = 73055) CALC BUN/CREAT (test code = 20 RATIO [...] (test code = 2219) 18 U/L LIPID [id number] 00:00:00 Test Item Value Reference Range Interpretation Comments CHOLESTEROL (test code = 2210) 148 MG/DL TRIGLYCERIDES (test code = 2232) 77 MG/DL HDL CHOLESTEROL (test code = 2220) 65 MG/DL CALC LDL CHOL (test code = 2237) 68 MG/DL RISK RATIO LDL/HDL (test code = 1.04 RATIO 2238) LIPID [id number] 00:00:00 Test Item Value Reference Range Interpretation Comments CHOLESTEROL (test code = 2210) 148 MG/DL TRIGLYCERIDES (test code = 2232) 77 MG/DL HDL CHOLESTEROL (test code = 2220) 65 MG/DL CALC LDL CHOL (test code = 2237) 68 MG/DL RISK RATIO LDL/HDL (test code = 1.04 RATIO 2238) HEMOGLOBIN [id number] 00:00:00 Test Item Value Reference Range Interpretation Comments HEMOGLOBIN A1c (test code = 07078) 6.2 % HEMOGLOBIN [id number] 00:00:00 Test Item Value Reference Range Interpretation Comments HEMOGLOBIN A1c (test code = 27871) 6.2 % HEMOGLOBIN [id number] 00:00:00 Test Item Value Reference Range Interpretation Comments HEMOGLOBIN A1c (test code = 73714) 6.2 % THYROID II PROFILE (T3U, T4, [...] code = 2821) 2.3 UIU/ML CBC W/AUTO [id number] 00:00:00 Test Item Value Reference Range Interpretation [...] code = 1015) 337 K/UL CBC W/AUTO [id number] 00:00:00 Test Item Value Reference Range Interpretation [...] code = 1015) 337 K/UL CBC W/AUTO [id number] 00:00:00 Test Item Value Reference Range Interpretation [...] code = 1015) 337 K/UL CBC W/AUTO [id number] 00:00:00 Test Item Value Reference Range Interpretation [...] code = 1015) 337 K/UL CBC W/AUTO [id number] 00:00:00 Test Item Value Reference Range Interpretation [...] code = 1015) 337 K/UL COMPREHENSIVE METABOLIC [id number] 00:00:00 Test Item Value Reference Range Interpretation Comments GLUCOSE (test code = 2217) 112 MG/DL BUN (test code = 2208) 15 MG/DL CREATININE (test code = 2214) 0.72 MG/DL eGFR AMER. (test code 108 ML/MIN/1.73 = 07893) eGFR NON- AMER. (test 94 ML/MIN/1.73 code = 62018) CALC BUN/CREAT (test code = 21 RATIO 2235) SODIUM (test code = 2231) 141 MEQ/L POTASSIUM (test code = 2228) 4.4 MEQ/L CHLORIDE (test code = 2215) 100 MEQ/L CARBON DIOXIDE (test code = 25 MEQ/L 220) CALCIUM (test code = 2209) 9.3 MG/DL [...] (test code = 2219) 18 U/L LIPID [id number] 00:00:00 Test Item Value Reference Range Interpretation Comments CHOLESTEROL (test code = 2210) 228 MG/DL TRIGLYCERIDES (test code = 2232) 98 MG/DL HDL CHOLESTEROL (test code = 2220) 58 MG/DL CALC LDL CHOL (test code = 2237) 150 MG/DL RISK RATIO LDL/HDL (test code = 2.59 RATIO 2238) COMPREHENSIVE METABOLIC [id number] 00:00:00 Test Item Value Reference Range Interpretation Comments GLUCOSE (test code = 2217) 112 MG/DL BUN (test code = 2208) 15 MG/DL CREATININE (test code = 2214) 0.72 MG/DL eGFR AMER. (test code 108 ML/MIN/1.73 = 33892) eGFR NON- AMER. (test 94 ML/MIN/1.73 code = 49869) CALC BUN/CREAT (test code = 21 RATIO 2235) SODIUM (test code = 2231) 141 MEQ/L POTASSIUM (test code = 2228) 4.4 MEQ/L CHLORIDE (test code = 2215) 100 MEQ/L CARBON DIOXIDE (test code = 25 MEQ/L 6) CALCIUM (test code = 2209) 9.3 MG/DL [...] code = 2219) 18 U/L COMPREHENSIVE METABOLIC [id number] 00:00:00 Test Item Value Reference Range Interpretation Comments GLUCOSE (test code = 2217) 112 MG/DL BUN (test code = 2208) 15 MG/DL CREATININE (test code = 2214) 0.72 MG/DL eGFR AMER. (test code 108 ML/MIN/1.73 = 33572) eGFR NON- AMER. (test 94 ML/MIN/1.73 code = 08764) CALC BUN/CREAT (test code = 21 RATIO [...] CALC GLOBULIN (test code = 3.0 G/DL 224) CALC A/G RATIO (test code = 1.5 RATIO 2234) BILIRUBIN, TOTAL (test code = 0.2 MG/DL 2206) ALKALINE PHOSPHATASE (test 53 U/L code = 2204) AST (test code = 2218) 19 U/L ALT (test code = 2219) 18 U/L LIPID [id number] 00:00:00 Test Item Value Reference Range Interpretation Comments CHOLESTEROL (test code = 2210) 228 MG/DL TRIGLYCERIDES (test code = 2232) 98 MG/DL HDL CHOLESTEROL (test code = 2220) 58 MG/DL CALC LDL CHOL (test code = 2237) 150 MG/DL RISK RATIO LDL/HDL (test code = 2.59 RATIO 2238) LIPID [id number] 00:00:00 Test Item Value Reference Range Interpretation Comments CHOLESTEROL (test code = 2210) 228 MG/DL TRIGLYCERIDES (test code = 2232) 98 MG/DL HDL CHOLESTEROL (test code = 2220) 58 MG/DL CALC LDL CHOL (test code = 2237) 150 MG/DL RISK RATIO LDL/HDL (test code = 2.59 RATIO 2238) HEMOGLOBIN [id number] 00:00:00 Test Item Value Reference Range Interpretation Comments HEMOGLOBIN A1c (test code = 07260) 6.1 % HEMOGLOBIN [id number] 00:00:00 Test Item Value Reference Range Interpretation Comments HEMOGLOBIN A1c (test code = 68798) 6.1 % HEMOGLOBIN [id number] 00:00:00 Test Item Value Reference Range Interpretation Comments HEMOGLOBIN A1c (test code = 07119) 6.1 % HEMOGLOBIN [id number] 00:00:00 Test Item Value Reference Range Interpretation Comments HEMOGLOBIN A1c (test code = 43483) 6.1 % HEMOGLOBIN [id number] 00:00:00 Test Item Value Reference Range Interpretation Comments HEMOGLOBIN A1c (test code = 62452) 6.1 % THYROID II PROFILE (T3U, T4, [...] (test code = 2821) 4.2 UIU/ML LIPID [id number] 00:00:00 Test Item Value Reference Range Interpretation Comments CHOLESTEROL (test code = 2210) 166 MG/DL TRIGLYCERIDES (test code = 2232) 75 MG/DL HDL CHOLESTEROL (test code = 2220) 66 MG/DL CALCULATED LDL CHOL (test code = 85 MG/DL 7) RISK RATIO LDL/HDL (test code = 1.29 RATIO 2238) [id number] 00:00:00 Test Item Value Reference Range Interpretation Comments TSH (test code = 2821) 5.5 UIU/ML [id number] 00:00:00 Test Item Value Reference Range Interpretation Comments TSH (test code = 2821) 5.5 UIU/ML LIPID [id number] 00:00:00 Test Item Value Reference Range Interpretation Comments CHOLESTEROL (test code = 2210) 166 MG/DL TRIGLYCERIDES (test code = 2232) 75 MG/DL HDL CHOLESTEROL (test code = 2220) 66 MG/DL CALCULATED LDL CHOL (test code = 85 MG/DL 2237) RISK RATIO LDL/HDL (test code = 1.29 RATIO 2238) LIPID [id number] 00:00:00 Test Item Value Reference Range Interpretation Comments CHOLESTEROL (test code = 2210) 166 MG/DL TRIGLYCERIDES (test code = 2232) 75 MG/DL HDL CHOLESTEROL (test code = 2220) 66 MG/DL CALCULATED LDL CHOL (test code = 85 MG/DL 2237) RISK RATIO LDL/HDL (test code = 1.29 RATIO 2238) [id number] 00:00:00 Test Item Value Reference Range Interpretation Comments TSH (test code = 2821) 5.5 UIU/ML [id number] 00:00:00 Test Item Value Reference Range Interpretation Comments TSH (test code = 2821) 5.5 UIU/ML [id number] 00:00:00 Test Item Value Reference Range Interpretation Comments TSH (test code = 2821) 5.5 UIU/ML CBC W/AUTO [id number] 00:00:00 Test Item Value Reference Range Interpretation [...] code = 1015) 387 K/UL CBC W/AUTO [id number] 00:00:00 Test Item Value Reference Range Interpretation [...] (test code = 1015) 387 K/UL HEMOGLOBIN [id number] 00:00:00 Test Item Value Reference Range Interpretation Comments HEMOGLOBIN A1c (test code = 52869) 6.1 % HEMOGLOBIN [id number] 00:00:00 Test Item Value Reference Range Interpretation Comments HEMOGLOBIN A1c (test code = 14034) 6.1 % [id number] 00:00:00 Test Item Value Reference Range Interpretation Comments TSH (test code = 2821) 2.9 UIU/ML [id number] 00:00:00 Test Item Value Reference Range Interpretation Comments TSH (test code = 2821) 2.9 UIU/ML LIPID [id number] 00:00:00 Test Item Value Reference Range Interpretation Comments CHOLESTEROL (test code = 2210) 215 MG/DL TRIGLYCERIDES (test code = 2232) 66 MG/DL HDL CHOLESTEROL (test code = 2220) 60 MG/DL CALCULATED LDL CHOL (test code = 142 MG/DL 7) RISK RATIO LDL/HDL (test code = 2.36 RATIO 2238) COMPREHENSIVE METABOLIC [id number] 00:00:00 Test Item Value Reference Range Interpretation Comments GLUCOSE (test code = 2217) 105 MG/DL BUN (test code = 2208) 16 MG/DL CREATININE (test code = 2214) 0.7 MG/DL eGFR AMER. (test code 105 ML/MIN/1.73 = 43098) eGFR NON- AMER. (test 87 ML/MIN/1.73 code = 34903) CALCULATED BUN/CREAT (test 23 RATIO code = 2235) SODIUM (test code = 2231) 138 MEQ/L POTASSIUM (test code = 2228) 4.9 MEQ/L CHLORIDE (test code = 2215) 103 MEQ/L CARBON DIOXIDE (test code = 30 MEQ/L 2205) CALCIUM (test code = 2209) 9.7 MG/DL PROTEIN, TOTAL (test code = 7.4 G/DL 2229) ALBUMIN (test code = 2201) 4.0 G/DL CALCULATED GLOBULIN (test 3.4 G/DL code = 2240) CALCULATED A/G RATIO (test 1.2 RATIO code = 2234) BILIRUBIN, TOTAL (test code = 0.5 MG/DL 2207) ALKALINE PHOSPHATASE (test 47 U/L code = 2204) SGOT (AST) (test code = 2218) 18 U/L SGPT (ALT) (test code = 2219) 17 U/L CBC W/AUTO [id number] 00:00:00 Test Item Value Reference Range Interpretation [...] code = 1015) 387 K/UL CBC W/AUTO [id number] 00:00:00 Test Item Value Reference Range Interpretation [...] code = 1015) 387 K/UL CBC W/AUTO [id number] 00:00:00 Test Item Value Reference Range Interpretation [...] (test code = 1015) 387 K/UL HEMOGLOBIN [id number] 00:00:00 Test Item Value Reference Range Interpretation Comments HEMOGLOBIN A1c (test code = 54011) 6.1 % HEMOGLOBIN [id number] 00:00:00 Test Item Value Reference Range Interpretation Comments HEMOGLOBIN A1c (test code = 75557) 6.1 % HEMOGLOBIN [id number] 00:00:00 Test Item Value Reference Range Interpretation Comments HEMOGLOBIN A1c (test code = 27875) 6.1 % [id number] 00:00:00 Test Item Value Reference Range Interpretation Comments TSH (test code = 2821) 2.9 UIU/ML [id number] 00:00:00 Test Item Value Reference Range Interpretation Comments TSH (test code = 2821) 2.9 UIU/ML [id number] 00:00:00 Test Item Value Reference Range Interpretation Comments TSH (test code = 2821) 2.9 UIU/ML LIPID [id number] 00:00:00 Test Item Value Reference Range Interpretation Comments CHOLESTEROL (test code = 2210) 215 MG/DL TRIGLYCERIDES (test code = 2232) 66 MG/DL HDL CHOLESTEROL (test code = 2220) 60 MG/DL CALCULATED LDL CHOL (test code = 142 MG/DL 2237) RISK RATIO LDL/HDL (test code = 2.36 RATIO 2238) LIPID [id number] 00:00:00 Test Item Value Reference Range Interpretation Comments CHOLESTEROL (test code = 2210) 215 MG/DL TRIGLYCERIDES (test code = 2232) 66 MG/DL HDL CHOLESTEROL (test code = 2220) 60 MG/DL CALCULATED LDL CHOL (test code = 142 MG/DL 2236) RISK RATIO LDL/HDL (test code = 2.36 RATIO 2238) COMPREHENSIVE METABOLIC [id number] 00:00:00 Test Item Value Reference Range Interpretation Comments GLUCOSE (test code = 2217) 105 MG/DL BUN (test code = 2208) 16 MG/DL CREATININE (test code = 2214) 0.7 MG/DL eGFR AMER. (test code 105 ML/MIN/1.73 = 43640) eGFR NON- AMER. (test 87 ML/MIN/1.73 code = 30265) CALCULATED BUN/CREAT (test 23 RATIO code = [...] code = 2219) 17 U/L COMPREHENSIVE METABOLIC [id number] 00:00:00 Test Item Value Reference Range Interpretation Comments GLUCOSE (test code = 2217) 105 MG/DL BUN (test code = 2208) 16 MG/DL CREATININE (test code = 2214) 0.7 MG/DL eGFR AMER. (test code 105 ML/MIN/1.73 = 65838) eGFR NON- AMER. (test 87 ML/MIN/1.73 code = 73408) CALCULATED BUN/CREAT (test 23 RATIO code = 2235) SODIUM (test code = 2231) 138 MEQ/L POTASSIUM (test code = 2228) 4.9 MEQ/L CHLORIDE (test code = 2215) 103 MEQ/L CARBON DIOXIDE (test code = 30 MEQ/L 2205) CALCIUM (test code = 220) 9.7 MG/DL PROTEIN, TOTAL (test code = 7.4 G/DL 2228) ALBUMIN (test code = 220) 4.0 G/DL CALCULATED GLOBULIN (test 3.4 G/DL code = 2240) CALCULATED A/G RATIO (test 1.2 RATIO code = 223) BILIRUBIN, TOTAL (test code = 0.5 MG/DL 2206) ALKALINE PHOSPHATASE (test 47 U/L code = 2203) SGOT (AST) (test code = 2217) 18 U/L SGPT (ALT) (test code = 221) 17 U/L THYROID II PROFILE (T3U, T4, [...]
[2023-04-12] MEDS ORDERED: NA CHLORIDE 0.9% 1,000 ML ONE (17:33)
[2023-04-12] MEDS ORDERED: MORPHINE 4 MG/ML SYR ONE (17:33)
[2023-04-12] MEDS ORDERED: ONDANSETRON 4 MG/2 ML VIAL ONE (17:33)
[2023-04-12 17:40] LABS: Absolute Lymphocytes (CBC) 0.7 K/uL (0.7-4.9); Hematocrit 37.5 % (36.0-45.0); Lymphocytes % 10.9 % (15.3-44.8); MPV 7.7 fL (7.6-11.3); Platelets 297 thou/uL (152-406); RBC Red Blood Cell Count 4.17 M/uL (3.86-4.86)
[2023-04-12 17:44] LABS: Urine Bacteria <20 /HPF (<20); Urine Bilirubin NEGATIVE (Negative); Urine Blood Negative (Negative); Urine Clarity Turbid (Clear); Urine Color Dark-Yellow (Yellow); Urine Glucose NEGATIVE (Negative); Urine Protein NEGATIVE (Negative); Urine RBC None Seen /HPF (None Seen); Urine Urobilinogen Normal (Normal); Urine pH 5.5 (5.0-7.0)
[2023-04-12 17:48] LABS: Protime INR 0.95
[2023-04-12 17:58] LABS: Albumin 3.4 g/dL (3.4-5.0); Bilirubin Total 0.3 mg/dL (0.2-1.0); Potassium 3.6 mEq/L (3.5-5.1); Protein, Total 7.2 g/dL (6.4-8.2)
--- NOTE | 2023-04-12 18:25 | RAD REPORT ---
EXAM DESCRIPTION: CTAbdomen Pelvis W Contrast - 04/12/2023 6:13 pm CLINICAL HISTORY: Abdominal pain. ABD PAIN COMPARISON: Esophagram Only dated 04/08/2023 TECHNIQUE: Biphasic CT imaging of the abdomen and pelvis was performed with 100 ml non-ionic IV cont rast. All CT scans are performed using dose optimization technique as appropriate and may include automated exposure control or mA/KV adjustment according to patient size. FINDINGS: The lung bases are clear. The liver demonstrates multiple small cysts. No aggressive liver lesion or biliary dilatation seen. S pleen, pancreas, adrenal glands and kidneys are within normal limits. No bowel obstruction, free air, free fluid or abscess. The appendix is not identified as a discrete s tructure, however, no secondary findings of appendicitis are identified. Mild sigmoid diverticulosis coli is present without diverticulitis. No evidence of significant lymphadenopathy. Moderate lumbar degenerative changes at L2-3. IMPRESSION: No acute intra-abdominal or pelvic finding. Mild sigmoid diverticulosis seen without diverticulitis.
--- NOTE | 2023-04-12 18:59 | ER ---
Nurse's Notes [facility] Name: Vaishali Macias Age: 63 yrs Sex: Female : 1960 Arrival Date: 04/12/2023 Time: 16:52 Bed 5 Private MD: Shiv Champagne E Diagnosis: RLQ pain Presentation: 04/12 17:09 Chief complaint: RLQ pain that radiates to right flank and legs since last night. hb Denies N/V/D/urinary symptoms. Coronavirus screen: At this time, the client does not indicate any symptoms associated with coronavirus-19. Ebola Screen: No symptoms or risks identified at this time. Initial Sepsis Screen: Does the patient meet any 2 criteria? HR > 90 bpm. No. Patient's initial sepsis screen is negative. Does the patient have a suspected source of infection?. Risk Assessment: Do you want to hurt yourself or someone else? Patient reports no desire to harm self or others. Onset of symptoms was April 11, 2023. 17:09 Method Of Arrival: Wheelchair hb 17:09 Acuity: GRACIELA 3 hb Historical: - Allergies: 17:11 Aspirin; hb 17:11 NSAIDS; hb 17:11 PENICILLINS; hb - Home Meds: 17:11 gabapentin Oral [Active]; Metformin Oral [Active]; Synthroid Oral [Active]; Omeprazole hb Oral [Active]; Simvastatin Oral [Active]; - PMHx: 17:11 Diabetes - NIDDM; High Cholesterol; neuropathy; Thyroid problem; Hypertension; GERD; hb - PSHx: 17:11 section; hysterectomy; hb - Immunization history:: Adult Immunizations up to date. - Social history:: Smoking status: Patient denies any tobacco usage or history of. - Family history:: not pertinent. Screenin:34 [facility] ED Fall Risk Assessment (Adult) Score/Fall Risk Level 0 - 2 = Low Risk. Abuse iw screen: Denies threats or abuse. Denies injuries from another. Nutritional screening: No deficits noted. Tuberculosis screening: No symptoms or risk factors identified. Assessment: 17:33 General: Appears in no apparent distress. Behavior is calm, cooperative. Pain: iw Complains of pain in right lower quadrant Pain currently is 10 out of 10 on a pain scale. Neuro: Level of Consciousness is awake, alert, obeys commands, Oriented to person, place, time, situation, Moves all extremities. Full function. Cardiovascular: Patient's skin is warm and dry. Respiratory: Respiratory effort is even, unlabored, Respiratory pattern is regular, symmetrical. GI: Abdomen is non-distended, Bowel sounds present X 4 quads. Abd is soft X 4 quads Abdomen is tender to palpation in right lower quadrant Reports lower abdominal pain, nausea. Derm: Skin is intact, is healthy with good turgor. Musculoskeletal: Range of motion: intact in all extremities. 18:26 Reassessment: Patient appears in no apparent distress at this time. Patient and/or iw family updated on plan of care and expected duration. Pain level reassessed. Patient is alert, oriented x 3, equal unlabored respirations, skin warm/dry/pink. Patient states feeling better. Patient states symptoms have improved. Vital Signs: 17:09 BP 140 / 67; Pulse 105; Resp 18; Temp 100.4(O); Pulse Ox 97% on R/A; Weight 80.74 kg; hb Height 5 ft. 2 in. ; Pain 10/10; 18:27 BP 119 / 64; Pulse 83; Resp 16; Temp 97.6; Pulse Ox 100% ; Pain 2/10; iw 19:30 BP 115 / 63; Pulse 76; Resp 16; Temp 98; Pulse Ox 100% on R/A; rv 17:09 Body Mass Index 32.56 (80.74 kg, 157.48 cm) hb 17:09 Pain Scale: Adult hb 18:27 Pain Scale: Adult iw ED Course: 16:54 Patient arrived in ED. rg4 16:54 Shiv Champagne MD is Private Physician. rg4 16:55 Steven Castañeda MD is Attending Physician. rt 17:09 Jazmine Vasquez, JOANA is Primary Nurse. iw 17:11 Triage completed. hb 17:16 Arm band placed on. hb 17:28 Blood Culture Adult (2) Sent. ds4 17:28 Lactate w/ 2H reflex if indic. Sent. ds4 17:28 Protime (+inr) Sent. ds4 17:28 Ptt, Activated Sent. ds4 17:28 Inserted saline lock: 22 gauge in right antecubital area, using aseptic technique. ds4 Blood collected. 18:15 CT Abd/Pelvis - IV Contrast Only In Process Unspecified. EDMS 18:28 Patient has correct armband on for positive identification. iw 18:58 Mushtaq Multani is Hospitalizing Provider. rt 19:42 No provider procedures requiring assistance completed. Patient admitted, IV remains in rv place. Administered Medications: 17:32 Drug: NS 0.9% IV 1000 ml IV at 1 bolus Per protocol; 1000 mL bolus Route: IV; Rate: 1 iw bolus; Site: right antecubital; 19:43 Follow up: IV Status: Completed infusion; IV Intake: 1000ml rv 17:32 Drug: Ondansetron IVP 4 mg IVP once; over 2 minutes Route: IVP; Site: right antecubital;iw 19:43 Follow up: Response: No adverse reaction rv 17:32 Drug: morphine IVP or IV 4 mg IVP once over 4 mins Route: IVP; Infused Over: 4 mins; iw Site: right antecubital; 19:43 Follow up: Response: No adverse reaction rv Medication: 18:19 VIS not applicable for this client. iw Intake: 19:43 IV: 1000ml; Total: 1000ml. rv Outcome: 18:59 Decision to Hospitalize by Provider. rt 19:42 Admitted to Tele accompanied by tech, via stretcher, room 406, with chart, Report rv called to ZEYAD BERNARD 19:42 Condition: stable 19:42 Instructed on the need for admit, 19:43 Patient left the ED. rv Signatures: Dispatcher [employer] Jazmine Fine, RN JOANA Lino Silva ds4 Emi Gamboa RN RN hb Garcia, Rubi rg4 Carlitos Keith RN RN rv Steven Castañeda MD MD rt
--- NOTE | 2023-04-12 18:59 | EDPHYS ---
Physician Documentation [facility] Name: Vaishali Macias Age: 63 yrs Sex: Female : 1960 Arrival Date: 04/12/2023 Time: 16:52 Bed 5 Private MD: Shiv Champagne E ED Physician Steven Castañeda HPI: 04/12 17:11 This 63 yrs old Female presents to ER via Wheelchair with complaints of rt Abdominal Pain. 17:11 Patient presents to the ED with abdominal pain starting yesterday evening. The pain rt started in the right lower quadrant, now radiates to the right flank. Denies nausea, vomiting, urinary symptoms. Denies diarrhea, constipation. The patient has not had similar symptoms previously. The severity waxes and wanes, is now moderate in severity. It does not go away completely. Denies other acute complaints at this time, symptoms are moderate severity, no other aggravating or alleviating factors.. Historical: - Allergies: 17:11 Aspirin; hb 17:11 NSAIDS; hb 17:11 PENICILLINS; hb - Home Meds: 17:11 gabapentin Oral [Active]; Metformin Oral [Active]; Synthroid Oral [Active]; Omeprazole hb Oral [Active]; Simvastatin Oral [Active]; - PMHx: 17:11 Diabetes - NIDDM; High Cholesterol; neuropathy; Thyroid problem; Hypertension; GERD; hb - PSHx: 17:11 section; hysterectomy; hb - Immunization history:: Adult Immunizations up to date. - Social history:: Smoking status: Patient denies any tobacco usage or history of. - Family history:: not pertinent. ROS: 17:11 Constitutional: Negative for fever, chills, and weight loss, Cardiovascular: Negative rt for chest pain, palpitations, and edema, Respiratory: Negative for shortness of breath, cough, wheezing, and pleuritic chest pain, MS/Extremity: Negative for injury and deformity, Skin: Negative for injury, rash, and discoloration, Neuro: Negative for headache, weakness, numbness, tingling, and seizure, Psych: Negative for depression, anxiety, suicide ideation, homicidal ideation, and hallucinations, 17:11 Abdomen/GI: Positive for abdominal pain, Negative for nausea and vomiting, 17:11 Back: Positive for flank pain, Negative for injury or acute deformity, Exam: 17:11 Constitutional: This is a well developed, well nourished patient who is awake, alert, rt and in no acute distress. Head/Face: Normocephalic, atraumatic. Chest/axilla: Normal chest wall appearance and motion. Nontender with no deformity. No lesions are appreciated. Cardiovascular: Regular rate and rhythm with a normal S1 and S2. No gallops, murmurs, or rubs. Normal PMI, no JVD. No pulse deficits. Respiratory: Lungs have equal breath sounds bilaterally, clear to auscultation and percussion. No rales, rhonchi or wheezes noted. No increased work of breathing, no retractions or nasal flaring. Skin: Warm, dry with normal turgor. Normal color with no rashes, no lesions, and no evidence of cellulitis. MS/ Extremity: Pulses equal, no cyanosis. Neurovascular intact. Full, normal range of motion. Neuro: Awake and alert, GCS 15, oriented to person, place, time, and situation. Cranial nerves II-XII grossly intact. Motor strength 5/5 in all extremities. Sensory grossly intact. Cerebellar exam normal. Normal gait. Psych: Awake, alert, with orientation to person, place and time. Behavior, mood, and affect are within normal limits. 17:11 Abdomen/GI: Tenderness to the right lower quadrant with mild guarding, no rebound, no distention, 17:11 Back: Right costovertebral angle tenderness, no midline tenderness, 17:45 ECG was reviewed by the Attending Physician. rt Vital Signs: 17:09 BP 140 / 67; Pulse 105; Resp 18; Temp 100.4(O); Pulse Ox 97% on R/A; Weight 80.74 kg; hb Height 5 ft. 2 in. ; Pain 10/10; 18:27 BP 119 / 64; Pulse 83; Resp 16; Temp 97.6; Pulse Ox 100% ; Pain 2/10; iw 19:30 BP 115 / 63; Pulse 76; Resp 16; Temp 98; Pulse Ox 100% on R/A; rv 17:09 Body Mass Index 32.56 (80.74 kg, 157.48 cm) hb 17:09 Pain Scale: Adult hb 18:27 Pain Scale: Adult iw MDM: 17:02 Patient medically screened. rt 18:45 Differential diagnosis: Pyelonephritis, nephrolithiasis, appendicitis, bowel rt obstruction, hernia. Data reviewed: vital signs, nurses notes, lab test result(s), EKG, radiologic studies. Consideration of Admission/Observation Patient was admitted/placed on observation. Management of patient was discussed with the following: Day Trader: Discussed with Dr. Allen with general surgery, evaluated patient in the ED, recommends admission, possible repeat scan in morning.. I considered the following discharge prescriptions or medication management in the emergency department Medications were administered in the Emergency Department. See MAR. Independent interpretation of the following test(s) in the Emergency Department CT Scan: My interpretation is No bowel obstruction some interpretation of CT scan images. Test considered but Not performed: Ultrasound Signs and symptoms not consistent with cholecystitis, ultrasound not indicated. Care significantly affected by the following chronic conditions: Diabetes. Counseling: I had a detailed discussion with the patient and/or guardian regarding the historical points, exam findings, and any diagnostic results supporting the discharge/admit diagnosis, lab results, radiology results, the need for further work-up and treatment in the hospital. Response to treatment: the patient's symptoms have markedly improved after treatment. 04/12 17:08 Order name: CBC with Diff; Complete Time: 17:58 rt 04/12 17:08 Order name: CMP; Complete Time: 17:58 rt 04/12 17:08 Order name: Lipase; Complete Time: 17:58 rt 04/12 17:08 Order name: UAM; Complete Time: 17:58 rt 04/12 17:09 Order name: Blood Culture Adult (2) rt 04/12 17:09 Order name: Lactate w/ 2H reflex if indic.; Complete Time: 17:58 rt 04/12 17:09 Order name: Protime (+inr); Complete Time: 17:58 rt 04/12 17:09 Order name: Ptt, Activated; Complete Time: 17:58 rt 04/12 17:08 Order name: CT Abd/Pelvis - IV Contrast Only; Complete Time: 18:25 rt 04/12 17:09 Order name: EKG; Complete Time: 17:09 rt 10 19:00 Order name: CONS Physician Consult EDMS 04/12 17:08 Order name: IV Saline Lock; Complete Time: 17:28 rt 04/12 17:08 Order name: Labs collected and sent; Complete Time: 17:43 rt 04/12 17:09 Order name: Accucheck; Complete Time: 17:32 rt 04/12 17:09 Order name: Cardiac monitoring; Complete Time: 17:32 rt 04/12 17:09 Order name: EKG - Nurse/Tech; Complete Time: 17:44 rt 04/12 17:09 Order name: IV Saline Lock - Large Bore; Complete Time: 17:28 rt 04/12 17:09 Order name: O2 Per Protocol; Complete Time: 17:28 rt 04/12 17:09 Order name: O2 Sat Monitoring; Complete Time: 17:28 rt 04/12 17:09 Order name: Vital Signs; Complete Time: 17:32 rt EC:45 Rate is 92 beats/min. Rhythm is regular. QRS Elizabeth is Normal. VA interval is normal. QRS rt interval is normal. QT interval is normal. No Q waves. No ST changes noted. Interpreted by me. Administered Medications: 17:32 Drug: NS 0.9% IV 1000 ml IV at 1 bolus Per protocol; 1000 mL bolus Route: IV; Rate: 1 iw bolus; Site: right antecubital; 19:43 Follow up: IV Status: Completed infusion; IV Intake: 1000ml rv 17:32 Drug: Ondansetron IVP 4 mg IVP once; over 2 minutes Route: IVP; Site: right antecubital;iw 19:43 Follow up: Response: No adverse reaction rv 17:32 Drug: morphine IVP or IV 4 mg IVP once over 4 mins Route: IVP; Infused Over: 4 mins; iw Site: right antecubital; 19:43 Follow up: Response: No adverse reaction rv Disposition Summary: 04/12/23 18:59 Hospitalization Ordered Notes: Hospitalization Status: Observation rt Provider: Mushtaq Multani rt Location: Telemetry/MedSurg (observation) rt Condition: Stable rt Problem: new rt Symptoms: have improved rt Bed/Room Type: Standard rt Room Assignment: 406(04/12/23 19:14) dw Diagnosis - RLQ pain rt Forms: - Medication Reconciliation Form rt - SBAR form rt - Leadership Thank You Letter rt Signatures: Dispatcher [employer] Brea Iraheta RN RN dw Williams, Irene, RN RN iw Emi Gambao RN RN hb [place], Ryan, MD MD rt Sagar, Carlitos RN rv Corrections: (The following items were deleted from the chart) 19:14 18:59 rt dw
--- NOTE | 2023-04-12 19:05 | P.HP ---
Certification for Inpatient Patient admitted to: Observation With expected LOS: <2 Midnights Patient will require the following post-hospital care: None Practitioner: I am a practitioner with admitting privileges, knowledge of patient current condition, hospital course, and medical plan of care. Services: Services provided to patient in accordance with Admission requirements found in Title 42 Section 412.3 of the Code of Federal Regulations Patient History Date of Service: 04/12/23 Reason for admission: Abdominal pain History of Present Illness: 63-year-old female with a past medical history of qyl-jiaqzxg-loosjzagy diabetes, hyperlipidemia, peripheral neuropathy, Synthroid, GERD presents to the emergency room with abdominal pain. She reports right upper quadrant, right lower quadrant abdominal pain that radiates to the back. She reports abdominal pain started yesterday. She reports abdominal pain at its worst was 10 out of 10, reports relief with as needed analgesics in the emergency emergency room 5 out of 10. She reports nausea, she denies vomiting, she denies constipation, fever, she denies shortness of breath, chest pain. Surgery consulted Dr. Allen. He requested admit to obs, repeat imaging in the a.m. Plan to admit for right lower quadrant pain rule out appendicitis. Allergies aspirin Allergy (Unverified 03/17/15 09:51) Unknown Penicillins Allergy (Unverified 03/17/15 09:51) Unknown NSAIDS Allergy (Uncoded 03/17/15 09:51) Unknown - Past Medical/Surgical History -: Sfq-zvmynfv-mxvobmgbq diabetes -: GERD -: Hypothyroidism -: Overactive bladder -: Peripheral neuropathy -: Hyperlipidemia -: x 4 section -: hysterectomy - Social History Smoking Status: Never smoker Alcohol use: No CD- Drugs: No Caffeine use: No Place of Residence: Home Review of Systems 10-point ROS is otherwise unremarkable Physical Examination - Physical Exam General: Alert, In no apparent distress, Oriented x3 HEENT: Atraumatic, Normocephalic, PERRLA Neck: Supple, 2+ carotid pulse no bruit Respiratory: Clear to auscultation bilaterally, Normal air movement Cardiovascular: No edema, Normal pulses, Regular rate/rhythm, Normal S1 S2 Gastrointestinal: Normal bowel sounds, Tenderness (Right upper quadrant, right lower quadrant tenderness) Musculoskeletal: No clubbing, No swelling Integumentary: No rashes, No breakdown Neurological: Normal speech, Normal strength at 5/5 x4 extr - Studies Laboratory Data (last 24 hrs) 04/12/23 04/12/23 04/12/23 17:20 17:20 17:20 WBC 6.50 Hgb 12.8 Hct 37.5 Plt Count 297 PT 10.4 INR 0.95 APTT 32.5 Sodium 134 L Potassium 3.6 BUN 8 Creatinine 0.78 Glucose 131 H Total Bilirubin 0.3 AST 14 L ALT 20 Alkaline Phosphatase 56 Lipase 16 Assessment and Plan - Plan Assessment plan Right lower quadrant abdominal pain rule out appendicitis-acute gpn-iaevukv-hociawmgh diabetes-chronic hyperlipidemia peripheral neuropathy GERD DVT prophylaxis SCDs Assessment plan Right lower quadrant abdominal pain rule out appendicitis Surgery consult, repeat abdominal imaging in the a.m., trend WBCs, repeat CBC CMP in the a.m. reports right upper quadrant, right lower quadrant abdominal pain that radiates to the back. No leukocytosis, no left shift sodium [address] of the abdomen pelvis IMPRESSION: No acute intra-abdominal or pelvic finding.Mild sigmoid diverticulosis seen without diverticulitis iel-nqdkrru-vxcestozh diabetes Sliding scale insulin, Accu-Cheks hyperlipidemia peripheral neuropathy GERD Resume appropriate home meds Diet n.p.o. after midnight Full code DVT prophylaxis SCDs Discharge Plan: Home Plan to discharge in: 24 Hours - Advance Directives Does patient have a Living Will: No Does patient have a Durable POA for Healthcare: No - Code Status/Comfort Care Code Status: Full Code Physician Review: Patient Assessed, Agree with Above Assessment and Plan Critical Care: No Time Spent Managing Pts Care (In Minutes): 50
[2023-04-12] MEDS ORDERED: MORPHINE 4 MG/ML SYR IV PRN (19:39)
[2023-04-12] MEDS: NA CHLORIDE 0.9% 1,000 ML IV SCH (19:39)
[2023-04-12] MEDS ORDERED: ACETAMINOPHEN 500 MG TAB PO PRN (19:39)
[2023-04-12] MEDS: INSULIN REGULAR (HUMAN) 100 UNIT/ML SQ SCH (20:09)
--- NOTE | 2023-04-12 20:11 | CON ---
Date of Consultation: 04/12/2023 Reason For Service: Abdominal pain. History Of Present Illness: This is a case of a 63-year-old patient who complained of abdominal pain for a day and a half of duration. It is mainly in the periumbilical and right lower quadrant. She denies eating anything out of the usual. She states some nausea. No vomiting. No diarrhea. No dys uria, hematuria, hematochezia, or melena. No recent traveling out of the country. No family member sick at home. She has been to GI workup actually about a week ago. She had a barium swallow and as per patient, noticed some strictures in the esophagus that may need some dilatation. She also had a colonoscopy several weeks ago and she was found to have several polyps, so she has been followed by [facility] doctor for GI concerns in the last month, especially Dr. Bernardo, but this pain is new. During e workup, patient has a blood work and a CAT scan and they could not visualize the appendix. Patient has not improved, so she was admitted to the hospital and a surgical consult was obtained. Allergies: ASPIRIN, NSAIDS, PENICILLIN. Past Medical History: Includes diabetes, hypercholesterolemia, thyroid problems. Past Surgical History: Include hysterectomy and C-sections. She does not remember if she has ovarie s or not. Social History: She does not smoke. She does not drink alcohol. Review of Systems: See HPI. 10 points are otherwise unremarkable. Physical Examination: General: Patient is awake, alert. HEENT: Pupils are equal and reactive. Chest: Clear. Abdomen: Soft and depressible. There is right lower quadrant tenderness. There is no rebound tende rness, but it is still there. Etiology is unknown. I cannot feel any masses or any hernia or any ce llulitis. Breasts: Deferred. Pelvic/Rectal: Deferred. Extremities: Good capillary refill. Laboratory Data: Blood work shows WBC count of 6.5, hemoglobin of 12.8, and platelets of 297. INR i s 0.95. Potassium 3.6, BUN is 8, creatinine is 0.78. CAT scan of the abdomen and pelvis interpreted by Dr. Vickers as no bowel obstruction, free air, free fluid, or abscess. The appendix is not identifi ed as a discrete structure, however, no secondary findings of appendicitis are identified. There are some mild sigmoid diverticula. No evidence of lymphadenopathy. Patient had a barium swallow done o n 04/08/2023 and shows pronounced tertiary, nonpropulsive waves most notably at the mid and distal es ophagus. Assessment: This is a 63-year-old patient with right lower quadrant pain, had a CAT scan done today. They could not identify the appendix. At the same time, they did not give her any p.o. contrast si nce she still has some residual a contrast from the barium swallow about a week ago. At this moment, I did not see any periappendiceal inflammation, but it still is a limited study. Due to the clinica l symptoms, I agree with doctor in ER, we should admit her for observation, repeat some blood work in the morning, clinical examinations. We may even have to repeat the CT scan and if we cannot find th e tissue and it does not resolve, she understands options also of diagnostic laparoscopy with benefit s, alternatives, and risks explained. We will follow the patient with you and give more recommendati ons as the case develops. WAYNE Voice ID: [id number] Report ID: [id number]
[2023-04-12] MEDS: DICYCLOMINE HCL 10 MG CAP PO PRN (21:27)
[2023-04-12 21:35] VITALS: BMI 30.7
[2023-04-12] MEDS: HYDROMORPHONE HCL 0.5 MG/0.5 ML INJ IV PRN (22:34)
[2023-04-13] MEDS: NA CHLORIDE 0.9% 1,000 ML IV SCH ×2 (02:16→17:01)
[2023-04-13] MEDS: HYDROMORPHONE HCL 0.5 MG/0.5 ML INJ IV PRN ×2 (02:16→06:14)
[2023-04-13 04:24] LABS: Absolute Lymphocytes (CBC) 1.3 K/uL (0.7-4.9); Hematocrit 35.2 % (36.0-45.0); Lymphocytes % 20.8 % (15.3-44.8); MCV 90.4 fL (80-100); Platelets 285 thou/uL (152-406); RBC Red Blood Cell Count 3.89 M/uL (3.86-4.86)
[2023-04-13 04:45] LABS: Albumin 3.1 g/dL (3.4-5.0); Bilirubin Total 0.3 mg/dL (0.2-1.0); Protein, Total 6.5 g/dL (6.4-8.2)
[2023-04-13] MEDS: INSULIN REGULAR (HUMAN) 100 UNIT/ML SQ SCH ×4 (07:30→21:00)
[2023-04-13] MEDS ORDERED: HYDROMORPHONE HCL 0.5 MG/0.5 ML INJ IV ONE (09:12)
--- NOTE | 2023-04-13 09:52 | RAD REPORT ---
EXAM DESCRIPTION: CTAbdomen Pelvis W Contrast - 04/13/2023 9:25 am CLINICAL HISTORY: RO Appy COMPARISON: Abdomen Pelvis W Contrast dated 04/12/2023 TECHNIQUE: CT of the abdomen and pelvis was performed. All CT scans are performed using dose optimization technique as appropriate and may include automated exposure control or mA/KV adjustment according to patient size. FINDINGS: Lower chest: Dependent atelectasis. Mild circumferential thickened distal esophagus. Liver: Multiple low-density liver lesions identified that are unchanged in size. These are likely wesley ign. Biliary: No biliary ductal dilatation. Stomach: No significant focal abnormality. Duodenum: No significant focal abnormality. Pancreas: No significant abnormality. Spleen: No significant abnormality. Splenic calcifications. Adrenal: No suspicious lesions. Kidney/ureter: No hydronephrosis. No renal calculi. Retroperitoneum: No retroperitoneal adenopathy. Vascular: No aneurysm. Bowel: No significant focal abnormality. No appendix identified. Residual enteric contrast present wi thin the colon. Peritoneum: No ascites or free air. Small fat containing umbilical hernia. Bladder: Grossly unremarkable. Reproductive: No adnexal masses. Hysterectomy. Bones: No acute fracture. Other: n/a IMPRESSION: No acute intra-abdominal or pelvic finding. No appendix identified. No secondary signs o f acute appendicitis.
[2023-04-13] MEDS: HYDROMORPHONE HCL 1 MG/ML INJ IV PRN ×3 (12:06→20:51)
[2023-04-13] MEDS ORDERED: INFLUENZA VACCINE (for 6+ mo) 0.5 ML DOSE IMVAC ONE (13:00)
--- NOTE | 2023-04-13 14:04 | P.PN ---
Subjective Date of Service: 04/13/23 Chief Complaint: Abdominal pain Patient complaining of diffuse abdominal pain, worse in both the right lower quadrant and the left lower quadrant. No vomiting since admission. No fever. Physical Examination - Vital Signs Temperature: 97.5 F Blood Pressure: 143/78 Pulse: 82 Respirations: 20 Pulse Ox (%): 97 - Studies Laboratory Data (last 24 hrs) 04/12/23 04/12/23 04/12/23 17:20 17:20 17:20 WBC 6.50 Hgb 12.8 Hct 37.5 Plt Count 297 PT 10.4 INR 0.95 APTT 32.5 Sodium 134 L Potassium 3.6 BUN 8 Creatinine 0.78 Glucose 131 H Total Bilirubin 0.3 AST 14 L ALT 20 Alkaline Phosphatase 56 Lipase 16 Assessment And Plan - Plan Physical Exam General: Alert, moderate distress from pain, oriented x3 Neck: Supple. Respiratory: Clear to auscultation bilaterally, Normal air movement Cardiovascular: No edema, Normal pulses, Regular rate/rhythm, Normal S1 S2 Gastrointestinal: Normal bowel sounds, diffuse tenderness. Musculoskeletal: No clubbing, No swelling Integumentary: No rashes, No breakdown Neurological: Normal speech, Normal strength at 5/5 x4 extr Diagnosis Acute abdomen DM type 2 hyperlipidemia peripheral neuropathy GERD Plan Acute abdomen Unknown etiology. CT abdomen pelvis x2-unremarkable, no evidence of acute appendicitis. No acute abnormality Surgery consulted, Dr. Allen is following Exploratory laparotomy if severe pain persist. Empiric antibiotics and pain management. Supportive measures with IV fluid. Diabetes mellitus type 2. Sliding scale insulin, Accu-Cheks hyperlipidemia peripheral neuropathy GERD N.p.o. Resume home medications when diet is resumed. Diet n.p.o. after midnight Full code DVT prophylaxis SCDs Discharge Plan: Home
[2023-04-13] MEDS: DICYCLOMINE HCL 10 MG CAP PO PRN ×2 (14:11→20:55)
[2023-04-13] MEDS: ONDANSETRON 4 MG/2 ML VIAL IV PRN (14:12)
[2023-04-13] MEDS: PROMETHAZINE INJ 25 MG/ML AMP IV PRN (16:41)
[2023-04-13] MEDS: METRONIDAZOLE 500mg IVPB 500 MG/100 ML BAG IV SCH (17:03)
--- NOTE | 2023-04-13 17:18 | RAD REPORT ---
EXAM DESCRIPTION: RAD - Chest Single View - 04/13/2023 5:05 pm CLINICAL HISTORY: Pre-op evaluation COMPARISON: Chest Single View dated 05/02/2022; Chest Single View dated 01/08/2017; CHEST SINGLE VIEW dated 02/24/2015 FINDINGS: Lines: None. Lungs: No evidence of edema or pneumonia. Pleural: No significant pleural effusions or pneumothorax. Cardiac: The heart size is within normal limits. Mediastinum: Within normal limits. Bones: No acute fractures. Other: None IMPRESSION: No acute cardiopulmonary disease.
[2023-04-13] MEDS: CIPROFLOXACIN 400mg IV 400 MG/200 ML BAG IV SCH (20:53)
--- NOTE | 2023-04-13 21:39 | PN ---
Date of Progress Note: 04/13/2023 Diagnosis: Right lower quadrant pain. Subjective: This is a case of a 63-year-old patient, admitted to the hospital with abdominal pain of unknown origin. She had a CAT scan twice, even have blood work done and she still have this tendern ess in the right lower quadrant region. She has been n.p.o. for 24 hours. She recently was seen by the Gastroenterology. She had barium swallow. She had colonoscopy. She had endoscopies, but etiolo gy of that is unknown. She has previous hysterectomy, although she does not know if she has ovaries or not. Objective: Chest: Clear. Abdomen: Soft and depressible. Still right lower quadrant tenderness. Etiology of that is unknown. Pelvic: Deferred. Rectal: Deferred. Extremities: Good capillary refill. Blood Work: Reviewed. Plan: I discussed with her the option of diagnostic laparoscopy with benefits, alternatives, and ris ks include, but not limited to infection, bleeding, damage to adjacent structures, anesthesia complic ation, negative exploration, PR, and even . She wants me to remove the appendix if she is there . Normally, I explained to her that I will be looking for the appendix. If I see there is any other pathology, we might not be able to remove it at this time. If I see something other than normal, __ we might have to do so. She is trying to keep that overnight to see if tomorrow she improve s. If by tomorrow it is same or worse, she wants diagnostic lap, so I asked her to continue n.p.o., IV hydration, and she is even on antibiotics. We will see how she does tomorrow morning. If she does not improve, then going to have to do a diagnostic laparoscopy. BIPIN/FOXL Voice ID: [id number] Report ID: [id number]
[2023-04-14] MEDS: PROMETHAZINE INJ 25 MG/ML AMP IV PRN ×2 (00:15→06:28)
[2023-04-14] MEDS: METRONIDAZOLE 500mg IVPB 500 MG/100 ML BAG IV SCH ×3 (02:22→17:00)
[2023-04-14 04:00] LABS: Hematocrit 35.7 % (36.0-45.0); Lymphocytes % 26.7 % (15.3-44.8); MCV 89.8 fL (80-100); MPV 7.9 fL (7.6-11.3); Platelets 274 thou/uL (152-406); RBC Red Blood Cell Count 3.98 M/uL (3.86-4.86)
[2023-04-14 04:19] LABS: Potassium 3.6 mEq/L (3.5-5.1)
[2023-04-14] MEDS: INSULIN REGULAR (HUMAN) 100 UNIT/ML SQ SCH ×4 (07:30→21:00)
[2023-04-14] MEDS: CIPROFLOXACIN 400mg IV 400 MG/200 ML BAG IV SCH ×2 (08:18→21:35)
[2023-04-14] MEDS: HYDROMORPHONE HCL 1 MG/ML INJ IV PRN ×2 (08:39→18:18)
[2023-04-14] MEDS: ONDANSETRON 4 MG/2 ML VIAL IV PRN (08:40)
[2023-04-14] MEDS ORDERED: Ringers Lactate 0 ML IV ONE (12:02)
--- NOTE | 2023-04-14 12:16 | EKG ---
Test Date: 2023-04-13 Test Time: 17:24:02 Quote Clerk: COLT MEASUREMENT RESULTS: Intervals: Rate: 79 [place]: 178 QRSD: 70 QT: 372 QTc: 426 [place]: P: 21 [place]: 178 QRS: 0 T: 34 INTERPRETIVE STATEMENTS: Normal sinus rhythm Normal ECG Compared to ECG 04/13/2023 17:23:29 No significant changes Electronically Signed On 04-14-23 12:14:27 CDT by Jaison Knowles
--- NOTE | 2023-04-14 12:16 | EKG ---
Test Date: 2023-04-13 Test Time: 17:23:29 Souvenir Assembler: COLT MEASUREMENT RESULTS: Intervals: Rate: 75 [place]: 172 QRSD: 72 QT: 368 QTc: 410 [place]: P: 36 MN: 172 QRS: -2 T: 37 INTERPRETIVE STATEMENTS: Normal sinus rhythm Normal ECG Compared to ECG 04/12/2023 17:40:21 No significant changes Electronically Signed On 04-14-23 12:14:29 CDT by Jaison Knowles
[2023-04-14] MEDS ORDERED: NA CHLORIDE 0.9% 1,000 ML ONE (12:19)
--- NOTE | 2023-04-14 12:19 | EKG ---
Test Date: 2023-04-12 Test Time: 17:40:21 Title Assistant: TOREY MEASUREMENT RESULTS: Intervals: Rate: 92 [place]: 162 QRSD: 72 QT: 342 QTc: 422 [place]: P: 41 [place]: 162 QRS: 10 T: 20 INTERPRETIVE STATEMENTS: Normal sinus rhythm Normal ECG Compared to ECG 03/06/2020 14:56:52 Myocardial infarct finding no longer present Electronically Signed On 04-14-23 12:15:43 CDT by Jaison Knowles
[2023-04-14] MEDS ORDERED: propofoL 200 MG/20 ML VIAL IV ONE (13:05)
[2023-04-14] MEDS ORDERED: MIDAZOLAM HCL 2 MG/2 ML INJ ONE (13:05)
[2023-04-14] MEDS ORDERED: FENTANYL CITR 100 MCG/2 ML ONE (13:06)
[2023-04-14] MEDS ORDERED: LIDOCAINE 2% MPF 5 ML VIAL ONE (13:06)
[2023-04-14] MEDS ORDERED: ROCURONIUM 50 MG/5 ML VIAL IV ONE (13:07)
[2023-04-14] MEDS ORDERED: ONDANSETRON 4 MG/2 ML VIAL ONE (13:09)
[2023-04-14] MEDS ORDERED: dexAMETHasone 4 MG/ML VIAL ONE (13:34)
--- NOTE | 2023-04-14 13:38 | P.PN ---
Subjective Date of Service: 04/14/23 Chief Complaint: Abdominal pain Patient continues to experience abdominal pain. She states the pain is intermittent but severe. No vomiting. Physical Examination - Vital Signs Temperature: 97.3 F Blood Pressure: 127/59 Pulse: 84 Respirations: 17 Pulse Ox (%): 96 Assessment And Plan - Plan Physical Exam General: Alert, moderate distress from pain, oriented x3 Neck: Supple. Respiratory: Clear to auscultation bilaterally, Normal air movement Cardiovascular: No edema, Normal pulses, Regular rate/rhythm, Normal S1 S2 Gastrointestinal: Normal bowel sounds, diffuse tenderness. Integumentary: No rashes, No breakdown Neurological: Normal speech, Normal strength at 5/5 x4 extr Diagnosis Acute abdomen DM type 2 hyperlipidemia peripheral neuropathy GERD Plan Acute abdomen Unknown etiology. CT abdomen pelvis x2-unremarkable, no evidence of acute appendicitis. No acute abnormality Surgery Dr. Allen is following and planning exploratory laparotomy today. Continue empiric antibiotics and pain management. Supportive measures with IV fluid. Diabetes mellitus type 2. Sliding scale insulin, Accu-Cheks hyperlipidemia peripheral neuropathy GERD N.p.o. Resume home medications when diet is resumed. Full code DVT prophylaxis SCDs Discharge Plan: Home
[2023-04-14] MEDS ORDERED: BUPIVACAINE 0.5% PF 10 ML VIAL ONE (13:45)
[2023-04-14] MEDS ORDERED: NEOSTIGMINE 1 MG/ML -10 ML VIAL ONE (14:02)
[2023-04-14] MEDS ORDERED: GLYCOPYRROLATE 0.2 MG/ML SYR ONE (14:02)
--- NOTE | 2023-04-14 14:03 | P.BOP ---
Preoperative diagnosis: intractable RLQ abd pain, guarding, umbilical hernia Postoperative diagnosis: same , acute appendicitis, umbilical hernia, intrab RLQ adhesions Primary procedure: Diagnostic laparoscopy, Laparoscopic appendectomy Secondary procedure: umbilical hernia repair (1.5 cm), laparoscopic lysis of adhesions Estimated blood loss: <10cc Specimen: appendix Findings: abnormal retroceal appendix, RLQ abd adhesions, umbilical hernia Anesthesia: General Complications: None Drain(s): JAQUELINE drain Transferred to: Recovery Room Condition: Good
[2023-04-14] MEDS ORDERED: HYDROCODONE/APAP 5/325 MG TAB PO PRN (14:05)
[2023-04-14] MEDS: HYDROMORPHONE HCL 1 MG/ML INJ ONE ×4 (14:24→14:52)
[2023-04-14] MEDS ORDERED: PROMETHAZINE INJ 25 MG/ML AMP ONE (14:25)
[2023-04-14] MEDS: VANCOMYCIN 2 GM in NA CHLORIDE 0.9% 500 ML IVPB ONE ×2 (15:00→16:09)
[2023-04-14] MEDS ORDERED: DIPHENHYDRAMINE 50 MG/ML VIAL IV ONE (16:18)
--- NOTE | 2023-04-14 18:00 | PN ---
Date of Progress Note: 04/14/2023 Reason For Service: Right lower quadrant intractable pain of unknown origin. The patient is doing w orse today. The pain is getting worse. Vital signs still stable. WBC count has never been elevated , but she has guarding and rebound now in the right lower side. Previous imaging including CAT scan twice, has not been able to find specifically why this patient has so much pain in that area. I disc ussed the case with the primary doctor and also with the patient. We had the option of diagnostic la paroscopy. The patient wants me to get the appendix out during this admission. She does not want to get confused in the future that is why she is here at this moment to. Depends on how things looks i nside. We may or may not do so, depends on the findings. Benefits, alternatives, and risks of diagn ostic lap and possible appendectomy fully explained to the patient, which include, but not limited to infection, bleeding, damage to adjacent structures, anesthesia complication, recurrence, PA, even de ath. She also has an umbilical hernia. We may have to use that as an access and then repair that, a lthough I do not believe the umbilical hernia is the only cause of this right lower quadrant abdomina l pain. She wants to have the surgery done today. We will proceed and add it to the schedule. WAYNE Voice ID: [id number] Report ID: [id number]
[2023-04-14] MEDS ORDERED: VANCOMYCIN 2 GM in NA CHLORIDE 0.9% 500 ML IVPB ONE (21:00)
[2023-04-15] MEDS: HYDROMORPHONE HCL 1 MG/ML INJ IV PRN (00:10)
--- NOTE | 2023-04-15 01:15 | OP ---
Date of Procedure: 04/14/2023 Surgeon: Pete Allen MD Preoperative Diagnoses: Intractable right lower quadrant abdominal pain, guarding, umbilical hernia, nausea, abdominal distension. Postoperative Diagnoses: Intractable right lower quadrant abdominal pain, guarding, umbilical hernia , nausea, abdominal distension, acute appendicitis, intra-abdominal right lower quadrant adhesions. Procedures: Diagnostic laparoscopy, appendectomy, umbilical hernia repair 1.5 cm, and laparoscopic l ysis of adhesions. Estimated Blood Loss: Less than 10 mL. Specimen: Appendix. Findings: Patient has multiple issues. She has umbilical hernia. She also has a retrocecal asymmet rical in shape and color appendix. It is trapped into a scar tissue. It looks abnormal in shape and once again in color consistent with appendicitis. Once again, we had to mobilize the cecum, elevate just to be able to get the appendix out. At the same time on the right lower quadrant, patient has multiple adhesions, some of them pulling the small bowel down with dense fibers. The adhesions were removed today since we cannot rule out the cause of the pain to be that one either. The ascending, t ransverse, descending colon; liver; gallbladder; stomach, I did not see anything there that may just be causing this pain and also bowel extraluminal does not have any other abnormalities. Anterior abd ominal wall I did not see any hernias other than the umbilical hernia. There is no inguinal hernia a nd the area of the pelvis shows no masses. Indications: This is a case of a 63-year-old patient with right lower quadrant pain. We have done i maging. She has previous also GI workup, and she still has this intractable right lower quadrant laurie n. The appendix in 2 CT scans has not been identified. Since the pain was getting worse today and s he has some guarding and rebound, we just have to do a diagnostic laparoscopy with possible appendect beverly and any other necessary procedures. She understands the benefits, alternatives, and risks of mojgan gnostic laparoscopy, possible appendectomy, which include, but not limited to infection, bleeding, da mage to adjacent structures, anesthesia complication, negative scope, UT, and even . She also u nderstands this may not relieve her symptoms. She might need more than one surgical intervention. S he understood and signed the consent. Description Of Procedure: Patient was brought to the operating room, placed in supine position. Ane sthesia was done without complication. Abdominal area was prepped and draped in sterile fashion. Lo mark anesthesia was applied followed by sharp incision of the skin in the infraumbilical region. Immalexa diately noted to have umbilical hernia, carefully removed. This was a small hernia of about 1.5 cm. Fascial edges were cleaned and then we placed Vicryl #1 inside the fascia. Rachele trocar was carefu lly introduced. Pneumoperitoneum was obtained. We introduced 2 trocars 5 mm each, one of them in th e suprapubic and left lower quadrant under direct visualization. This allowed me to do the diagnosti c lap first. Obviously, we go to the right lower quadrant where she has multiple adhesions in this a fiorella. I cannot see the appendix. Once we followed the tenia, we noted this appendix was trapped betw een the scar tissue and also retrocecal and that had to be mobilized eventually to get the appendix o ut. I already from the beginning chose asymmetrical in shape and color, at least the part that we se e. We are going to do further investigation in few seconds. We checked ascending, transverse, desce nding colon, area of the liver. We did not see any extraluminal or extracapsular masses. Stomach so ft and compressible. Retroperitoneum with no masses palpated. Area of the pelvis, once again adhesi ons in the right lower quadrant partially trapping small bowel and an appendix. No inguinal hernias. At that moment, I proceeded to carefully open the LigaSure and proceeded to lysis of adhesions and mobilized the cecum enough to let me see the rest of the appendix, and once again shows an appendix a symmetrical in shape and color and inflamed. So, I removed the adhesions to the area, released the s mall bowel trapped in that region. No masses seen. Then after that, with the help of the LigaSure, we also had the mesoappendix and then transected the appendix at the base, which seemed to be spared from the disease with an Endo-GISELA nonvascular. Appendix removed from abdominal cavity using EndoCatc h through umbilical incision. Profuse irrigation of the area was done. No bowel leak. No bleeding. We do not see any extraluminal masses on the small bowel neither. At that moment, I proceeded to r emove the trocars under direct vision. Before that, I left a JAQUELINE drain over that inflammatory process , exiting through one of the trocar sites. No bleeding. At that moment, I proceeded to remove the t rocars under direct vision, deflated pneumoperitoneum, closed the fascia with #1 Vicryl. Irrigated s ubcutaneous tissue and closed with 3-0 chromic and the hernia was approximated with #1 Vicryl and the n the subcutaneous tissue with 3-0 chromic and skin with staple. JAQUELINE was secured in place with 3-0 ny en. Patient tolerated the procedure well. Patient sent to Recovery in stable condition. BIPIN/POLI Voice ID: [id number] Report ID: [id number]
[2023-04-15] MEDS: METRONIDAZOLE 500mg IVPB 500 MG/100 ML BAG IV SCH ×2 (02:15→08:44)
[2023-04-15] MEDS ORDERED: VANCOMYCIN 1.25 GM in NA CHLORIDE 0.9% 250 ML IVPB SCH ×5 (03:00→09:00)
[2023-04-15 06:20] LABS: Absolute Lymphocytes (CBC) 0.7 K/uL (0.7-4.9); Hematocrit 36.3 % (36.0-45.0); Lymphocytes % 15.3 % (15.3-44.8); MCV 89.8 fL (80-100); MPV 7.5 fL (7.6-11.3); Platelets 322 thou/uL (152-406); RBC Red Blood Cell Count 4.05 M/uL (3.86-4.86)
[2023-04-15 06:42] LABS: Magnesium 1.9 mg/dL (1.6-2.4); Phosphorus 1.7 mg/dL (2.5-4.9); Potassium 3.3 mEq/L (3.5-5.1)
[2023-04-15] MEDS: INSULIN REGULAR (HUMAN) 100 UNIT/ML SQ SCH ×2 (07:30→11:30)
[2023-04-15] MEDS: POTASS/SODIUM PHOSPHATE 1 PKT POWD.PACK PO SCH ×3 (08:45→11:44)
[2023-04-15] MEDS: CIPROFLOXACIN 400mg IV 400 MG/200 ML BAG IV SCH (08:48)
[2023-04-15] MEDS ORDERED: POTASSIUM 25 MEQ EFFERV TAB PO ONE (09:00)
--- NOTE | 2023-04-15 10:32 | P.DS ---
Admission Date: 04/14/23 Discharge Date: 04/15/23 Disposition: ROUTINE DISCHARGE Reason for Admission: Abdominal pain Consultations: General Surgery - Dr. Allen Brief History of Present Illness: 63yo F, PMH: [id number] diabetes, hyperlipidemia, peripheral neuropathy, Synthroid, GERD Patient presents to the emergency room with abdominal pain. She reports right upper quadrant, right lower quadrant abdominal pain that radiates to the back. She reports abdominal pain started yesterday. She reports abdominal pain at its worst was 10 out of 10, reports relief with as needed analgesics in the emergency emergency room 5 out of 10. She reports nausea, she denies vomiting, she denies constipation, fever, she denies shortness of breath, chest pain. Surgery consulted Dr. Allen. He requested admit to obs, repeat imaging in the a.m. Plan to admit for right lower quadrant pain rule out appendicitis. Hospital Course: Problem List: acute appendicitis now s/p laparoscopic appendectomy (04/14) umbilical hernia, intrab RLQ adhesions now s/p, umbilical hernia repair (1.5 cm) and laparoscopic lysis of adhesions (04/14) [id number] hyperlipidemia peripheral neuropathy GERD Patient presented with right-sided abdominal pain. CT abdomen/pelvis both unremarkable. No acute abnormality seen. General surgery was consulted due to persistent and localized RLQ pain. Patient underwent diagnostic laparoscopy on 04/[address] Allen. Patient was found to have abnormal retroceal appendix, RLQ abd adhesions and an umbilical hernia during her procedure. Dr. Allen also performed a successful laparoscopic appendectomy, umbilical hernia repair (1.5 cm) and laparoscopic lysis of adhesions on 04/14. Patient is to complete 7 days of PO cipro / flagyl on discharge. Patient was monitored post operatively, feeling better and deemed stable for discharge home. On day of discharge patient's pain improved and was tolerating soft foods / liquids. Medications: ciprofloxacin / flagyl x7 days Pain medication as needed Follow up: PCP 3-[address] Allen in [address] Allen plans to remove JAQUELINE drain as outpatient in 1-2 weeks Physical Exam: GEN: Alert, oriented, NAD HEENT: Normal conjunctiva, sclera anicteric CV: Regular rate and rhythm, no edema Pulm: Nonlabored respirations on room air ABD: Soft, mild RLQ tenderness, JAQUELINE drain in place, dressing in place MSK: No joint tenderness Integumentary: No rashes Neuro: Normal speech, normal affect Vital Signs/Physical Exam: Temp Pulse Resp BP Pulse Ox 97.4 F 85 16 144/75 H 98 04/15/23 08:00 04/15/23 08:00 04/15/23 08:00 04/15/23 08:00 04/15/23 08:00 Laboratory Data at Discharge: WBC 4.80 thou/uL (4.3-10.9) 04/15/23 06:04 Hgb 12.3 g/dL (12.0-15.0) 04/15/23 06:04 Hct 36.3 % (36.0-45.0) 04/15/23 06:04 Plt Count 322 thou/uL (152-406) 04/15/23 06:04 PT 10.4 SECONDS (9.5-12.5) 04/12/23 17:20 INR 0.95 04/12/23 17:20 APTT 32.5 SECONDS (24.3-36.9) 04/12/23 17:20 Sodium 137 mEq/L (136-145) 04/15/23 06:04 Potassium 3.3 mEq/L (3.5-5.1) L 04/15/23 06:04 BUN 4 mg/dL (7-18) L 04/15/23 06:04 Creatinine 0.42 mg/dL (0.55-1.02) L 04/15/23 06:04 Glucose 108 mg/dL (74-106) H 04/15/23 06:04 Phosphorus 1.7 mg/dL (2.5-4.9) L 04/15/23 06:04 Magnesium 1.9 mg/dL (1.6-2.4) 04/15/23 06:04 Total Bilirubin 0.3 mg/dL (0.2-1.0) 04/13/23 04:00 AST 16 U/L (15-37) 04/13/23 04:00 ALT 17 U/L (13-56) 04/13/23 04:00 Alkaline Phosphatase 50 U/L (45-117) 04/13/23 04:00 Lipase 16 U/L (13-75) 04/12/23 17:20 Home Medications: Alendronate Sodium 70 mg PO EVERY 7TH DAY 04/12/23 Duloxetine [Cymbalta *] 20 mg PO BID 04/12/23 Famotidine 40 mg PO BEDTIME 04/12/23 Gabapentin 1,200 mg PO TID 04/12/23 Levothyroxine Sodium 137 mcg PO [id number] 04/12/23 Metformin HCl 500 mg PO BID 04/12/23 Pantoprazole Sodium 40 mg PO DAILY 04/12/23 Simvastatin 40 mg PO BEDTIME 04/12/23 oxyBUTYnin chloride [Oxybutynin Chloride] 10 mg PO DAILY 04/12/23 Ciprofloxacin HCl 500 mg PO BID 7 Days #14 tab 04/15/23 Hydrocodone 5/APAP 325 [[place] 5/325*] 1 tab PO Q8H PRN 5 Days #15 tab 04/15/23 metroNIDAZOLE [Metronidazole] 500 mg PO Q8H 7 Days #21 tab 04/15/23 New Medications: Ciprofloxacin HCl 500 mg PO BID 7 Days #14 tab metroNIDAZOLE [Metronidazole] 500 mg PO Q8H 7 Days #21 tab Hydrocodone 5/APAP 325 [[place] 5/325*] 1 tab PO Q8H PRN 5 Days #15 tab PRN Reason: Pain Physician Discharge Instructions: Patient presented with right-sided abdominal pain. CT abdomen/pelvis both unremarkable. No acute abnormality seen. General surgery was consulted due to persistent and localized RLQ pain. Patient underwent diagnostic laparoscopy on 04/[address] Allen. Patient was found to have abnormal retroceal appendix, RLQ abd adhesions and an umbilical hernia during her procedure. Dr. Allen also performed a successful laparoscopic appendectomy, umbilical hernia repair (1.5 cm) and laparoscopic lysis of adhesions on 04/14. Patient is to complete 7 days of PO cipro / flagyl on discharge. Patient was monitored post operatively, feeling better and deemed stable for discharge home. On day of discharge patient's pain improved and was tolerating soft foods / liquids. Medications: ciprofloxacin / flagyl x7 days Pain medication as needed Follow up: PCP 3-[address] Allen in [address] Allen plans to remove JAQUELINE drain as outpatient in 1-2 weeks Followup: Shiv Champagne MD [Primary Care Provider] - Time spent managing pt's care (in minutes): 45
--- NOTE | 2023-04-15 11:04 | P.PN ---
Subjective Date of Service: 04/15/23 Chief Complaint: Abdominal pain Subjective: Tolerating diet, Improving Review of Systems General: Unremarkable Respiratory: Unremarkable Gastrointestinal: Nausea (no), Vomiting (no), No Distention Physical Examination - Vital Signs Temperature: 97.4 F Blood Pressure: 144/75 Pulse: 85 Respirations: 16 Pulse Ox (%): 98 - Physical Exam General: Alert, In no apparent distress, Oriented x3, Cooperative HEENT: PERRLA Neck: Supple Respiratory: Normal air movement Cardiovascular: No edema Gastrointestinal: Soft and benign, Other (JAQUELINE serosanguineous) Musculoskeletal: No tenderness, No warmth Assessment And Plan - Plan f/u my office one week JAQUELINE care explained ambulate PO abx Physician Review: Patient Assessed, Agree with Above Assessment and Plan
[2023-04-15 11:29] VITALS: O2SAT 98
[2023-04-15 13:32] VITALS: BP 149/76; TEMP 98.5
== END 2023-04-15 16:56 | disposition home or self-care (01) | DRG 337 ==
LOC: ER 16:52 → ERHOLD 18:56 → 4TH 19:27 → INTOOBSV 04-13 16:59 → OBSVTOIN 04-13 16:59
PROVIDERS: ADMIT Internal Medicine; ATTEND Hospitalist
PROC: 0DTJ4ZZ Resection of Appendix, Percutaneous Endoscopic Approach (ICD-10-PCS; 2023-04-14)
PROC: 0WQF3ZZ Repair Abdominal Wall, Percutaneous Approach (ICD-10-PCS; 2023-04-14)
PROC: 0DN83ZZ Release Small Intestine, Percutaneous Approach (ICD-10-PCS; principal; 2023-04-14 17:00)
DX: K35.80 Unspecified acute appendicitis (principal); E78.5 Hyperlipidemia, unspecified; K42.9 Umbilical hernia without obstruction or gangrene; E11.42 Type 2 diabetes mellitus with diabetic polyneuropathy; K21.9 Gastro-esophageal reflux disease without esophagitis; E11.40 Type 2 diabetes mellitus with diabetic neuropathy, unspecified; K66.0 Peritoneal adhesions (postprocedural) (postinfection); E78.00 Pure hypercholesterolemia, unspecified; Z88.0 Allergy status to penicillin; Z79.82 Long term (current) use of aspirin; Z79.84 Long term (current) use of oral hypoglycemic drugs; Z79.890 Hormone replacement therapy; Z79.899 Other long term (current) drug therapy; Z90.710 Acquired absence of both cervix and uterus
CPT/HCPCS: 36415; 71045; 74177; 80048; 80053; 81001; 82947; 83605; 83690; 83735; 84100; 85025; 85610; 85730; 87040; 87205; 88304; 93005; 96361; 96374; 96375; 99285; G0378; J0744; J1100; J1170; J1200; J2001; J2250; J2405; J2550; J2704; J2710; J3010; J7030; J7040; J7050; J7120; Q9967